=== PATIENT | female | born 1960 | race Caucasian/White ===

== ENCOUNTER 2022-04-25 02:23 | Inpatient (IN) | payer BC, SELFPAY ==
[2022-04-25] VITALS (8 sets, daily range): BP systolic 121–161; BP diastolic 60–78; PULSE 77–112; RESP 12–24; TEMP 36.2–37.9; O2SAT 94–100
--- NOTE | ~2022-04-25 | MR_ITS ---
EXAMINATION: MR hand RT wo/w con DATE: 04/26/2022 11:47 INDICATION: Right hand pain and swelling TECHNIQUE: Magnetic resonance imaging (MRI) of the right hand was performed without intravenous contr ast to include the metacarpals and digits. Sequences included axial, sagittal and coronal T1-weighted FSE and T2-weighted FS FSE, axial T1-weighted FS FSE and postcontrast axial, sagittal and coronal T1 -weighted FS FSE. COMPARISON: None FINDINGS: There is diffuse soft tissue edema and nonmasslike enhancement throughout the right hand. More focal fluid collection at the dorsum of the hand at the level of the metacarpals situated between the cutan eous vessels at the dorsum of the hand and the deeper extensor tendons of the hand. The fluid collect ion demonstrates peripheral enhancement without a relatively well-defined contiguous peripheral wall suggesting phlegmonous change without progressing to abscess formation. The fluid collection measures 3.6 similar proximal to distal, 4.7 cm medial collateral and 8 mm in thickness. Bone alignment is no rmal. Nonspecific small peripherally enhancing joint effusions at the radial aspect of the wrist join t palmar to the radial styloid process along the dorsal and radial margins of the scaphoid. Additiona l joint effusion with peripheral enhancement at the dorsal and volar recess of the third metacarpopha langeal joint where there appears to be joint space narrowing relative to the remaining metacarpophal angeal joints. There is also mild subarticular edema-like signal change at the head of the third meta carpal without associated enhancement or geographic loss of T1 marrow signal to more specifically sug gest osteomyelitis however this nonetheless raises concern for septic arthritis. Small amount of flui d signal and enhancement consistent with tenosynovitis along portions of the flexor tendons at the di gits and along the extensor tendons at the hand. Bone alignment is normal. No fracture. Normal bone m arrow signal aside from the previous noted mild edema at the head of the third metacarpal. IMPRESSION: 1. Extensive inflammatory changes in the soft tissues throughout the right hand most prominent over t he dorsum of the hand for surrounds a more discrete 4.7 x 3.6 x 0.8 cm fluid collection consistent wi thout an organized well-defined contiguous peripheral enhancing wall which suggests phlegmonous jo e progressing towards abscess formation. Differential would include hematoma in the appropriate clini keith setting or focal localized accumulation of severe edema. 2. Small joint effusion and associated enhancing synovitis at the third metacarpophalangeal joint whe re there is suggestion of some subtle joint space narrowing with subarticular edema-like signal jo e at the head of the third metacarpal which raises concern for septic arthritis. 3. Additional nonspecific small wrist joint effusion Reviewed, dictated and finalized at location A. YOLOGY TEACHER IMPRESSION: 1. Extensive inflammatory changes in the soft tissues throughout the right hand most prominent over the dorsum of the hand for surrounds a more discrete 4.7 x 3.6 x 0.8 cm fluid collection consistent without an organized well-defined con tiguous peripheral enhancing wall which suggests phlegmonous change progressing towards abscess formation. Differential would include hematoma in the appropri ate clinical setting or focal localized accumulation of severe edema. 2. Small joint effusion and associated enhancing synovitis at the third metacar pophalangeal joint where there is suggestion of some subtle joint space narrowi ng with subarticular edema-like signal change at the head of the third metacarp al which raises concern for septic arthritis. 3. Additional nonspecific small wrist joint effusi
--- NOTE | ~2022-04-25 | US_ITS ---
US renal BI DATE: 04/28/2022 10:00 INDICATION: Acute renal insufficiency TECHNIQUE: Real-time imaging of kidneys. And urinary bladder. COMPARISON: None FINDINGS: Right kidney measures approximately 11.3 cm length. Left kidney 11 cm. No renal mass lesion or hydronephrosis is evident. The urinary bladder is unremarkable. IMPRESSION: No significant abnormality Reviewed, dictated and finalized at Location A. Reviewed, dictated and finalized at location A. ARDI DEVELOPER IMPRESSION: No significant abnormality
--- NOTE | ~2022-04-25 | XR_ITS ---
EXAMINATION: XR knee LT 3V DATE: 04/27/2022 15:05 INDICATION: New onset erythema and edema at the left knee TECHNIQUE: Anteroposterior, oblique and lateral views of the left knee were obtained COMPARISON: None. FINDINGS: Alignment is normal. No fracture. Joint spaces are normal. No joint effusion/layering lipohemarthros is. Nonspecific mild stranding in the subcutaneous fat at the lateral aspect of the left knee. IMPRESSION: 1. No left knee joint effusion or osseous abnormality. Reviewed, dictated and finalized at location A. ING HAULER WEAVING
--- NOTE | ~2022-04-25 | XR_ITS ---
EXAMINATION: XR foot LT min 3V DATE: 04/25/2022 03:24 INDICATION: Left foot pain. TECHNIQUE: 4 views of left foot were obtained. COMPARISON: None. FINDINGS: Bone alignment is normal. No fracture. There is mild osteoarthritis of first metatarsophala ngeal joint. There is an enthesophyte at plantar aspect of calcaneal tuberosity. IMPRESSION: 1. Mild osteoarthritis of first metatarsophalangeal joint. Reviewed, dictated and finalized at location A. AGE PICK UP WORKER
--- NOTE | ~2022-04-25 | XR_ITS ---
EXAMINATION: XR hand RT min 3V DATE: 04/25/2022 03:24 INDICATION: Right hand pain and swelling. TECHNIQUE: 3 views of right hand were obtained. COMPARISON: None. FINDINGS: Bone alignment is normal. No fracture. There is mild osteoarthritis of first carpometacarpa l joint and second-fifth distal interphalangeal joints. IMPRESSION: 1. Mild polyarticular osteoarthritis. Reviewed, dictated and finalized at location A. WELDER
--- NOTE | ~2022-04-25 | US_ITS ---
EXAMINATION: US soft tissue LE LT DATE: 04/26/2022 11:59 INDICATION: Left foot swelling. TECHNIQUE: Multiple grayscale and Doppler ultrasound images of the left foot were obtained. COMPARISON: Left foot radiographs 04/25/22 FINDINGS: There is subcutaneous edema in the dorsum of left foot. There is focal tenosynovitis at the dorsum of left foot. IMPRESSION: 1. Subcutaneous edema in the dorsum of left foot. 2. Focal tenosynovitis at the dorsum of left foot. Reviewed, dictated and finalized at location A. ALLMENT DEALER
--- NOTE | ~2022-04-25 | MR_ITS ---
MRI of the left knee and left ankle Clinical history: Arthritis, effusion, swelling, cellulitis Technique: Coronal proton density and proton density-weighted images, sagittal proton-density and T2 fat-sat images, and axial proton-density fat-saturated images were acquired of the left knee. Followi ng intravenous administration of 17 cc MultiHance gadolinium, T1-weighted fat-sat imaging was perform ed in the axial, coronal, and sagittal planes. Axial T1-weighted, T2 fat-sat, T1 fat-sat images, sagittal T1-weighted and STIR images, and coronal T 1-weighted and T2 fat-sat images were acquired through the left ankle. Following intravenous administ ration of 17 cc MultiHance gadolinium, T1-weighted fat-sat imaging was performed in the axial, lee l, and sagittal planes. Left Knee Findings: Anterior and posterior cruciate ligaments are intact. Medial collateral ligament and the lateral collateral ligament complex are intact. Popliteus tendon is intact. Possible subtle horizontal tear of the posterior horn of the medial meniscus, however proton-density imaging was not performed. No lateral meniscal tear identified. Articular cartilage is well preserved throughout the knee. There is marrow edema extensively involvin g the inferior half of the patella, with possible area of loss of cortical definition at the medial p atellar pole. Remaining bone marrow signals are unremarkable. Extensor mechanism is intact. Moderate knee joint effusion present. Small Leigh cyst present. There i s subcutaneous soft tissue edema predominantly at the lateral aspect of the knee. There is edematous change involving the distalmost portion of the vastus lateralis muscle belly. There is soft tissue ed manda posterior to the distal femur, nonspecific. Postcontrast images demonstrate extensive enhancement of the synovial lining of the knee joint, which appears somewhat thickened. Left Ankle findings: Syndesmotic ligaments are intact. Anterior and posterior talofibular ligaments, and calcaneofibular ligament are intact. Deltoid ligament is intact. Medial flexor tendons, peroneal tendons, anterior extensor tendons, and Achilles tendon are intact. There is patchy marrow edema involving the inferior half of the talus, the anterior and mid portions of the calcaneus, the cuboid bone, navicular, and cuneiforms. No hypointense T1 marrow signal evident to suggest osteomyelitis however. There is mild degenerative change of the calcaneocuboid joint and naviculocuneiform articulation. Plantar fascia is intact. There is diffuse subcutaneous soft tissue edema about the ankle. Postcontra st images demonstrate enhancement of the synovium about the tibiotalar joint, as well as enhancement of the subcutaneous soft tissue edema about the ankle. Impression: Moderate left knee joint effusion with extensive synovial enhancement and thickening. Findings raise suspicion for septic arthritis. Knee joint aspiration should be strongly considered, especially if th ere is any clinical concern for septic arthritis. Extensive marrow edema of the inferior patella with probable area of loss of cortical integrity at th e medial pole. Findings suggest osteomyelitis of the patella. Possible subtle horizontal tear of the posterior horn of the medial meniscus. Soft tissue edema as well as edema of the distal vastus lateralis muscle belly, nonspecific. This cou ld reflect bland edema versus cellulitis/infectious myositis. Patchy marrow edema of the hindfoot and midfoot osseous structures, as detailed above, suggestive of stress response or other reactive marrow edema. No confluent hypodense T1 marrow signal about the ank le to suggest osteomyelitis. Soft tissue enhancement as well as enhancement of the synovium about the tibiotalar joint. Findings a re consistent with cellulitis. Associated septic arthritis of the tibiotalar joint
--- NOTE | ~2022-04-25 | US_ITS ---
EXAMINATION: US guide abscess drainage DATE: 04/30/2022 16:32 INDICATION: Left foot abscess TECHNIQUE: The procedure including the risks and benefits was discussed with the patient. Risks discussed includ ed bleeding and infection. The patient understood the risks and agreed to proceed. The skin overlying the medial malleolus of the left ankle was prepped and draped in usual sterile fashion. Anesthetic w as administered with 1% lidocaine subcutaneously. A 21-gauge needle was advanced under continuous ult rasound observation into a very hypoechoic region along the talus posterior tendon sheath at the leve l of the tip of the medial malleolus. No fluid was able to be aspirated. 1 mL of preservative-free st erile saline was then utilized to localize the tendon sheath which yielded slightly turbid yellowish- orange fluid which was sent to the lab for Gram stain, cultures and crystal analysis. A new 21-gauge needle was advanced into a very superficial subdermal fluid collection underlying the region of gena sh purple-colored skin discoloration which yielded only 0.1-0.2 mL of dark maroon-colored fluid likel y representing old blood. This was also sent to lab for Gram stain and cultures. The entry sites were cleaned and dressed. Post procedure ultrasound demonstrated no hemorrhage. FINDINGS: Ultrasound images demonstrate prominent hypoechoic subcutaneous edema over the medial side of the ank le with overlying 1 mm thick anechoic collection of subdermal fluid. There is small amount of hypoech ogenicity surrounding the tibialis posterior tendon initially indeterminant for synovitis versus flui d. Similar appearance to the extensor tendons over the dorsum of the foot however the small more anec hoic region of likely fluid previously seen in the region dorsal to the head of the talus was no long er present. Subsequent images demonstrate the needle advanced into the tibialis posterior tendon vazquez th for attempted unsuccessful aspiration of fluid and subsequent successful lavage and collection of lavage fluid. Final images demonstrate the needle tip within the very thin subdural fluid collection for additional aspiration. IMPRESSION: 1. Successful Ultrasound-guided lavage the region of synovitis along the tibialis posterior tendon sh eath which did not yield fluid on initial attempt at aspiration. 2. Successful ultrasound-guided aspiration of a minimal amount of dark maroon-colored likely old bloo d from a very thin subdermal fluid collection at the site of a reddish purple-colored skin discolorat ion at the medial left ankle. 3. Previously seen small collection of fluid along the extensor tendons at the dorsum of the foot was no longer present. Reviewed, dictated and finalized at location A. H PRECISION ASSEMBLER IMPRESSION: 1. Successful Ultrasound-guided lavage the region of synovitis along the tibial is posterior tendon sheath which did not yield fluid on initial attempt at aspi ration. 2. Successful ultrasound-guided aspiration of a minimal amount of dark maroon-c olored likely old blood from a very thin subdermal fluid collection at the site of a reddish purple-colored skin discoloration at the medial left ankle. 3. Previously seen small collection of fluid along the extensor tendons at the dorsum of the foot was no longer present.
--- NOTE | ~2022-04-25 | XR_ITS ---
EXAM: XR hand RT min 3V DATE: 05/08/2022 18:22 HISTORY: arthritis . COMPARISON: 04/25/2022. FINDINGS: Mildly decreased mineralization. No fracture or dislocation. No lytic or blastic lesion. M ild degenerative change in the DIP joints of the fingers, the trapeziometacarpal joint, and the third MCP joint. No erosion or periosteal change. Soft tissue swelling over the hand. IMPRESSION: Mild polyarticular osteoarthritis. Reviewed, dictated and finalized at location K. UMER SALES REPRESENTATIVE
--- NOTE | ~2022-04-25 | US_ITS ---
EXAMINATION: US venous doppler [facility] DATE: 04/26/2022 12:27 INDICATION: Left lower limb edema TECHNIQUE: Rajan scale images without and with compression and Doppler images of the left lower extrem ity veins were obtained. COMPARISON: None FINDINGS: The left common femoral vein, profunda femoral vein, femoral vein, popliteal vein, peroneal trunk, posterior tibial veins, and greater saphenous vein are patent. IMPRESSION: 1. Patent left lower extremity veins. No evidence of deep venous thrombosis. Reviewed, dictated and finalized at location B. EMISSION AUTOMOBILE DESIGNER
--- NOTE | ~2022-04-25 | US_ITS ---
EXAMINATION: US venous doppler UE RT DATE: 04/25/2022 15:10 INDICATION: Right upper limb swelling TECHNIQUE: Grayscale images without and with compression and Doppler images of the bilateral upper ex tremity veins were obtained. COMPARISON: None. FINDINGS: The right internal jugular vein, subclavian vein, axillary vein, brachial vein, basilic vein, cephali c vein, radial vein, and ulnar vein are patent. Marked subcutaneous edema along the volar aspect of t he right wrist and forearm. IMPRESSION: 1. Patent right upper extremity veins. No evidence of venous thrombosis. Reviewed, dictated and finalized at location A. TIFICATION AND RECORDS COMMANDER
--- NOTE | ~2022-04-25 | US_ITS ---
EXAMINATION: US_ABSCYSTIMG_US DATE: 04/29/2022 13:28 INDICATION: Right hand erythema with fluid collection at the dorsum of the hand on prior MRI. TECHNIQUE: The procedure including the risks and benefits was discussed with the patient. Risks discu ssed included bleeding and infection. The patient understood the risks and agreed to proceed. The sk in overlying the dorsum of the right hand was prepped and draped in usual sterile fashion. Anestheti c was administered with 1% lidocaine subcutaneously. A 21-gauge core biopsy needle was advanced under continuous ultrasound observation into a very hypoechoic region along the extensor digitorum longus tendon sheath at the level of the mid carpus and a trace amount of likely 0.1-0.2 mL of purulent appe aring opaque yellowish fluid was aspirated. The needle was removed, capped and along with the syringe sent to the lab. Subsequently a 25-gauge needle was advanced into the same region of the tendon vazquez th which was then lavaged with 1 mL of preservative-free sterile saline which was reaspirated and als o sent to the lab. The needle was removed and the entry site was cleaned and dressed. Post procedur e ultrasound demonstrated no hemorrhage. FINDINGS: Ultrasound images demonstrate prominent hypoechoic subcutaneous edema over the dorsum of th e hand without a discrete subcutaneous abscess to aspirate. Prominent hypoechoic synovitis along the extensor tendons at the dorsum of the hand with tiny more hypoechoic likely complex fluid collection. Subsequent images demonstrate the needle advanced into this tiny fluid collection which is decompres sed at the conclusion of the procedure. IMPRESSION: 1. Successful Ultrasound-guided aspiration of a small amount of fluid along the extensor digitorum te ndon sheath at the dorsum of the hand. 2. Successful ultrasound-guided lavage and aspiration of the previously drained portion of the tendon sheath. Reviewed, dictated and finalized at location A. ULATION REPRESENTATIVE IMPRESSION: 1. Successful Ultrasound-guided aspiration of a small amount of fluid along the extensor digitorum tendon sheath at the dorsum of the hand. 2. Successful ultrasound-guided lavage and aspiration of the previously drained portion of the tendon sheath.
[2022-04-25] MEDS: ACETAMINOPHEN 500 MG TABLET 1000 MG PO (03:11)
--- NOTE | 2022-04-25 03:15 | PC.NURSE ---
Pt c/o generalized body aches and malaise that she first noticed on Friday, and left foot/ankle pain/swelling, and right hand pain/swelling that she first noticed yesterday. Moderate swelling noted to right hand. She denies known injury. No obvious deformity noted. She did a home covid test which was negative and has been taking tylenol at home for discomfort. She denies fevers.
--- NOTE | 2022-04-25 03:28 | ED.EXTPRO ---
HPI - Extremity Problem General Chief complaint: Extremity Problem,Nontraumatic Stated complaint: R hand pain Time Seen by Provider: 04/25/22 03:02 History of Present Illness HPI Narrative: 61-year-old female presenting with 2 days of fevers and swelling to her right hand, and then slight swelling to her left foot. Denies any recent trauma, has not had history of this before, no history of gout though she states arthritis does run in the family. Related Data Home Medications Medication Instructions Recorded Confirmed calcium carbonate 500 mg calcium 500 mg PO DAILY 02/25/19 02/08/22 (1,250 mg) tablet (Calcium 500) alendronate 70 mg tablet 70 mg PO WEEKLY 01/06/20 04/25/22 cholecalciferol (vitamin D3) 50 50 mcg PO DAILY 01/06/20 02/08/22 mcg (2,000 unit) capsule ferrous sulfate 325 mg (65 mg 325 mg PO .2XWEEK 01/06/20 04/25/22 iron) tablet (Feosol) methimazole 5 mg tablet 2.5 mg PO DAILY 01/06/20 04/25/22 meloxicam 15 mg tablet 15 mg PO DAILY 02/08/22 04/25/22 calcium carbonate 600 mg-vitamin 1 cap PO DAILY 04/25/22 04/25/22 D3 10 mcg (400 unit) capsule Allergies Allergy/AdvReac Type Severity Reaction Status Date / Time losartan Allergy Unknown Unknown Verified 02/08/22 08:25 Review of Systems Review of Systems: CONST: Chills/fever HEENT: No sore throat C/V: No chest pain RESP: No cough GI: No nausea vomiting : No dysuria. M/S: Swelling and pain in right hand, left foot/ankle SKIN: Swelling right hand NEURO: [No headache or focal numbness or weakness] PSYCH: [No depression] [facility] Past Medical History Medical History Hypertension Hyperthyroidism Osteopenia after menopause Surgical History Surgical History H/O: hysterectomy History of ankle surgery Family History Family History Mother Family history of diabetes mellitus in first degree relative Father Patient's father is Acute myocardial infarction Sibling Hypertension Grandparent Cerebrovascular accident Other Family history of arthritis Family history of cardiovascular disease Family history of malignant neoplasm Social History Social History Smoking status: Never smoker Alcohol intake: current Exam Narrative: EXAMINATION OF ORGAN SYSTEMS/BODY AREAS: Constitutional: Vital signs per nursing GENERAL: Appears uncomfortable in bed HEAD: Normal with no signs of head trauma. EYES: EOMI, conjunctiva normal ENT: Hearing grossly intact LUNGS: Nonlabored breathing. HEART: Tachycardic ABD: No distention] EXT: Normal range of motion, severe swelling to dorsum of right hand, slight redness overlying some joints, however full non-painful range of motion of all fingers and wrist SKIN: [No rashes or lesions.] NEURO: [Alert and oriented x 3. No gross focal sensory or strength deficits.] PSYCH: Normal affect Course Vital Signs Vital signs: Vital Signs Temperature 97.5 F L 04/25/22 02:27 Pulse Rate 112 H 04/25/22 02:27 Respiratory Rate 18 04/25/22 02:27 Blood Pressure 130/60 04/25/22 02:27 Pulse Oximetry 98 04/25/22 02:27 Oxygen Delivery Room Air 04/25/22 02:27 Temperature 100.3 F H 04/25/22 05:25 Pulse Rate 85 04/25/22 05:25 Respiratory Rate 24 H 04/25/22 05:25 Blood Pressure 151/78 H 04/25/22 05:25 Pulse Oximetry 96 04/25/22 05:25 Oxygen Delivery Room Air 04/25/22 02:27 MDM - Extremity (Nontraumatic) MDM Narrative Medical decision making narrative: 61-year-old female presenting with nontraumatic right hand pain, vital signs notable for tachycardia, on evaluation she is quite uncomfortable, her right hand is extremely swollen and tender, though she is able to move with painless normal range of motion, and there are no joint effusions. I suspect gout versus
[2022-04-25] MEDS: KETOROLAC 15 MG/ML VIAL (*BKC) IV PUSH (03:38)
[2022-04-25] MEDS: LACTATED RINGERS 1,000 ML 999 ML IV CONT (03:40)
[2022-04-25 03:45] LABS: Basophils Percent Auto 0.4 % (0.2-1.2); Eosinophils Absolute Auto 0.1 K/mm3 (0-0.3); Eosinophils Percent Auto 0.7 % (0-4.4); Hematocrit 34.7 % (37.0-47.0); Hemoglobin 11.8 g/dL (12.0-15.0); Immature Granulocyte Absolute 0.16 K/mm3 (0.00-0.031); Immature Granulocyte Percent A 1.6 % (0-0.5); Immature Platelet Fraction Pct 12.3 % (0.9-11.2); Lymphocytes Absolute Auto 0.21 K/mm3 (0.9-3.2); Lymphocytes Percent Auto 2.2 % (18.3-44.2); Mean Corpuscular Hemoglobin 31.1 pg (26-34); Mean Corpuscular Volume 91.3 fl (80-100); Monocytes Absolute Auto 0.4 K/mm3 (0.1-0.6); Monocytes Percent Auto 4.2 % (2.6-8.5); Neutrophils Absolute Auto 8.9 K/mm3 (1.3-6.7); Neutrophils Percent Auto 90.9 % (45.5-73.1); Platelet Count Result 97 k/mm3 (150-375); Red Cell Distribution Width 11.8 % (11.5-14.5); White Blood Count 9.7 K/mm3 (4.5-10.0)
[2022-04-25 03:53] LABS: Influenza A QL RT-PCR Negative (Negative); Influenza B QL RT-PCR Negative (Negative); RSV RNA, RT-PCR Negative (Negative); SARS-CoV-2 RNA PCR Negative
[2022-04-25 03:58] LABS: Anion Gap 10 mmol/L (8-16); Blood Urea Nitrogen 27 mg/dL (7-17); CRP > 9.0 mg/dL (<1.0); Carbon Dioxide 24 mmol/L (22-30); Chloride 99 mmol/L (98-107); Estimated CRCL calculation 40 ml/min; Estimated Glomerular Filt Rate 38; Glucose 173 mg/dL (65-110); Potassium 3.5 mmol/L (3.4-5.0); Sodium 133 mmol/L (137-145)
[2022-04-25 04:11] LABS: Erythrocyte Sedimentation Rate 121 mm/hr (0-20)
[2022-04-25] MEDS: predniSONE 20 MG TABLET 40 MG PO (04:51)
[2022-04-25] MEDS: MORPHINE SULFATE (*CRX) 4 MG/ML INJ IV PUSH (04:51)
[2022-04-25] MEDS: SULFAMETHOXAZOLE/TRIMETHOPRIM 800/160 MG DS TABLET 1 TAB PO (04:51)
[2022-04-25] MEDS: ceFAZolin 2 GM/D5W 50 ML 2 GM/50 ML BAG IVPB (05:02)
[2022-04-25 05:38] LABS: Uric Acid 5.8 mg/dL (2.5-7.5)
[2022-04-25] MEDS: fentaNYL CITRATE INJ (*CRX) 100 MCG/2 ML VIAL 50 MCG IV PUSH (05:48)
--- NOTE | 2022-04-25 06:29 | PC.NURSE ---
Pt notified this RN that the swelling in her right hand is spreading up her arm. Site marked with pen and timed. Instructed pt to call RN if she notices swelling spreading past marking. Pt verbalized understanding.
--- NOTE | 2022-04-25 10:08 | ADMGEN ---
This patient, Tiffanie Chavez, was admitted to 3 Med Surg Room 304-01. Patient/family oriented to hospital policies and general routines including ID bracelet, bed and alarms, visiting hours, pain management, procedures, bathroom and other care routines, personal items, smoking policy, room service/diet, and visiting hours. Information on how to activate the Rapid Response Team has been discussed. Patient/Family are encouraged to report perceived risks to care and to ask questions if they do not understand what they are told or what they should do.
[2022-04-25] MEDS: lisinopriL 10 MG TABLET BY MOUTH (10:17)
--- NOTE | 2022-04-25 12:49 | PM.IMPN ---
Subjective Date/time seen: 04/25/22 12:49 Still complaining of right hand pain. Objective Data Vital Signs Vital Signs: Vital Signs - 24 hr 04/25/22 02:27 04/25/22 04:08 04/25/22 05:25 Temperature 97.5 F L 100.3 F H Pulse Rate 112 H 96 85 Respiratory Rate 18 20 24 H Blood Pressure 130/60 161/69 H 151/78 H Pulse Oximetry 98 100 96 Oxygen Delivery Room Air 04/25/22 06:30 04/25/22 06:54 04/25/22 08:33 Temperature 97.2 F L Pulse Rate 83 79 77 Respiratory Rate 20 20 18 Blood Pressure 140/64 140/64 131/63 Pulse Oximetry 98 97 95 Oxygen Delivery Intake/Output Intake/Output: Intake & Output 04/22/22 04/23/22 04/24/22 04/25/22 23:59 23:59 23:59 23:59 Intake Total 1640 Balance 1640 Meds/Results Medications: Active Medications Generic Name Dose Route Start Last Admin Trade Name Freq PRN Reason Stop Dose Admin Ferrous Sulfate 324 mg 04/27/22 08:00 Ferrous Sulfate 324 Mg Tablet PO TuSa@0800 CHRISTIAN Acetaminophen 1,000 mg in 100 mls @ 400 mls/hr 04/25/22 06:03 04/25/22 06:38 Ofirmev 1,000 Mg Ivpb IVPB 04/26/22 06:02 Infused Q6H PRN Infusion Mild Pain (1-3) or Fever Vancomycin HCl 1,250 mg in 250 mls @ 200 mls/hr 04/25/22 06:00 04/25/22 07:55 Vancomycin 1,250 Mg/D5w 250 Ml IVPB Infused Q24H CHRISTIAN Infusion Ketorolac Tromethamine 30 mg 04/25/22 06:03 Ketorolac 30 Mg/Ml Vial (*Bkc) IV PUSH 04/30/22 06:02 Q6H PRN Pain Rated 4-6 Lisinopril 10 mg 04/25/22 09:00 04/25/22 10:17 Lisinopril 10 Mg Tablet BY MOUTH 10 mg DAILY CHRISTIAN Administration Methimazole 2.5 Mg 1 each 04/25/22 09:00 04/25/22 10:17 Tablet (Nonformulary PO 1 each - Will Not Scan) DAILY CHRISTIAN Administration Radiology Results: ITS Impressions Hand X-Ray 04/25/22 06:49 IMPRESSION: 1. Mild polyarticular osteoarthritis. Foot X-Ray 04/25/22 06:50 IMPRESSION: 1. Mild osteoarthritis of first metatarsophalangeal joint. Labs Labs: Laboratory Results - last 24 hr 04/25/22 04/25/22 04/25/22 03:14 03:36 03:36 WBC 9.7 RBC 3.80 L Hgb 11.8 L Hct 34.7 L MCV 91.3 MCH 31.1 MCHC 34.0 RDW 11.8 Plt Count 97 L MPV 12.0 H Immature Gran % (Auto) 1.6 H Neut % (Auto) 90.9 H Lymph % (Auto) 2.2 L [place] % (Auto) 4.2 Eos % (Auto) 0.7 Baso % (Auto) 0.4 Lymph # (Auto) 0.21 L [place] # (Auto) 0.4 Eos # (Auto) 0.1 Baso # (Auto) 0.0 Abs Immat Gran (auto) 0.16 H Absolute Neuts (auto) 8.9 H Absolute Nucleated RBC 0.0 Nucleated RBC % 0.0 % Immature Plt Fraction 12.3 H ESR 121 H Sodium 133 L Potassium 3.5 Chloride 99 Carbon Dioxide 24 Anion Gap 10 BUN 27 H Creatinine 1.40 H Estim Creat Clear Calc 40 Estimated GFR 38 L Glucose 173 H Uric Acid Calcium 8.0 L C-Reactive Protein > 9.0 H Influenza A (RT-PCR) Negative Influenza B (RT-PCR) Negative RSV (RT-PCR) Negative SARS-CoV-2 RNA (RT-PCR) Negative 04/25/22 05:21 WBC RBC Hgb Hct MCV MCH MCHC RDW Plt Count MPV Immature Gran % (Auto) Neut % (Auto) Lymph % (Auto) [place] % (Auto) Eos % (Auto) Baso % (Auto) Lymph # (Auto) [place] # (Auto) Eos # (Auto) Baso # (Auto) Abs Immat Gran (auto) Absolute Neuts (auto) Absolute Nucleated RBC Nucleated RBC % % Immature Plt Fraction ESR Sodium Potassium Chloride Carbon Dioxide Anion Gap BUN Creatinine Estim Creat Clear Calc Estimated GFR Glucose Uric Acid 5.8 Calcium C-Reactive Protein Influenza A (RT-PCR) Influenza B (RT-PCR) RSV (RT-PCR) SARS-CoV-2 RNA (RT-PCR)
--- NOTE | 2022-04-25 12:54 | PM.IMHP ---
H&P: HPI History of Present Illness Date/Time: 04/25/22 12:54 Chief Complaint: 61-year-old female presenting with 2 days of fevers and swelling to her right hand, and then slight swelling to her left foot.? Denies any recent trauma, has not had history of this before, no history of gout though she states arthritis does run in the family. [facility] Past Medical History Medical History Hypertension Hyperthyroidism Osteopenia after menopause Surgical History Surgical History H/O: hysterectomy History of ankle surgery Family History Family History Mother Family history of diabetes mellitus in first degree relative Father Patient's father is Acute myocardial infarction Sibling Hypertension Grandparent Cerebrovascular accident Other Family history of arthritis Family history of cardiovascular disease Family history of malignant neoplasm Social History Social History Smoking status: Never smoker Alcohol intake: current Lack of Transportation: No Lack of Food: Never True Current Housing: I Have Housing Concerned About Future Housing: No Difficulty Paying Gas/Electric Bills: No Difficulty Paying for Meds: No Currently Unemployed: No Education: Bachelor's Degree Difficulty w/ Childcare or Family Care: No Spiritual care concerns: Yes (quaker) Meds Home Medications and Allergies Home Medications Medication Instructions Recorded Confirmed Type alendronate 70 mg tablet 70 mg PO WEEKLY 01/06/20 04/25/22 History ferrous sulfate 325 mg (65 mg 325 mg PO .2XWEEK 01/06/20 04/25/22 History iron) tablet (Feosol) methimazole 5 mg tablet 2.5 mg PO DAILY 01/06/20 04/25/22 History meloxicam 15 mg tablet 15 mg PO DAILY 02/08/22 04/25/22 History calcium carbonate 600 mg-vitamin 1 cap PO DAILY 04/25/22 04/25/22 History D3 10 mcg (400 unit) capsule lisinopril 10 mg tablet 10 mg PO DAILY 04/25/22 04/25/22 History Allergies Allergy/AdvReac Type Severity Reaction Status Date / Time losartan Allergy Unknown Unknown Verified 04/25/22 09:59 Vital Signs Vital Signs - 24 hr 04/25/22 02:27 04/25/22 04:08 04/25/22 05:25 Temperature 97.5 F L 100.3 F H Pulse Rate 112 H 96 85 Respiratory Rate 18 20 24 H Blood Pressure 130/60 161/69 H 151/78 H Pulse Oximetry 98 100 96 Oxygen Delivery Room Air 04/25/22 06:30 04/25/22 06:54 04/25/22 08:33 Temperature 97.2 F L Pulse Rate 83 79 77 Respiratory Rate 20 20 18 Blood Pressure 140/64 140/64 131/63 Pulse Oximetry 98 97 95 Oxygen Delivery Exam Narrative: General: alert and oriented Psych: appropriate mood nad affect Eyes: PERRLA Neck: Trachea midline, no new lesions Skin: no changes Lungs: CTA Cardiac: Normal S1,S2, no MGR ABD: soft, nd, nt, nbs Ext: no new lesions, no cce Vasc: Pulses intact H&P: Results Labs Labs: Short CBC 04/25/22 Range/Units 03:36 WBC 9.7 (4.5-10.0) K/mm3 Hgb 11.8 L (12.0-15.0) g/dL Hct 34.7 L (37.0-47.0) % Plt Count 97 L (150-375) k/mm3 [facility] 04/25/22 03:36 Sodium 133 L Potassium 3.5 Chloride 99 Carbon Dioxide 24 BUN 27 H Creatinine 1.40 H Glucose 173 H Calcium 8.0 L Assessment and Plan Assessment and plan (1) Cellulitis: Code(s): L03.90 - Cellulitis, unspecified Status: Acute Assessment and Plan: Continue IV antibiotics (2) GERD without esophagitis: Code(s): K21.9 - Gastro-esophageal reflux disease without esophagitis Status: Acute (3) Vitamin D deficiency: Code(s): E55.9 - Vitamin D deficiency, unspecified Status: Acute (4) Hypertension: Code(s): I10 - Essential (primary) hypertension Status: Acute Assessment and Plan: Continue ho
--- NOTE | 2022-04-25 12:57 | PM.CNOR ---
Assessment and Plan Assessment and plan (1) Hand swelling: Qualifiers: Laterality: right Qualified Code(s): M79.89 - Other specified soft tissue disorders Code(s): M79.89 - Other specified soft tissue disorders Status: Acute Assessment and Plan: History, exam and radiographs reviewed with the patient. Radiographs of the right hand reveal mild degenerative changes. Insert acute injury. Patient has significant swelling of the right hand extending to the proximal forearm. She does have active and passive range of motion of the hand without significant pain however it is limited due to the swelling. Mild erythema on the dorsum of the right hand between the 1st and 2nd finger. White blood cell count is normal. Elevated ESR and CRP. Uric acid is normal. Recommend ultrasound of the right upper extremity for further evaluation and to rule out a blood clot. Agree with IV antibiotics for possible cellulitis treatment. Monitor for compartment syndrome. Monitor neurovascular status. Elevate the right arm above the level heart. Ice hand. Will determine further plan of care pending Doppler results. (2) Cellulitis: Qualifiers: Site of cellulitis: extremity Site of cellulitis of extremity: upper extremity Laterality: right Qualified Code(s): L03.113 - Cellulitis of right upper limb Code(s): L03.90 - Cellulitis, unspecified Status: Acute Plan Reviewed labs, radiographs and assessment with attending physician and cisco consultant surgeon, Dr. Diez. Agrees with current plan as indicated above. No further recommendations at this time. History of Present Illness HPI Consult date: 04/25/22 Consult reason: joint pain Chief complaint: hand cellulitis vs gout Narrative: 61-year-old female presents to [facility] with right hand pain and swelling. Patient reports acute onset on Friday and worsening over Friday and Friday which prompted her arrival to the emergency room for further evaluation. She denies any known injury. She denies fever, chills, night sweats, nausea, vomiting or diarrhea. She denies past medical history of gout. Orthopedic consult requested by the hospitalist service for further evaluation Review of Systems Constitutional: Constitutional: Reports no additional constitutional complaints, Denies chills, Denies fatigue, Denies fever(s), Denies headache(s) and Denies weakness Eyes: Eyes: Denies change in vision ENT: Reports Normal hearing present and Denies headache(s) Cardiovascular: Cardiovascular: Denies chest pain and Denies dyspnea Respiratory: Respiratory: Denies cough, Denies dyspnea and Denies wheezing Gastrointestinal: Gastrointestinal: Denies constipation, Denies diarrhea, Denies nausea and Denies vomiting Genitourinary: Genitourinary: Denies hematuria, Denies dysuria and Denies urinary urgency Musculoskeletal: Musculoskeletal: Reports as per HPI, Denies numbness and Denies tingling Integumentary/Breasts: Skin/Breast: Reports as per HPI Neurologic: Reports as per HPI, Reports Normal hearing present, Denies headache(s), Denies numbness, Denies tingling and Denies weakness Psychiatric: Psychiatric: Reports no additional psychiatric complaints Endocrine: Endocrine: Reports no additional endocrine complaints and Denies fatigue Hematologic/Lymphatic: Hematologic/Lymphatic: Reports no additional hematologic/lymphatic complaints Allergic/Immunologic: Allergic/Immunologic: Reports no additional allergic/immunologic complaints and Denies wheezing PMFSH Past Medical History Medical History Hypertension Hyperthyroidism Osteopenia after menopause Surgical History Surgical History H/O: hysterectomy History of ankle surgery Family History Family History Mother Family history of diabetes
[2022-04-25] MEDS: SODIUM CHLORIDE 0.9% IV 1,000 ML 75 ML IV CONT (13:06)
[2022-04-25] MEDS: HYDROcodone/acetaminophen (*CRX) 5-325 MG TABLET 1 TAB PO (13:12)
[2022-04-26] MEDS: HYDROcodone/acetaminophen (*CRX) 5-325 MG TABLET 1 TAB PO ×4 (00:59→21:52)
[2022-04-26] MEDS: SODIUM CHLORIDE 0.9% IV 1,000 ML 75 ML IV CONT (02:31)
[2022-04-26 05:33] VITALS: BP 115/55; PULSE 80; RESP 16; TEMP 36.4; O2SAT 95
[2022-04-26 06:03] LABS: Basophils Absolute Auto 0.1 K/mm3 (0.0-0.1); Basophils Percent Auto 0.6 % (0.2-1.2); Hemoglobin 10.3 g/dL (12.0-15.0); Immature Granulocyte Absolute 0.06 K/mm3 (0.00-0.031); Immature Granulocyte Percent A 0.7 % (0-0.5); Immature Platelet Fraction Pct 15.4 % (0.9-11.2); Lymphocytes Percent Auto 5.5 % (18.3-44.2); Mean Corpuscular HGB Conc 34.3 g/dl (32-36); Mean Corpuscular Hemoglobin 31.5 pg (26-34); Mean Corpuscular Volume 91.7 fl (80-100); Mean Platelet Volume 13.3 fl (7.4-10.4); Monocytes Absolute Auto 0.5 K/mm3 (0.1-0.6); Monocytes Percent Auto 5.9 % (2.6-8.5); Neutrophils Absolute Auto 7.9 K/mm3 (1.3-6.7); Neutrophils Percent Auto 87.3 % (45.5-73.1); Platelet Count Result 98 k/mm3 (150-375); Red Blood Count 3.27 M/mm3 (4.2-5.4); White Blood Count 9.1 K/mm3 (4.5-10.0)
[2022-04-26 06:11] LABS: Anion Gap 6 mmol/L (8-16); Blood Urea Nitrogen 28 mg/dL (7-17); Calcium 7.1 mg/dL (8.4-10.2); Carbon Dioxide 25 mmol/L (22-30); Chloride 101 mmol/L (98-107); Estimated CRCL calculation 43 ml/min; Estimated Glomerular Filt Rate 42; Glucose 127 mg/dL (65-110); Potassium 3.4 mmol/L (3.4-5.0); Sodium 132 mmol/L (137-145)
[2022-04-26] MEDS: lisinopriL 10 MG TABLET BY MOUTH (08:54)
--- NOTE | 2022-04-26 09:53 | PM.PNORT ---
Progress Note: A&P Assessment and Plan (1) Acute kidney injury: Code(s): N17.9 - Acute kidney failure, unspecified Status: Acute Assessment and Plan: UA ordered (2) Hand swelling: Qualifiers: Laterality: right Qualified Code(s): M79.89 - Other specified soft tissue disorders Code(s): M79.89 - Other specified soft tissue disorders Status: Acute Assessment and Plan: Worsening of hand swelling today. Doppler negative for DVT. Given only minimal improvement with addition of IV antibiotics, recommended MRI of the right hand at this time for further evaluation. We will also check RA, BRAXTON and Anti-CCP. Elevate above the level of the heart. Ice. Continue IV antibiotics. (3) Foot swelling: Code(s): M79.89 - Other specified soft tissue disorders Status: Acute Assessment and Plan: Now with worsening of left foot swelling. Patient unable to undergo MRI of the right hand and left foot at the same time. We will start with soft tissue ultrasound of the dorsum of the left foot given ecchymosis and concern for hematoma. Weightbearing as tolerated. Pain control. Elevation. Plan Reviewed case with attending physician, Dr. Diez. Agrees with current plan as indicated above. Subjective Subjective Date/Time Seen: 04/26/22 09:53 Interval history: Patient with continued right hand pain and swelling. Now with increasing complaints of left foot pain and swelling. Fever overnight. Review of Systems Review of Systems: All systems reviewed & are unremarkable except as noted in HPI and below Exam Const: General: comfortable and no acute distress HENMT: Mouth: Yes moist mucous membranes Eyes: General: appearance normal, both eyes and all related structures Neck: Neck: supple and no JVD Resp: Effort & Inspection: normal respiratory effort Cardio: Rate: regular rate Rhythm: regular rhythm GI: Inspection: non-distended GI Palp: Yes Soft to palpation and No Tenderness to palpation present (GI) Neuro: General: gait normal Cognition (Neuro): normal cognition Speech: normal speech Extrem: Right upper extremity: elbow/forearm swelling and distal pulses intact; no ecchymosis and no crepitus, wrist swelling, abnormal ROM ( Limited due to swelling of the hand), radial pulse present 2+ and ulnar pulse present 2+; no crepitus and Extremity exam: right hand abnormal to inspection joint swelling, normal capillary refill, neurosensory exam normal, tendon exam normal of all digits, abnormal ROM of finger ( limited flexion and extension due to swelling however this is not painful.), warmth of the dorsal hand and swelling of the dorsal hand, of the palm, of the thumb, of the 2nd digit, of the 3rd digit, of the 4th digit and of the 5th digit; no abrasions, no lacerations, no crepitus, no foreign bodies and no puncture wound Left lower extremity: foot Details: normal capillary refill, tenderness Location: of the dorsal foot, abnormal ROM of toe Details: pain with active ROM Location: of all toes and pain with passive ROM of all toes, edema Location: of the dorsal foot, ecchymosis (dorsal foot ) and vascular exam Details: dorsalis pedis pulse present Psych: Mental Status: mental status grossly normal Affect: normal affect Objective Data Vital Signs Vital Signs: Vital Signs - 24 hr 04/25/22 14:34 04/25/22 20:00 04/25/22 21:25 Temperature 36.5 C 37.2 C Pulse Rate 83 90 Respiratory Rate 18 12 Blood Pressure 121/60 130/60 Pulse Oximetry 100 94 Oxygen Delivery Room Air 04/26/22 05:33 Temperature 36.4 C L Pulse Rate 80 Respiratory Rate 16 Blood Pressure 115/55 L Pulse Oximetry 95 Oxygen Delivery Intake/Output Intake/Output: Intake & Output 04/23/22 04/24/22 04/25/22 04/26/22 23:59 23:59 23:59 23:59 Intake Total 2280 1715 Balance 2280 1715 Meds/Results Medications: Active Medications Generic Name Dose Route Start Last Admin Trad
[2022-04-26 11:22] LABS: Rheumatoid Factor 13.7 IU/ML (<12)
--- NOTE | 2022-04-26 12:00 | PM.IMPN ---
Progress Note: A&P Assessment and Plan (1) Cellulitis: Qualifiers: Laterality: right Site of cellulitis: extremity Site of cellulitis of extremity: upper extremity Qualified Code(s): L03.113 - Cellulitis of right upper limb Code(s): L03.90 - Cellulitis, unspecified Status: Acute Assessment and Plan: Continue IV antibiotics Appreciate Ortho input Upper extremity ultrasound negative for DVT. MRI of the hand ordered by Ortho. Will get Doppler of left lower extremity Soft tissue ultrasound also ordered of the left lower extremity. (2) GERD without esophagitis: Code(s): K21.9 - Gastro-esophageal reflux disease without esophagitis Status: Acute (3) Vitamin D deficiency: Code(s): E55.9 - Vitamin D deficiency, unspecified Status: Acute (4) Hypertension: Code(s): I10 - Essential (primary) hypertension Status: Acute Assessment and Plan: Continue home medications. (5) Hyperthyroidism: Code(s): E05.90 - Thyrotoxicosis, unspecified without thyrotoxic crisis or storm Status: Acute (6) Acute kidney injury: Code(s): N17.9 - Acute kidney failure, unspecified Status: Acute Assessment and Plan: Likely related to NSAID exposure. Will start on IV fluids. Stop NSAIDs. Monitor creatinine Subjective Date/time seen: 04/26/22 12:00 Low-grade temp overnight. Still has swelling in right hand and left foot. Exam Narrative: General: alert and oriented Psych: appropriate mood nad affect Eyes: PERRLA Neck: Trachea midline, no new lesions Skin: no changes Lungs: CTA Cardiac: Normal S1,S2, no MGR ABD: soft, nd, nt, nbs Ext: no new lesions, no cce Vasc: Pulses intact Objective Data Vital Signs Vital Signs: Vital Signs - 24 hr 04/25/22 14:34 04/25/22 20:00 04/25/22 21:25 Temperature 97.7 F 99 F Pulse Rate 83 90 Respiratory Rate 18 12 Blood Pressure 121/60 130/60 Pulse Oximetry 100 94 Oxygen Delivery Room Air 04/26/22 05:33 04/26/22 08:55 Temperature 97.5 F L Pulse Rate 80 Respiratory Rate 16 Blood Pressure 115/55 L Pulse Oximetry 95 Oxygen Delivery Room Air Intake/Output Intake/Output: Intake & Output 04/23/22 04/24/22 04/25/2213/23 23:59 23:59 23:59 23:59 Intake Total 2280 1715 Balance 2280 1715 Meds/Results Medications: Active Medications Generic Name Dose Route Start Last Admin Trade Name Freq PRN Reason Stop Dose Admin Hydrocodone Bitart/Acetaminophen 1 tab 04/25/22 12:52 04/26/22 08:53 Hydrocodone/Acetaminophen (*Crx) 5-325 Mg Tablet PO 1 tab Q6H PRN Administration Pain Rated 4-6 Ferrous Sulfate 324 mg 04/27/22 08:00 Ferrous Sulfate 324 Mg Tablet PO [id number]@0800 CHRISTIAN Vancomycin HCl 1,250 mg in 250 mls @ 200 mls/hr 04/25/22 06:00 04/26/22 07:15 Vancomycin 1,250 Mg/D5w 250 Ml IVPB Infused Q24H CHRISTIAN Infusion Sodium Chloride 1,000 mls @ 75 mls/hr 04/25/22 12:55 04/26/22 02:31 Normal Saline Iv IV CONT 75 mls/hr .[id number] CHRISTIAN Administration Lisinopril 10 mg 04/25/22 09:00 04/26/22 08:54 Lisinopril 10 Mg Tablet BY MOUTH 10 mg DAILY CHRISTIAN Administration Methimazole 2.5 Mg 1 each 04/25/22 09:00 04/26/22 08:54 Tablet (Nonformulary PO 1 each - Will Not Scan) DAILY CHRISTIAN Administration Radiology Results: ITS Impressions Hand X-Ray 04/25/22 06:49 IMPRESSION: 1. Mild polyarticular osteoarthritis. Foot X-Ray 04/25/22 06:50 IMPRESSION: 1. Mild osteoarthritis of first metatarsophalangeal joint. Venous Doppler Study 04/25/22 15:18 IMPRESSION: 1. Patent right upper extremity veins. No evidence of venous thrombosis. Labs Labs: Laboratory Results - last 24 hr 04/26/22 04/26/22 04/26/22 05:25 05:25 10:19 WBC 9.1 RBC 3.27 L Hgb 10.3 L Hct 30.0 L MCV 91.7 MCH 31.5 MCHC 34.3 RDW 12.0 Plt Count 98 L MPV 13.3 H Immature Gran % (Auto) 0.7 H
[2022-04-26 13:14] LABS: Appearance Urine Cloudy (Clear); Bilirubin Urine Negative (Negative); Blood Urine 1+ (Negative); Color Urine Yellow (Yellow); Glucose Urine UA Negative (Negative); Ketones Urine Negative (Negative); Leukocyte Esterase Ur Trace LEU/UL (Negative); Nitrate Urine Negative (Negative); Protein Urine 2+ mg/dL (Negative); Specific Grav Ur 1.015 (1.001-1.035); Urobilinogen Urine 0.2 mg/dL (<2.0)
[2022-04-26 13:21] LABS: Bacteria Urine Trace /hpf; Mucus Urine Rare /lpf; Squamous Epithelial Cell Urine Many /hpf (Few); WBC Clumps Urine Present /HPF; WBC Urine 16-20 /hpf
[2022-04-26 13:26] LABS: Add Urine Microscopic? YES
[2022-04-26 14:00] VITALS: BP 106/53; PULSE 75; RESP 22; TEMP 35.9; O2SAT 100
[2022-04-26] MEDS: cefTRIAXone 2 GM in SODIUM CHLORIDE 0.9% IV 100 ML 200 ML IVPB (18:31)
--- NOTE | 2022-04-26 20:03 | WPDCN ---
Assessment and Plan Assessment and plan (1) Hand swelling: Qualifiers: Laterality: right Qualified Code(s): M79.89 - Other specified soft tissue disorders Code(s): M79.89 - Other specified soft tissue disorders Status: Acute Assessment and Plan: Not clear evidence of cellulitis or abscess. Hematoma is a differential in the forearm. I will review the MRI with radiologist tomorrow. An INR would be helpful Additional serology results will be helpful. Will make NPO for the a.m. in case condition clarifies over night. (2) Hyperthyroidism: Code(s): E05.90 - Thyrotoxicosis, unspecified without thyrotoxic crisis or storm Status: Acute Assessment and Plan: History of. [facility] Data of Consult Date/Time: 04/26/22 20:03 Requesting Physician: Lissette Curiel MD Primary Care Provider: Pasha Bojorquez, Consult Narrative Reason for consult: Swelling and Pain in right upper extremity, Left lower extremity. Narrative: Tiffanie Chavez is a 61 year old female Admitted 2 days ago with the above worsening complaints that started Friday, four days ago. No history of trauma or prior similar episode. She says she has been dizzy and unstable walking for several days. She is often thirsty at night. She has tested Neg for Covid. She had normal vital sign. She was hemodynamically stable. She had edema of the right hand and forearm. Some similar complaints in the left foot. Skin color was normal. Sensation was normal. She had active flexion and extension of digits, reduced somewhat by edema of the area from fingers to mid forearm. The extremity is abnormally warm compared to the left. There was some localized areas of tenderness and erythema near the dorsal 3rd MPJ. Most areas are tender to digital pressure. She was specifically questioned about history of gout, this was negative. She has an antiinflammatory medication at home that she uses for plantar fasciitis. She has been treated with a single dose of prednisone this admission I believe, and Pt thought it didn't help. Her WBC was in normal range but with neutrophilia. Hb is chronically low, but platelets are uncharacteristically low. (IPF suggests abnormal platelet destruction.) ESR and CRP moderately elevated. RF elevated other serology pending. Review of Systems Review of Systems: Alert, pleasant and very informative. Eating and drinking well. But then mentioned the dizziness Constitutional: Constitutional: Reports as per HPI Respiratory: Respiratory: Reports as per HPI Musculoskeletal: Musculoskeletal: Reports abnormal gait Neurologic: Reports system reviewed and no additional complaints, except as documented Psychiatric: Psychiatric: Reports no additional psychiatric complaints Endocrine: Endocrine: Reports polydipsia Hematologic/Lymphatic: Hematologic/Lymphatic: Reports no additional hematologic/lymphatic complaints Allergic/Immunologic: Allergic/Immunologic: Reports no additional allergic/immunologic complaints PMFSH Past Medical History Medical History Foot swelling Hypertension Hyperthyroidism Osteopenia after menopause Surgical History Surgical History H/O: hysterectomy History of ankle surgery Family History Family History Mother Family history of diabetes mellitus in first degree relative Father Patient's father is Acute myocardial infarction Sibling Hypertension Grandparent Cerebrovascular accident Other Family history of arthritis Family history of cardiovascular disease Family history of malignant neoplasm Social History Social History Smoking status: Never smoker Alcohol intake: current Lack of Transportation: No
[2022-04-26 21:50] VITALS: O2SAT 96
[2022-04-26 21:55] VITALS: BP 108/49; PULSE 78; RESP 12; TEMP 37.2; O2SAT 94
[2022-04-26 23:13] LABS: INR 1.2; Prothrombin Time 14.3 Seconds (11.1-14.7)
[2022-04-27] MEDS: HYDROcodone/acetaminophen (*CRX) 5-325 MG TABLET 1 TAB PO ×2 (04:47→12:59)
--- NOTE | 2022-04-27 05:17 | PC.NURSE ---
Patient rested well throughout night, however when patient goes more than right at 6 hours she is in excruciating pain. Patient is finding more and more difficult to maneuver around and to BR with that left foot. Patient states that it hurts more now than the hand. Patient medicated and cares met. Patient NPO after midnight per Dr. Edward's orders. Pending any further orders for plan of procedure/labs today. Will continue to monitor patient for any further changes.
[2022-04-27 05:59] LABS: Free T4 Free Thyroxine 2.03 ng/mL (0.78-2.19)
[2022-04-27 06:00] VITALS: BP 113/56; PULSE 79; RESP 14; TEMP 37.3; O2SAT 97
--- NOTE | 2022-04-27 08:05 | WPDPN ---
Progress Note: A&P Assessment and Plan (1) Sepsis: Code(s): A41.9 - Sepsis, unspecified organism Status: Acute Assessment and Plan: Blood cultures x2 pos for Group A Strep. Covered by current antibiotics. (2) Foot swelling: Code(s): M79.89 - Other specified soft tissue disorders Status: Acute Assessment and Plan: Appears to be reactive edema. No plan to explore in surgery. (3) Hand swelling: Qualifiers: Laterality: right Qualified Code(s): M79.89 - Other specified soft tissue disorders Code(s): M79.89 - Other specified soft tissue disorders Status: Acute Assessment and Plan: Appears to be reactive edema. No plan to explore in surgery at this time. Review MRI with radiologist. Plan Await morning lab data and rheumatoid serology. INR normal. Source of infection unclear. Is there a need to check for HIV? Time Spent With Patient Time with patient: 15 - 25 minutes Subjective Date/time seen: 04/27/22 08:05 Interval history: Pt feels tired. Still having problems with dizziness lewis when trying to ambulate. C/O severe pain in left foot when ambulating to bathroom. Review of Systems Review of Systems: Fatigue. Dizziness. Swelling in R UE to elbow. Swelling in left foot across ankle. Swelling and tenderness in left 1st MPJ. Exam Narrative: Temp 99.2. Alert and informative. Says she feels tired, about the same as yesterday. No specific area seems worst to her. R UE seems slightly less swollen today. R hand and forearm swollen and warm compared to arm or L UE. Color normal. Dorsal MPJs not as tender as yesterday. Three red 1 cm macules with slight epithelial slough in the area of the 3rd. No blisters. AROM about the same as yesterday. Limited by edema. Not tender in palm. So sign of flexor tenosynovitis. Active extension of fingers limited by edema. Extension of wrist close to normal. Slight tenderness to palpation over right wrist extensor retinaculum. Tender to pressure palpation in almost all areas of dorsal hand and forearm. Warm to touch. No blisters. Left foot and ankle remain edematous and tender to pressure palpation. Hurts to flex ankle. Tender and swelling with erythema at RIGHT 1st MT Objective Data Vital Signs Vital Signs: Vital Signs - 24 hr 04/26/22 08:55 04/26/22 14:00 04/26/22 21:55 Temperature 96.6 F L 98.9 F Pulse Rate 75 78 Respiratory Rate 22 H 12 Blood Pressure 106/53 L 108/49 L Pulse Oximetry 100 94 Oxygen Delivery Room Air 04/26/22 21:50 04/27/22 06:00 Temperature 99.2 F Pulse Rate 79 Respiratory Rate 14 Blood Pressure 113/56 L Pulse Oximetry 96 97 Oxygen Delivery Room Air Intake/Output Intake/Output: Intake & Output 04/24/22 04/25/22 04/26/22 04/27/22 23:59 23:59 23:59 23:59 Intake Total 2280 2615 300 Output Total 100 Balance 2280 2515 300 Reduced urine output. Meds/Results Medications: Active Medications Generic Name Dose Route Start Last Admin Trade Name Freq PRN Reason Stop Dose Admin Hydrocodone Bitart/Acetaminophen 1 tab 04/25/22 12:52 04/27/22 04:47 Hydrocodone/Acetaminophen (*Crx) 5-325 Mg Tablet PO 1 tab Q6H PRN Administration Pain Rated 4-6 Ferrous Sulfate 324 mg 04/27/22 08:00 Ferrous Sulfate 324 Mg Tablet PO TuSa@0800 CHRISTIAN Vancomycin HCl 1,250 mg in 250 mls @ 200 mls/hr 04/25/22 06:00 04/27/22 04:48 Vancomycin 1,250 Mg/D5w 250 Ml IVPB 100 mls/hr Q24H [facility]IAN Administration Ceftriaxone Sodium 2 gm/ 100 mls @ 200 mls/hr 04/26/22 17:00 04/26/22 18:31 Sodium Chloride IVPB 200 mls/hr DAILY@1600 [facility]IAN Administration Lisinopril 10 mg 04/25/22 09:00 04/26/22 08:54 Lisinopril 10 Mg Tablet BY MOUTH 10 mg DAILY [facility] Administration Methimazole 2.5 Mg 1 each 04/25/22 09:00 04/26/22 08:54 Tablet (Nonformulary PO 1 each - Will Not Scan) DAILY CHRISTIAN Administration Radiology Resu
[2022-04-27 08:54] LABS: Basophils Percent Auto 0.6 % (0.2-1.2); Eosinophils Percent Auto 0.1 % (0-4.4); Hematocrit 28.4 % (37.0-47.0); Hemoglobin 9.5 g/dL (12.0-15.0); Immature Granulocyte Absolute 0.06 K/mm3 (0.00-0.031); Immature Granulocyte Percent A 0.8 % (0-0.5); Immature Platelet Fraction Pct 13.8 % (0.9-11.2); Lymphocytes Absolute Auto 0.52 K/mm3 (0.9-3.2); Lymphocytes Percent Auto 7.3 % (18.3-44.2); Mean Corpuscular HGB Conc 33.5 g/dl (32-36); Mean Corpuscular Hemoglobin 30.8 pg (26-34); Mean Corpuscular Volume 92.2 fl (80-100); Mean Platelet Volume 13.2 fl (7.4-10.4); Monocytes Absolute Auto 0.4 K/mm3 (0.1-0.6); Neutrophils Absolute Auto 6.1 K/mm3 (1.3-6.7); Neutrophils Percent Auto 85.2 % (45.5-73.1); Platelet Count Result 102 k/mm3 (150-375); Red Blood Count 3.08 M/mm3 (4.2-5.4); Red Cell Distribution Width 12.6 % (11.5-14.5); White Blood Count 7.2 K/mm3 (4.5-10.0)
[2022-04-27 09:03] LABS: Anion Gap 6 mmol/L (8-16); Blood Urea Nitrogen 36 mg/dL (7-17); CRP > 27.0 mg/dL (<1.0); Calcium 7.2 mg/dL (8.4-10.2); Carbon Dioxide 23 mmol/L (22-30); Chloride 101 mmol/L (98-107); Estimated CRCL calculation 32 ml/min; Estimated Glomerular Filt Rate 29; Glucose 131 mg/dL (65-110); Potassium 3.2 mmol/L (3.4-5.0); Sodium 130 mmol/L (137-145)
--- NOTE | 2022-04-27 13:28 | PM.IMPN ---
Progress Note: A&P Assessment and Plan (1) Cellulitis: Qualifiers: Laterality: right Site of cellulitis: extremity Site of cellulitis of extremity: upper extremity Qualified Code(s): L03.113 - Cellulitis of right upper limb Code(s): L03.90 - Cellulitis, unspecified Status: Acute Assessment and Plan: Continue IV antibiotics Appreciate Ortho input Upper extremity ultrasound negative for DVT. MRI of the hand ordered by Ortho. Will get Doppler of left lower extremity Soft tissue ultrasound also ordered of the left lower extremity. (2) GERD without esophagitis: Code(s): K21.9 - Gastro-esophageal reflux disease without esophagitis Status: Acute (3) Vitamin D deficiency: Code(s): E55.9 - Vitamin D deficiency, unspecified Status: Acute (4) Hypertension: Code(s): I10 - Essential (primary) hypertension Status: Acute Assessment and Plan: Continue home medications. (5) Hyperthyroidism: Code(s): E05.90 - Thyrotoxicosis, unspecified without thyrotoxic crisis or storm Status: Acute (6) Acute kidney injury: Code(s): N17.9 - Acute kidney failure, unspecified Status: Acute Assessment and Plan: Likely related to NSAID exposure. Will start on IV fluids. Stop NSAIDs. Monitor creatinine Subjective Date/time seen: 04/27/22 13:28 No new complaints Exam Narrative: General: alert and oriented Psych: appropriate mood nad affect Eyes: PERRLA Neck: Trachea midline, no new lesions Skin: no changes Lungs: CTA Cardiac: Normal S1,S2, no MGR ABD: soft, nd, nt, nbs Ext: no new lesions, no cce Vasc: Pulses intact Objective Data Vital Signs Vital Signs: Vital Signs - 24 hr 04/26/22 14:00 04/26/22 21:55 04/26/22 21:50 Temperature 96.6 F L 98.9 F Pulse Rate 75 78 Respiratory Rate 22 H 12 Blood Pressure 106/53 L 108/49 L Pulse Oximetry 100 94 96 Oxygen Delivery Room Air 04/27/22 06:00 Temperature 99.2 F Pulse Rate 79 Respiratory Rate 14 Blood Pressure 113/56 L Pulse Oximetry 97 Oxygen Delivery Intake/Output Intake/Output: Intake & Output 04/24/22 04/25/22 04/26/22 04/27/22 23:59 23:59 23:59 23:59 Intake Total 2280 2615 540 Output Total 100 Balance 2280 2515 540 Meds/Results Medications: Active Medications Generic Name Dose Route Start Last Admin Trade Name Freq PRN Reason Stop Dose Admin Hydrocodone Bitart/Acetaminophen 1 tab 04/25/22 12:52 04/27/22 12:59 Hydrocodone/Acetaminophen (*Crx) 5-325 Mg Tablet PO 1 tab Q6H PRN Administration Pain Rated 4-6 Hydrocodone Bitart/Acetaminophen 1 tab 04/27/22 11:36 Hydrocodone/Acetaminophen (*Crx) 10-325 Mg Tablet PO Q6H PRN Pain Rated 7-10 Ferrous Sulfate 324 mg 04/27/22 08:00 Ferrous Sulfate 324 Mg Tablet PO TuSa@0800 CH[facility]IAN Vancomycin HCl 1,250 mg in 250 mls @ 200 mls/hr 04/25/22 06:00 04/27/22 04:48 Vancomycin 1,250 Mg/D5w 250 Ml IVPB 100 mls/hr Q24H [facility] Administration Ceftriaxone Sodium 2 gm/ 100 mls @ 200 mls/hr 04/26/22 17:00 04/26/22 18:31 Sodium Chloride IVPB 200 mls/hr DAILY@1600 [facility] Administration Lisinopril 10 mg 04/25/22 09:00 04/26/22 08:54 Lisinopril 10 Mg Tablet BY MOUTH 10 mg DAILY [facility] Administration Methimazole 2.5 Mg 1 each 04/25/22 09:00 04/26/22 08:54 Tablet (Nonformulary PO 1 each - Will Not Scan) DAILY [facility]IAN Administration Radiology Results: ITS Impressions Hand X-Ray 04/25/22 06:49 IMPRESSION: 1. Mild polyarticular osteoarthritis. Foot X-Ray 04/25/22 06:50 IMPRESSION: 1. Mild osteoarthritis of first metatarsophalangeal joint. Hand MRI 04/26/22 11:55 IMPRESSION: 1. Extensive inflammatory changes in the soft tissues throughout the right hand most prominent over the dorsum of the hand for surrounds a more discrete 4.7 x 3.6 x 0.8 cm fluid collection consistent without an organized well-defined contiguous periph
[2022-04-27 14:00] VITALS: BP 114/54; PULSE 76; RESP 16; TEMP 36.6; O2SAT 95
[2022-04-27] MEDS: FERROUS SULFATE 324 MG TABLET PO (14:27)
--- NOTE | 2022-04-27 15:28 | PM.PNORT ---
Progress Note: A&P Assessment and Plan (1) Hand swelling: Qualifiers: Laterality: right Qualified Code(s): M79.89 - Other specified soft tissue disorders Code(s): M79.89 - Other specified soft tissue disorders Status: Acute (2) Foot swelling: Code(s): M79.89 - Other specified soft tissue disorders Status: Acute (3) Swelling of left knee joint: Code(s): M25.462 - Effusion, left knee Status: Acute (4) Inflammatory arthritis: Code(s): M19.90 - Unspecified osteoarthritis, unspecified site Status: Acute Assessment and Plan: patient seen and examined. Confusing clinical presentation and physical exam. Etiology unclear. No associated white count and multiple distinct areas of swelling, unlikely cellulitis. History and clinical picture favor inflammatory arthritis. Patient does state feeling better today with less swelling. Continue IV antibiotics and observation. Subjective Subjective Date/Time Seen: 04/27/22 15:28 Principal diagnosis: Hand, foot swelling Interval history: patient states swelling improved today. Pain improved. Still has swelling in the right hand which yesterday was extending to the elbow. Swelling has receded somewhat more to the hand. Left foot swelling. Also complains of left knee redness which began yesterday. Minimal pain associated with the knee. Exam Const: General: comfortable and no acute distress Eyes: General: appearance normal, both eyes and all related structures Neck: Neck: normal visual inspection, supple and other ( Nontender) Resp: Effort & Inspection: normal respiratory effort GI: Inspection: non-distended GI Palp: Yes Soft to palpation and No Tenderness to palpation present (GI) Neuro: Cognition (Neuro): normal cognition Speech: normal speech Extrem: Right upper extremity: elbow/forearm swelling and distal pulses intact; no ecchymosis and no crepitus, wrist swelling, abnormal ROM ( Limited due to swelling of the hand), radial pulse present 2+ and ulnar pulse present 2+; no crepitus and Extremity exam: right hand abnormal to inspection joint swelling, normal capillary refill, neurosensory exam normal, tendon exam normal of all digits, abnormal ROM of finger ( limited flexion and extension due to swelling however this is not painful.), warmth of the dorsal hand and swelling of the dorsal hand, of the palm, of the thumb, of the 2nd digit, of the 3rd digit, of the 4th digit and of the 5th digit; no abrasions, no lacerations, no crepitus, no foreign bodies and no puncture wound Left lower extremity: knee Details: abnormal to inspection ( mild erythema anterior and lateral knee.), swelling ( Mild diffuse swelling) and normal ROM; no tenderness and foot Details: normal capillary refill, tenderness Location: of the dorsal foot, abnormal ROM of toe Details: pain with active ROM Location: of all toes and pain with passive ROM of all toes, edema Location: of the dorsal foot, ecchymosis (dorsal foot ) and vascular exam Details: dorsalis pedis pulse present Psych: Mental Status: mental status grossly normal Affect: normal affect Objective Data Vital Signs Vital Signs: Vital Signs - 24 hr 04/26/22 21:55 04/26/22 21:50 04/27/22 06:00 Temperature 98.9 F 99.2 F Pulse Rate 78 79 Respiratory Rate 12 14 Blood Pressure 108/49 L 113/56 L Pulse Oximetry 94 96 97 Oxygen Delivery Room Air 04/27/22 14:00 Temperature 97.9 F Pulse Rate 76 Respiratory Rate 16 Blood Pressure 114/54 L Pulse Oximetry 95 Oxygen Delivery Intake/Output Intake/Output: Intake & Output 04/24/22 04/25/22 04/26/22 04/27/22 23:59 23:59 23:59 23:59 Intake Total 2280 2615 780 Output Total 100 Balance 2280 2515 780 Meds/Results Medications: Active Medications Generic Name Dose Route Start Last Admin Trade Name Freq PRN Reason Stop Dose Admin Hydrocodone Bitart/Acetaminophen 1 tab 04/25/22 12:52 04/27/22 12:59 H
[2022-04-27] MEDS: cefTRIAXone 2 GM in SODIUM CHLORIDE 0.9% IV 100 ML 200 ML IVPB (21:34)
[2022-04-27] MEDS: HYDROcodone/acetaminophen (*CRX) 10-325 MG TABLET 1 TAB PO (21:43)
[2022-04-27 22:00] VITALS: BP 140/57; PULSE 92; RESP 18; TEMP 37.1; O2SAT 99
[2022-04-28] MEDS: HYDROcodone/acetaminophen (*CRX) 10-325 MG TABLET 1 TAB PO ×4 (03:30→22:00)
[2022-04-28 06:00] VITALS: BP 121/49; PULSE 66; RESP 18; TEMP 36.2; O2SAT 93
--- NOTE | 2022-04-28 06:24 | PC.NURSE ---
Patient resting quietly throughout night with change in pain regimen. Patient VSS and moving better with pain more manageable. Midline works well and draws and flushes without any difficulty. Patient denies any nausea or discomfort. Pharmacy notified of Trough of 9.0. Pharmacist to dose and tube up 1st dose of change as soon as possible. No further changes noted throughout the night.
--- NOTE | 2022-04-28 08:03 | PM.IMPN ---
Progress Note: A&P Assessment and Plan (1) Cellulitis: Qualifiers: Laterality: right Site of cellulitis: extremity Site of cellulitis of extremity: upper extremity Qualified Code(s): L03.113 - Cellulitis of right upper limb Code(s): L03.90 - Cellulitis, unspecified Status: Acute Assessment and Plan: Possible cellulitis versus some sort of arthropathy/autoimmune disease Will add some autoimmune test. Continue IV antibiotics Appreciate Ortho input Will also get echocardiogram. (2) GERD without esophagitis: Code(s): K21.9 - Gastro-esophageal reflux disease without esophagitis Status: Acute (3) Vitamin D deficiency: Code(s): E55.9 - Vitamin D deficiency, unspecified Status: Acute (4) Hypertension: Code(s): I10 - Essential (primary) hypertension Status: Acute Assessment and Plan: Continue home medications. (5) Hyperthyroidism: Code(s): E05.90 - Thyrotoxicosis, unspecified without thyrotoxic crisis or storm Status: Acute (6) Acute kidney injury: Code(s): N17.9 - Acute kidney failure, unspecified Status: Acute Assessment and Plan: Question etiology. May be related to autoimmune disease versus vancomycin exposure. Renal consult. Urine studies Renal ultrasound Subjective Date/time seen: 04/28/22 08:03 Question of new knee involvement. X-ray of left knee since yesterday unrevealing. Worsening creatinine. Exam Narrative: General: alert and oriented Psych: appropriate mood nad affect Eyes: PERRLA Neck: Trachea midline, no new lesions Skin: no changes Lungs: CTA Cardiac: Normal S1,S2, no MGR ABD: soft, nd, nt, nbs Ext: no new lesions, no cce Vasc: Pulses intact Const: General: cooperative, comfortable, no acute distress and alert Orientation/consciousness: patient oriented x3 HENMT: Head: normal to inspection Mouth: Yes moist mucous membranes Eyes: General: appearance normal, both eyes and all related structures Neck: Neck: normal visual inspection, supple, no JVD and other ( Nontender) Resp: Effort & Inspection: normal respiratory effort and able to speak in complete sentences Cardio: Rate: regular rate Rhythm: regular rhythm GI: Inspection: non-distended Skin: General skin exam: normal color Neuro: General: patient oriented x3, gait normal and Normal light touch and pain sensation Cranial nerves: Yes Normal hearing present Cognition (Neuro): normal cognition Speech: normal speech Extrem: Right upper extremity: normal capillary refill, edema, elbow/forearm swelling and distal pulses intact; no ecchymosis and no crepitus, wrist swelling, abnormal ROM ( Limited due to swelling of the hand), radial pulse present 2+ and ulnar pulse present 2+; no crepitus and Extremity exam: right hand abnormal to inspection joint swelling, normal capillary refill, neurosensory exam normal, tendon exam normal of all digits, abnormal ROM of finger ( limited flexion and extension due to swelling however this is not painful.), warmth of the dorsal hand and swelling of the dorsal hand, of the palm, of the thumb, of the 2nd digit, of the 3rd digit, of the 4th digit and of the 5th digit; no abrasions, no lacerations, no crepitus, no foreign bodies and no puncture wound Left lower extremity: edema, knee Details: abnormal to inspection ( mild erythema anterior and lateral knee.), swelling ( Mild diffuse swelling) and normal ROM; no tenderness, ankle Details: tenderness and foot Details: normal capillary refill, tenderness Location: of the dorsal foot, abnormal ROM of toe Details: pain with active ROM Location: of all toes and pain with passive ROM of all toes, edema Location: of the dorsal foot, ecchymosis (dorsal foot ) and vascular exam Details: dorsalis pedis pulse present Psych: Appearance: grossly normal Mental Status: mental status grossly normal Affect: normal affect Objective Data Vital Signs Vital Signs: Vital
[2022-04-28] MEDS: LACTATED RINGERS 1,000 ML 75 ML IV CONT ×2 (08:11→22:00)
[2022-04-28] MEDS: POTASSIUM CHLORIDE 20 MEQ TABLET 40 MEQ PO (08:22)
[2022-04-28 08:25] LABS: Rheumatoid Factor 15.2 IU/ML (<12)
[2022-04-28 10:37] LABS: Appearance Urine Clear (Clear); Bilirubin Urine Negative (Negative); Blood Urine Negative (Negative); Color Urine Yellow (Yellow); Glucose Urine UA Negative (Negative); Ketones Urine Negative (Negative); Leukocyte Esterase Ur Negative LEU/UL (Negative); Nitrate Urine Negative (Negative); Protein Urine Trace mg/dL (Negative); Urobilinogen Urine 0.2 mg/dL (<2.0)
[2022-04-28 10:38] LABS: Mucus Urine Rare /lpf; RBC Urine 0-2 /hpf (0-2); Squamous Epithelial Cell Urine Occasional /hpf (Few); WBC Urine 0-3 /hpf
[2022-04-28 10:45] LABS: Add Urine Microscopic? YES
[2022-04-28 11:02] LABS: Eosinophil Urine None Seen % (None Seen)
--- NOTE | 2022-04-28 11:48 | PM.CNNEP ---
Assessment and Plan Assessment and plan (1) Acute kidney injury: Code(s): N17.9 - Acute kidney failure, unspecified Status: Acute Assessment and Plan: the patient has a normal creatinine typically. On admission her creatinine was 1.4 and now it is up to 1.8. Because it was present on admission, it is likely that her infectious process in the right hand and foot is causing collateral damage in the kidneys. Perhaps this is ATN from infection. Patient also has pyuria and hematuria and so a UTI. UTIs can affect the kidneys as well. It is also possible that the infection started in the hand and has disseminated to the left foot and kidneys as a sort of hematogenous kidney/bladder infection. It is too early for her to have some sort of immune reaction due to infection. However she does have Graves disease which is an autoimmune disease. There is a remote possibility that she has some sort of autoimmune disease in her kidneys that has nothing to do with infection or maybe was stirred up by infection. I agree with looking an infectious labs. The patient was on meloxicam as well which can make the creatinine rise higher in the face of these issues. Hemodynamically she looks okay. At this point but gets serology, continue IV fluids and antibiotics. Things do not get better, reimaging of the kidneys to look for abscess might be a reasonable approach as well. Long discussion with the patient and the family (2) Sepsis: Code(s): A41.9 - Sepsis, unspecified organism Status: Acute Assessment and Plan: The patient has strep in her blood stream. She is on antibiotics. (3) Hypertension: Code(s): I10 - Essential (primary) hypertension Status: Acute Assessment and Plan: The patient has hypertension. The blood pressure Is well controlled. will hold lisinopril with the rising creatinine. (4) Inflammatory arthritis: Code(s): M19.90 - Unspecified osteoarthritis, unspecified site Status: Acute Assessment and Plan: Most likely infectious. Other inflammatory diseases are possible as well. Uric acid was normal. History of Present Illness Reason for Consult Consult date: 04/28/22 Chief Complaint Chief complaint: hand cellulitis vs gout History of Present Illness Narrative: Tiffanie is a very pleasant 61-year-old lady who has osteopenia, hypertension, arthritis, and Graves disease. Patient says she was well until Friday when she started getting swelling and pain in the right hand. Friday evening she started having pain in the left foot as well and on Friday she had swelling there as well. The swelling and pain continued to worsen so she came to the hospital on the . She did have low-grade fevers. She was seen in the hospital and felt to have infections of the foot and hand. Cultures were done antibiotics were started. At the redness and swelling worsened for a day or so but then have started receding. Her creatinine on admission was 1.4. Her former baseline was normal. Yesterday was about the same and today was higher so renal consultation was requested. She does not have a CT her a dog. Her mother had pneumonia around [place] time. The patient had a sore throat and hoarse voice around the new year but that got better. Patient has not had any new tattoos or any tattoos, no activities involving breaking of skin such as tool work etc.. she did take down [employer] decorations earlier this month but does not think she had any scrapes from that. She does have Graves disease. She has no other autoimmune diseases that she knows of. No other aches or pains that her usual. She does take meloxicam at home occasionally for pain. She does not smoke. She drinks 2 drinks per day normally but has more on weekends. Review of Systems Constitutional: Constitutional: Reports no additional constitutional complaints Eyes: E
[2022-04-28 12:59] LABS: Creatinine Urine 39.7 mg/dL; Total Protein Urine Random 36 mg/dL; Ur Ttl Prot Creatinine Ratio 0.91 mg/mg (0-0.20)
[2022-04-28 13:00] LABS: Sodium Urine Random < 5 meq/L
[2022-04-28 13:27] LABS: Creatine Kinase 48 U/L (30-135)
--- NOTE | 2022-04-28 13:34 | WPDPN ---
Progress Note: A&P Assessment and Plan (1) Sepsis: Code(s): A41.9 - Sepsis, unspecified organism Status: Acute Assessment and Plan: Strep bacteremia with possible lower lip portal, with mild temperature elevation, no hemodynamic compromise, only mild leukocytosis and mild elevation in inflammatory markers, dizziness, scattered sites of erythema, edema with pain, headache, vasculitis and possible renal involvement. No evidence of cellulitis or subcutaneous infection. Plan Nephrology to treat renal issues. Additional autoimmune serology has been ordered. Consider [facility] for IV antibiotic coverage for Strep bacteremia. Supportive care. Time Spent With Patient Time with patient: 15 - 25 minutes Subjective Date/time seen: 04/28/22 13:34 Interval history: Lengthy conversation with pt and daughter and . The lower lip skin lesions were discussed. They have been present more than a week. These do represent a possible portal for Strep. Pt says she still feels mild dizziness that is constant, not associated with head movement. She says her left knee feels better today. Right hand fingers and wrist move more freely today. She pointed to the increasing red petechial changes on the dorsum of her right hand. Also some on her left medial ankle. Says she eats , but does not feel hungry. Exam Narrative: Right UE shows increasing vasculitis of the dorsum,~1x2 cm., but otherwise decreased edema and improvement of movement. Left foot and ankle jean increased erythema and edema. Active movement limited by this. Painful to bear weight. Right 1st MTJ unchanged. WBC WNL. PLTs 102, CRP up yesterday. Nl T4. Radiologic workup normal with exception of subcutaneous swelling. Still awaiting more serologic data. Greatly appreciate Dr. Ruelas's input. Objective Data Vital Signs Vital Signs: Vital Signs - 24 hr 04/27/22 14:00 04/27/22 22:00 04/28/22 06:00 Temperature 97.9 F 98.8 F 97.1 F L Pulse Rate 76 92 66 Respiratory Rate 16 18 18 Blood Pressure 114/54 L 140/57 L 121/49 L Pulse Oximetry 95 99 93 Oxygen Delivery 04/28/22 08:20 Temperature Pulse Rate Respiratory Rate Blood Pressure Pulse Oximetry Oxygen Delivery Room Air Intake/Output Intake/Output: Intake & Output 04/25/22 04/26/22 04/27/22 04/28/22 23:59 23:59 23:59 23:59 Intake Total 2280 2715 1370 490 Output Total 100 700 Balance 2280 2615 1370 -210 Meds/Results Medications: Active Medications Generic Name Dose Route Start Last Admin Trade Name Freq PRN Reason Stop Dose Admin Hydrocodone Bitart/Acetaminophen 1 tab 04/25/22 12:52 04/27/22 12:59 Hydrocodone/Acetaminophen (*Crx) 5-325 Mg Tablet PO 1 tab Q6H PRN Administration Pain Rated 4-6 Hydrocodone Bitart/Acetaminophen 1 tab 04/27/22 11:36 04/28/22 09:13 Hydrocodone/Acetaminophen (*Crx) 10-325 Mg Tablet PO 1 tab Q6H PRN Administration Pain Rated 7-10 Ferrous Sulfate 324 mg 04/27/22 08:00 04/27/22 14:27 Ferrous Sulfate 324 Mg Tablet PO 324 mg TuSa@0800 CH[facility]STIAN Administration Ceftriaxone Sodium 2 gm/ 100 mls @ 200 mls/hr 04/26/22 17:00 04/27/22 21:34 Sodium Chloride IVPB 200 mls/hr DAILY@1600 [facility] Administration Vancomycin HCl 1,250 mg in 250 mls @ 200 mls/hr 04/28/22 06:00 04/28/22 07:58 Vancomycin 1,250 Mg/D5w 250 Ml IVPB Infused Q18H [facility]RI[facility]IAN Infusion Lactated Ringer's 1,000 mls @ 75 mls/hr 04/28/22 07:55 04/28/22 08:11 Lr - Lactated Ringers Iv IV CONT 75 mls/hr .[id number] CH[facility]STIAN Administration Lisinopril 10 mg 04/25/22 09:00 04/27/22 14:39 Lisinopril 10 Mg Tablet BY MOUTH Not Given DAILY [facility] Methimazole 2.5 Mg 1 each 04/25/22 09:00 04/28/22 08:23 Tablet (Nonformulary PO 1 each - Will Not Scan) DAILY CHRISTIAN Administration Perflutren Lipid Microsphere 0 ml 04/28/22 08:00 Perflutren Lipid Microspheres 1.5 Ml Vial Diluted To 10 Ml Total Volume IV
[2022-04-28 13:35] LABS: Complement C3 109 mg/dL (88-165)
[2022-04-28 13:59] VITALS: BP 136/57; PULSE 69; RESP 16; TEMP 36.4; O2SAT 97
[2022-04-28 14:00] LABS: Hepatitis B Surface Antigen Negative (Negative)
[2022-04-28 14:17] LABS: Hepatitis B Surface Anti Res Negative; Hepatitis C Virus Antibody Negative (Negative)
[2022-04-28 14:54] LABS: Alanine Aminotransferase 41 U/L (6-35); Albumin Level 2.8 g/dL (3.5-5.1); Alkaline Phosphatase 70 U/L (38-126); Anion Gap 4 mmol/L (8-16); Aspartate Amino Transferase 51 U/L (14-36); Bilirubin,Total 0.2 mg/dL (0.2-1.3); Blood Urea Nitrogen 30 mg/dL (7-17); Calcium 7.7 mg/dL (8.4-10.2); Carbon Dioxide 28 mmol/L (22-30); Chloride 97 mmol/L (98-107); Estimated CRCL calculation 38 ml/min; Estimated Glomerular Filt Rate 35; Glucose 111 mg/dL (65-110); Potassium 3.4 mmol/L (3.4-5.0); Sodium 129 mmol/L (137-145)
[2022-04-28] MEDS: cefTRIAXone 2 GM in SODIUM CHLORIDE 0.9% IV 100 ML 200 ML IVPB (15:57)
[2022-04-28 22:00] VITALS: BP 148/58; PULSE 87; RESP 16; TEMP 38.6; O2SAT 92
--- NOTE | 2022-04-29 | ECHO_ITS ---
Patient Info Name: Tiffanie Chavez Age: 61 years : 1960 Gender: Female Ht: 66 in Wt: 170 lbs BSA: 1.91 m2 HR: 77 bpm BP: 148 / 58 mmHg Technical Quality: Good Exam Date: 04/29/2022 1:50 PM Exam Location: [facility] Patient Status: Inpatient Admit Date: 04/26/2022 Staff Ordering Physician: Rene Denny MD Biology Adjunct Instructor: Rain Murray RDCS Attending Provider: Lissette Curiel MD Referring Physician: Eduin MENDEZ; Exam Type: CA echo doppler color flow Study Info Indications - BACTEREMIA Complete two-dimensional, color flow and Doppler transthoracic echocardiogram is performed. Summary 1. Complete two-dimensional, color flow and Doppler transthoracic echocardiogram is performed. 2. Left ventricular chamber dimension is normal. 3. Left ventricular systolic function is normal, estimated at 65-70%. 4. The left ventricular diastolic function is grade I diastolic dysfunction. 5. E/e' 12 is mildly elevated. 6. Global longitudinal strain is normal at -19.1%. 7. There is mild mitral valve regurgitation. 8. There is mild tricuspid valve regurgitation. 9. Mild pulmonary hypertension, estimated pulmonary arterial systolic pressure is 43 mmHg. Left Ventricle E/e' 12 is mildly elevated. Global longitudinal strain is normal at -19.1%. Left ventricular chamber dimension is normal. Left ventricular systolic function is normal, estimated at 65-70%. The left ventricular diastolic function is grade I diastolic dysfunction. Right Ventricle Right ventricular systolic function is normal and with normal TAPSE 3.3 cm. Right ventricular chamber dimension is normal. Left Atria Left atrial chamber dimension is normal. Right Atria Right atrial chamber dimension is normal. Aortic Valve The aortic valve is trileaflet. There is no aortic valve stenosis. There is no aortic valve regurgitation. No aortic valve vegetation visualized. Pulmonic Valve There is no pulmonic regurgitation. No pulmonic valve vegetation visualized. Mitral Valve There is no mitral valve stenosis. There is mild mitral valve regurgitation. No mitral valve vegetation visualized. Tricuspid Valve There is mild tricuspid valve regurgitation. Mild pulmonary hypertension, estimated pulmonary arterial systolic pressure is 43 mmHg. No tricuspid valve vegetation visualized. Pericardium/Pleural There is no pericardial effusion. Inferior Vena Cava Normal inferior vena cava with >50% collapse upon inspiration consistent with normal right atrial pressure, 5 mmHg. Aorta The aortic root size at the sinus of Valsalva is normal. Left Ventricular Outflow Tract Name Value Normal LVOT 2D LVOT Diameter 2.0 cm LVOT Doppler LVOT Peak Gradient 8 mmHg LVOT Mean Gradient 5 mmHg LVOT VTI 31 cm LVOT VTI/AV VTI Ratio 0.9 LVOT Stroke Volume 96 ml LVOT CO 6.6 l/min LVOT CI 3.5 l/min/m2 Pulmonic Valve
[2022-04-29] MEDS: HYDROcodone/acetaminophen (*CRX) 10-325 MG TABLET 1 TAB PO ×4 (04:19→21:21)
[2022-04-29 04:37] LABS: Albumin Level 2.6 g/dL (3.5-5.1); Anion Gap 2 mmol/L (8-16); Blood Urea Nitrogen 23 mg/dL (7-17); Calcium 7.6 mg/dL (8.4-10.2); Carbon Dioxide 29 mmol/L (22-30); Chloride 103 mmol/L (98-107); Estimated CRCL calculation 40 ml/min; Estimated Glomerular Filt Rate 38; Glucose 112 mg/dL (65-110); Phosphorus 5.2 mg/dL (2.5-4.5); Potassium 3.8 mmol/L (3.4-5.0); Sodium 134 mmol/L (137-145)
--- NOTE | 2022-04-29 05:21 | PC.NURSE ---
Patient resting quietly in bed. Voicing no complaints after pain meds . Patient tolerates activity fair with assistance and after pain medication. Patient had temp overnight before pain medication and Vanco but has been afebrile once medicated and several blankets removed. Patient otherwise remains stable and unchanged.
[2022-04-29 06:00] VITALS: BP 150/56; PULSE 72; RESP 16; TEMP 37.3; O2SAT 98
--- NOTE | 2022-04-29 09:04 | PM.PNORT ---
Progress Note: A&P Assessment and Plan (1) Hand swelling: Qualifiers: Laterality: right Qualified Code(s): M79.89 - Other specified soft tissue disorders Code(s): M79.89 - Other specified soft tissue disorders Status: Acute Assessment and Plan: Mild improvement. Now with bruising. Appreciate plastic surgery evaluation. Awaiting additional autoimmune serology at this time. No surgical plans from orthopedic or plastic surgery standpoint. Will defer treatment to plastics, medicine and nephrology. Will continue to follow peripherally if needs arise from an orthopedic standpoint. (2) Cellulitis: Qualifiers: Laterality: right Site of cellulitis: extremity Site of cellulitis of extremity: upper extremity Qualified Code(s): L03.113 - Cellulitis of right upper limb Code(s): L03.90 - Cellulitis, unspecified Status: Acute (3) Acute kidney injury: Code(s): N17.9 - Acute kidney failure, unspecified Status: Acute Assessment and Plan: Nephrology following. (4) Foot swelling: Code(s): M79.89 - Other specified soft tissue disorders Status: Acute (5) Swelling of left knee joint: Code(s): M25.462 - Effusion, left knee Status: Acute (6) Sepsis: Code(s): A41.9 - Sepsis, unspecified organism Status: Acute Assessment and Plan: Strep bacteremia. Unknown origin. Scattered sites of erythema and swelling. IV antibiotcs per medicine team. Nephrology following. (7) Inflammatory arthritis: Code(s): M19.90 - Unspecified osteoarthritis, unspecified site Status: Acute Plan Patient evaluated once again today. Per MD report, patient was seen on Friday by Dr. Diez and determined it was appropriate for a surgical work up from plastic surgery. Plastic surgery notes reviewed. No further recommendations from Dr. Diez at this time. Subjective Subjective Date/Time Seen: 04/29/22 09:04 Principal diagnosis: Hand, foot swelling Interval history: No new complaints today. Still with right hand, left knee and left foot swelling. Mild improvement in pain and swelling per patient. No new concerns aside from overall understanding of the underlying causes of her symptoms. Review of Systems Review of Systems: All systems reviewed & are unremarkable except as noted in HPI and below Exam Const: General: comfortable and no acute distress Eyes: General: appearance normal, both eyes and all related structures Neck: Neck: normal visual inspection, supple and other ( Nontender) Resp: Effort & Inspection: normal respiratory effort GI: Inspection: non-distended GI Palp: Yes Soft to palpation and No Tenderness to palpation present (GI) Neuro: Cognition (Neuro): normal cognition Speech: normal speech Extrem: Right upper extremity: elbow/forearm swelling and distal pulses intact; no ecchymosis and no crepitus, wrist swelling, abnormal ROM ( Limited due to swelling of the hand), radial pulse present 2+ and ulnar pulse present 2+; no crepitus and Extremity exam: right hand abnormal to inspection joint swelling, normal capillary refill, neurosensory exam normal, tendon exam normal of all digits, abnormal ROM of finger ( limited flexion and extension due to swelling however this is not painful.), warmth of the dorsal hand and swelling of the dorsal hand, of the palm, of the thumb, of the 2nd digit, of the 3rd digit, of the 4th digit and of the 5th digit; no abrasions, no lacerations, no crepitus, no foreign bodies and no puncture wound Left lower extremity: knee Details: abnormal to inspection ( mild erythema anterior and lateral knee.), swelling ( Mild diffuse swelling) and normal ROM; no tenderness and foot Details: normal capillary refill, tenderness Location: of the dorsal foot, abnormal ROM of toe Details: pain with active ROM Location: of all toes and pain with passive ROM of all toes, edema Location: of the dorsal foot, ecchymosi
[2022-04-29] MEDS: lisinopriL 10 MG TABLET BY MOUTH (10:03)
--- NOTE | 2022-04-29 11:19 | PM.IMPN ---
Progress Note: A&P Assessment and Plan (1) Cellulitis: Qualifiers: Laterality: right Site of cellulitis: extremity Site of cellulitis of extremity: upper extremity Qualified Code(s): L03.113 - Cellulitis of right upper limb Code(s): L03.90 - Cellulitis, unspecified Status: Acute Assessment and Plan: Possible cellulitis versus some sort of arthropathy/autoimmune disease Will add some autoimmune test. Continue IV antibiotics Appreciate Ortho input Will also get echocardiogram. (2) GERD without esophagitis: Code(s): K21.9 - Gastro-esophageal reflux disease without esophagitis Status: Acute (3) Vitamin D deficiency: Code(s): E55.9 - Vitamin D deficiency, unspecified Status: Acute (4) Hypertension: Code(s): I10 - Essential (primary) hypertension Status: Acute Assessment and Plan: Continue home medications. (5) Hyperthyroidism: Code(s): E05.90 - Thyrotoxicosis, unspecified without thyrotoxic crisis or storm Status: Acute (6) Acute kidney injury: Code(s): N17.9 - Acute kidney failure, unspecified Status: Acute Assessment and Plan: Question etiology. May be related to autoimmune disease versus vancomycin exposure. Renal consult. Urine studies Renal ultrasound noted Subjective Date/time seen: 04/29/22 11:19 No complaints Exam Narrative: General: alert and oriented Psych: appropriate mood nad affect Eyes: PERRLA Neck: Trachea midline, no new lesions Skin: no changes Lungs: CTA Cardiac: Normal S1,S2, no MGR ABD: soft, nd, nt, nbs Ext: no new lesions, redness and edema noted. no significant change Vasc: Pulses intact Objective Data Vital Signs Vital Signs: Vital Signs - 24 hr 04/28/22 13:59 04/28/22 22:00 04/29/22 06:00 Temperature 97.5 F L 101.5 F H 99.2 F Pulse Rate 69 87 72 Respiratory Rate 16 16 16 Blood Pressure 136/57 L 148/58 H 150/56 H Pulse Oximetry 97 92 98 Intake/Output Intake/Output: Intake & Output 04/26/22 04/27/22 04/28/22 04/29/22 23:59 23:59 23:59 23:59 Intake Total 2715 1470 2550 1320 Output Total 100 1150 Balance 2615 1470 1400 1320 Meds/Results Medications: Active Medications Generic Name Dose Route Start Last Admin Trade Name Adebayoq PRN Reason Stop Dose Admin Hydrocodone Bitart/Acetaminophen 1 tab 04/25/22 12:52 04/27/22 12:59 Hydrocodone/Acetaminophen (*Crx) 5-325 Mg Tablet PO 1 tab Q6H PRN Administration Pain Rated 4-6 Hydrocodone Bitart/Acetaminophen 1 tab 04/27/22 11:36 04/29/22 10:05 Hydrocodone/Acetaminophen (*Crx) 10-325 Mg Tablet PO 1 tab Q6H PRN Administration Pain Rated 7-10 Ferrous Sulfate 324 mg 04/27/22 08:00 04/27/22 14:27 Ferrous Sulfate 324 Mg Tablet PO 324 mg TuSa@0800 CHRISTIAN Administration Ceftriaxone Sodium 2 gm/ 100 mls @ 200 mls/hr 04/26/22 17:00 04/28/22 16:27 Sodium Chloride IVPB Infused DAILY@1600 CHRISTIAN Infusion Vancomycin HCl 1,250 mg in 250 mls @ 200 mls/hr 04/28/22 06:00 04/28/22 22:02 Vancomycin 1,250 Mg/D5w 250 Ml IVPB 250 mls/hr Q18H CHRISTIAN Administration Lactated Ringer's 1,000 mls @ 75 mls/hr 04/28/22 07:55 04/28/22 22:00 Lr - Lactated Ringers Iv IV CONT 75 mls/hr .[id number] CHRISTIAN Administration Lisinopril 10 mg 04/25/22 09:00 04/29/22 10:03 Lisinopril 10 Mg Tablet BY MOUTH 10 mg DAILY CHRISTIAN Administration Methimazole 2.5 Mg 1 each 04/25/22 09:00 04/29/22 10:03 Tablet (Nonformulary PO 1 each - Will Not Scan) DAILY CHRISTIAN Administration Perflutren Lipid Microsphere 0 ml 04/28/22 08:00 Perflutren Lipid Microspheres 1.5 Ml Vial Diluted To 10 Ml Total Volume IV PUSH 04/30/22 08:00 ONCE PRN adequate visualization Protocol Perflutren Lipid Microsphere 0 ml 04/28/22 08:00 Perflutren Lipid Microspheres 1.5 Ml Vial Diluted To 10 Ml Total Volume IV PUSH 04/30/22 08:01 ONCE PRN adequate visualization Protoc
[2022-04-29 11:21] LABS: Hematocrit 26.7 % (37.0-47.0); Hemoglobin 8.8 g/dL (12.0-15.0); Mean Corpuscular Hemoglobin 31.1 pg (26-34); Mean Corpuscular Volume 94.3 fl (80-100); Platelet Count Result 189 k/mm3 (150-375); Red Blood Count 2.83 M/mm3 (4.2-5.4); Red Cell Distribution Width 12.8 % (11.5-14.5); White Blood Count 9.5 K/mm3 (4.5-10.0)
--- NOTE | 2022-04-29 11:58 | P.PNNP_ITS ---
Progress Note: A&P Assessment and Plan (1) Acute kidney injury: Code(s): N17.9 - Acute kidney failure, unspecified Status: Acute Assessment and Plan: * improving by recent testing * creatinine peaked at 1.8mg/dl * suspect due to acute infection (right hand + left foot cellulitis) * possibly progressed to mild ATN * some worsening due to NSAID use (?) * evaluation to date: * renal ultrasound normal * urine electrolytes prerenal * CPK okay * urine eosinophils negative * interestingly, noted to have ~ 900mg of protein * continue current therapy * follow trend of repeat labs and UOP (2) Sepsis: Code(s): A41.9 - Sepsis, unspecified organism Status: Acute Assessment and Plan: * as noted by positive blood cultures (Strep) * right hand/leg foot felt to be likely source * on antibiotics * follow-up on Echo (3) Cellulitis of right hand: Code(s): L03.113 - Cellulitis of right upper limb Status: Acute Assessment and Plan: * as noted by clinical exam on admission * culture data noted * on antibiotics * Plastic Surgery following (4) Cellulitis of left foot: Code(s): L03.116 - Cellulitis of left lower limb Status: Acute Assessment and Plan: * also suggestive by clinical exam on presentation * see #3 (5) Hypertension: Code(s): I10 - Essential (primary) hypertension Status: Chronic Assessment and Plan: * reasonable control at this time * holding GENARO-I given #1 * follow trend of hemodynamics Will continue to follow. Subjective Date/time seen: 04/29/22 11:58 Chart reviewed -- assuming care from Dr. Ruelas; no acute complaints voiced at the time of my visit; still with some discomfort in right hand and left foot but no worsening noted. Exam Narrative: General: WD/WN Caucasin female in NAD Heart: normal S1 and S2; no rub Lungs: clear to auscultation Abdomen: soft, nontender, nondistended, positive bowel sounds Extremities: no cyanosis or clubbing'; right hand and left foot edema noted Skin: erythema noted in right hand/left foot Objective Data Vital Signs Vital Signs: Vital Signs Temp Pulse Resp BP Pulse Ox 04/29/22 06:00 99.2 F 72 16 150/56 H 98 04/28/22 22:00 101.5 F H 87 16 148/58 H 92 04/28/22 13:59 97.5 F L 69 16 136/57 L 97 Intake/Output Intake/Output: Intake & Output 04/26/22 04/27/22 04/28/22 04/29/22 23:59 23:59 23:59 23:59 Intake Total 2715 1470 2550 1320 Output Total 100 1150 Balance 2615 1470 1400 1320 Meds/Results Medications: Active Medications Generic Name Dose Route Start Last Admin Trade Name Freq PRN Reason Stop Dose Admin Hydrocodone Bitart/Acetaminophen 1 tab 04/25/22 12:52 04/27/22 12:59 Hydrocodone/Acetaminophen (*Crx) 5-325 Mg Tablet PO 1 tab Q6H PRN Administration Pain Rated 4-6 Hydrocodone Bitart/Acetaminophen 1 tab 04/27/22 11:36 04/29/22 10:05 Hydrocodone/Acetaminophen (*Crx) 10-325 Mg Tablet PO 1 tab Q6H PRN Administration Pain Rated 7-10 Ferrous Sulfate 324 mg 04/27/22 08:00 04/27/22 14:27 Ferrous Sulfate 324 Mg
--- NOTE | 2022-04-29 11:58 | PM.PNNEP ---
Progress Note: A&P Assessment and Plan (1) Acute kidney injury: Code(s): N17.9 - Acute kidney failure, unspecified Status: Acute Assessment and Plan: improving by recent testing creatinine peaked at 1.8mg/dl suspect due to acute infection (right hand + left foot cellulitis) possibly progressed to mild ATN some worsening due to NSAID use (?) evaluation to date: renal ultrasound normal urine electrolytes prerenal CPK okay urine eosinophils negative interestingly, noted to have ~ 900mg of protein continue current therapy follow trend of repeat labs and UOP (2) Sepsis: Code(s): A41.9 - Sepsis, unspecified organism Status: Acute Assessment and Plan: as noted by positive blood cultures (Strep) right hand/leg foot felt to be likely source on antibiotics follow-up on Echo (3) Cellulitis of right hand: Code(s): L03.113 - Cellulitis of right upper limb Status: Acute Assessment and Plan: as noted by clinical exam on admission culture data noted on antibiotics Plastic Surgery following (4) Cellulitis of left foot: Code(s): L03.116 - Cellulitis of left lower limb Status: Acute Assessment and Plan: also suggestive by clinical exam on presentation see #3 (5) Hypertension: Code(s): I10 - Essential (primary) hypertension Status: Chronic Assessment and Plan: reasonable control at this time holding GENARO-I given #1 follow trend of hemodynamics Will continue to follow. Subjective Date/time seen: 04/29/22 11:58 Chart reviewed -- assuming care from Dr. Ruelas; no acute complaints voiced at the time of my visit; still with some discomfort in right hand and left foot but no worsening noted. Exam Narrative: General: WD/WN Caucasin female in NAD Heart: normal S1 and S2; no rub Lungs: clear to auscultation Abdomen: soft, nontender, nondistended, positive bowel sounds Extremities: no cyanosis or clubbing'; right hand and left foot edema noted Skin: erythema noted in right hand/left foot Objective Data Vital Signs Vital Signs: Vital Signs Temp Pulse Resp BP Pulse Ox 04/29/22 06:00 99.2 F 72 16 150/56 H 98 04/28/22 22:00 101.5 F H 87 16 148/58 H 92 04/28/22 13:59 97.5 F L 69 16 136/57 L 97 Intake/Output Intake/Output: Intake & Output 04/26/22 04/27/22 04/28/22 04/29/22 23:59 23:59 23:59 23:59 Intake Total 2715 1470 2550 1320 Output Total 100 1150 Balance 2615 1470 1400 1320 Meds/Results Medications: Active Medications Generic Name Dose Route Start Last Admin Trade Name Freq PRN Reason Stop Dose Admin Hydrocodone Bitart/Acetaminophen 1 tab 04/25/22 12:52 04/27/22 12:59 Hydrocodone/Acetaminophen (*Crx) 5-325 Mg Tablet PO 1 tab Q6H PRN Administration Pain Rated 4-6 Hydrocodone Bitart/Acetaminophen 1 tab 04/27/22 11:36 04/29/22 10:05 Hydrocodone/Acetaminophen (*Crx) 10-325 Mg Tablet PO 1 tab Q6H PRN Administration Pain Rated 7-10 Ferrous Sulfate 324 mg 04/27/22 08:00 04/27/22 14:27 Ferrous Sulfate 324 Mg Tablet PO 324 mg TuSa@0800 CHRISTIAN Administration Ceftriaxone Sodium 2 gm/ 100 mls @ 200 mls/hr 04/26/22 17:00 04/28/22 16:27 Sodium Chloride IVPB Infused DAILY@1600 CH[facility]STIAN Infusion Vancomycin HCl 1,250 mg in 250 mls @ 200 mls/hr 04/28/22 06:00 04/28/22 22:02 Vancomycin 1,250 Mg/D5w 250 Ml IVPB 250 mls/hr Q18H CHRISTIAN Administration Lactated Ringer's 1,000 mls @ 75 mls/hr 04/28/22 07:55 04/28/22 22:00 Lr - Lactated Ringers Iv IV CONT 75 mls/hr .[id number] CHRISTIAN Administration Lisinopril 10 mg 04/25/22 09:00 04/29/22 10:03 Lisinopril 10 Mg Tablet BY MOUTH 10 mg DAILY CHRISTIAN Administration Methimazole 2.5 Mg 1 each 04/25/22 09:00 04/29/22 10:03 Tablet (Nonformulary PO 1 each - Will Not Scan) DAILY CHRISTIAN Administration Perflutren Lipid Microsphere 0 ml 04/28/22 08:
--- NOTE | 2022-04-29 12:19 | WPDPN ---
Subjective Date/time seen: 04/29/22 12:19 Exam Narrative: MRI and soft tissue ultrasounds reviewed with Dr Ramirez. There may be fluid mass of right hand and left foot from which additional information may be obtained by needle aspiration. This is scheduled for today. Since her bacteremia is Gp A Strep, I would think that Ancef would provide adequate antimicrobial coverage, sparing pt the exposure to Vanc and cost of Ceftriaxone. 1434 Hrs. Findings of needle aspiration of right wrist noted. Expecting lab results for GS, culture and crystal analysis. RF, C3,C4 all negative. Fluid aspirated from hand negative for crystals. Cx pending. WBC 9.5, Ser Gluc slightly elevated ~120 New blood cultures pending Objective Data Vital Signs Vital Signs: Vital Signs - 24 hr 04/28/22 13:59 04/28/22 22:00 04/29/22 06:00 Temperature 97.5 F L 101.5 F H 99.2 F Pulse Rate 69 87 72 Respiratory Rate 16 16 16 Blood Pressure 136/57 L 148/58 H 150/56 H Pulse Oximetry 97 92 98 Intake/Output Intake/Output: Intake & Output 04/26/22 04/27/22 04/28/22 04/29/22 23:59 23:59 23:59 23:59 Intake Total 2715 1470 2550 1320 Output Total 100 1150 Balance 2615 1470 1400 1320 Meds/Results Medications: Active Medications Generic Name Dose Route Start Last Admin Trade Name Freq PRN Reason Stop Dose Admin Hydrocodone Bitart/Acetaminophen 1 tab 04/25/22 12:52 04/27/22 12:59 Hydrocodone/Acetaminophen (*Crx) 5-325 Mg Tablet PO 1 tab Q6H PRN Administration Pain Rated 4-6 Hydrocodone Bitart/Acetaminophen 1 tab 04/27/22 11:36 04/29/22 10:05 Hydrocodone/Acetaminophen (*Crx) 10-325 Mg Tablet PO 1 tab Q6H PRN Administration Pain Rated 7-10 Ferrous Sulfate 324 mg 04/27/22 08:00 04/27/22 14:27 Ferrous Sulfate 324 Mg Tablet PO 324 mg TuSa@0800 CHRISTIAN Administration Ceftriaxone Sodium 2 gm/ 100 mls @ 200 mls/hr 04/26/22 17:00 04/28/22 16:27 Sodium Chloride IVPB Infused DAILY@1600 CHRISTIAN Infusion Vancomycin HCl 1,250 mg in 250 mls @ 200 mls/hr 04/28/22 06:00 04/28/22 22:02 Vancomycin 1,250 Mg/D5w 250 Ml IVPB 250 mls/hr Q18H CH[facility]STIAN Administration Lactated Ringer's 1,000 mls @ 75 mls/hr 04/28/22 07:55 04/28/22 22:00 Lr - Lactated Ringers Iv IV CONT 75 mls/hr .[id number] CHRISTIAN Administration Lisinopril 10 mg 04/25/22 09:00 04/29/22 10:03 Lisinopril 10 Mg Tablet BY MOUTH 10 mg DAILY CHRISTIAN Administration Methimazole 2.5 Mg 1 each 04/25/22 09:00 04/29/22 10:03 Tablet (Nonformulary PO 1 each - Will Not Scan) DAILY CHRISTIAN Administration Perflutren Lipid Microsphere 0 ml 04/28/22 08:00 Perflutren Lipid Microspheres 1.5 Ml Vial Diluted To 10 Ml Total Volume IV PUSH 04/30/22 08:00 ONCE PRN adequate visualization Protocol Perflutren Lipid Microsphere 0 ml 04/28/22 08:00 Perflutren Lipid Microspheres 1.5 Ml Vial Diluted To 10 Ml Total Volume IV PUSH 04/30/22 08:01 ONCE PRN adequate visualization Protocol Sodium Chloride 10 ml 04/29/22 14:00 Saline Lock Flush IV PUSH Q8HR CHRISTIAN Sodium Chloride 10 ml 04/29/22 06:46 Saline Lock Flush IV PUSH PRN PRN Flush Sodium Chloride 20 ml 04/29/22 06:46 Saline Lock Flush IV PUSH PRN PRN after blood draws Radiology Results: ITS Impressions Hand X-Ray 04/25/22 06:49 IMPRESSION: 1. Mild polyarticular osteoarthritis. Foot X-Ray 04/25/22 06:50 IMPRESSION: 1. Mild osteoarthritis of first metatarsophalangeal joint. Hand MRI 04/26/22 11:55 IMPRESSION: 1. Extensive inflammatory changes in the soft tissues throughout the right hand most prominent over the dorsum of the hand for surrounds a more discrete 4.7 x 3.6 x 0.8 cm fluid collection consistent without an organized well-defined contiguous peripheral enhancing wall which suggests phlegmonous change progressing towards abscess formation. Differential would include hematoma in the kane
[2022-04-29 13:55] LABS: Crystals Synovial Fluid None Seen (None Seen)
[2022-04-29 14:00] VITALS: BP 147/75; PULSE 66; RESP 14; TEMP 36.6; O2SAT 95
[2022-04-29] MEDS: LACTATED RINGERS 1,000 ML 75 ML IV CONT (15:56)
[2022-04-29] MEDS: cefTRIAXone 2 GM in SODIUM CHLORIDE 0.9% IV 100 ML 200 ML IVPB (15:56)
--- NOTE | 2022-04-29 19:45 | WPDPN ---
Progress Note: A&P Assessment and Plan (1) Cellulitis: Qualifiers: Laterality: right Site of cellulitis: extremity Site of cellulitis of extremity: upper extremity Qualified Code(s): L03.113 - Cellulitis of right upper limb Code(s): L03.90 - Cellulitis, unspecified Status: Acute Assessment and Plan: Edema, skin color changes, no apparent tissue necrosis. Small pus found in dorsal hand. Overall seems better. (2) Foot swelling: Code(s): M79.89 - Other specified soft tissue disorders Status: Acute Assessment and Plan: This area is worsening. Will speak to Dr Ramirez about possible similar testing with needle aspiration under [facility] Subjective Date/time seen: 04/29/22 19:45 Interval history: Part 2 of today's note. Exam Narrative: Pt in good spirits. very informative . Had a cardiac ECHO today (pending). Also a needle aspiration of right hand. Right UE less swollen tender and warm. Better AROM The lizzie discoloration over dorsum has increased a little. Not tender to digital pressure. Right 1st MT unchanged. Left knee appears as it did 3 days ago, seems normal. Left foot is more swollen, lizzie. Says it is excruciating to bear weight, but tolerates digital pressure into the edema. Objective Data Vital Signs Vital Signs: Vital Signs - 24 hr 04/28/22 22:00 04/29/22 06:00 04/29/22 14:00 Temperature 101.5 F H 99.2 F 97.9 F Pulse Rate 87 72 66 Respiratory Rate 16 16 14 Blood Pressure 148/58 H 150/56 H 147/75 H Pulse Oximetry 92 98 95 Intake/Output Intake/Output: Intake & Output 04/26/22 04/27/22 04/28/22 04/29/22 23:59 23:59 23:59 23:59 Intake Total 2715 1470 2800 2820 Output Total 100 1150 Balance 2615 1470 1650 2820 Meds/Results Medications: Active Medications Generic Name Dose Route Start Last Admin Trade Name Freq PRN Reason Stop Dose Admin Hydrocodone Bitart/Acetaminophen 1 tab 04/25/22 12:52 04/27/22 12:59 Hydrocodone/Acetaminophen (*Crx) 5-325 Mg Tablet PO 1 tab Q6H PRN Administration Pain Rated 4-6 Hydrocodone Bitart/Acetaminophen 1 tab 04/29/22 17:39 Hydrocodone/Acetaminophen (*Crx) 10-325 Mg Tablet PO Q4H PRN Pain Rated 7-10 Ferrous Sulfate 324 mg 04/27/22 08:00 04/27/22 14:27 Ferrous Sulfate 324 Mg Tablet PO 324 mg TuSa@0800 [facility] Administration Ceftriaxone Sodium 2 gm/ 100 mls @ 200 mls/hr 04/26/22 17:00 04/29/22 15:56 Sodium Chloride IVPB 200 mls/hr DAILY@1600 [facility] Administration Vancomycin HCl 1,250 mg in 250 mls @ 200 mls/hr 04/28/22 06:00 04/29/22 17:38 Vancomycin 1,250 Mg/D5w 250 Ml IVPB 250 mls/hr Q18H [facility] Administration Lactated Ringer's 1,000 mls @ 75 mls/hr 04/28/22 07:55 04/29/22 15:56 Lr - Lactated Ringers Iv IV CONT 75 mls/hr .[id number] [facility] Administration Lisinopril 10 mg 04/25/22 09:00 04/29/22 10:03 Lisinopril 10 Mg Tablet BY MOUTH 10 mg DAILY [facility] Administration Methimazole 2.5 Mg 1 each 04/25/22 09:00 04/29/22 10:03 Tablet (Nonformulary PO 1 each - Will Not Scan) DAILY [facility] Administration Perflutren Lipid Microsphere 0 ml 04/28/22 08:00 Perflutren Lipid Microspheres 1.5 Ml Vial Diluted To 10 Ml Total Volume IV PUSH 04/30/22 08:00 ONCE PRN adequate visualization Protocol Perflutren Lipid Microsphere 0 ml 04/28/22 08:00 Perflutren Lipid Microspheres 1.5 Ml Vial Diluted To 10 Ml Total Volume IV PUSH 04/30/22 08:01 ONCE PRN adequate visualization Protocol Sodium Chloride 10 ml 04/29/22 14:00 04/29/22 17:40 Saline Lock Flush IV PUSH Not Given Q8HR [facility] Sodium Chloride 10 ml 04/29/22 06:46 Saline Lock Flush IV PUSH PRN PRN Flush Sodium Chloride 20 ml 04/29/22 06:46 Saline Lock Flush IV PUSH PRN PRN after blood draws Radiology Results: ITS Impressions Hand X-Ray 04/25/22 06:49 IMPRESSION: 1. Mild polyarticular osteoarthritis.
[2022-04-29 22:00] VITALS: BP 162/60; PULSE 83; RESP 14; TEMP 36.7; O2SAT 97
[2022-04-30] MEDS: HYDROcodone/acetaminophen (*CRX) 10-325 MG TABLET 1 TAB PO ×5 (01:24→19:01)
[2022-04-30] MEDS: LACTATED RINGERS 1,000 ML 75 ML IV CONT (01:25)
[2022-04-30 06:00] VITALS: BP 160/44; PULSE 74; RESP 14; TEMP 36.3; O2SAT 90
--- NOTE | 2022-04-30 06:38 | PC.NURSE ---
Dr. Edward called and spoke with recharger ordering this patient to be made NPO as of now. This RN went in and took aware patient's beverages and informed her of his orders. Patient voicing no other questions or complaints.
[2022-04-30] MEDS: lisinopriL 10 MG TABLET BY MOUTH (08:47)
[2022-04-30 11:20] LABS: Basophils Absolute Auto 0.1 K/mm3 (0.0-0.1); Basophils Percent Auto 0.5 % (0.2-1.2); Eosinophils Absolute Auto 0.1 K/mm3 (0-0.3); Eosinophils Percent Auto 0.9 % (0-4.4); Hematocrit 26.6 % (37.0-47.0); Hemoglobin 8.6 g/dL (12.0-15.0); Immature Granulocyte Absolute 0.64 K/mm3 (0.00-0.031); Lymphocytes Absolute Auto 0.93 K/mm3 (0.9-3.2); Lymphocytes Percent Auto 10.2 % (18.3-44.2); Mean Corpuscular HGB Conc 32.3 g/dl (32-36); Mean Corpuscular Hemoglobin 31.2 pg (26-34); Mean Corpuscular Volume 96.4 fl (80-100); Mean Platelet Volume 10.7 fl (7.4-10.4); Monocytes Absolute Auto 0.9 K/mm3 (0.1-0.6); Monocytes Percent Auto 9.8 % (2.6-8.5); Neutrophils Absolute Auto 6.5 K/mm3 (1.3-6.7); Neutrophils Percent Auto 71.6 % (45.5-73.1); Platelet Count Result 221 k/mm3 (150-375); Red Blood Count 2.76 M/mm3 (4.2-5.4); Red Cell Distribution Width 12.9 % (11.5-14.5); White Blood Count 9.1 K/mm3 (4.5-10.0)
[2022-04-30 11:32] LABS: Albumin Level 2.5 g/dL (3.5-5.1); Anion Gap 4 mmol/L (8-16); Blood Urea Nitrogen 15 mg/dL (7-17); Calcium 7.5 mg/dL (8.4-10.2); Carbon Dioxide 29 mmol/L (22-30); Chloride 105 mmol/L (98-107); Estimated CRCL calculation 51 ml/min; Estimated Glomerular Filt Rate 51; Glucose 95 mg/dL (65-110); Phosphorus 4.8 mg/dL (2.5-4.5); Potassium 3.9 mmol/L (3.4-5.0); Sodium 138 mmol/L (137-145)
--- NOTE | 2022-04-30 11:45 | PM.IMPN ---
Progress Note: A&P Assessment and Plan (1) Cellulitis: Qualifiers: Laterality: right Site of cellulitis: extremity Site of cellulitis of extremity: upper extremity Qualified Code(s): L03.113 - Cellulitis of right upper limb Code(s): L03.90 - Cellulitis, unspecified Status: Acute Assessment and Plan: Possible cellulitis versus some sort of arthropathy/autoimmune disease Will add some autoimmune test. Some labs are pending. Continue IV antibiotics Appreciate Ortho and plastics and put Plan for possible surgical debridement. Will also get echocardiogram. (2) GERD without esophagitis: Code(s): K21.9 - Gastro-esophageal reflux disease without esophagitis Status: Acute Assessment and Plan: No symptoms (3) Vitamin D deficiency: Code(s): E55.9 - Vitamin D deficiency, unspecified Status: Acute (4) Hypertension: Code(s): I10 - Essential (primary) hypertension Status: Acute Assessment and Plan: Continue home medications. (5) Hyperthyroidism: Code(s): E05.90 - Thyrotoxicosis, unspecified without thyrotoxic crisis or storm Status: Acute (6) Acute kidney injury: Code(s): N17.9 - Acute kidney failure, unspecified Status: Acute Assessment and Plan: Question etiology. May be related to autoimmune disease versus vancomycin exposure. Renal consult. Urine studies Renal ultrasound noted Subjective Date/time seen: 04/30/22 11:45 No complaints Exam Narrative: General: alert and oriented Psych: appropriate mood nad affect Eyes: PERRLA Neck: Trachea midline, no new lesions Skin: no changes Lungs: CTA Cardiac: Normal S1,S2, no MGR ABD: soft, nd, nt, nbs Ext: no new lesions, redness and edema noted. no significant change Vasc: Pulses intact Objective Data Vital Signs Vital Signs: Vital Signs - 24 hr 04/29/22 14:00 04/29/22 22:00 04/30/22 06:00 Temperature 97.9 F 98.1 F 97.3 F L Pulse Rate 66 83 74 Respiratory Rate 14 14 14 Blood Pressure 147/75 H 162/60 H 160/44 H Pulse Oximetry 95 97 90 Oxygen Delivery 04/30/22 08:45 Temperature Pulse Rate Respiratory Rate Blood Pressure Pulse Oximetry Oxygen Delivery Room Air Intake/Output Intake/Output: Intake & Output 04/27/22 04/28/22 04/29/22 01/17/23 23:59 23:59 23:59 23:59 Intake Total 1470 2800 2820 2100 Output Total 1150 Balance 1470 1650 2820 2100 Meds/Results Medications: Active Medications Generic Name Dose Route Start Last Admin Trade Name Freq PRN Reason Stop Dose Admin Hydrocodone Bitart/Acetaminophen 1 tab 04/25/22 12:52 04/27/22 12:59 Hydrocodone/Acetaminophen (*Crx) 5-325 Mg Tablet PO 1 tab Q6H PRN Administration Pain Rated 4-6 Hydrocodone Bitart/Acetaminophen 1 tab 04/29/22 17:39 04/30/22 10:05 Hydrocodone/Acetaminophen (*Crx) 10-325 Mg Tablet PO 1 tab Q4H PRN Administration Pain Rated 7-10 Ferrous Sulfate 324 mg 04/27/22 08:00 04/27/22 14:27 Ferrous Sulfate 324 Mg Tablet PO 324 mg TuSa@0800 [facility] Administration Ceftriaxone Sodium 2 gm/ 100 mls @ 200 mls/hr 04/26/22 17:00 04/29/22 15:56 Sodium Chloride IVPB 200 mls/hr DAILY@1600 [facility] Administration Vancomycin HCl 1,250 mg in 250 mls @ 200 mls/hr 04/28/22 06:00 04/29/22 17:38 Vancomycin 1,250 Mg/D5w 250 Ml IVPB 250 mls/hr Q18H [facility] Administration Lactated Ringer's 1,000 mls @ 75 mls/hr 04/28/22 07:55 04/30/22 01:25 Lr - Lactated Ringers Iv IV CONT 75 mls/hr .[id number] [facility] Administration Lisinopril 10 mg 04/25/22 09:00 04/30/22 08:47 Lisinopril 10 Mg Tablet BY MOUTH 10 mg DAILY [facility] Administration Methimazole 2.5 Mg 1 each 04/25/22 09:00 04/30/22 08:48 Tablet (Nonformulary PO 1 each - Will Not Scan) DAILY [facility] Administration Sodium Chloride 10 ml 04/29/22 14:00 04/30/22 05:16 Saline Lock Flush IV PUSH Not Given Q8HR [facility] Sodium Chloride 10 ml
--- NOTE | 2022-04-30 12:13 | WPDPN ---
Progress Note: A&P Assessment and Plan (1) Hand swelling: Qualifiers: Laterality: right Qualified Code(s): M79.89 - Other specified soft tissue disorders Code(s): M79.89 - Other specified soft tissue disorders Status: Acute (2) Foot swelling: Code(s): M79.89 - Other specified soft tissue disorders Status: Acute Plan Have spoken with Dr Ramirez, we will re ultrasound the left foot to determine if there is a fluid collection that could be aspirated or drained at surgery. Time Spent With Patient Time with patient: less than 15 minutes Subjective Date/time seen: 04/30/22 12:13 Interval history: Pt feels about the same. Afebrile past 20 hrs. WBC ECHO I believe it shows no vegetation on valves. Urine cleaned up on last UA. Creat 1.10 Fluid asp from right hand: No orgs seen. Rare WBC No crystals Culture still pending. 2nd Blood culture pending. Exam Narrative: Marked edema all the same sites. Violaceous skin at left medial and lateral malleoli. Fair , unchanged AROM in right hand. ROM of left foot unchanged. Still limited by edema. Foot drawing box tender when dependent, the tenderness does not require that she be bearing wt. Objective Data Vital Signs Vital Signs: Vital Signs - 24 hr 04/29/22 14:00 04/29/22 22:00 04/30/22 06:00 Temperature 97.9 F 98.1 F 97.3 F L Pulse Rate 66 83 74 Respiratory Rate 14 14 14 Blood Pressure 147/75 H 162/60 H 160/44 H Pulse Oximetry 95 97 90 Oxygen Delivery 04/30/22 08:45 Temperature Pulse Rate Respiratory Rate Blood Pressure Pulse Oximetry Oxygen Delivery Room Air Intake/Output Intake/Output: Intake & Output 04/27/22 04/28/22 04/29/22 04/30/22 23:59 23:59 23:59 23:59 Intake Total 1470 2800 2820 2100 Output Total 1150 Balance 1470 1650 2820 2100 Meds/Results Medications: Active Medications Generic Name Dose Route Start Last Admin Trade Name Freq PRN Reason Stop Dose Admin Hydrocodone Bitart/Acetaminophen 1 tab 04/25/22 12:52 04/27/22 12:59 Hydrocodone/Acetaminophen (*Crx) 5-325 Mg Tablet PO 1 tab Q6H PRN Administration Pain Rated 4-6 Hydrocodone Bitart/Acetaminophen 1 tab 04/29/22 17:39 04/30/22 10:05 Hydrocodone/Acetaminophen (*Crx) 10-325 Mg Tablet PO 1 tab Q4H PRN Administration Pain Rated 7-10 Ferrous Sulfate 324 mg 04/27/22 08:00 04/27/22 14:27 Ferrous Sulfate 324 Mg Tablet PO 324 mg TuSa@0800 [facility] Administration Ceftriaxone Sodium 2 gm/ 100 mls @ 200 mls/hr 04/26/22 17:00 04/29/22 15:56 Sodium Chloride IVPB 200 mls/hr DAILY@1600 [facility] Administration Vancomycin HCl 1,250 mg in 250 mls @ 200 mls/hr 04/28/22 06:00 04/29/22 17:38 Vancomycin 1,250 Mg/D5w 250 Ml IVPB 250 mls/hr Q18H [facility] Administration Lactated Ringer's 1,000 mls @ 75 mls/hr 04/28/22 07:55 04/30/22 01:25 Lr - Lactated Ringers Iv IV CONT 75 mls/hr .[id number] [facility] Administration Lisinopril 10 mg 04/25/22 09:00 04/30/22 08:47 Lisinopril 10 Mg Tablet BY MOUTH 10 mg DAILY [facility] Administration Methimazole 2.5 Mg 1 each 04/25/22 09:00 04/30/22 08:48 Tablet (Nonformulary PO 1 each - Will Not Scan) DAILY [facility] Administration Sodium Chloride 10 ml 04/29/22 14:00 04/30/22 05:16 Saline Lock Flush IV PUSH Not Given Q8HR [facility] Sodium Chloride 10 ml 04/29/22 06:46 Saline Lock Flush IV PUSH PRN PRN Flush Sodium Chloride 20 ml 04/29/22 06:46 Saline Lock Flush IV PUSH PRN PRN after blood draws Radiology Results: ITS Impressions Hand X-Ray 04/25/22 06:49 IMPRESSION: 1. Mild polyarticular osteoarthritis. Foot X-Ray 04/25/22 06:50 IMPRESSION: 1. Mild osteoarthritis of first metatarsophalangeal joint. Hand MRI 04/26/22 11:55 IMPRESSION: 1. Extensive inflammatory changes in the soft tissues throughout the right hand most prominent over the dorsum of the hand for surrounds a more discrete
--- NOTE | 2022-04-30 12:16 | P.PNNP_ITS ---
Progress Note: A&P Assessment and Plan (1) Acute kidney injury: Code(s): N17.9 - Acute kidney failure, unspecified Status: Acute Assessment and Plan: * improving * creatinine peaked at 1.8mg/dl * suspect due to acute infection (right hand + left foot cellulitis) * possibly progressed to mild ATN * some worsening due to NSAID use (?) * evaluation to date: * renal ultrasound normal * urine electrolytes prerenal * CPK okay * urine eosinophils negative * interestingly, noted to have ~ 900mg of protein * continue current therapy * follow trend of repeat labs and UOP (2) Streptococcal bacteremia: Code(s): R78.81 - Bacteremia; B95.5 - Unspecified streptococcus as the cause of diseases classified elsewhere Status: Acute Assessment and Plan: * as noted by cultures * right hand/leg foot felt to be likely source * on antibiotics * TTE without evidence of vegetations * follow repeat cultures (3) Cellulitis of right hand: Code(s): L03.113 - Cellulitis of right upper limb Status: Acute Assessment and Plan: * as noted by clinical exam on admission * culture data noted * on antibiotics * Plastic Surgery following (4) Cellulitis of left foot: Code(s): L03.116 - Cellulitis of left lower limb Status: Acute Assessment and Plan: * also suggestive by clinical exam on presentation * see #3 (5) Hypertension: Code(s): I10 - Essential (primary) hypertension Status: Chronic Assessment and Plan: * running a bit high by recent check * resumed back on lisinopril * follow trend of hemodynamics Will continue to follow. Subjective Date/time seen: 04/30/22 12:16 Right hand and left foot/ankle discomfort still present but no significant worsening noted; renal function/creatinine better as noted by AM labs; no acute issues overnight or earlier this AM. Exam Narrative: General: WD/WN Caucasin female in NAD Heart: normal S1 and S2; no rub Lungs: clear to auscultation Abdomen: soft, nontender, nondistended, positive bowel sounds Extremities: no cyanosis or clubbing'; right hand and left foot edema noted Skin: erythema noted in right hand/left foot Objective Data Vital Signs Vital Signs: Vital Signs Temp Pulse Resp BP Pulse Ox O2 Del Method 04/30/22 08:45 Room Air 04/30/22 06:00 97.3 F L 74 14 160/44 H 90 04/29/22 22:00 98.1 F 83 14 162/60 H 97 04/29/22 14:00 97.9 F 66 14 147/75 H 95 Intake/Output Intake/Output: Intake & Output 04/27/22 04/28/22 04/29/22 04/30/22 23:59 23:59 23:59 23:59 Intake Total 1470 2800 2820 2100 Output Total 1150 Balance 1470 1650 2820 2100 Meds/Results Medications: Active Medications Generic Name Dose Route Start Last Admin Trade Name Freq PRN Reason Stop Dose Admin Hydrocodone Bitart/Acetaminophen 1 tab 04/25/22 12:52 04/27/22 12:59 Hydrocodone/Acetaminophen (*Crx) 5-325 Mg Tablet PO 1 tab Q6H PRN Administration Pain Rated 4-6 Hydrocodone Bitart/Acetaminophen 1 tab 04/29/22 17:39 04/30/22 10:05 Hydrocodone/Acetaminophen (*Crx) 10-325 Mg Tablet PO 1 tab
--- NOTE | 2022-04-30 12:16 | PM.PNNEP ---
Progress Note: A&P Assessment and Plan (1) Acute kidney injury: Code(s): N17.9 - Acute kidney failure, unspecified Status: Acute Assessment and Plan: improving creatinine peaked at 1.8mg/dl suspect due to acute infection (right hand + left foot cellulitis) possibly progressed to mild ATN some worsening due to NSAID use (?) evaluation to date: renal ultrasound normal urine electrolytes prerenal CPK okay urine eosinophils negative interestingly, noted to have ~ 900mg of protein continue current therapy follow trend of repeat labs and UOP (2) Streptococcal bacteremia: Code(s): R78.81 - Bacteremia; B95.5 - Unspecified streptococcus as the cause of diseases classified elsewhere Status: Acute Assessment and Plan: as noted by cultures right hand/leg foot felt to be likely source on antibiotics TTE without evidence of vegetations follow repeat cultures (3) Cellulitis of right hand: Code(s): L03.113 - Cellulitis of right upper limb Status: Acute Assessment and Plan: as noted by clinical exam on admission culture data noted on antibiotics Plastic Surgery following (4) Cellulitis of left foot: Code(s): L03.116 - Cellulitis of left lower limb Status: Acute Assessment and Plan: also suggestive by clinical exam on presentation see #3 (5) Hypertension: Code(s): I10 - Essential (primary) hypertension Status: Chronic Assessment and Plan: running a bit high by recent check resumed back on lisinopril follow trend of hemodynamics Will continue to follow. Subjective Date/time seen: 04/30/22 12:16 Right hand and left foot/ankle discomfort still present but no significant worsening noted; renal function/creatinine better as noted by AM labs; no acute issues overnight or earlier this AM. Exam Narrative: General: WD/WN Caucasin female in NAD Heart: normal S1 and S2; no rub Lungs: clear to auscultation Abdomen: soft, nontender, nondistended, positive bowel sounds Extremities: no cyanosis or clubbing'; right hand and left foot edema noted Skin: erythema noted in right hand/left foot Objective Data Vital Signs Vital Signs: Vital Signs Temp Pulse Resp BP Pulse Ox O2 Del Method 04/30/22 08:45 Room Air 04/30/22 06:00 97.3 F L 74 14 160/44 H 90 04/29/22 22:00 98.1 F 83 14 162/60 H 97 04/29/22 14:00 97.9 F 66 14 147/75 H 95 Intake/Output Intake/Output: Intake & Output 04/27/22 04/28/22 04/29/22 04/30/22 23:59 23:59 23:59 23:59 Intake Total 1470 2800 2820 2100 Output Total 1150 Balance 1470 1650 2820 2100 Meds/Results Medications: Active Medications Generic Name Dose Route Start Last Admin Trade Name Freq PRN Reason Stop Dose Admin Hydrocodone Bitart/Acetaminophen 1 tab 04/25/22 12:52 04/27/22 12:59 Hydrocodone/Acetaminophen (*Crx) 5-325 Mg Tablet PO 1 tab Q6H PRN Administration Pain Rated 4-6 Hydrocodone Bitart/Acetaminophen 1 tab 04/29/22 17:39 04/30/22 10:05 Hydrocodone/Acetaminophen (*Crx) 10-325 Mg Tablet PO 1 tab Q4H PRN Administration Pain Rated 7-10 Ferrous Sulfate 324 mg 04/27/22 08:00 04/27/22 14:27 Ferrous Sulfate 324 Mg Tablet PO 324 mg TuSa@0800 [facility] Administration Ceftriaxone Sodium 2 gm/ 100 mls @ 200 mls/hr 04/26/22 17:00 04/29/22 15:56 Sodium Chloride IVPB 200 mls/hr DAILY@1600 [facility] Administration Vancomycin HCl 1,250 mg in 250 mls @ 200 mls/hr 04/28/22 06:00 04/29/22 17:38 Vancomycin 1,250 Mg/D5w 250 Ml IVPB 250 mls/hr Q18H [facility] Administration Lactated Ringer's 1,000 mls @ 75 mls/hr 04/28/22 07:55 04/30/22 01:25 Lr - Lactated Ringers Iv IV CONT 75 mls/hr .[id number] [facility] Administration Lisinopril 10 mg 04/25/22 09:00 04/30/22 08:47 Lisinopril 10 Mg Tablet BY MOUTH 10 mg DAILY [facility] Administration Methimazole 2.5 Mg 1 each
[2022-04-30 12:17] LABS: ANA Cascade Screen Negative (Negative)
[2022-04-30 12:22] LABS: Vancomycin Trough 13.8 ug/mL (10.0-20.0)
[2022-04-30 13:46] LABS: CRP 22.7 mg/dL (<1.0)
[2022-04-30 14:00] VITALS: BP 156/75; PULSE 73; RESP 16; TEMP 36.5; O2SAT 90
[2022-04-30] MEDS: SALINE LOCK FLUSH 10 ML IV PUSH (14:09)
[2022-04-30] MEDS: cefTRIAXone 2 GM in SODIUM CHLORIDE 0.9% IV 100 ML 200 ML IVPB (17:13)
[2022-04-30 22:00] VITALS: BP 147/67; PULSE 83; RESP 16; TEMP 36.4; O2SAT 95
[2022-05-01] MEDS: LACTATED RINGERS 1,000 ML 75 ML IV CONT ×2 (00:22→15:18)
--- NOTE | 2022-05-01 03:32 | PC.NURSE ---
Pt resting in bed. Pt has been sleeping since start of shift. Pt expresses no needs at this time. Will continue to monitor pt.
[2022-05-01] MEDS: HYDROcodone/acetaminophen (*CRX) 10-325 MG TABLET 1 TAB PO ×5 (04:19→22:12)
[2022-05-01 06:00] VITALS: BP 154/66; PULSE 86; RESP 16; TEMP 37.1; O2SAT 99
[2022-05-01 06:04] LABS: Basophils Percent Auto 0.3 % (0.2-1.2); Eosinophils Absolute Auto 0.1 K/mm3 (0-0.3); Eosinophils Percent Auto 0.6 % (0-4.4); Hematocrit 25.9 % (37.0-47.0); Hemoglobin 8.3 g/dL (12.0-15.0); Immature Granulocyte Absolute 0.49 K/mm3 (0.00-0.031); Immature Granulocyte Percent A 4.9 % (0-0.5); Lymphocytes Absolute Auto 0.91 K/mm3 (0.9-3.2); Lymphocytes Percent Auto 9.2 % (18.3-44.2); Mean Corpuscular Hemoglobin 30.3 pg (26-34); Mean Corpuscular Volume 94.5 fl (80-100); Mean Platelet Volume 10.7 fl (7.4-10.4); Monocytes Absolute Auto 0.8 K/mm3 (0.1-0.6); Neutrophils Absolute Auto 7.7 K/mm3 (1.3-6.7); Platelet Count Result 257 k/mm3 (150-375); Red Blood Count 2.74 M/mm3 (4.2-5.4); Red Cell Distribution Width 12.6 % (11.5-14.5); White Blood Count 9.9 K/mm3 (4.5-10.0)
[2022-05-01 06:14] LABS: Albumin Level 2.5 g/dL (3.5-5.1); Anion Gap 6 mmol/L (8-16); Blood Urea Nitrogen 14 mg/dL (7-17); Calcium 7.3 mg/dL (8.4-10.2); Carbon Dioxide 27 mmol/L (22-30); Chloride 103 mmol/L (98-107); Estimated CRCL calculation 51 ml/min; Estimated Glomerular Filt Rate 51; Glucose 102 mg/dL (65-110); Phosphorus 4.4 mg/dL (2.5-4.5); Potassium 3.8 mmol/L (3.4-5.0); Sodium 136 mmol/L (137-145)
[2022-05-01] MEDS: lisinopriL 10 MG TABLET BY MOUTH (09:19)
[2022-05-01 09:55] LABS: Anti Glomerular Basement Memb <1.0 AI (<1.0)
--- NOTE | 2022-05-01 10:45 | WPDPN ---
Progress Note: A&P Assessment and Plan (1) Cellulitis: Qualifiers: Laterality: right Site of cellulitis: extremity Site of cellulitis of extremity: upper extremity Qualified Code(s): L03.113 - Cellulitis of right upper limb Code(s): L03.90 - Cellulitis, unspecified Status: Acute Assessment and Plan: Current labs and PE suggest only strep cellulitis as active problem. Cause of multiple site involvement not clear. Plan No indication for surgical drainage at this point. Consider switching to Ancef. Consider NSAIDs Supportive care to include elevation, heating pad, OT. Discussed with Dr Bhatt who will be seeing her today. Time Spent With Patient Time with patient: 15 - 25 minutes Subjective Date/time seen: 05/01/22 10:45 Interval history: Feels pretty well. Right foot especially concerning for tenderness, increasing lizzie color, persistent edema. Exam Narrative: Afebrile several days. WBC 9.9 today Hb sliding to 8.3. Serum glucose wnl today. Renal function returned to normal. Several blood and body fluid cultures, since the first blood culture, all negative. Right hand shows decreasing edema, No worsening of skin markings. ROM limited by edema and disuse. Left knee without erythema,edema or tenderness. Right 1st metatarsal gradually returning to normal. Left foot seems to be worsening in all aspects of exam except pain. Skin discoloration especially increasing. No open wounds. Objective Data Vital Signs Vital Signs: Vital Signs - 24 hr 04/30/22 14:00 04/30/22 22:16 04/30/22 22:00 Temperature 97.7 F 97.5 F L Pulse Rate 73 83 Respiratory Rate 16 16 Blood Pressure 156/75 H 147/67 H Pulse Oximetry 90 95 Oxygen Delivery Room Air 05/01/22 06:00 Temperature 98.7 F Pulse Rate 86 Respiratory Rate 16 Blood Pressure 154/66 H Pulse Oximetry 99 Oxygen Delivery Intake/Output Intake/Output: Intake & Output 04/28/22 04/29/22 04/30/22 05/01/22 23:59 23:59 23:59 23:59 Intake Total 2800 3170 3570 950 Output Total 1150 1 Balance 1650 3170 3569 950 Meds/Results Medications: Active Medications Generic Name Dose Route Start Last Admin Trade Name Freq PRN Reason Stop Dose Admin Hydrocodone Bitart/Acetaminophen 1 tab 04/25/22 12:52 04/27/22 12:59 Hydrocodone/Acetaminophen (*Crx) 5-325 Mg Tablet PO 1 tab Q6H PRN Administration Pain Rated 4-6 Hydrocodone Bitart/Acetaminophen 1 tab 04/29/22 17:39 05/01/22 09:19 Hydrocodone/Acetaminophen (*Crx) 10-325 Mg Tablet PO 1 tab Q4H PRN Administration Pain Rated 7-10 Ferrous Sulfate 324 mg 04/27/22 08:00 04/30/22 12:43 Ferrous Sulfate 324 Mg Tablet PO Not Given TuSa@0800 [facility] Ceftriaxone Sodium 2 gm/ 100 mls @ 200 mls/hr 04/26/22 17:00 04/30/22 17:43 Sodium Chloride IVPB Infused DAILY@1600 [facility] Infusion Vancomycin HCl 1,250 mg in 250 mls @ 200 mls/hr 04/28/22 06:00 05/01/22 07:05 Vancomycin 1,250 Mg/D5w 250 Ml IVPB Infused Q18H [facility] Infusion Lactated Ringer's 1,000 mls @ 75 mls/hr 04/28/22 07:55 05/01/22 00:22 Lr - Lactated Ringers Iv IV CONT 75 mls/hr .[id number] [facility] Administration Lisinopril 10 mg 04/25/22 09:00 05/01/22 09:19 Lisinopril 10 Mg Tablet BY MOUTH 10 mg DAILY [facility] Administration Methimazole 2.5 Mg 1 each 04/25/22 09:00 05/01/22 09:20 Tablet (Nonformulary PO 1 each - Will Not Scan) DAILY [facility] Administration Sodium Chloride 10 ml 04/29/22 14:00 05/01/22 05:30 Saline Lock Flush IV PUSH Not Given Q8HR [facility] Sodium Chloride 10 ml 04/29/22 06:46 Saline Lock Flush IV PUSH PRN PRN Flush Sodium Chloride 20 ml 04/29/22 06:46 Saline Lock Flush IV PUSH PRN PRN after blood draws Radiology Results: ITS Impressions Hand X-Ray 04/25/22 06:49 IMPRESSION: 1. Mild polyarticular osteoarthritis. Foot X-Ray 04/25/22 06:50 IMPRESSION: 1. Mild oste
[2022-05-01] MEDS: SALINE LOCK FLUSH 10 ML IV PUSH ×2 (13:22→23:20)
--- NOTE | 2022-05-01 13:58 | P.PNNP_ITS ---
Progress Note: A&P Assessment and Plan (1) Acute kidney injury: Code(s): N17.9 - Acute kidney failure, unspecified Status: Acute Assessment and Plan: * stable but not back to baseline * creatinine peaked at 1.8mg/dl * perhaps persistence of infection is hampering renal recovery * suspect due to acute infection (right hand + left foot cellulitis) * possibly progressed to mild ATN * some worsening due to NSAID use (?) * evaluation to date: * renal ultrasound normal * urine electrolytes prerenal * CPK okay * urine eosinophils negative * interestingly, noted to have ~ 900mg of protein * continue current therapy * follow trend of repeat labs and UOP (2) Streptococcal bacteremia: Code(s): R78.81 - Bacteremia; B95.5 - Unspecified streptococcus as the cause of diseases classified elsewhere Status: Acute Assessment and Plan: * as noted by cultures * right hand/leg foot felt to be likely source * on antibiotics * stop vancomycin (?) * TTE without evidence of vegetations * follow repeat cultures (3) Cellulitis of right hand: Code(s): L03.113 - Cellulitis of right upper limb Status: Acute Assessment and Plan: * as noted by clinical exam on admission * culture data noted * on antibiotics * Plastic Surgery following (4) Cellulitis of left foot: Code(s): L03.116 - Cellulitis of left lower limb Status: Acute Assessment and Plan: * also suggestive by clinical exam on presentation * see #3 (5) Hypertension: Code(s): I10 - Essential (primary) hypertension Status: Chronic Assessment and Plan: * running a bit high by recent check * resumed back on lisinopril * follow trend of hemodynamics Will continue to follow. Subjective Date/time seen: 05/01/22 13:58 She states her right had seems to be doing better but her left foot is still quite edematous; no other acute issues/complaints voiced at this time; renal function remains stable (but still not back to baseline). Exam Narrative: General: WD/WN Caucasin female in NAD Heart: normal S1 and S2; no rub Lungs: clear to auscultation Abdomen: soft, nontender, nondistended, positive bowel sounds Extremities: no cyanosis or clubbing'; right hand and left foot edema noted (left foot worse than right hand) Skin: reduced noted in right hand/left foot Objective Data Vital Signs Vital Signs: Vital Signs Temp Pulse Resp BP Pulse Ox O2 Del Method 05/01/22 09:20 Room Air 05/01/22 06:00 98.7 F 86 16 154/66 H 99 04/30/22 22:00 97.5 F L 83 16 147/67 H 95 04/30/22 22:16 Room Air Intake/Output Intake/Output: Intake & Output 04/28/22 04/29/22 04/30/22 05/01/22 23:59 23:59 23:59 23:59 Intake Total 2800 3170 3570 1430 Output Total 1150 1 Balance 1650 3170 3569 1430 Meds/Results Medications: Active Medications Generic Name Dose Route Start Last Admin Trade Name Freq PRN Reason Stop Dose Admin Hydrocodone Bitart/Acetaminophen 1 tab 04/25/22 12:52 04/27/22 12:59 Hydrocodone/Acetaminophen (*Crx) 5-325 Mg Tablet PO 1 tab Q6H PRN Administration Pain Rated 4-6
--- NOTE | 2022-05-01 13:58 | PM.PNNEP ---
Progress Note: A&P Assessment and Plan (1) Acute kidney injury: Code(s): N17.9 - Acute kidney failure, unspecified Status: Acute Assessment and Plan: stable but not back to baseline creatinine peaked at 1.8mg/dl perhaps persistence of infection is hampering renal recovery suspect due to acute infection (right hand + left foot cellulitis) possibly progressed to mild ATN some worsening due to NSAID use (?) evaluation to date: renal ultrasound normal urine electrolytes prerenal CPK okay urine eosinophils negative interestingly, noted to have ~ 900mg of protein continue current therapy follow trend of repeat labs and UOP (2) Streptococcal bacteremia: Code(s): R78.81 - Bacteremia; B95.5 - Unspecified streptococcus as the cause of diseases classified elsewhere Status: Acute Assessment and Plan: as noted by cultures right hand/leg foot felt to be likely source on antibiotics stop vancomycin (?) TTE without evidence of vegetations follow repeat cultures (3) Cellulitis of right hand: Code(s): L03.113 - Cellulitis of right upper limb Status: Acute Assessment and Plan: as noted by clinical exam on admission culture data noted on antibiotics Plastic Surgery following (4) Cellulitis of left foot: Code(s): L03.116 - Cellulitis of left lower limb Status: Acute Assessment and Plan: also suggestive by clinical exam on presentation see #3 (5) Hypertension: Code(s): I10 - Essential (primary) hypertension Status: Chronic Assessment and Plan: running a bit high by recent check resumed back on lisinopril follow trend of hemodynamics Will continue to follow. Subjective Date/time seen: 05/01/22 13:58 She states her right had seems to be doing better but her left foot is still quite edematous; no other acute issues/complaints voiced at this time; renal function remains stable (but still not back to baseline). Exam Narrative: General: WD/WN Caucasin female in NAD Heart: normal S1 and S2; no rub Lungs: clear to auscultation Abdomen: soft, nontender, nondistended, positive bowel sounds Extremities: no cyanosis or clubbing'; right hand and left foot edema noted (left foot worse than right hand) Skin: reduced noted in right hand/left foot Objective Data Vital Signs Vital Signs: Vital Signs Temp Pulse Resp BP Pulse Ox O2 Del Method 05/01/22 09:20 Room Air 01/18/23 06:00 98.7 F 86 16 154/66 H 99 04/30/22 22:00 97.5 F L 83 16 147/67 H 95 04/30/22 22:16 Room Air Intake/Output Intake/Output: Intake & Output 04/28/22 04/29/22 04/30/22 05/01/22 23:59 23:59 23:59 23:59 Intake Total 2800 3170 3570 1430 Output Total 1150 1 Balance 1650 3170 3569 1430 Meds/Results Medications: Active Medications Generic Name Dose Route Start Last Admin Trade Name Freq PRN Reason Stop Dose Admin Hydrocodone Bitart/Acetaminophen 1 tab 04/25/22 12:52 04/27/22 12:59 Hydrocodone/Acetaminophen (*Crx) 5-325 Mg Tablet PO 1 tab Q6H PRN Administration Pain Rated 4-6 Hydrocodone Bitart/Acetaminophen 1 tab 04/29/22 17:39 05/01/22 13:22 Hydrocodone/Acetaminophen (*Crx) 10-325 Mg Tablet PO 1 tab Q4H PRN Administration Pain Rated 7-10 Ferrous Sulfate 324 mg 04/27/22 08:00 04/30/22 12:43 Ferrous Sulfate 324 Mg Tablet PO Not Given TuSa@0800 CHRI[facility]IAN Ceftriaxone Sodium 2 gm/ 100 mls @ 200 mls/hr 04/26/22 17:00 04/30/22 17:43 Sodium Chloride IVPB Infused DAILY@1600 [facility]IAN Infusion Vancomycin HCl 1,250 mg in 250 mls @ 200 mls/hr 04/28/22 06:00 05/01/22 07:05 Vancomycin 1,250 Mg/D5w 250 Ml IVPB Infused Q18H [facility]IAN Infusion Lactated Ringer's 1,000 mls @ 75 mls/hr 04/28/22 07:55 05/01/22 00:22 Lr - Lactated Ringers Iv IV CONT 75 mls/hr .[id number] CHRISTIAN Administration Lisinopril 10 mg 04/25/22 09:00 05/01/22
[2022-05-01 14:46] VITALS: BP 158/82; PULSE 70; RESP 18; TEMP 36.9; O2SAT 96
--- NOTE | 2022-05-01 15:07 | PM.IMPN ---
Progress Note: A&P Assessment and Plan (1) Streptococcal bacteremia: Code(s): R78.81 - Bacteremia; B95.5 - Unspecified streptococcus as the cause of diseases classified elsewhere Status: Acute Assessment and Plan: Patient presents with right hand and left foot/ ankle erythema, edema. Symptoms are consistent with cellulitis. Both blood cultures on admission growing group a Streptococcus. Repeat blood cultures are negative. Echocardiogram does not show any evidence vegetation. No history of gout but she does have osteoarthritis. Consider postinfectious or autoimmune arthropathy although this seems less likely. Overall field we on the right track with her treatment plan. Will discuss with PharmD ID blood plan on stopping vancomycin. Consider anaerobic infection although feel this is less likely. Will check CRP the morning. White count remains normal since admission. No further fevers and clinically appears to be improving. Appreciate Orthopedic and Plastic surgery input. Discussed with Plastic surgery. (2) Cellulitis: Qualifiers: Laterality: right Site of cellulitis: extremity Site of cellulitis of extremity: upper extremity Qualified Code(s): L03.113 - Cellulitis of right upper limb Code(s): L03.90 - Cellulitis, unspecified Status: Acute Assessment and Plan: As above (3) Anemia: Code(s): D64.9 - Anemia, unspecified Status: Acute Assessment and Plan: Hemoglobin has trended down to the 8 range. Probably related to fluid overload. She has a fluid balance of 17 L positive. Urine output has not been calculated accurately but still suspect patient has excessive fluid on board. Her hemoglobin as such may be diluted out. Stop IV fluids. Will start Lasix in the morning. Monitor renal function on Lasix. (4) Acute kidney injury: Code(s): N17.9 - Acute kidney failure, unspecified Status: Acute Assessment and Plan: Cr climbed to 1.8. Probably ATN given how quick it jose and now back to down. Consider related to post-strept (too soon though) autoimmune disease versus vancomycin exposure as well. Renal consult and apprecaite their input. Renal US normal. Follow (5) Hypertension: Code(s): I10 - Essential (primary) hypertension Status: Acute Assessment and Plan: Patient's blood pressure was reviewed on 05/01 Blood pressure higher recently. Will continue current medications. (6) Hyperthyroidism: Code(s): E05.90 - Thyrotoxicosis, unspecified without thyrotoxic crisis or storm Status: Acute Assessment and Plan: Patient with hx of hyperthyroidism. On methimaole which is continued. FT4 normal. Continue the same. Subjective Date/time seen: 05/01/22 15:07 Interval history: 61yo female with HTN here for right hand and left foot edema, erythema with fevers. Assuming care. Chart reviewed. Right hand is feeling much better. She is actually able to move the hand with little pain. Also able to text and from other fine motor functions. Pain is mostly related to the middle digit on the right hand. No numbness or tingling in the hand. Left foot is still quite swollen. No numbness or tingling in the toes. She denies any trauma to the foot or right hand. He has not been septic with horns. No chest pain or shortness of breath. No nausea or vomiting. She is eating better. No hx of gout. Has hx of OA usually knees and ankles. Exam Narrative: Gen - NARD Chest - CTA bilaterally, nml RR CV - RRR S1/S2 with 2/6 systolic murmur RUSB Abd - Soft, NT/ND, Positive BS Ext - right hand edema with good ROM. No Osler nodes, JW, splinter or conjunctival petechia. Left ankle/foot edema with brusing noted bilateral ankle. 2+ DP pulses bilaterally Psych - Nml mood and affect Skin - as above. Objective Data Vital Signs Vital Signs: Vital Signs - 24 hr 04/30/22 22:16 04/30/22 22:00 0
[2022-05-01 15:40] LABS: Complement Total CH50 >60 U/mL (31-60)
--- NOTE | 2022-05-01 15:57 | IDPHARM ---
Subjective Pharmacy was consulted by Sravanthi Diez regarding infectious diseases for Tiffanie Chavez. Tiffanie Chavez is a 61 year old F with concerns regarding Foot and Hand Abscess. Background The patient is currently receiving Ceftriaxone and Vancomycin. The patient had presented initially with a hand and foot abscess which have been drained and sent for cultures on 04/29 and 04/30 and had a GAS BSI with clear cultures noted on 04/29. Assessment/Recommendation/Discussion Spoke with the provider today and have noted to now follow these abscesses and follow for source control as remainder of therapy approaches. Likely may not need vancomycin therapy given the streptococcus presentation. Thank you for the interesting consult. Sean Edge, PharmD Infectious Disease/Antimicrobial Stewardship Pharmacist 05/01/22; [id number]
[2022-05-01] MEDS: cefTRIAXone 2 GM in SODIUM CHLORIDE 0.9% IV 100 ML 200 ML IVPB (16:20)
[2022-05-01 19:08] LABS: Hepatitis B Core Ab Total Nonreactive (Nonreactive)
[2022-05-01 20:00] VITALS: O2SAT 98
[2022-05-01 22:00] VITALS: BP 161/82; PULSE 89; RESP 16; TEMP 36.4; O2SAT 98
[2022-05-02] MEDS: HYDROcodone/acetaminophen (*CRX) 10-325 MG TABLET 1 TAB PO ×5 (05:08→23:18)
[2022-05-02 05:38] LABS: Basophils Percent Auto 0.2 % (0.2-1.2); Eosinophils Absolute Auto 0.1 K/mm3 (0-0.3); Eosinophils Percent Auto 0.7 % (0-4.4); Hematocrit 26.1 % (37.0-47.0); Hemoglobin 8.5 g/dL (12.0-15.0); Immature Granulocyte Absolute 0.36 K/mm3 (0.00-0.031); Immature Granulocyte Percent A 3.9 % (0-0.5); Lymphocytes Percent Auto 10.9 % (18.3-44.2); Mean Corpuscular HGB Conc 32.6 g/dl (32-36); Mean Corpuscular Hemoglobin 30.5 pg (26-34); Mean Corpuscular Volume 93.5 fl (80-100); Mean Platelet Volume 10.3 fl (7.4-10.4); Monocytes Absolute Auto 0.7 K/mm3 (0.1-0.6); Monocytes Percent Auto 7.9 % (2.6-8.5); Neutrophils Percent Auto 76.4 % (45.5-73.1); Platelet Count Result 273 k/mm3 (150-375); Red Blood Count 2.79 M/mm3 (4.2-5.4); Red Cell Distribution Width 12.5 % (11.5-14.5); White Blood Count 9.2 K/mm3 (4.5-10.0)
[2022-05-02 05:57] LABS: Alanine Aminotransferase 46 U/L (6-35); Albumin Level 2.6 g/dL (3.5-5.1); Alkaline Phosphatase 63 U/L (38-126); Anion Gap 3 mmol/L (8-16); Aspartate Amino Transferase 63 U/L (14-36); Bilirubin,Total 0.3 mg/dL (0.2-1.3); Blood Urea Nitrogen 12 mg/dL (7-17); Calcium 7.3 mg/dL (8.4-10.2); Carbon Dioxide 29 mmol/L (22-30); Chloride 102 mmol/L (98-107); Estimated CRCL calculation 47 ml/min; Estimated Glomerular Filt Rate 46; Glucose 108 mg/dL (65-110); Phosphorus 4.7 mg/dL (2.5-4.5); Potassium 3.8 mmol/L (3.4-5.0); Sodium 134 mmol/L (137-145)
[2022-05-02 06:00] VITALS: BP 166/65; PULSE 85; RESP 22; TEMP 36.6; O2SAT 95
[2022-05-02 06:01] LABS: CRP 20.7 mg/dL (<1.0)
[2022-05-02] MEDS: SALINE LOCK FLUSH 10 ML IV PUSH ×2 (06:13→21:36)
[2022-05-02] MEDS: ENOXAPARIN 40 MG/0.4 ML SYRINGE SUB-Q (09:29)
[2022-05-02] MEDS: FUROSEMIDE INJ 40 MG/4 ML VIAL 20 MG IV PUSH ×2 (09:29→17:33)
[2022-05-02] MEDS: lisinopriL 10 MG TABLET BY MOUTH (09:29)
--- NOTE | 2022-05-02 12:31 | WPDPN ---
Progress Note: A&P Assessment and Plan (1) Hand swelling: Qualifiers: Laterality: right Qualified Code(s): M79.89 - Other specified soft tissue disorders Code(s): M79.89 - Other specified soft tissue disorders Status: Acute Assessment and Plan: No change in her hand exam passed two days. Will benefit from O.T. (2) Foot swelling: Code(s): M79.89 - Other specified soft tissue disorders Status: Acute Assessment and Plan: Slight decrease in edema showing some skin wrinkling. Superficial skin wound on the medial foot is stabilized I believe. There will be partial thickness slough that will require some dressing care eventually. Probably will not need surgical intervention. The lateral side seems less severe and stabilized. Plan These sequelae of Strep cellulitis will resolve. Not sure how long antibiotic coverage should be continued. Might be OK to send home on oral. Renal problems followed by hospitalist, seem unresolved. Time Spent With Patient Time with patient: less than 15 minutes Subjective Date/time seen: 05/02/22 12:31 Interval history: No significant change in her status according to her. No new complaints. Review of Systems Review of Systems: All areas that have been affected remain edematous, stiff and tender. Objective Data Vital Signs Vital Signs: Vital Signs - 24 hr 05/01/22 14:46 05/01/22 22:00 05/01/22 20:00 Temperature 98.4 F 97.6 F Pulse Rate 70 89 Respiratory Rate 18 16 Blood Pressure 158/82 H 161/82 H Pulse Oximetry 96 98 98 Oxygen Delivery Room Air 05/02/22 06:00 05/02/22 08:10 05/02/22 08:00 Temperature 97.8 F Pulse Rate 85 Respiratory Rate 22 H Blood Pressure 166/65 H Pulse Oximetry 95 Oxygen Delivery Room Air Room Air Intake/Output Intake/Output: Intake & Output 04/29/22 04/30/22 05/01/22 05/02/22 23:59 23:59 23:59 23:59 Intake Total 3170 3570 3370 1590 Output Total 1 800 3 Balance 3170 3569 2570 1587 Meds/Results Medications: Active Medications Generic Name Dose Route Start Last Admin Trade Name Freq PRN Reason Stop Dose Admin Hydrocodone Bitart/Acetaminophen 1 tab 04/25/22 12:52 04/27/22 12:59 Hydrocodone/Acetaminophen (*Crx) 5-325 Mg Tablet PO 1 tab Q6H PRN Administration Pain Rated 4-6 Hydrocodone Bitart/Acetaminophen 1 tab 04/29/22 17:39 05/02/22 09:28 Hydrocodone/Acetaminophen (*Crx) 10-325 Mg Tablet PO 1 tab Q4H PRN Administration Pain Rated 7-10 Enoxaparin Sodium 40 mg 05/02/22 09:00 05/02/22 09:29 Enoxaparin 40 Mg/0.4 Ml Syringe SUB-Q 40 mg DAILY CHRISTIAN Administration Ferrous Sulfate 324 mg 04/27/22 08:00 04/30/22 12:43 Ferrous Sulfate 324 Mg Tablet PO Not Given TuSa@0800 [facility]IAN Furosemide 20 mg 05/02/22 09:00 05/02/22 09:29 Furosemide Inj 40 Mg/4 Ml Vial IV PUSH 20 mg DAILY [facility] Administration Ceftriaxone Sodium 2 gm/ 100 mls @ 200 mls/hr 04/26/22 17:00 05/01/22 16:50 Sodium Chloride IVPB Infused DAILY@1600 [facility] Infusion Vancomycin HCl 1,250 mg in 250 mls @ 200 mls/hr 04/28/22 06:00 05/02/22 00:35 Vancomycin 1,250 Mg/D5w 250 Ml IVPB Infused Q18H [facility] Infusion Lisinopril 10 mg 04/25/22 09:00 05/02/22 09:29 Lisinopril 10 Mg Tablet BY MOUTH 10 mg DAILY [facility] Administration Methimazole 2.5 Mg 1 each 04/25/22 09:00 05/02/22 09:29 Tablet (Nonformulary PO 1 each - Will Not Scan) DAILY [facility]IAN Administration Sodium Chloride 10 ml 04/29/22 14:00 05/02/22 06:13 Saline Lock Flush IV PUSH 10 ml Q8HR [facility]IAN Administration Sodium Chloride 10 ml 04/29/22 06:46 Saline Lock Flush IV PUSH PRN PRN Flush Sodium Chloride 20 ml 04/29/22 06:46 Saline Lock Flush IV PUSH PRN PRN after blood draws Radiology Results: ITS Impressions Hand X-Ray 04/25/22 06:49 IMPRESSION: 1. Mild polyarticular osteoarthritis. Foot X-Ray 04/25/22 06:50 IMPRES
--- NOTE | 2022-05-02 13:18 | PM.PNNEP ---
Progress Note: A&P Assessment and Plan (1) Acute kidney injury: Code(s): N17.9 - Acute kidney failure, unspecified Status: Acute Assessment and Plan: stable but not back to baseline creatinine peaked at 1.8mg/dl perhaps persistence of infection is hampering renal recovery up a tad today -- due to diuretics(?) suspect due to acute infection (right hand + left foot cellulitis) possibly progressed to mild ATN some worsening due to NSAID use (?) evaluation to date: renal ultrasound normal urine electrolytes prerenal CPK okay urine eosinophils negative interestingly, noted to have ~ 900mg of protein continue current therapy follow trend of repeat labs and UOP (2) Streptococcal bacteremia: Code(s): R78.81 - Bacteremia; B95.5 - Unspecified streptococcus as the cause of diseases classified elsewhere Status: Acute Assessment and Plan: as noted by cultures right hand/leg foot felt to be likely source on antibiotics TTE without evidence of vegetations follow repeat cultures (3) Cellulitis of right hand: Code(s): L03.113 - Cellulitis of right upper limb Status: Acute Assessment and Plan: as noted by clinical exam on admission culture data noted on antibiotics Plastic Surgery following (4) Cellulitis of left foot: Code(s): L03.116 - Cellulitis of left lower limb Status: Acute Assessment and Plan: also suggestive by clinical exam on presentation see #3 (5) Hypertension: Code(s): I10 - Essential (primary) hypertension Status: Chronic Assessment and Plan: running a bit high by recent check resumed back on lisinopril follow trend of hemodynamics Discussed case with Dr. Edward. Will continue to follow. Subjective Date/time seen: 05/02/22 13:18 No real significant change noted at this time; right hand stable if not better but left foot still giving her some discomfort; started on IV diuretics given her issues with edema/swelling; no acute distress noted; no issues/events overnight or earlier this AM. Exam Narrative: General: WD/WN Caucasin female in NAD Heart: normal S1 and S2; no rub Lungs: clear to auscultation Abdomen: soft, nontender, nondistended, positive bowel sounds Extremities: no cyanosis or clubbing'; right hand and left foot edema noted (left foot worse than right hand) Skin: reduced erythema noted in right hand/left foot Objective Data Vital Signs Vital Signs: Vital Signs Temp Pulse Resp BP Pulse Ox O2 Del Method 05/02/22 08:00 Room Air 05/02/22 08:10 Room Air 05/02/22 06:00 97.8 F 85 22 H 166/65 H 95 05/01/22 20:00 98 Room Air 05/01/22 22:00 97.6 F 89 16 161/82 H 98 05/01/22 14:46 98.4 F 70 18 158/82 H 96 Intake/Output Intake/Output: Intake & Output 04/29/22 04/30/22 05/01/22 05/02/22 23:59 23:59 23:59 23:59 Intake Total 3170 3570 3370 1590 Output Total 1 800 3 Balance 3170 3569 2570 1587 Meds/Results Medications: Active Medications Generic Name Dose Route Start Last Admin Trade Name Freq PRN Reason Stop Dose Admin Hydrocodone Bitart/Acetaminophen 1 tab 04/25/22 12:52 04/27/22 12:59 Hydrocodone/Acetaminophen (*Crx) 5-325 Mg Tablet PO 1 tab Q6H PRN Administration Pain Rated 4-6 Hydrocodone Bitart/Acetaminophen 1 tab 04/29/22 17:39 05/02/22 09:28 Hydrocodone/Acetaminophen (*Crx) 10-325 Mg Tablet PO 1 tab Q4H PRN Administration Pain Rated 7-10 Enoxaparin Sodium 40 mg 05/02/22 09:00 05/02/22 09:29 Enoxaparin 40 Mg/0.4 Ml Syringe SUB-Q 40 mg DAILY CHRISTIAN Administration Ferrous Sulfate 324 mg 04/27/22 08:00 04/30/22 12:43 Ferrous Sulfate 324 Mg Tablet PO Not Given TuSa@0800 CH[facility]IAN Furosemide 20 mg 05/02/22 09:00 05/02/22 09:29 Furosemide Inj 40 Mg/4 Ml Vial IV PUSH 20 mg DAILY [facility]STIAN Administration Ceftriaxone Sodium 2 gm/ 100 mls
--- NOTE | 2022-05-02 13:18 | P.PNNP_ITS ---
Progress Note: A&P Assessment and Plan (1) Acute kidney injury: Code(s): N17.9 - Acute kidney failure, unspecified Status: Acute Assessment and Plan: * stable but not back to baseline * creatinine peaked at 1.8mg/dl * perhaps persistence of infection is hampering renal recovery * up a tad today -- due to diuretics(?) * suspect due to acute infection (right hand + left foot cellulitis) * possibly progressed to mild ATN * some worsening due to NSAID use (?) * evaluation to date: * renal ultrasound normal * urine electrolytes prerenal * CPK okay * urine eosinophils negative * interestingly, noted to have ~ 900mg of protein * continue current therapy * follow trend of repeat labs and UOP (2) Streptococcal bacteremia: Code(s): R78.81 - Bacteremia; B95.5 - Unspecified streptococcus as the cause of diseases classified elsewhere Status: Acute Assessment and Plan: * as noted by cultures * right hand/leg foot felt to be likely source * on antibiotics * TTE without evidence of vegetations * follow repeat cultures (3) Cellulitis of right hand: Code(s): L03.113 - Cellulitis of right upper limb Status: Acute Assessment and Plan: * as noted by clinical exam on admission * culture data noted * on antibiotics * Plastic Surgery following (4) Cellulitis of left foot: Code(s): L03.116 - Cellulitis of left lower limb Status: Acute Assessment and Plan: * also suggestive by clinical exam on presentation * see #3 (5) Hypertension: Code(s): I10 - Essential (primary) hypertension Status: Chronic Assessment and Plan: * running a bit high by recent check * resumed back on lisinopril * follow trend of hemodynamics Discussed case with Dr. Edward. Will continue to follow. Subjective Date/time seen: 05/02/22 13:18 No real significant change noted at this time; right hand stable if not better but left foot still giving her some discomfort; started on IV diuretics given her issues with edema/swelling; no acute distress noted; no issues/events overnight or earlier this AM. Exam Narrative: General: WD/WN Caucasin female in NAD Heart: normal S1 and S2; no rub Lungs: clear to auscultation Abdomen: soft, nontender, nondistended, positive bowel sounds Extremities: no cyanosis or clubbing'; right hand and left foot edema noted (left foot worse than right hand) Skin: reduced erythema noted in right hand/left foot Objective Data Vital Signs Vital Signs: Vital Signs Temp Pulse Resp BP Pulse Ox O2 Del Method 05/02/22 08:00 Room Air 05/02/22 08:10 Room Air 05/02/22 06:00 97.8 F 85 22 H 166/65 H 95 05/01/22 20:00 98 Room Air 05/01/22 22:00 97.6 F 89 16 161/82 H 98 05/01/22 14:46 98.4 F 70 18 158/82 H 96 Intake/Output Intake/Output: Intake & Output 04/29/22 04/30/22 05/01/22 05/02/22 23:59 23:59 23:59 23:59 Intake Total 3170 3570 3370 1590 Output Total 1 800 3 Balance 3170 3569 2570 1587 Meds/Results Medications: Active Medications Generic Name Dose Route Start Last Admin Trade Name Freq PRN Reason Stop Dose Admin
[2022-05-02 14:56] VITALS: PULSE 79; RESP 18; TEMP 36.8; O2SAT 95
--- NOTE | 2022-05-02 15:58 | PM.IMPN ---
Progress Note: A&P Assessment and Plan (1) Streptococcal bacteremia: Code(s): R78.81 - Bacteremia; B95.5 - Unspecified streptococcus as the cause of diseases classified elsewhere Status: Acute Assessment and Plan: Patient presents with right hand and left foot/ankle erythema, edema. Symptoms are consistent with cellulitis. Both blood cultures on admission growing Group A Streptococcus. Repeat blood cultures are negative. Echo does not show any evidence vegetation. No history of gout but she does have osteoarthritis. Consider postinfectious or autoimmune arthropathy although this seems less likely. Discussed with PharmD ID with plans to stop vancomycin and add Flagyl for possible anaerobic infection. WBC remains normal. CRP 20 and trending down. No further fevers and clinically appears to be improving. Appreciate Orthopedic and Plastic surgery input. (2) Cellulitis: Qualifiers: Laterality: right Site of cellulitis: extremity Site of cellulitis of extremity: upper extremity Qualified Code(s): L03.113 - Cellulitis of right upper limb Code(s): L03.90 - Cellulitis, unspecified Status: Acute Assessment and Plan: As above (3) Anemia: Code(s): D64.9 - Anemia, unspecified Status: Acute Assessment and Plan: Hemoglobin has trended down to the 8 range. Probably related to fluid overload. She has a fluid balance of 17 L positive. Urine output has not been calculated accurately but still suspect patient has excessive fluid on board. Her hemoglobin as such may be diluted. IV fluids stopped and IV Lasix started. Monitor renal function on Lasix. (4) Acute kidney injury: Code(s): N17.9 - Acute kidney failure, unspecified Status: Acute Assessment and Plan: Cr climbed to 1.8. Probably ATN given how quick it jose and now back to down. Consider related to post-strept (too soon though), autoimmune disease versus vancomycin exposure as well. Renal consulted and appreciate their input. Renal US normal. Follow (5) Hypertension: Code(s): I10 - Essential (primary) hypertension Status: Chronic Assessment and Plan: Patient's blood pressure was reviewed on 05/02 Blood pressure higher now. Lisinopril resumed. Will continue current medications. Add low dose norvasc (6) Hyperthyroidism: Code(s): E05.90 - Thyrotoxicosis, unspecified without thyrotoxic crisis or storm Status: Acute Assessment and Plan: Patient with hx of hyperthyroidism. On methimaole which is continued. FT4 normal. Continue the same. Subjective Date/time seen: 05/02/22 15:58 Interval history: 61yo female with HTN here for right hand and left foot edema, erythema with fevers. Hand feels better. Better ROM and able to use the more. Got up to the side of bed and increasing pain to the foot when down. No CP or SOB. Exam Narrative: Gen - NARD Chest - CTA bilaterally, nml RR CV - RRR S1/S2 Abd - Soft, NT/ND, Positive BS Ext - right hand edema with ROM decreased but better. Mild bruising to the right hand. Left ankle/foot edema with bruising noted bilateral ankle. 2+ DP pulses bilaterally Psych - Nml mood and affect Skin - as above. Objective Data Vital Signs Vital Signs: Vital Signs - 24 hr 05/01/22 22:00 05/01/22 20:00 05/02/22 06:00 Temperature 97.6 F 97.8 F Pulse Rate 89 85 Respiratory Rate 16 22 H Blood Pressure 161/82 H 166/65 H Pulse Oximetry 98 98 95 Oxygen Delivery Room Air 05/02/22 08:10 05/02/22 08:00 05/02/22 14:56 Temperature 98.2 F Pulse Rate 79 Respiratory Rate 18 Blood Pressure Pulse Oximetry 95 Oxygen Delivery Room Air Room Air Intake/Output Intake/Output: Intake & Output 04/29/22 04/30/22 05/01/22 05/02/22 23:59 23:59 23:59 23:59 Intake Total 3170 3570 3370 1830 Output Total 1 800 3 Balance 3170 3569 4150 1827 Meds/Results Medications: Active Medicati
[2022-05-02] MEDS: metroNIDAZOLE 250 MG TABLET 500 MG PO ×2 (17:33→21:36)
[2022-05-02] MEDS: cefTRIAXone 2 GM in SODIUM CHLORIDE 0.9% IV 100 ML 200 ML IVPB (17:33)
[2022-05-02] MEDS: amLODIPine BESYLATE 2.5 MG TABLET PO (17:34)
[2022-05-02 20:37] LABS: Anti Cyclic Citrullinated Pept <16 Units (<20)
[2022-05-02 22:00] VITALS: BP 172/65; PULSE 88; RESP 16; TEMP 36.6; O2SAT 97
[2022-05-03 01:05] LABS: ANCA Screen Negative (Negative)
[2022-05-03 06:00] VITALS: BP 182/82; PULSE 90; RESP 14; TEMP 36.1; O2SAT 96
[2022-05-03] MEDS: HYDROcodone/acetaminophen (*CRX) 10-325 MG TABLET 1 TAB PO ×4 (06:06→20:53)
[2022-05-03] MEDS: metroNIDAZOLE 250 MG TABLET 500 MG PO ×3 (06:06→20:53)
[2022-05-03] MEDS: SALINE LOCK FLUSH 10 ML IV PUSH ×2 (06:06→13:40)
--- NOTE | 2022-05-03 09:08 | PM.IMPN ---
Progress Note: A&P Assessment and Plan (1) Streptococcal bacteremia: Code(s): R78.81 - Bacteremia; B95.5 - Unspecified streptococcus as the cause of diseases classified elsewhere Status: Acute Assessment and Plan: Patient presents with right hand and left foot/ankle erythema, edema consistent with cellulitis. Both blood cultures on admission grew Group A Streptococcus. Repeat blood cultures are negative. Echo does not show any evidence vegetation. No history of gout but she does have osteoarthritis. Autoimmune markers essentially negative. RF slightly elevated but anti-CCP negative and doubt RA. BRAXTON negative. Vancomycin started on 04/25 and stopped yesterday. Cefazolin started 04/25 and changed to Rocephin the next day so Day 9 of approrpiate abx treatment. Flagyl for possible anaerobic infection given the location and slower response with the ankle. WBC remains normal. CRP 20 and trending down. No further fevers and clinically appears to be improving. Appreciate Orthopedic and Plastic surgery input. Consider re-imaging of the left ankle. (2) Cellulitis: Qualifiers: Laterality: right Site of cellulitis: extremity Site of cellulitis of extremity: upper extremity Qualified Code(s): L03.113 - Cellulitis of right upper limb Code(s): L03.90 - Cellulitis, unspecified Status: Acute Assessment and Plan: As above (3) Anemia: Code(s): D64.9 - Anemia, unspecified Status: Acute Assessment and Plan: Hemoglobin has trended down to the 8 range. Probably related to fluid overload? Normal iron studies January. B12 low end of normal in Jan. She has a fluid balance of 17 L positive. Urine output has not been calculated accurately but still suspect patient has excessive fluid on board. Her hemoglobin as such may be diluted. IV fluids stopped and IV Lasix started. Hgb slightly better at 8.6. Repeat iron studies. (4) Acute kidney injury: Code(s): N17.9 - Acute kidney failure, unspecified Status: Acute Assessment and Plan: Cr climbed to 1.8. Probably ATN given how quick it jose and now back to down. Consider related to post-strept (too soon though), autoimmune disease versus vancomycin exposure as well. Renal consulted and appreciate their input. Renal US normal. Toelrating Lasix and ACEI. Follow (5) Hypertension: Code(s): I10 - Essential (primary) hypertension Status: Chronic Assessment and Plan: Patient's blood pressure was reviewed on 05/03 Blood pressure remaining higher now. Lisinopril was resumed and low dose Norvasc added. Lasix dose also increased yesterday. Will continue current medications and monitor for today but advance medications if persistently elevated BP. (6) Hyperthyroidism: Code(s): E05.90 - Thyrotoxicosis, unspecified without thyrotoxic crisis or storm Status: Acute Assessment and Plan: Patient with hx of hyperthyroidism. On methimaole which is continued. FT4 normal. Continue the same. Subjective Date/time seen: 05/03/22 09:08 Interval history: 61yo female with HTN here for right hand and left foot edema, erythema with fevers. Feels better today. Right hand edema has improved. Her range of motion also has improved. Left ankle and foot still edematous. Still having pain when her leg is down. They are using the stair steady to get her to the bathroom. She has not been up to the chair. No chest pain or shortness of breath. Nausea, vomiting or diarrhea. Exam Narrative: Gen - NARD Chest - CTA bilaterally, nml RR CV - RRR S1/S2 Abd - Soft, NT/ND, Positive BS Ext - right hand edema decreased with wrinkling. dorsum with bruising noted to the right hand. Improving ROM to the right hand. Left ankle/foot edema also improved with wrinkling. Significant bruising noted medial and lateral left ankle with possibly developing medial bullae over the ecchymotic area. Minimal ROM with consider
[2022-05-03 09:09] LABS: Basophils Percent Auto 0.2 % (0.2-1.2); Eosinophils Absolute Auto 0.1 K/mm3 (0-0.3); Eosinophils Percent Auto 0.8 % (0-4.4); Hemoglobin 8.6 g/dL (12.0-15.0); Immature Granulocyte Absolute 0.14 K/mm3 (0.00-0.031); Immature Granulocyte Percent A 1.6 % (0-0.5); Lymphocytes Absolute Auto 0.69 K/mm3 (0.9-3.2); Mean Corpuscular HGB Conc 31.9 g/dl (32-36); Mean Corpuscular Hemoglobin 30.6 pg (26-34); Mean Corpuscular Volume 96.1 fl (80-100); Mean Platelet Volume 9.5 fl (7.4-10.4); Monocytes Absolute Auto 0.4 K/mm3 (0.1-0.6); Monocytes Percent Auto 4.9 % (2.6-8.5); Neutrophils Absolute Auto 7.3 K/mm3 (1.3-6.7); Neutrophils Percent Auto 84.5 % (45.5-73.1); Platelet Count Result 282 k/mm3 (150-375); Red Blood Count 2.81 M/mm3 (4.2-5.4); Red Cell Distribution Width 12.4 % (11.5-14.5); White Blood Count 8.6 K/mm3 (4.5-10.0)
[2022-05-03 09:19] LABS: Alanine Aminotransferase 51 U/L (6-35); Albumin Level 2.8 g/dL (3.5-5.1); Alkaline Phosphatase 60 U/L (38-126); Anion Gap 6 mmol/L (8-16); Aspartate Amino Transferase 68 U/L (14-36); Bilirubin,Total 0.4 mg/dL (0.2-1.3); Blood Urea Nitrogen 14 mg/dL (7-17); Calcium 7.5 mg/dL (8.4-10.2); Carbon Dioxide 29 mmol/L (22-30); Chloride 99 mmol/L (98-107); Estimated CRCL calculation 50 ml/min; Estimated Glomerular Filt Rate 46; Glucose 150 mg/dL (65-110); Magnesium 1.9 mg/dL (1.6-2.3); Phosphorus 4.6 mg/dL (2.5-4.5); Potassium 3.5 mmol/L (3.4-5.0); Sodium 134 mmol/L (137-145)
[2022-05-03] MEDS: amLODIPine BESYLATE 2.5 MG TABLET PO (09:57)
[2022-05-03] MEDS: lisinopriL 10 MG TABLET BY MOUTH (09:57)
[2022-05-03] MEDS: FUROSEMIDE INJ 40 MG/4 ML VIAL 20 MG IV PUSH ×2 (09:57→17:10)
[2022-05-03] MEDS: ENOXAPARIN 40 MG/0.4 ML SYRINGE SUB-Q (09:57)
--- NOTE | 2022-05-03 11:12 | PCNWS ---
Weekly nutritional screen. Patient is tolerating current diet with adequate intake. No weight loss reported. No nutritional needs at this time.
--- NOTE | 2022-05-03 13:25 | PM.PNNEP ---
Progress Note: A&P Assessment and Plan (1) Acute kidney injury: Code(s): N17.9 - Acute kidney failure, unspecified Status: Acute Assessment and Plan: stable but not back to baseline creatinine peaked at 1.8mg/dl perhaps persistence of infection is hampering renal recovery up a tad -- due to diuretics(?) suspect due to acute infection (right hand + left foot cellulitis) possibly progressed to mild ATN some worsening due to NSAID use (?) evaluation to date: renal ultrasound normal urine electrolytes prerenal CPK okay urine eosinophils negative interestingly, noted to have ~ 900mg of protein continue current therapy follow trend of repeat labs and UOP (2) Streptococcal bacteremia: Code(s): R78.81 - Bacteremia; B95.5 - Unspecified streptococcus as the cause of diseases classified elsewhere Status: Acute Assessment and Plan: as noted by cultures right hand/leg foot felt to be likely source on antibiotics TTE without evidence of vegetations follow repeat cultures (3) Cellulitis of right hand: Code(s): L03.113 - Cellulitis of right upper limb Status: Acute Assessment and Plan: as noted by clinical exam on admission culture data noted on antibiotics Plastic Surgery following (4) Cellulitis of left foot: Code(s): L03.116 - Cellulitis of left lower limb Status: Acute Assessment and Plan: also suggestive by clinical exam on presentation see #3 (5) Hypertension: Code(s): I10 - Essential (primary) hypertension Status: Chronic Assessment and Plan: running a bit high by recent check resumed back on lisinopril follow trend of hemodynamics Will continue to follow. Subjective Date/time seen: 05/03/22 13:25 Seems to be doing better in general; feels swelling/edema in right hand and left foot are better in ther last 24 hours (presumably due to diuresis); report ability to ambulate without discomfort and better range of motion with her right hand as well. Exam Narrative: General: WD/WN Caucasin female in NAD Heart: normal S1 and S2; no rub Lungs: clear to auscultation Abdomen: soft, nontender, nondistended, positive bowel sounds Extremities: no cyanosis or clubbing'; right hand and left foot edema noted (left foot worse than right hand) Skin: reduced erythema noted in right hand/left foot Objective Data Vital Signs Vital Signs: Vital Signs Temp Pulse Resp BP Pulse Ox O2 Del Method 05/03/22 13:20 97.5 F L 73 18 150/72 H 96 05/03/22 08:00 Room Air 05/03/22 06:00 97 F L 90 14 182/82 H 96 05/02/22 22:00 97.9 F 88 16 172/65 H 97 Intake/Output Intake/Output: Intake & Output 04/30/22 05/01/22 05/02/22 05/03/22 23:59 23:59 23:59 23:59 Intake Total 3570 3370 2920 1420 Output Total 1 800 3 Balance 3569 2570 2917 1420 Meds/Results Medications: Active Medications Generic Name Dose Route Start Last Admin Trade Name Freq PRN Reason Stop Dose Admin Hydrocodone Bitart/Acetaminophen 1 tab 04/25/22 12:52 04/27/22 12:59 Hydrocodone/Acetaminophen (*Crx) 5-325 Mg Tablet PO 1 tab Q6H PRN Administration Pain Rated 4-6 Hydrocodone Bitart/Acetaminophen 1 tab 04/29/22 17:39 05/03/22 15:00 Hydrocodone/Acetaminophen (*Crx) 10-325 Mg Tablet PO 1 tab Q4H PRN Administration Pain Rated 7-10 Amlodipine Besylate 2.5 mg 05/02/22 17:00 05/03/22 09:57 Amlodipine Besylate 2.5 Mg Tablet PO 2.5 mg QAM CHRISTIAN Administration Enoxaparin Sodium 40 mg 05/02/22 09:00 05/03/22 09:57 Enoxaparin 40 Mg/0.4 Ml Syringe SUB-Q 40 mg DAILY CHRISTIAN Administration Ferrous Sulfate 324 mg 04/27/22 08:00 04/30/22 12:43 Ferrous Sulfate 324 Mg Tablet PO Not Given TuSa@0800 CHRISTIAN Furosemide 20 mg 05/02/22 17:00 05/03/22 17:10 Furosemide Inj 40 Mg/4 Ml Vial IV PUSH 20 mg BID CHRISTIAN Administration Ceftriaxone Sodi
--- NOTE | 2022-05-03 13:25 | P.PNNP_ITS ---
Progress Note: A&P Assessment and Plan (1) Acute kidney injury: Code(s): N17.9 - Acute kidney failure, unspecified Status: Acute Assessment and Plan: * stable but not back to baseline * creatinine peaked at 1.8mg/dl * perhaps persistence of infection is hampering renal recovery * up a tad -- due to diuretics(?) * suspect due to acute infection (right hand + left foot cellulitis) * possibly progressed to mild ATN * some worsening due to NSAID use (?) * evaluation to date: * renal ultrasound normal * urine electrolytes prerenal * CPK okay * urine eosinophils negative * interestingly, noted to have ~ 900mg of protein * continue current therapy * follow trend of repeat labs and UOP (2) Streptococcal bacteremia: Code(s): R78.81 - Bacteremia; B95.5 - Unspecified streptococcus as the cause of diseases classified elsewhere Status: Acute Assessment and Plan: * as noted by cultures * right hand/leg foot felt to be likely source * on antibiotics * TTE without evidence of vegetations * follow repeat cultures (3) Cellulitis of right hand: Code(s): L03.113 - Cellulitis of right upper limb Status: Acute Assessment and Plan: * as noted by clinical exam on admission * culture data noted * on antibiotics * Plastic Surgery following (4) Cellulitis of left foot: Code(s): L03.116 - Cellulitis of left lower limb Status: Acute Assessment and Plan: * also suggestive by clinical exam on presentation * see #3 (5) Hypertension: Code(s): I10 - Essential (primary) hypertension Status: Chronic Assessment and Plan: * running a bit high by recent check * resumed back on lisinopril * follow trend of hemodynamics Will continue to follow. Subjective Date/time seen: 05/03/22 13:25 Seems to be doing better in general; feels swelling/edema in right hand and left foot are better in ther last 24 hours (presumably due to diuresis); report ability to ambulate without discomfort and better range of motion with her right hand as well. Exam Narrative: General: WD/WN Caucasin female in NAD Heart: normal S1 and S2; no rub Lungs: clear to auscultation Abdomen: soft, nontender, nondistended, positive bowel sounds Extremities: no cyanosis or clubbing'; right hand and left foot edema noted (left foot worse than right hand) Skin: reduced erythema noted in right hand/left foot Objective Data Vital Signs Vital Signs: Vital Signs Temp Pulse Resp BP Pulse Ox O2 Del Method 05/03/22 13:20 97.5 F L 73 18 150/72 H 96 05/03/22 08:00 Room Air 05/03/22 06:00 97 F L 90 14 182/82 H 96 05/02/22 22:00 97.9 F 88 16 172/65 H 97 Intake/Output Intake/Output: Intake & Output 04/30/22 05/01/22 05/02/22 05/03/22 23:59 23:59 23:59 23:59 Intake Total 3570 3370 2920 1420 Output Total 1 800 3 Balance 3569 2570 2917 1420 Meds/Results Medications: Active Medications Generic Name Dose Route Start Last Admin Trade Name Freq PRN Reason Stop Dose Admin Hydrocodone Bitart/Acetaminophen 1 tab 04/25/22 12:52 04/27/22 12:59 Hydrocodone/Acetaminophen (*Crx) 5-325 Mg Tablet P
[2022-05-03 14:20] VITALS: BP 150/72; PULSE 73; RESP 18; TEMP 36.4; O2SAT 96
[2022-05-03] MEDS: cefTRIAXone 2 GM in SODIUM CHLORIDE 0.9% IV 100 ML 200 ML IVPB (15:01)
--- NOTE | 2022-05-03 16:54 | WPDPN ---
Progress Note: A&P Assessment and Plan (1) Cellulitis of left foot: Code(s): L03.116 - Cellulitis of left lower limb Status: Acute Assessment and Plan: Related to GAS bacteremia. Improving slowly. Symptoms may have been helped by diuresis. (2) Cellulitis of right hand: Code(s): L03.113 - Cellulitis of right upper limb Status: Acute Assessment and Plan: See 1. Improving. OT. (3) Streptococcal bacteremia: Code(s): R78.81 - Bacteremia; B95.5 - Unspecified streptococcus as the cause of diseases classified elsewhere Status: Acute Assessment and Plan: Resolved (4) Acute kidney injury: Code(s): N17.9 - Acute kidney failure, unspecified Status: Acute Assessment and Plan: Followed by Renal consult. Plan Continue same care. Time Spent With Patient Time with patient: less than 15 minutes Subjective Date/time seen: 05/03/22 16:54 Interval history: Pt pleased with her reduced edema and improved ROM of right hand and left foot and ankle. Seems to be in good spirits as she entertains her daughter and a friend. Said she was able to sit up today without foot pain. Was able to ambulate to bathroom without foot or ankle pain. Exam Narrative: Afebrile. WBC and Hb both 8.6 this a.m. Renal numbers remain a problem. Right hand less edematous, function remains sluggish and will benefit from OT. Left foot remains edematous with less pain and slight improved ROM. Red and purpuric skin markings without blisters or bullae persist. Objective Data Vital Signs Vital Signs: Vital Signs - 24 hr 05/02/22 22:00 05/03/22 06:00 05/03/22 08:00 Temperature 97.9 F 97 F L Pulse Rate 88 90 Respiratory Rate 16 14 Blood Pressure 172/65 H 182/82 H Pulse Oximetry 97 96 Oxygen Delivery Room Air 05/03/22 14:20 Temperature 97.5 F L Pulse Rate 73 Respiratory Rate 18 Blood Pressure 150/72 H Pulse Oximetry 96 Oxygen Delivery Intake/Output Intake/Output: Intake & Output 04/30/22 05/01/22 05/02/22 05/03/22 23:59 23:59 23:59 23:59 Intake Total 3570 3370 2920 680 Output Total 1 800 3 Balance 3569 2570 2917 680 Meds/Results Medications: Active Medications Generic Name Dose Route Start Last Admin Trade Name Freq PRN Reason Stop Dose Admin Hydrocodone Bitart/Acetaminophen 1 tab 04/25/22 12:52 04/27/22 12:59 Hydrocodone/Acetaminophen (*Crx) 5-325 Mg Tablet PO 1 tab Q6H PRN Administration Pain Rated 4-6 Hydrocodone Bitart/Acetaminophen 1 tab 04/29/22 17:39 05/03/22 15:00 Hydrocodone/Acetaminophen (*Crx) 10-325 Mg Tablet PO 1 tab Q4H PRN Administration Pain Rated 7-10 Amlodipine Besylate 2.5 mg 05/02/22 17:00 05/03/22 09:57 Amlodipine Besylate 2.5 Mg Tablet PO 2.5 mg QAM CHRISTIAN Administration Enoxaparin Sodium 40 mg 05/02/22 09:00 05/03/22 09:57 Enoxaparin 40 Mg/0.4 Ml Syringe SUB-Q 40 mg DAILY CHRISTIAN Administration Ferrous Sulfate 324 mg 04/27/22 08:00 04/30/22 12:43 Ferrous Sulfate 324 Mg Tablet PO Not Given TuSa@0800 CHRISTIAN Furosemide 20 mg 05/02/22 17:00 05/03/22 09:57 Furosemide Inj 40 Mg/4 Ml Vial IV PUSH 20 mg BID CHRISTIAN Administration Ceftriaxone Sodium 2 gm/ 100 mls @ 200 mls/hr 04/26/22 17:00 05/03/22 15:01 Sodium Chloride IVPB 200 mls/hr DAILY@1600 CHRISTIAN Administration Lisinopril 10 mg 04/25/22 09:00 05/03/22 09:57 Lisinopril 10 Mg Tablet BY MOUTH 10 mg DAILY CHRISTIAN Administration Metronidazole 500 mg 05/02/22 17:00 05/03/22 13:40 Metronidazole 250 Mg Tablet PO 500 mg Q8HR CHRISTIAN Administration Methimazole 2.5 Mg 1 each 04/25/22 09:00 05/03/22 11:27 Tablet (Nonformulary PO 1 each - Will Not Scan) DAILY CHRISTIAN Administration Sodium Chloride 10 ml 04/29/22 14:00 05/03/22 13:40 Saline Lock Flush IV PUSH 10 ml Q8HR CHRISTIAN Administration Sodium Chloride 10 ml 04/29/22 06:46 Saline Lock Flush IV PUSH PRN PRN
[2022-05-03 20:00] VITALS: O2SAT 96
[2022-05-03 22:00] VITALS: BP 162/74; PULSE 77; RESP 14; TEMP 36.3; O2SAT 96
[2022-05-04] MEDS: SALINE LOCK FLUSH 10 ML IV PUSH ×4 (01:54→21:46)
[2022-05-04] MEDS: HYDROcodone/acetaminophen (*CRX) 10-325 MG TABLET 1 TAB PO ×5 (01:54→21:46)
[2022-05-04] MEDS: metroNIDAZOLE 250 MG TABLET 500 MG PO ×3 (05:29→21:46)
[2022-05-04 06:00] VITALS: BP 155/88; PULSE 77; RESP 18; TEMP 36.6; O2SAT 97
[2022-05-04 06:04] LABS: Basophils Percent Auto 0.3 % (0.2-1.2); Eosinophils Absolute Auto 0.1 K/mm3 (0-0.3); Hematocrit 25.6 % (37.0-47.0); Hemoglobin 8.3 g/dL (12.0-15.0); Immature Granulocyte Absolute 0.11 K/mm3 (0.00-0.031); Immature Granulocyte Percent A 1.6 % (0-0.5); Mean Corpuscular HGB Conc 32.4 g/dl (32-36); Mean Corpuscular Hemoglobin 30.7 pg (26-34); Mean Corpuscular Volume 94.8 fl (80-100); Monocytes Absolute Auto 0.5 K/mm3 (0.1-0.6); Monocytes Percent Auto 6.8 % (2.6-8.5); Neutrophils Absolute Auto 5.3 K/mm3 (1.3-6.7); Neutrophils Percent Auto 77.3 % (45.5-73.1); Platelet Count Result 307 k/mm3 (150-375); Red Cell Distribution Width 12.4 % (11.5-14.5); White Blood Count 6.9 K/mm3 (4.5-10.0)
[2022-05-04 06:09] LABS: Albumin Level 2.6 g/dL (3.5-5.1); Anion Gap 4 mmol/L (8-16); Blood Urea Nitrogen 17 mg/dL (7-17); Calcium 7.5 mg/dL (8.4-10.2); Carbon Dioxide 31 mmol/L (22-30); Chloride 101 mmol/L (98-107); Estimated CRCL calculation 50 ml/min; Estimated Glomerular Filt Rate 46; Glucose 108 mg/dL (65-110); Phosphorus 4.9 mg/dL (2.5-4.5); Potassium 3.6 mmol/L (3.4-5.0); Sodium 136 mmol/L (137-145)
[2022-05-04 06:13] LABS: Iron 41 ug/dL (37-170)
[2022-05-04 06:20] LABS: Alanine Aminotransferase 55 U/L (6-35); Albumin Level 2.7 g/dL (3.5-5.1); Alkaline Phosphatase 61 U/L (38-126); Aspartate Amino Transferase 69 U/L (14-36); Bilirubin,Total 0.6 mg/dL (0.2-1.3)
[2022-05-04 06:22] LABS: Percent Iron Saturation 27 % (20-50)
[2022-05-04 06:30] LABS: CRP 16.8 mg/dL (<1.0)
[2022-05-04 06:31] LABS: Procalcitonin 0.5 ng/mL
[2022-05-04 07:10] LABS: Folic Acid 8.1 ng/mL (2.76->20)
[2022-05-04] MEDS: ENOXAPARIN 40 MG/0.4 ML SYRINGE SUB-Q (10:08)
[2022-05-04] MEDS: FUROSEMIDE INJ 40 MG/4 ML VIAL 20 MG IV PUSH ×2 (10:10→16:25)
[2022-05-04] MEDS: amLODIPine BESYLATE 2.5 MG TABLET PO ×2 (10:11→16:25)
[2022-05-04] MEDS: FERROUS SULFATE 324 MG TABLET PO (10:11)
[2022-05-04] MEDS: lisinopriL 10 MG TABLET BY MOUTH (10:12)
--- NOTE | 2022-05-04 12:39 | P.PNNP_ITS ---
Progress Note: A&P Assessment and Plan (1) Acute kidney injury: Code(s): N17.9 - Acute kidney failure, unspecified Status: Acute Assessment and Plan: * stable but not back to baseline * creatinine peaked at 1.8mg/dl * perhaps persistence of infection is hampering renal recovery * holding relatively stable at 1.2mg/dl * tolerating diuresis and GENARO-I * suspect due to acute infection (right hand + left foot cellulitis) * possibly progressed to mild ATN * some worsening due to NSAID use (?) * evaluation to date: * renal ultrasound normal * urine electrolytes prerenal * CPK okay * urine eosinophils negative * interestingly, noted to have ~ 900mg of protein * continue current therapy * follow trend of repeat labs and UOP (2) Streptococcal bacteremia: Code(s): R78.81 - Bacteremia; B95.5 - Unspecified streptococcus as the cause of diseases classified elsewhere Status: Acute Assessment and Plan: * as noted by cultures * right hand/leg foot felt to be likely source * on antibiotics * TTE without evidence of vegetations * follow repeat cultures (3) Cellulitis of right hand: Code(s): L03.113 - Cellulitis of right upper limb Status: Acute Assessment and Plan: * as noted by clinical exam on admission * culture data noted * on antibiotics * Plastic Surgery following (4) Cellulitis of left foot: Code(s): L03.116 - Cellulitis of left lower limb Status: Acute Assessment and Plan: * also suggestive by clinical exam on presentation * see #3 (5) Hypertension: Code(s): I10 - Essential (primary) hypertension Status: Chronic Assessment and Plan: * running a bit high by recent check * resumed back on lisinopril * follow trend of hemodynamics Not much else to add -- ill continue to follow intermittently. Subjective Date/time seen: 05/04/22 12:39 Overall, seems to be doing better -- with diuresis, swelling/edema in both right hand as well as left foot seem to be doing significantly better; renal function holding relatively stable; no other issues/events overnight or earlier this morning. Exam Narrative: General: WD/WN Caucasin female in NAD Heart: normal S1 and S2; no rub Lungs: clear to auscultation Abdomen: soft, nontender, nondistended, positive bowel sounds Extremities: no cyanosis or clubbing'; right hand and left foot edema improving Skin: reduced erythema noted in right hand/left foot Objective Data Vital Signs Vital Signs: Vital Signs Temp Pulse Resp BP Pulse Ox O2 Del Method 05/04/22 06:00 97.8 F 77 18 155/88 H 97 05/03/22 20:00 96 Room Air 05/03/22 22:00 97.3 F L 77 14 162/74 H 96 Intake/Output Intake/Output: Intake & Output 05/01/22 05/02/22 05/03/22 05/04/22 23:59 23:59 23:59 23:59 Intake Total 3370 2920 1520 1830 Output Total 800 3 1000 Balance 2570 2917 1520 830 Meds/Results Medications: Active Medications Generic Name Dose Route Start Last Admin Trade Name Freq PRN Reason Stop Dose Admin Hydrocodone Bitart/Acetaminophen 1 tab 04/25/22 12:52 04/27/22 12:59 Hydrocodone/Acetaminophen (*Crx) 5-325 Mg Tablet PO 1 ta
--- NOTE | 2022-05-04 12:39 | PM.PNNEP ---
Progress Note: A&P Assessment and Plan (1) Acute kidney injury: Code(s): N17.9 - Acute kidney failure, unspecified Status: Acute Assessment and Plan: stable but not back to baseline creatinine peaked at 1.8mg/dl perhaps persistence of infection is hampering renal recovery holding relatively stable at 1.2mg/dl tolerating diuresis and GENARO-I suspect due to acute infection (right hand + left foot cellulitis) possibly progressed to mild ATN some worsening due to NSAID use (?) evaluation to date: renal ultrasound normal urine electrolytes prerenal CPK okay urine eosinophils negative interestingly, noted to have ~ 900mg of protein continue current therapy follow trend of repeat labs and UOP (2) Streptococcal bacteremia: Code(s): R78.81 - Bacteremia; B95.5 - Unspecified streptococcus as the cause of diseases classified elsewhere Status: Acute Assessment and Plan: as noted by cultures right hand/leg foot felt to be likely source on antibiotics TTE without evidence of vegetations follow repeat cultures (3) Cellulitis of right hand: Code(s): L03.113 - Cellulitis of right upper limb Status: Acute Assessment and Plan: as noted by clinical exam on admission culture data noted on antibiotics Plastic Surgery following (4) Cellulitis of left foot: Code(s): L03.116 - Cellulitis of left lower limb Status: Acute Assessment and Plan: also suggestive by clinical exam on presentation see #3 (5) Hypertension: Code(s): I10 - Essential (primary) hypertension Status: Chronic Assessment and Plan: running a bit high by recent check resumed back on lisinopril follow trend of hemodynamics Not much else to add -- ill continue to follow intermittently. Subjective Date/time seen: 05/04/22 12:39 Overall, seems to be doing better -- with diuresis, swelling/edema in both right hand as well as left foot seem to be doing significantly better; renal function holding relatively stable; no other issues/events overnight or earlier this morning. Exam Narrative: General: WD/WN Caucasin female in NAD Heart: normal S1 and S2; no rub Lungs: clear to auscultation Abdomen: soft, nontender, nondistended, positive bowel sounds Extremities: no cyanosis or clubbing'; right hand and left foot edema improving Skin: reduced erythema noted in right hand/left foot Objective Data Vital Signs Vital Signs: Vital Signs Temp Pulse Resp BP Pulse Ox O2 Del Method 05/04/22 06:00 97.8 F 77 18 155/88 H 97 05/03/22 20:00 96 Room Air 05/03/22 22:00 97.3 F L 77 14 162/74 H 96 Intake/Output Intake/Output: Intake & Output 05/01/22 05/02/22 05/03/22 05/04/22 23:59 23:59 23:59 23:59 Intake Total 3370 2920 1520 1830 Output Total 800 3 1000 Balance 2570 2917 1520 830 Meds/Results Medications: Active Medications Generic Name Dose Route Start Last Admin Trade Name Freq PRN Reason Stop Dose Admin Hydrocodone Bitart/Acetaminophen 1 tab 04/25/22 12:52 04/27/22 12:59 Hydrocodone/Acetaminophen (*Crx) 5-325 Mg Tablet PO 1 tab Q6H PRN Administration Pain Rated 4-6 Hydrocodone Bitart/Acetaminophen 1 tab 04/29/22 17:39 05/04/22 13:55 Hydrocodone/Acetaminophen (*Crx) 10-325 Mg Tablet PO 1 tab Q4H PRN Administration Pain Rated 7-10 Amlodipine Besylate 5 mg 05/05/22 09:00 Amlodipine Besylate 5 Mg Tablet PO QAM [facility] Enoxaparin Sodium 40 mg 05/02/22 09:00 05/04/22 10:08 Enoxaparin 40 Mg/0.4 Ml Syringe SUB-Q 40 mg DAILY [facility] Administration Ferrous Sulfate 324 mg 04/27/22 08:00 05/04/22 10:11 Ferrous Sulfate 324 Mg Tablet PO 324 mg TuSa@0800 [facility] Administration Furosemide 20 mg 05/02/22 17:00 05/04/22 16:25 Furosemide Inj 40 Mg/4 Ml Vial IV PUSH 20 mg BID [facility]STIAN Administration Ceftriaxone Sodium 2 gm/ 100 mls @ 200 mls/hr
[2022-05-04 14:00] VITALS: BP 144/76; PULSE 79; RESP 18; TEMP 36.1; O2SAT 99
--- NOTE | 2022-05-04 14:10 | PM.IMPN ---
Progress Note: A&P Assessment and Plan (1) Streptococcal bacteremia: Code(s): R78.81 - Bacteremia; B95.5 - Unspecified streptococcus as the cause of diseases classified elsewhere Status: Acute Assessment and Plan: Patient presents with right hand and left foot/ankle erythema, edema and fevers consistent with cellulitis. Both blood cultures on admission grew Group A Streptococcus. Repeat blood cultures are negative. Surface Echo does not show any evidence of vegetation. No history of gout but she does have osteoarthritis. Autoimmune markers essentially negative. RF slightly elevated but anti-CCP negative and doubt RA. BRAXTON negative. Vancomycin started on 04/25 and stopped 05/02. Cefazolin started 04/25 and changed to Rocephin the next day so Day 10 of appropriate abx treatment. Flagyl for possible anaerobic infection given the location and slower response with the ankle. WBC remains normal. CRP 16.8 and trending down. Procalcitonin 0.5. No further fevers and clinically appears to be improving. Appreciate Orthopedic and Plastic surgery input. (2) Cellulitis: Qualifiers: Laterality: right Site of cellulitis: extremity Site of cellulitis of extremity: upper extremity Qualified Code(s): L03.113 - Cellulitis of right upper limb Code(s): L03.90 - Cellulitis, unspecified Status: Acute Assessment and Plan: As above. No crystals by arthrocentesis. (3) Anemia: Code(s): D64.9 - Anemia, unspecified Status: Acute Assessment and Plan: Hemoglobin has trended down to the 8 range. Probably related to fluid overload? Normal iron studies January. B12 normal. She had a fluid balance of 17 L positive (UOP not accurately calculated) but still suspected patient has excessive fluid on board so Lasix started. Despite a few days of diuresis, Hgb about the same. Iron studies more consistent with anemia of chronic disease and malnutrition. Recent UA showing now only trace protein. Continue supplements. Monitor. (4) Acute kidney injury: Code(s): N17.9 - Acute kidney failure, unspecified Status: Acute Assessment and Plan: Cr climbed to 1.8. Probably ATN given how quick it jose and now back to down. Consider related to, autoimmune disease versus vancomycin exposure as well. Renal consulted and appreciate their input. Renal US normal. Tolerating Lasix and ACEI. Follow. (5) Hypertension: Code(s): I10 - Essential (primary) hypertension Status: Chronic Assessment and Plan: Patient's blood pressure was reviewed on 05/04 Blood pressure remaining higher now. Lisinopril was resumed and low dose Norvasc added. On Lasix as well. Will advance Norvasc today (6) Hyperthyroidism: Code(s): E05.90 - Thyrotoxicosis, unspecified without thyrotoxic crisis or storm Status: Acute Assessment and Plan: Patient with hx of hyperthyroidism. On methimaole which is continued. FT4 normal. Continue the same. Subjective Date/time seen: 05/04/22 14:10 Interval history: 61yo female with HTN here for right hand and left foot edema, erythema with fevers. Hand edema better with improved ROM. She was anxious today when nursing was delayed in getting her medciations which caused her to have nausea and vomiting. Better now. No CP or SOB. Exam Narrative: AF 155/88 77 18 97% ra Gen - NARD Chest - CTA bilaterally, nml RR CV - RRR S1/S2 Abd - Soft, NT/ND, Positive BS Ext - right hand edema much improved with increased wrinkling and improved ROM. Less tender but piece dyeing machine tender along the middle digit extensor. Minimal bruising noted to the right hand. Left ankle/foot edema also improved with wrinkling. Significant bruising noted medial and lateral left ankle with medial bullae over the ecchymotic area. Improved ROM with dorsi- and plantar flexion. Right medial foot overlying the 1st MTP joint scantly erythematous and minimally painful. Psych - Nml mood an
[2022-05-04] MEDS: cefTRIAXone 2 GM in SODIUM CHLORIDE 0.9% IV 100 ML 200 ML IVPB (16:25)
--- NOTE | 2022-05-04 19:13 | WPDPN ---
Progress Note: A&P Assessment and Plan (1) Cellulitis of left foot: Code(s): L03.116 - Cellulitis of left lower limb Status: Acute Assessment and Plan: Persistent edema and MPJ area tenderness will respond to time and therapy. (2) Cellulitis of right hand: Code(s): L03.113 - Cellulitis of right upper limb Status: Acute Assessment and Plan: Same as 1. but will progress more slowly. Very likely the bulla of the left medial ankle will rupture or slough and require a bandaging regimen. Plan Continue Renal and other Internal Medicine issues care. I will continue to follow and help arrange discharge plans. Time Spent With Patient Time with patient: less than 15 minutes Subjective Date/time seen: 05/04/22 19:13 Interval history: Feels that things are getter better. Has been working with PT. Trying to eat as much as she can.. No complaints other than the Right hand and Left foot. Exam Narrative: Marked reduction in swelling of hand. some reduction in edema of left foot. No new discoloration. No drainage from medial ankle yet. WBC and CRP both notably lower. Objective Data Vital Signs Vital Signs: Vital Signs - 24 hr 05/03/22 22:00 05/03/22 20:00 05/04/22 06:00 Temperature 97.3 F L 97.8 F Pulse Rate 77 77 Respiratory Rate 14 18 Blood Pressure 162/74 H 155/88 H Pulse Oximetry 96 96 97 Oxygen Delivery Room Air 05/04/22 14:24 05/04/22 14:00 05/04/22 10:00 Temperature 97 F L Pulse Rate 79 Respiratory Rate 18 Blood Pressure 144/76 H Pulse Oximetry 99 Oxygen Delivery Room Air Room Air Intake/Output Intake/Output: Intake & Output 05/01/22 05/02/22 05/03/22 05/04/22 23:59 23:59 23:59 23:59 Intake Total 3370 2920 1520 2170 Output Total 800 3 1000 Balance 2570 2917 1520 1170 Meds/Results Medications: Active Medications Generic Name Dose Route Start Last Admin Trade Name Freq PRN Reason Stop Dose Admin Hydrocodone Bitart/Acetaminophen 1 tab 04/25/22 12:52 04/27/22 12:59 Hydrocodone/Acetaminophen (*Crx) 5-325 Mg Tablet PO 1 tab Q6H PRN Administration Pain Rated 4-6 Hydrocodone Bitart/Acetaminophen 1 tab 04/29/22 17:39 05/04/22 18:06 Hydrocodone/Acetaminophen (*Crx) 10-325 Mg Tablet PO 1 tab Q4H PRN Administration Pain Rated 7-10 Amlodipine Besylate 5 mg 05/05/22 09:00 Amlodipine Besylate 5 Mg Tablet PO QAM [facility] Enoxaparin Sodium 40 mg 05/02/22 09:00 05/04/22 10:08 Enoxaparin 40 Mg/0.4 Ml Syringe SUB-Q 40 mg DAILY [facility] Administration Ferrous Sulfate 324 mg 04/27/22 08:00 05/04/22 10:11 Ferrous Sulfate 324 Mg Tablet PO 324 mg TuSa@0800 [facility] Administration Furosemide 20 mg 05/02/22 17:00 05/04/22 16:25 Furosemide Inj 40 Mg/4 Ml Vial IV PUSH 20 mg BID [facility]STIAN Administration Ceftriaxone Sodium 2 gm/ 100 mls @ 200 mls/hr 04/26/22 17:00 05/04/22 16:55 Sodium Chloride IVPB Infused DAILY@1600 [facility] Infusion Lisinopril 10 mg 04/25/22 09:00 05/04/22 10:12 Lisinopril 10 Mg Tablet BY MOUTH 10 mg DAILY [facility] Administration Metronidazole 500 mg 05/02/22 17:00 05/04/22 13:55 Metronidazole 250 Mg Tablet PO 500 mg Q8HR [facility] Administration Methimazole 2.5 Mg 1 each 04/25/22 09:00 05/04/22 10:12 Tablet (Nonformulary PO 1 each - Will Not Scan) DAILY [facility] Administration Sodium Chloride 10 ml 04/29/22 14:00 05/04/22 13:55 Saline Lock Flush IV PUSH 10 ml Q8HR [facility] Administration Sodium Chloride 10 ml 04/29/22 06:46 Saline Lock Flush IV PUSH PRN PRN Flush Sodium Chloride 20 ml 04/29/22 06:46 Saline Lock Flush IV PUSH PRN PRN after blood draws Radiology Results: ITS Impressions Hand X-Ray 04/25/22 06:49 IMPRESSION: 1. Mild polyarticular osteoarthritis. Foot X-Ray 04/25/22 06:50 IMPRESSION: 1. Mild osteoarthritis of first metatarsophalangeal joint. Hand MRI 04/26/22 11:55
[2022-05-04 22:00] VITALS: BP 176/85; PULSE 81; RESP 16; TEMP 36.7; O2SAT 96
[2022-05-05] MEDS: metroNIDAZOLE 250 MG TABLET 500 MG PO ×3 (05:00→21:44)
[2022-05-05] MEDS: HYDROcodone/acetaminophen (*CRX) 10-325 MG TABLET 1 TAB PO ×5 (05:00→21:45)
[2022-05-05] MEDS: SALINE LOCK FLUSH 10 ML IV PUSH ×3 (05:02→21:46)
[2022-05-05 06:00] VITALS: BP 155/86; PULSE 70; RESP 16; TEMP 36.2; O2SAT 99
[2022-05-05] MEDS: ENOXAPARIN 40 MG/0.4 ML SYRINGE SUB-Q (08:40)
[2022-05-05] MEDS: lisinopriL 10 MG TABLET BY MOUTH (08:40)
[2022-05-05] MEDS: amLODIPine BESYLATE 5 MG TABLET PO (08:40)
[2022-05-05] MEDS: FUROSEMIDE INJ 40 MG/4 ML VIAL 20 MG IV PUSH (08:40)
[2022-05-05 13:52] VITALS: BP 113/66; PULSE 79; RESP 16; TEMP 36.4; O2SAT 98
--- NOTE | 2022-05-05 15:11 | PM.IMPN ---
Progress Note: A&P Assessment and Plan (1) Streptococcal bacteremia: Code(s): R78.81 - Bacteremia; B95.5 - Unspecified streptococcus as the cause of diseases classified elsewhere Status: Acute Assessment and Plan: Patient presents with right hand and left foot/ankle erythema, edema and fevers consistent with cellulitis. Both blood cultures on admission grew Group A Streptococcus. Repeat blood cultures are negative. Surface Echo does not show any evidence of vegetation. No history of gout but she does have osteoarthritis. Autoimmune markers essentially negative. RF slightly elevated but anti-CCP negative and doubt RA. BRAXTON negative. Vancomycin started on 04/25 and stopped 05/02. Cefazolin started 04/25 and changed to Rocephin the next day so Day 11 of appropriate abx treatment. Flagyl for possible anaerobic infection given the location and slower response with the ankle. WBC remains normal. CRP 16.8 and trending down. Procalcitonin 0.5. No further fevers and clinically appears to be improving. Appreciate Orthopedic and Plastic surgery input. Continue PT/OT (2) Cellulitis: Qualifiers: Laterality: right Site of cellulitis: extremity Site of cellulitis of extremity: upper extremity Qualified Code(s): L03.113 - Cellulitis of right upper limb Code(s): L03.90 - Cellulitis, unspecified Status: Acute Assessment and Plan: As above. No crystals by arthrocentesis. (3) Anemia: Code(s): D64.9 - Anemia, unspecified Status: Acute Assessment and Plan: Hemoglobin has trended down to the 8 range. Probably related to fluid overload? Normal iron studies January. B12 normal. She had a fluid balance of 17 L positive (UOP not accurately calculated but still suspected patient has excessive fluid on board) so Lasix started. Despite a few days of diuresis, Hgb about the same. Iron studies more consistent with anemia of chronic disease and malnutrition. Recent UA showing now only trace protein. Stop Lasix. Continue supplements. Monitor. (4) Acute kidney injury: Code(s): N17.9 - Acute kidney failure, unspecified Status: Acute Assessment and Plan: Cr climbed to 1.8. Probably ATN given how quick it jose and now back to down. Consider related to, autoimmune disease versus vancomycin exposure as well. Renal consulted and appreciate their input. Renal US normal. Tolerating Lasix and ACEI. Stop Lasix now. Follow. (5) Hypertension: Code(s): I10 - Essential (primary) hypertension Status: Chronic Assessment and Plan: Patient's blood pressure was reviewed on 05/05 Blood pressure improved. Continue Lisinopril and Norvasc Follow (6) Hyperthyroidism: Code(s): E05.90 - Thyrotoxicosis, unspecified without thyrotoxic crisis or storm Status: Acute Assessment and Plan: Patient with hx of hyperthyroidism. On methimaole which is continued. FT4 normal. Continue the same. Subjective Date/time seen: 05/05/22 15:11 Interval history: 61yo female with HTN here for right hand and left foot edema, erythema with fevers. Improved range of motion to the right hand. He is able to do more with the hand. She was up to the chair today. She was up with a walker and hopping on her right foot. No weight-bearing on the left. Exam Narrative: AF 113/66 79 16 98% ra Gen - NARD Chest - CTA bilaterally, nml RR CV - RRR S1/S2 Abd - Soft, NT/ND, Positive BS Ext - right hand edema much improved with skin wrinkling and improved ROM. Less tender but stretch box tender along the middle digit extensor. Resolving bruising noted to the right hand. Left ankle/foot edema also improved with wrinkling. Significant bruising noted medial with medial bullae over the ecchymotic area. Left lateral ecchymosis resolving. ROM with dorsi- and plantar flexion about the same. Psych - Nml mood and affect Skin - as above. Objective Data Vital Signs Vital Signs: Vit
[2022-05-05] MEDS: cefTRIAXone 2 GM in SODIUM CHLORIDE 0.9% IV 100 ML 200 ML IVPB (17:29)
--- NOTE | 2022-05-05 18:39 | WPDPN ---
Progress Note: A&P Assessment and Plan (1) Cellulitis of left foot: Code(s): L03.116 - Cellulitis of left lower limb Status: Acute Assessment and Plan: Inflammation due to Strep septicemia, or possibly other unidentified organisms, has responded to antibiotic treatment, which now includes Ceftriaxone and Metronidazole. Will need extensive OT/PT. Will need some impending wound management to left medial foot.. (2) Cellulitis of right hand: Code(s): L03.113 - Cellulitis of right upper limb Status: Acute Assessment and Plan: See 1. (3) Streptococcal bacteremia: Code(s): R78.81 - Bacteremia; B95.5 - Unspecified streptococcus as the cause of diseases classified elsewhere Status: Acute Assessment and Plan: Resolved. (4) Acute kidney injury: Code(s): N17.9 - Acute kidney failure, unspecified Status: Acute Plan Followed by Nephrology. Time Spent With Patient Time with patient: less than 15 minutes Subjective Date/time seen: 05/05/22 18:39 Exam Narrative: Afebrile. No newly reported issues or complaints. CRP continues downward trend. Had PT and OT today. All extremities show decreasing edema and better color . Less pain. All joints of right hand and Left foot show limited AROM. Objective Data Vital Signs Vital Signs: Vital Signs - 24 hr 05/04/22 22:00 05/04/22 20:00 05/05/22 06:00 Temperature 98.0 F 97.2 F L Pulse Rate 81 70 Respiratory Rate 16 16 Blood Pressure 176/85 H 155/86 H Pulse Oximetry 96 99 Oxygen Delivery Room Air 05/05/22 08:40 05/05/22 13:52 Temperature 97.5 F L Pulse Rate 79 Respiratory Rate 16 Blood Pressure 113/66 Pulse Oximetry 98 Oxygen Delivery Room Air Intake/Output Intake/Output: Intake & Output 05/02/22 05/03/22 05/04/22 05/05/22 23:59 23:59 23:59 23:59 Intake Total 2920 1520 2170 2772 Output Total 3 1350 2750 Balance 2917 1520 820 22 Meds/Results Medications: Active Medications Generic Name Dose Route Start Last Admin Trade Name Freq PRN Reason Stop Dose Admin Hydrocodone Bitart/Acetaminophen 1 tab 04/29/22 17:39 05/05/22 17:30 Hydrocodone/Acetaminophen (*Crx) 10-325 Mg Tablet PO 1 tab Q4H PRN Administration Pain Rated 7-10 Amlodipine Besylate 5 mg 05/05/22 09:00 05/05/22 08:40 Amlodipine Besylate 5 Mg Tablet PO 5 mg QAM [facility] Administration Enoxaparin Sodium 40 mg 05/02/22 09:00 05/05/22 08:40 Enoxaparin 40 Mg/0.4 Ml Syringe SUB-Q 40 mg DAILY [facility] Administration Ferrous Sulfate 324 mg 04/27/22 08:00 05/04/22 10:11 Ferrous Sulfate 324 Mg Tablet PO 324 mg TuSa@0800 [facility] Administration Ceftriaxone Sodium 2 gm/ 100 mls @ 200 mls/hr 04/26/22 17:00 05/05/22 17:29 Sodium Chloride IVPB 200 mls/hr DAILY@1600 [facility] Administration Lisinopril 10 mg 04/25/22 09:00 05/05/22 08:40 Lisinopril 10 Mg Tablet BY MOUTH 10 mg DAILY [facility] Administration Metronidazole 500 mg 05/02/22 17:00 05/05/22 13:32 Metronidazole 250 Mg Tablet PO 500 mg Q8HR [facility] Administration Miscellaneous Information 1 each 05/05/22 00:01 Ceftriazone Ivpb Will Be Stopped 05-06-22 If Not Renewed. XX 06/04/22 00:00 [facility] Methimazole 2.5 Mg 1 each 04/25/22 09:00 05/05/22 08:41 Tablet (Nonformulary PO 1 each - Will Not Scan) DAILY [facility] Administration Sodium Chloride 10 ml 04/29/22 14:00 05/05/22 13:32 Saline Lock Flush IV PUSH 10 ml Q8HR [facility] Administration Sodium Chloride 10 ml 04/29/22 06:46 Saline Lock Flush IV PUSH PRN PRN Flush Sodium Chloride 20 ml 04/29/22 06:46 Saline Lock Flush IV PUSH PRN PRN after blood draws Radiology Results: ITS Impressions Hand X-Ray 04/25/22 06:49 IMPRESSION: 1. Mild polyarticular osteoarthritis. Foot X-Ray 04/25/22 06:50 IMPRESSION: 1. Mild osteoarthritis of first metatarsophalangeal joint. Hand MRI 04/26/22 11:
[2022-05-05 22:00] VITALS: BP 169/72; PULSE 83; RESP 16; TEMP 36.4; O2SAT 96
[2022-05-06] MEDS: HYDROcodone/acetaminophen (*CRX) 10-325 MG TABLET 1 TAB PO ×5 (01:20→20:49)
[2022-05-06] MEDS: SALINE LOCK FLUSH 10 ML IV PUSH ×3 (05:49→20:49)
[2022-05-06] MEDS: metroNIDAZOLE 250 MG TABLET 500 MG PO ×3 (05:49→20:48)
[2022-05-06 06:00] VITALS: BP 156/83; PULSE 87; RESP 14; TEMP 36.2; O2SAT 95
[2022-05-06 06:52] LABS: Basophils Percent Auto 0.6 % (0.2-1.2); Eosinophils Absolute Auto 0.1 K/mm3 (0-0.3); Eosinophils Percent Auto 1.1 % (0-4.4); Hematocrit 26.1 % (37.0-47.0); Hemoglobin 8.4 g/dL (12.0-15.0); Immature Granulocyte Absolute 0.05 K/mm3 (0.00-0.031); Immature Granulocyte Percent A 0.9 % (0-0.5); Lymphocytes Percent Auto 16.9 % (18.3-44.2); Mean Corpuscular HGB Conc 32.2 g/dl (32-36); Mean Corpuscular Hemoglobin 30.7 pg (26-34); Mean Corpuscular Volume 95.3 fl (80-100); Mean Platelet Volume 10.2 fl (7.4-10.4); Monocytes Absolute Auto 0.6 K/mm3 (0.1-0.6); Monocytes Percent Auto 10.3 % (2.6-8.5); Neutrophils Absolute Auto 3.7 K/mm3 (1.3-6.7); Neutrophils Percent Auto 70.2 % (45.5-73.1); Platelet Count Result 320 k/mm3 (150-375); Red Blood Count 2.74 M/mm3 (4.2-5.4); Red Cell Distribution Width 12.5 % (11.5-14.5); White Blood Count 5.3 K/mm3 (4.5-10.0)
[2022-05-06 07:03] LABS: Alanine Aminotransferase 95 U/L (6-35); Albumin Level 2.6 g/dL (3.5-5.1); Alkaline Phosphatase 71 U/L (38-126); Anion Gap 5 mmol/L (8-16); Aspartate Amino Transferase 150 U/L (14-36); Bilirubin,Total 0.4 mg/dL (0.2-1.3); Blood Urea Nitrogen 20 mg/dL (7-17); CRP 6.6 mg/dL (<1.0); Calcium 7.8 mg/dL (8.4-10.2); Carbon Dioxide 30 mmol/L (22-30); Chloride 102 mmol/L (98-107); Estimated CRCL calculation 60 ml/min; Estimated Glomerular Filt Rate 57; Glucose 104 mg/dL (65-110); Magnesium 1.9 mg/dL (1.6-2.3); Phosphorus 4.6 mg/dL (2.5-4.5); Potassium 3.6 mmol/L (3.4-5.0); Sodium 137 mmol/L (137-145)
[2022-05-06] MEDS: ENOXAPARIN 40 MG/0.4 ML SYRINGE SUB-Q (09:34)
[2022-05-06] MEDS: lisinopriL 10 MG TABLET BY MOUTH (09:35)
[2022-05-06] MEDS: amLODIPine BESYLATE 5 MG TABLET PO (09:35)
--- NOTE | 2022-05-06 11:36 | PM.IMPN ---
Progress Note: A&P Assessment and Plan (1) Streptococcal bacteremia: Code(s): R78.81 - Bacteremia; B95.5 - Unspecified streptococcus as the cause of diseases classified elsewhere Status: Acute Assessment and Plan: Patient presents with right hand and left foot/ankle erythema, edema and fevers consistent with cellulitis. Both blood cultures on admission grew Group A Streptococcus. Repeat blood cultures are negative. Surface Echo does not show any evidence of vegetation. No history of gout but she does have osteoarthritis. Autoimmune markers essentially negative. RF slightly elevated but anti-CCP negative and doubt RA. BRAXTON negative. Vancomycin started on 04/25 and stopped 05/02. Cefazolin started 04/25 and changed to Rocephin the next day so Day 12 of appropriate abx treatment. Flagyl for possible anaerobic infection given the location and slower response with the ankle. WBC remains normal. CRP 6.6 and trending down. No further fevers and clinically appears to be improving. Appreciate Orthopedic and Plastic surgery input. Continue PT/OT. Change to Keflex to complete 14 days. (2) Cellulitis: Qualifiers: Laterality: right Site of cellulitis: extremity Site of cellulitis of extremity: upper extremity Qualified Code(s): L03.113 - Cellulitis of right upper limb Code(s): L03.90 - Cellulitis, unspecified Status: Acute Assessment and Plan: As above. No crystals by arthrocentesis. (3) Anemia: Code(s): D64.9 - Anemia, unspecified Status: Acute Assessment and Plan: Hemoglobin has trended down to the 8 range. Normal iron studies January. B12 normal. She had a fluid balance of 17 L positive (UOP not accurately calculated but still suspected patient has excessive fluid on board) so Lasix started. Despite a few days of diuresis, Hgb about the same. Iron studies more consistent with anemia of chronic disease and malnutrition. Recent UA showing now only trace protein. Lasix stopped now. Continue supplements. Monitor. (4) Acute kidney injury: Code(s): N17.9 - Acute kidney failure, unspecified Status: Acute Assessment and Plan: Cr climbed to 1.8. Probably ATN. Consider related to, autoimmune disease versus vancomycin exposure as well. Renal consulted and appreciate their input. Renal US normal. Tolerated Lasix and now stopped. Cr normal. Follow. (5) Hypertension: Code(s): I10 - Essential (primary) hypertension Status: Chronic Assessment and Plan: Patient's blood pressure was reviewed on 05/06 Blood pressure improved. Continue Lisinopril and Norvasc; advance lisinoprl Follow (6) Hyperthyroidism: Code(s): E05.90 - Thyrotoxicosis, unspecified without thyrotoxic crisis or storm Status: Acute Assessment and Plan: Patient with hx of hyperthyroidism. On methimaole which is continued. FT4 normal. Continue the same. Plan Elevated LFTs - Noted and higher today. Related to abx (both ceftriazone and flagyl can increase LFTs). Viral Hepatitis panel negative. Change rocephin to keflex. Follow Subjective Date/time seen: 05/06/22 11:36 Interval history: 61yo female with HTN here for right hand and left foot edema, erythema with fevers. No issues overnight. Still with pain specially with [id number] exercises. She also complains of left knee pain anteriorly just distal to the patella. She is having trouble left knee flexion. Exam Narrative: AF 156/83 87 14 95% ra Gen - NARD Chest - CTA bilaterally, nml RR CV - RRR S1/S2 Abd - Soft, NT/ND, Positive BS Ext - right hand edema much improved with improved ROM. Less tender but rubber cutting machine tender along the middle digit and hand extensor tendon. Resolving bruising noted to the right hand. Left ankle/foot edema also improved with wrinkling. Significant bruising noted medial with medial bullae over the ecchymotic area. Left lateral ecchymosis resolving. ROM with dorsi- an
--- NOTE | 2022-05-06 12:32 | WPDPN ---
Progress Note: A&P Assessment and Plan (1) Cellulitis of left foot: Code(s): L03.116 - Cellulitis of left lower limb Status: Acute Assessment and Plan: Will order dressing for the medial ankle today to be continued at discharge. PT/OT (2) Cellulitis of right hand: Code(s): L03.113 - Cellulitis of right upper limb Status: Acute Assessment and Plan: PT/OT OK for discharge from my stand point. F/U with Dr. Edward in 7-10 days.. Time Spent With Patient Time with patient: less than 15 minutes Subjective Date/time seen: 05/06/22 12:32 Interval history: Smiling, talkative, concerned about pain in the left ankle and stiffness in lthe right 3rd MPJ. Has not been allowed to try ambulation lately. Exam Narrative: All aspects are markedly improved including renal function.. Bulla on left medial ankle about to rupture. No cellulitis there. Right 3rd MPJ AROM has improved. Objective Data Vital Signs Vital Signs: Vital Signs - 24 hr 05/05/22 13:52 05/05/22 22:00 05/05/22 20:00 Temperature 97.5 F L 97.6 F Pulse Rate 79 83 Respiratory Rate 16 16 Blood Pressure 113/66 169/72 H Pulse Oximetry 98 96 Oxygen Delivery Room Air 05/06/22 06:00 Temperature 97.1 F L Pulse Rate 87 Respiratory Rate 14 Blood Pressure 156/83 H Pulse Oximetry 95 Oxygen Delivery Intake/Output Intake/Output: Intake & Output 05/03/22 05/04/22 05/05/22 05/06/22 23:59 23:59 23:59 23:59 Intake Total 1520 2170 3612 810 Output Total 1350 3150 325 Balance 1520 820 462 485 Meds/Results Medications: Active Medications Generic Name Dose Route Start Last Admin Trade Name Freq PRN Reason Stop Dose Admin Hydrocodone Bitart/Acetaminophen 1 tab 04/29/22 17:39 05/06/22 10:44 Hydrocodone/Acetaminophen (*Crx) 10-325 Mg Tablet PO 1 tab Q4H PRN Administration Pain Rated 7-10 Amlodipine Besylate 5 mg 05/05/22 09:00 05/06/22 09:35 Amlodipine Besylate 5 Mg Tablet PO 5 mg QAM CHRISTINA Administration Cephalexin HCl 500 mg 05/06/22 18:00 Cephalexin 500 Mg Capsule PO Q6HR CHRISTIAN Enoxaparin Sodium 40 mg 05/02/22 09:00 05/06/22 09:34 Enoxaparin 40 Mg/0.4 Ml Syringe SUB-Q 40 mg DAILY CHRISTIAN Administration Ferrous Sulfate 324 mg 04/27/22 08:00 05/04/22 10:11 Ferrous Sulfate 324 Mg Tablet PO 324 mg TuSa@0800 CHRISTIAN Administration Lisinopril 10 mg 04/25/22 09:00 05/06/22 09:35 Lisinopril 10 Mg Tablet BY MOUTH 10 mg DAILY CHRISTIAN Administration Metronidazole 500 mg 05/02/22 17:00 05/06/22 05:49 Metronidazole 250 Mg Tablet PO 500 mg Q8HR CHRISTIAN Administration Methimazole 2.5 Mg 1 each 04/25/22 09:00 05/06/22 09:36 Tablet (Nonformulary PO 1 each - Will Not Scan) DAILY CHRISTIAN Administration Sodium Chloride 10 ml 04/29/22 14:00 05/06/22 05:49 Saline Lock Flush IV PUSH 10 ml Q8HR CHRISTIAN Administration Sodium Chloride 10 ml 04/29/22 06:46 Saline Lock Flush IV PUSH PRN PRN Flush Sodium Chloride 20 ml 04/29/22 06:46 Saline Lock Flush IV PUSH PRN PRN after blood draws Radiology Results: ITS Impressions Hand X-Ray 04/25/22 06:49 IMPRESSION: 1. Mild polyarticular osteoarthritis. Foot X-Ray 04/25/22 06:50 IMPRESSION: 1. Mild osteoarthritis of first metatarsophalangeal joint. Hand MRI 04/26/22 11:55 IMPRESSION: 1. Extensive inflammatory changes in the soft tissues throughout the right hand most prominent over the dorsum of the hand for surrounds a more discrete 4.7 x 3.6 x 0.8 cm fluid collection consistent without an organized well-defined contiguous peripheral enhancing wall which suggests phlegmonous change progressing towards abscess formation. Differential would include hematoma in the appropriate clinical setting or focal localized accumulation of severe edema. 2. Small joint effusion and associated enhancing synovitis at the third metacarpophalangeal joint where there is sugges
[2022-05-06 16:45] VITALS: BP 177/78; PULSE 93; RESP 16; TEMP 37.3; O2SAT 95
[2022-05-06] MEDS: CEPHALEXIN 500 MG CAPSULE PO (16:53)
[2022-05-06] MEDS: lisinopriL 10 MG TABLET PO (20:51)
[2022-05-06 22:00] VITALS: BP 181/60; PULSE 80; RESP 14; TEMP 36.6; O2SAT 92
[2022-05-07] MEDS: HYDROcodone/acetaminophen (*CRX) 10-325 MG TABLET 1 TAB PO ×4 (01:25→17:11)
[2022-05-07] MEDS: CEPHALEXIN 500 MG CAPSULE PO ×4 (01:25→17:12)
[2022-05-07 06:00] VITALS: BP 164/74; PULSE 84; RESP 14; TEMP 36.1; O2SAT 98
[2022-05-07] MEDS: metroNIDAZOLE 250 MG TABLET 500 MG PO ×3 (06:23→22:09)
[2022-05-07] MEDS: SALINE LOCK FLUSH 10 ML IV PUSH ×3 (06:25→22:11)
[2022-05-07 06:46] LABS: Alanine Aminotransferase 85 U/L (6-35); Alkaline Phosphatase 71 U/L (38-126); Anion Gap 4 mmol/L (8-16); Aspartate Amino Transferase 97 U/L (14-36); Bilirubin,Total 0.6 mg/dL (0.2-1.3); Blood Urea Nitrogen 20 mg/dL (7-17); Calcium 8.3 mg/dL (8.4-10.2); Carbon Dioxide 29 mmol/L (22-30); Chloride 99 mmol/L (98-107); Estimated CRCL calculation 53 ml/min; Estimated Glomerular Filt Rate 51; Glucose 114 mg/dL (65-110); Potassium 3.7 mmol/L (3.4-5.0); Sodium 132 mmol/L (137-145)
[2022-05-07] MEDS: amLODIPine BESYLATE 5 MG TABLET PO (09:23)
[2022-05-07] MEDS: lisinopriL 20 MG TABLET PO (09:23)
[2022-05-07] MEDS: FERROUS SULFATE 324 MG TABLET PO (09:24)
--- NOTE | 2022-05-07 09:36 | PM.PNORT ---
Progress Note: A&P Assessment and Plan (1) Swelling of left knee joint: Code(s): M25.462 - Effusion, left knee Status: Acute Assessment and Plan: Patient with continued left knee pain and swelling. Limited ROM due to knee joint effusion and pain. Difficulty with PT/OT. Recommended aspiration of the left knee joint with cultures, cell count, crystals. Obtain consent. Pending results, patient may require OR for knee arthroscopy with Dr. Diez. Ice knee. PT/OT with WBAT. Recommended fracture boot for the left foot/ankle. Patient thought she had one at home but it is a night splint. Will order from central supply. Ice knee. Elevate. (2) Cellulitis of right hand: Code(s): L03.113 - Cellulitis of right upper limb Status: Acute Assessment and Plan: Improvement noted. (3) Cellulitis of left foot: Code(s): L03.116 - Cellulitis of left lower limb Status: Acute Assessment and Plan: Improvement noted. Pain with AROM/PROM. Patient would benefit from PT/OT. PWB with fracture boot. (4) Streptococcal bacteremia: Code(s): R78.81 - Bacteremia; B95.5 - Unspecified streptococcus as the cause of diseases classified elsewhere Status: Acute Assessment and Plan: Medicine team following. Defer antibiotic treatment. (5) Inflammatory arthritis: Code(s): M19.90 - Unspecified osteoarthritis, unspecified site Status: Acute (6) Sepsis: Code(s): A41.9 - Sepsis, unspecified organism Status: Acute Plan Reviewed new concerns, assessment and labs with attending MD, Dr. Diez. Agrees with current plan as indicated above. No further recommendations. Subjective Subjective Date/Time Seen: 05/07/22 09:36 Interval history: Patient with continued left knee pain creating difficulties with PT/OT and mobilization. Hospitalist service requested Orthopedics return for further evaluation of the knee at this time. Review of Systems Review of Systems: All systems reviewed & are unremarkable except as noted in HPI and below Exam Const: General: comfortable and no acute distress Resp: Effort & Inspection: normal respiratory effort Cardio: Rate: regular rate Rhythm: regular rhythm GI: Inspection: non-distended GI Palp: No Soft to palpation Extrem: Other: Left knee with moderate knee joint effusion. Mildly warm to touch. No redness. No open wounds or bruising. Pain with AROM and PROM. ROM limited due to knee joint effusion. Left ankle with pain with AROM and PROM. PROM limited by pain. Bruising on the medial and lateral ankle with blistering medially. Palpable pedal pulses. Right hand and forearm with improvement in swelling. Ecchymosis on the dorsal hand noted. Objective Data Vital Signs Vital Signs: Vital Signs - 24 hr 05/06/22 16:45 05/06/22 20:00 05/06/22 22:00 Temperature 37.3 C 36.6 C Pulse Rate 93 80 Respiratory Rate 16 14 Blood Pressure 177/78 H 181/60 H Pulse Oximetry 95 92 Oxygen Delivery Room Air 05/07/22 06:00 Temperature 36.1 C L Pulse Rate 84 Respiratory Rate 14 Blood Pressure 164/74 H Pulse Oximetry 98 Oxygen Delivery Intake/Output Intake/Output: Intake & Output 05/04/22 05/05/22 05/06/22 05/07/22 23:59 23:59 23:59 23:59 Intake Total 2170 3612 1890 700 Output Total 1350 3150 625 Balance 417 697 1037 700 Meds/Results Medications: Active Medications Generic Name Dose Route Start Last Admin Trade Name Freq PRN Reason Stop Dose Admin Hydrocodone Bitart/Acetaminophen 1 tab 04/29/22 17:39 05/07/22 06:23 Hydrocodone/Acetaminophen (*Crx) 10-325 Mg Tablet PO 1 tab Q4H PRN Administration Pain Rated 7-10 Amlodipine Besylate 5 mg 05/05/22 09:00 05/07/22 09:23 Amlodipine Besylate 5 Mg Tablet PO 5 mg QAM CHRISTIAN Administration Cephalexin HCl 500 mg 05/06/22 18:00 05/07/22 06:25 Cephalexin 500 Mg Capsule PO 500 mg Q6HR CHRISTIAN Administration Enoxaparin Sodium 40 m
--- NOTE | 2022-05-07 10:37 | P.PNNP_ITS ---
Progress Note: A&P Assessment and Plan (1) Acute kidney injury: Code(s): N17.9 - Acute kidney failure, unspecified Status: Acute Assessment and Plan: * stable but not back to baseline * creatinine peaked at 1.8mg/dl * perhaps persistence of infection is hampering renal recovery * holding relatively stable at 1.2mg/dl * tolerating diuresis PRN and GENARO-I * suspect due to acute infection (right hand + left foot cellulitis) * likely progressed to mild ATN * some worsening due to NSAID use (?) * evaluation to date: * renal ultrasound normal * urine electrolytes prerenal * CPK okay * urine eosinophils negative * interestingly, noted to have ~ 900mg of protein * continue current therapy * follow trend of repeat labs and UOP (2) Streptococcal bacteremia: Code(s): R78.81 - Bacteremia; B95.5 - Unspecified streptococcus as the cause of diseases classified elsewhere Status: Acute Assessment and Plan: * as noted by cultures * right hand/leg foot felt to be likely source * on antibiotics * TTE without evidence of vegetations * follow repeat cultures (3) Cellulitis of right hand: Code(s): L03.113 - Cellulitis of right upper limb Status: Acute Assessment and Plan: * as noted by clinical exam on admission * culture data noted * on antibiotics * Plastic Surgery following (4) Cellulitis of left foot: Code(s): L03.116 - Cellulitis of left lower limb Status: Acute Assessment and Plan: * also suggestive by clinical exam on presentation * see #3 (5) Hypertension: Code(s): I10 - Essential (primary) hypertension Status: Chronic Assessment and Plan: * running a bit high by recent check * resumed back on lisinopril * follow trend of hemodynamics Will continue to follow intermittently. Subjective Date/time seen: 05/07/22 10:37 Continues to make slow and steady progress; still some issues with range of motion in right hand and left foot but better overall in comparison to admission; renal function relatively stable and swelling doing better s/p diuresis. Exam Narrative: General: WD/WN Caucasin female in NAD Heart: normal S1 and S2; no rub Lungs: clear to auscultation Abdomen: soft, nontender, nondistended, positive bowel sounds Extremities: no cyanosis or clubbing'; right hand and left foot edema improving Skin: reduced erythema noted in right hand/left foot Objective Data Vital Signs Vital Signs: Vital Signs Temp Pulse Resp BP Pulse Ox O2 Del Method 05/07/22 06:00 96.9 F L 84 14 164/74 H 98 05/06/22 22:00 98 F 80 14 181/60 H 92 05/06/22 20:00 Room Air 05/06/22 16:45 99.1 F 93 16 177/78 H 95 Intake/Output Intake/Output: Intake & Output 05/04/22 05/05/22 05/06/22 05/07/22 23:59 23:59 23:59 23:59 Intake Total 2170 3612 1890 820 Output Total 1350 3150 625 Balance 818 531 8224 820 Meds/Results Medications: Active Medications Generic Name Dose Route Start Last Admin Trade Name Freq PRN Reason Stop Dose Admin Hydrocodone Bitart/Acetaminophen 1 tab 04/29/22 17:39 05/07/22 06:23 Hydrocodone/Acetaminophen (*Crx) 10-325
--- NOTE | 2022-05-07 10:37 | PM.PNNEP ---
Progress Note: A&P Assessment and Plan (1) Acute kidney injury: Code(s): N17.9 - Acute kidney failure, unspecified Status: Acute Assessment and Plan: stable but not back to baseline creatinine peaked at 1.8mg/dl perhaps persistence of infection is hampering renal recovery holding relatively stable at 1.2mg/dl tolerating diuresis PRN and GENARO-I suspect due to acute infection (right hand + left foot cellulitis) likely progressed to mild ATN some worsening due to NSAID use (?) evaluation to date: renal ultrasound normal urine electrolytes prerenal CPK okay urine eosinophils negative interestingly, noted to have ~ 900mg of protein continue current therapy follow trend of repeat labs and UOP (2) Streptococcal bacteremia: Code(s): R78.81 - Bacteremia; B95.5 - Unspecified streptococcus as the cause of diseases classified elsewhere Status: Acute Assessment and Plan: as noted by cultures right hand/leg foot felt to be likely source on antibiotics TTE without evidence of vegetations follow repeat cultures (3) Cellulitis of right hand: Code(s): L03.113 - Cellulitis of right upper limb Status: Acute Assessment and Plan: as noted by clinical exam on admission culture data noted on antibiotics Plastic Surgery following (4) Cellulitis of left foot: Code(s): L03.116 - Cellulitis of left lower limb Status: Acute Assessment and Plan: also suggestive by clinical exam on presentation see #3 (5) Hypertension: Code(s): I10 - Essential (primary) hypertension Status: Chronic Assessment and Plan: running a bit high by recent check resumed back on lisinopril follow trend of hemodynamics Will continue to follow intermittently. Subjective Date/time seen: 05/07/22 10:37 Continues to make slow and steady progress; still some issues with range of motion in right hand and left foot but better overall in comparison to admission; renal function relatively stable and swelling doing better s/p diuresis. Exam Narrative: General: WD/WN Caucasin female in NAD Heart: normal S1 and S2; no rub Lungs: clear to auscultation Abdomen: soft, nontender, nondistended, positive bowel sounds Extremities: no cyanosis or clubbing'; right hand and left foot edema improving Skin: reduced erythema noted in right hand/left foot Objective Data Vital Signs Vital Signs: Vital Signs Temp Pulse Resp BP Pulse Ox O2 Del Method 05/07/22 06:00 96.9 F L 84 14 164/74 H 98 05/06/22 22:00 98 F 80 14 181/60 H 92 05/06/22 20:00 Room Air 05/06/22 16:45 99.1 F 93 16 177/78 H 95 Intake/Output Intake/Output: Intake & Output 05/04/22 05/05/22 05/06/22 05/07/22 23:59 23:59 23:59 23:59 Intake Total 2170 3612 1890 820 Output Total 1350 3150 625 Balance 993 244 3341 820 Meds/Results Medications: Active Medications Generic Name Dose Route Start Last Admin Trade Name Freq PRN Reason Stop Dose Admin Hydrocodone Bitart/Acetaminophen 1 tab 04/29/22 17:39 05/07/22 06:23 Hydrocodone/Acetaminophen (*Crx) 10-325 Mg Tablet PO 1 tab Q4H PRN Administration Pain Rated 7-10 Amlodipine Besylate 5 mg 05/05/22 09:00 05/07/22 09:23 Amlodipine Besylate 5 Mg Tablet PO 5 mg QAM CHRISTIAN Administration Cephalexin HCl 500 mg 05/06/22 18:00 05/07/22 06:25 Cephalexin 500 Mg Capsule PO 500 mg Q6HR CHRISTIAN Administration Enoxaparin Sodium 40 mg 05/02/22 09:00 05/06/22 09:34 Enoxaparin 40 Mg/0.4 Ml Syringe SUB-Q 40 mg DAILY CHRISTIAN Administration Ferrous Sulfate 324 mg 04/27/22 08:00 05/07/22 09:24 Ferrous Sulfate 324 Mg Tablet PO 324 mg TuSa@0800 CHRISTIAN Administration Ibuprofen 600 mg 05/07/22 09:38 Ibuprofen 600 Mg Tablet PO Q6H PRN Pain Rated 1-3 Lisinopril 20 mg 05/07/22 09:00 05/07/22 09:23 Lisinopril 20 Mg Tablet PO 20 mg
[2022-05-07 11:03] VITALS: BP 144/67; PULSE 76; RESP 18; TEMP 36.8; O2SAT 93
[2022-05-07 12:52] LABS: Appearance Synovial Fluid Hazy (Clear); Color Synovial Fluid Yellow (Colorless); Crystals Synovial Fluid None Seen (None Seen); Source Synovial Fluid Synovial fluid
[2022-05-07 12:53] LABS: Lymphocytes Synovial Fluid 9 %; Monocytes Synovial Fluid 6 %; Neutrophils Synovial Fluid 84 % (0-25)
[2022-05-07 12:54] LABS: Macrophages Synovial Fluid 1 %
--- NOTE | 2022-05-07 12:56 | PM.OP ---
Procedure Note - Brief Procedure Note - Brief Date of procedure: 05/07/22 Pre-op diagnosis: hand cellulitis vs gout Left Knee Joint Effusion Post-op diagnosis: Same Procedure performed: Aspiration. No injection performed. See below. Anesthesia: local Surgeon: ANNI Urena Drains: No Packing: No Pathology: None sent Complications: No immediate complications Condition: Stable Disposition: Floor Joint Aspiration/Injection Pre-Procedure Pre-procedure care: Consent was obtained, Procedures/risks were explained, Questions were answered, Correct patient identified and Correct side and site confirmed Position Position: Laying Site Prepped Technique: alcohol, povidone-iodine and sterile technique Anesthetic: lidocaine 1% plain 22 gauge Injection Details left arthrocentesis major joint Knee joint Manual palpation Fluid: Inflammatory Fluid Withdrawn (mL): 45 Sterile Dressing Pressure Improvement by site: Mild Post Procedure Patient tolerated the procedure well?: Tolerated procedure well
[2022-05-07] MEDS: ENOXAPARIN 40 MG/0.4 ML SYRINGE SUB-Q (13:14)
--- NOTE | 2022-05-07 15:02 | PM.IMPN ---
Progress Note: A&P Assessment and Plan (1) Streptococcal bacteremia: Code(s): R78.81 - Bacteremia; B95.5 - Unspecified streptococcus as the cause of diseases classified elsewhere Status: Acute Assessment and Plan: Patient presents with right hand and left foot/ankle erythema, edema and fevers consistent with arthropathy and cellulitis (possibly septic arthritis by MRI hand). Both blood cultures on admission grew Group A Streptococcus. Repeat blood cultures are negative. Surface Echo does not show any evidence of vegetation. No history of gout but she does have osteoarthritis. Vancomycin started on 04/25 and stopped 05/02. Cefazolin started 04/25 and changed to Rocephin the next day so Day 12 of appropriate abx treatment. Flagyl for possible anaerobic infection given the location and slower response with the ankle. WBC remains normal. CRP 6.6 and trending down. No further fevers and clinically appears to be improving but now with left knee involvement which could be reactive or seeding?. Appreciate Orthopedic and Plastic surgery input. Continue PT/OT. Check MRI left knee and ankle. Repeat Echo (2) Reactive arthritis: Code(s): M02.30 - Mario's disease, unspecified site Status: Acute Assessment and Plan: Patient presents with both left ankle and right wrist/hand edema and erythema. Noted to have +BCx as above. Doing well until yesterday when she noted increasing pain to the left knee. She has not moved this knee very much since admission. Ortho performed arthrocentesis showing hazy, yellow fluid. No crystals seen. Cell count not performed but majority were neutrophils. Sent for culture. No organisms seen. Moderate white cells seen. She does have a murmur and review of the echo showing only mild MR and TR. Etiology of her multiple joint involvement probably reactive given that she has tenosynovitis with enthesopathy and the asymmetric nature. No history of gout and negative crystal exams. Autoimmune markers essentially negative. RF slightly elevated but anti-CCP negative and doubt RA. BRAXTON negative. Consider Lyme so will check serologies. Repeat surface echo and consider SHANNAN. (3) Cellulitis: Qualifiers: Laterality: right Site of cellulitis: extremity Site of cellulitis of extremity: upper extremity Qualified Code(s): L03.113 - Cellulitis of right upper limb Code(s): L03.90 - Cellulitis, unspecified Status: Acute Assessment and Plan: As above. No crystals by arthrocentesis. (4) Anemia: Code(s): D64.9 - Anemia, unspecified Status: Acute Assessment and Plan: Hemoglobin has trended down to the 8 range. Normal iron studies January. B12 normal. She had a fluid balance of 17 L positive (UOP not accurately calculated but still suspected patient has excessive fluid on board) so Lasix started. Despite a few days of diuresis, Hgb about the same. Iron studies more consistent with anemia of chronic disease and malnutrition. Recent UA showing now only trace protein. Lasix stopped now. Continue supplements. Monitor. (5) Acute kidney injury: Code(s): N17.9 - Acute kidney failure, unspecified Status: Acute Assessment and Plan: Cr climbed to 1.8. Probably ATN. Consider related to autoimmune disease versus vancomycin exposure as well. Renal consulted and appreciate their input. Renal US normal. Tolerated Lasix and now stopped. Cr normal. Follow. (6) Hypertension: Code(s): I10 - Essential (primary) hypertension Status: Chronic Assessment and Plan: Patient's blood pressure was reviewed on 05/07 Blood pressure improved. Continue Lisinopril and Norvasc Follow (7) Hyperthyroidism: Code(s): E05.90 - Thyrotoxicosis, unspecified without thyrotoxic crisis or storm Status: Acute Assessment and Plan: Patient with hx of hyperthyroidism. On methimaole which is continued. FT4 normal. Continue the same. Veda
--- NOTE | 2022-05-07 18:31 | WPDPN ---
Progress Note: A&P Assessment and Plan (1) Cellulitis of right hand: Code(s): L03.113 - Cellulitis of right upper limb Status: Acute Assessment and Plan: Results of pending studies anticipated. OT for hand ROM may be over optimistic. (2) Cellulitis of left foot: Code(s): L03.116 - Cellulitis of left lower limb Status: Acute Assessment and Plan: Medial ankle wound continues to improve. Reactive arthritis still being evaluated. Plan Supportive care from my stand point. Subjective Date/time seen: 05/07/22 18:31 Interval history: Pt animated in describing her day and telling what seems to be getting better to her. Thinks the left knee may still be swollen, but moves more freely. Left ankle slightly better. The medial bulla has not yet drained. Feels more like eating. Did not mention the headaches. (I did not ask her about them). Has been trying hard to work with PT/OT. Appreciate Ortho note and aspiration. Few WBC noted. No crystals or organisms. MRI planned for L LE tomorrow. Lyme serology pending. Comments on elevated AST ALT appreciated. Thank you Dr. Anderson for joining the case. Right hand less swollen, but ROM remains limited and tender. Objective Data Vital Signs Vital Signs: Vital Signs - 24 hr 05/06/22 20:00 05/06/22 22:00 05/07/22 06:00 Temperature 98 F 96.9 F L Pulse Rate 80 84 Respiratory Rate 14 14 Blood Pressure 181/60 H 164/74 H Pulse Oximetry 92 98 Oxygen Delivery Room Air 05/07/22 11:03 Temperature 98.2 F Pulse Rate 76 Respiratory Rate 18 Blood Pressure 144/67 H Pulse Oximetry 93 Oxygen Delivery Intake/Output Intake/Output: Intake & Output 05/04/22 05/05/22 05/06/22 05/07/22 23:59 23:59 23:59 23:59 Intake Total 2170 3612 1890 820 Output Total 1350 3150 625 Balance 959 214 8303 820 Meds/Results Medications: Active Medications Generic Name Dose Route Start Last Admin Trade Name Freq PRN Reason Stop Dose Admin Hydrocodone Bitart/Acetaminophen 1 tab 04/29/22 17:39 05/07/22 17:11 Hydrocodone/Acetaminophen (*Crx) 10-325 Mg Tablet PO 1 tab Q4H PRN Administration Pain Rated 7-10 Hydrocodone Bitart/Acetaminophen 1 tab 05/07/22 17:59 Hydrocodone/Acetaminophen (*Crx) 5-325 Mg Tablet PO Q4H PRN Pain Rated 4-6 Amlodipine Besylate 5 mg 05/05/22 09:00 05/07/22 09:23 Amlodipine Besylate 5 Mg Tablet PO 5 mg QAM CHRISTIAN Administration Cephalexin HCl 500 mg 05/06/22 18:00 05/07/22 17:12 Cephalexin 500 Mg Capsule PO 500 mg Q6HR CHRISTIAN Administration Enoxaparin Sodium 40 mg 05/02/22 09:00 05/07/22 13:14 Enoxaparin 40 Mg/0.4 Ml Syringe SUB-Q 40 mg DAILY CHRISTIAN Administration Ferrous Sulfate 324 mg 04/27/22 08:00 05/07/22 09:24 Ferrous Sulfate 324 Mg Tablet PO 324 mg TuSa@0800 CHRISTIAN Administration Ibuprofen 600 mg 05/07/22 09:38 Ibuprofen 600 Mg Tablet PO Q6H PRN Pain Rated 1-3 Lisinopril 20 mg 05/07/22 09:00 05/07/22 09:23 Lisinopril 20 Mg Tablet PO 20 mg QAM CHRISTIAN Administration Metronidazole 500 mg 05/02/22 17:00 05/07/22 17:12 Metronidazole 250 Mg Tablet PO 500 mg Q8HR CHRISTIAN Administration Methimazole 2.5 Mg 1 each 04/25/22 09:00 05/07/22 09:24 Tablet (Nonformulary PO 1 each - Will Not Scan) DAILY CHRISTIAN Administration Perflutren Lipid Microsphere 0 ml 05/07/22 15:31 Perflutren Lipid Microspheres 1.5 Ml Vial Diluted To 10 Ml Total Volume IV PUSH 05/09/22 15:33 ONCE PRN adequate visualization Protocol Sodium Chloride 10 ml 04/29/22 14:00 05/07/22 17:12 Saline Lock Flush IV PUSH 10 ml Q8HR CHRISTIAN Administration Sodium Chloride 10 ml 04/29/22 06:46 Saline Lock Flush IV PUSH PRN PRN Flush Sodium Chloride 20 ml 04/29/22 06:46 Saline Lock Flush IV PUSH PRN PRN after blood draws Radiology Results: ITS Impressions Hand X-Ray 04/25/22 06:49 IMPRE
[2022-05-07 22:00] VITALS: BP 151/66; PULSE 87; RESP 16; TEMP 36.6; O2SAT 97
--- NOTE | 2022-05-08 | ECHOL_ITS ---
Patient Info Name: Tiffanie Chavez Age: 61 years : 1960 Gender: Female Ht: 66 in Wt: 184 lbs BSA: 2.00 m2 HR: 71 bpm BP: 151 / 66 mmHg Technical Quality: Good Exam Date: 05/08/2022 10:36 AM Exam Location: [facility] Pulmonary Exam Room: [facility] Patient Status: Inpatient Admit Date: 04/26/2022 Staff Ordering Physician: Franc Anderson MD Labor Law Professor: Dilia Lambert RDCS Attending Provider: Lissette Curiel MD Exam Type: CA echo limited Study Info Indications - bacteremia new joint effusion assess for vegetation Limited two-dimensional transthoracic echocardiogram is performed. Summary 1. Limited echocardiogram to assess for vegetation. 2. There is trace mitral valve regurgitation. 3. There is trace tricuspid valve regurgitation. Aortic Valve Limited echocardiogram to assess for vegetation. The aortic valve is trileaflet. There is no aortic valve stenosis. There is no aortic valve regurgitation. No aortic valve vegetation visualized. Pulmonic Valve There is no pulmonic regurgitation. No pulmonic valve vegetation visualized. Mitral Valve There is no mitral valve stenosis. There is trace mitral valve regurgitation. No mitral valve vegetation visualized. Tricuspid Valve There is trace tricuspid valve regurgitation. No tricuspid valve vegetation visualized. Report Signatures
[2022-05-08] MEDS: CEPHALEXIN 500 MG CAPSULE PO ×4 (00:09→17:28)
[2022-05-08] MEDS: HYDROcodone/acetaminophen (*CRX) 5-325 MG TABLET 1 TAB PO ×2 (01:57→18:34)
[2022-05-08] MEDS: ONDANSETRON INJ 4 MG/2 ML VIAL IV PUSH (02:34)
[2022-05-08] MEDS: SALINE LOCK FLUSH 10 ML IV PUSH ×3 (05:52→22:27)
[2022-05-08] MEDS: metroNIDAZOLE 250 MG TABLET 500 MG PO ×3 (05:52→22:27)
[2022-05-08 06:00] VITALS: BP 162/72; PULSE 81; RESP 16; TEMP 36.1; O2SAT 100
[2022-05-08 08:06] LABS: Basophils Percent Auto 0.6 % (0.2-1.2); Eosinophils Percent Auto 0.6 % (0-4.4); Hematocrit 26.9 % (37.0-47.0); Hemoglobin 8.5 g/dL (12.0-15.0); Immature Granulocyte Absolute 0.04 K/mm3 (0.00-0.031); Immature Granulocyte Percent A 0.8 % (0-0.5); Lymphocytes Percent Auto 15.8 % (18.3-44.2); Mean Corpuscular HGB Conc 31.6 g/dl (32-36); Mean Corpuscular Hemoglobin 30.9 pg (26-34); Mean Corpuscular Volume 97.8 fl (80-100); Monocytes Absolute Auto 0.5 K/mm3 (0.1-0.6); Monocytes Percent Auto 10.3 % (2.6-8.5); Neutrophils Absolute Auto 3.6 K/mm3 (1.3-6.7); Neutrophils Percent Auto 71.9 % (45.5-73.1); Platelet Count Result 343 k/mm3 (150-375); Red Blood Count 2.75 M/mm3 (4.2-5.4); Red Cell Distribution Width 12.7 % (11.5-14.5); White Blood Count 5.1 K/mm3 (4.5-10.0)
[2022-05-08 08:17] LABS: Alanine Aminotransferase 61 U/L (6-35); Albumin Level 2.8 g/dL (3.5-5.1); Alkaline Phosphatase 61 U/L (38-126); Anion Gap 5 mmol/L (8-16); Aspartate Amino Transferase 48 U/L (14-36); Bilirubin,Total 0.5 mg/dL (0.2-1.3); Blood Urea Nitrogen 19 mg/dL (7-17); CRP 6.4 mg/dL (<1.0); Calcium 8.1 mg/dL (8.4-10.2); Carbon Dioxide 27 mmol/L (22-30); Chloride 103 mmol/L (98-107); Estimated CRCL calculation 58 ml/min; Estimated Glomerular Filt Rate 57; Glucose 107 mg/dL (65-110); Potassium 4.1 mmol/L (3.4-5.0); Sodium 135 mmol/L (137-145)
--- NOTE | 2022-05-08 08:37 | PM.IMPN ---
Progress Note: A&P Assessment and Plan (1) Streptococcal bacteremia: Code(s): R78.81 - Bacteremia; B95.5 - Unspecified streptococcus as the cause of diseases classified elsewhere Status: Acute Assessment and Plan: Patient presents with right hand and left foot/ankle erythema, edema and fevers consistent with arthropathy and cellulitis (possibly septic arthritis by MRI hand). Both blood cultures on admission grew Group A Streptococcus. Repeat blood cultures are negative. Surface Echo does not show any evidence of vegetation. No history of gout but she does have osteoarthritis. Vancomycin started on 04/25 and stopped 05/02. Cefazolin started 04/25 and changed to Rocephin the next day so Day 13 of appropriate abx treatment. Flagyl for possible anaerobic infection given the location and slower response with the ankle. WBC remains normal. CRP 6.6 and trending down. No further fevers and clinically appears to be improving but now with left knee involvement which could be reactive or seeding? Appreciate Orthopedic and Plastic surgery input. Continue PT/OT. MRI left knee and ankle report reviewed, will defer further intervention to Orthopedic and Plastic surgery team, continue antibiotics for possible septic arthritis, may have osteomyelitis, may need further aspiration of fluid in knee and ankle (2) Reactive arthritis: Code(s): M02.30 - Mario's disease, unspecified site Status: Acute Assessment and Plan: Patient presents with both left ankle and right wrist/hand edema and erythema. Noted to have +BCx as above. Doing well until yesterday when she noted increasing pain to the left knee. She has not moved this knee very much since admission. Ortho performed arthrocentesis showing hazy, yellow fluid. No crystals seen. Cell count not performed but majority were neutrophils. Sent for culture. No organisms seen. Moderate white cells seen. She does have a murmur and review of the echo showing only mild MR and TR. Etiology of her multiple joint involvement probably reactive given that she has tenosynovitis with enthesopathy and the asymmetric nature. No history of gout and negative crystal exams. Autoimmune markers essentially negative. RF slightly elevated but anti-CCP negative and doubt RA. BRAXTON negative. Consider Lyme so will check serologies. Repeat surface echo and consider SHANNAN. (3) Cellulitis: Qualifiers: Laterality: right Site of cellulitis: extremity Site of cellulitis of extremity: upper extremity Qualified Code(s): L03.113 - Cellulitis of right upper limb Code(s): L03.90 - Cellulitis, unspecified Status: Acute Assessment and Plan: As above. No crystals by arthrocentesis. (4) Anemia: Code(s): D64.9 - Anemia, unspecified Status: Acute Assessment and Plan: Stable, monitor (5) Acute kidney injury: Code(s): N17.9 - Acute kidney failure, unspecified Status: Acute Assessment and Plan: Resolved (6) Hypertension: Code(s): I10 - Essential (primary) hypertension Status: Chronic Assessment and Plan: Stable, continue home meds, monitor (7) Hyperthyroidism: Code(s): E05.90 - Thyrotoxicosis, unspecified without thyrotoxic crisis or storm Status: Acute Assessment and Plan: Patient with hx of hyperthyroidism. On methimaole which is continued. FT4 normal. Continue the same. Plan Elevated LFTs - Noted and better today. Related to abx (both ceftriazone and flagyl can increase LFTs). Viral Hepatitis panel negative. Continue to follow DVT prophylaxis with SCDs GI prophylaxis not indicated Code status full code Subjective Date/time seen: 05/08/22 08:37 Interval history: No overnight events noted. No chest pain or shortness of breath. No nausea, vomiting or diarrhea. No fevers or chills. The pain in her joints is much improved today. Review of Systems Review of
[2022-05-08] MEDS: ENOXAPARIN 40 MG/0.4 ML SYRINGE SUB-Q (08:47)
[2022-05-08] MEDS: HYDROcodone/acetaminophen (*CRX) 10-325 MG TABLET 1 TAB PO ×3 (08:47→22:28)
[2022-05-08] MEDS: lisinopriL 20 MG TABLET PO (08:47)
[2022-05-08] MEDS: amLODIPine BESYLATE 5 MG TABLET PO (08:47)
--- NOTE | 2022-05-08 11:21 | WPDPN ---
Progress Note: A&P Assessment and Plan (1) Hand swelling: Qualifiers: Laterality: right Qualified Code(s): M79.89 - Other specified soft tissue disorders Code(s): M79.89 - Other specified soft tissue disorders Status: Acute Assessment and Plan: This patient has persistence of 4 scattered sites of severe inflammation with high suspicion for inflammatory arthritis or osteomyelitis due to Strep bacteremia. Other possible cause is being investigated with Lyme serology. Though the markers of bacterial infection are slowly waning the patient has marked physical findings of pain and swelling and persistence of MRI evidence of inflammation and possibly subpatellar osteomyelitis. No additional organisms have been identified even in the recently aspirated left knee joint effusion. Screening for rheumatologic disorder has been negative. The patient has not progressed with OT/PT as rapidly as I thought she would, especially in the right hand. Plan x-ray the right hand. MRI the right hand. Time Spent With Patient Time with patient: less than 15 minutes Subjective Date/time seen: 05/08/22 11:21 Exam Narrative: Afebrile. WBC normal, neutrophils back to normal. CRP and liver functions continue to decline but remain elevated. Renal function improved with Cr 1.0 today. Serology pending for Lyme ds. Repeat Echo pending. MRI of left LE: joint fluid in knee with suggestion of possible septic arthritis beneath patella. Joint cartilage preserved. Edema in ankle without evidence of osteomyelitis . Left knee aspirate: WBC noted but no organisms seen, no crystals. C/O swelling same four sites including the right 1st MTJ. No head ache today. Still very tender at right 3rd MPJ with swelling and limited AROM. Objective Data Vital Signs Vital Signs: Vital Signs - 24 hr 05/07/22 20:00 05/07/22 22:00 05/08/22 06:00 Temperature 97.8 F 97 F L Pulse Rate 87 81 Respiratory Rate 16 16 Blood Pressure 151/66 H 162/72 H Pulse Oximetry 97 100 Oxygen Delivery Room Air Intake/Output Intake/Output: Intake & Output 05/05/22 05/06/22 05/07/22 05/08/22 23:59 23:59 23:59 23:59 Intake Total 3612 1890 1735 500 Output Total 3150 625 200 950 Balance 462 1265 1535 -450 Meds/Results Medications: Active Medications Generic Name Dose Route Start Last Admin Trade Name Freq PRN Reason Stop Dose Admin Hydrocodone Bitart/Acetaminophen 1 tab 04/29/22 17:39 05/08/22 08:47 Hydrocodone/Acetaminophen (*Crx) 10-325 Mg Tablet PO 1 tab Q4H PRN Administration Pain Rated 7-10 Hydrocodone Bitart/Acetaminophen 1 tab 05/07/22 17:59 05/08/22 01:57 Hydrocodone/Acetaminophen (*Crx) 5-325 Mg Tablet PO 1 tab Q4H PRN Administration Pain Rated 4-6 Amlodipine Besylate 5 mg 05/05/22 09:00 05/08/22 08:47 Amlodipine Besylate 5 Mg Tablet PO 5 mg QAM CHRISTIAN Administration Cephalexin HCl 500 mg 05/06/22 18:00 05/08/22 05:52 Cephalexin 500 Mg Capsule PO 500 mg Q6HR CHRISTIAN Administration Enoxaparin Sodium 40 mg 05/02/22 09:00 05/08/22 08:47 Enoxaparin 40 Mg/0.4 Ml Syringe SUB-Q 40 mg DAILY CHRISTIAN Administration Ferrous Sulfate 324 mg 04/27/22 08:00 05/07/22 09:24 Ferrous Sulfate 324 Mg Tablet PO 324 mg TuSa@0800 CHRISTIAN Administration Ibuprofen 600 mg 05/07/22 09:38 Ibuprofen 600 Mg Tablet PO Q6H PRN Pain Rated 1-3 Lisinopril 20 mg 05/07/22 09:00 05/08/22 08:47 Lisinopril 20 Mg Tablet PO 20 mg QAM CHRISTIAN Administration Metronidazole 500 mg 05/02/22 17:00 05/08/22 05:52 Metronidazole 250 Mg Tablet PO 500 mg Q8HR CHRISTIAN Administration Methimazole 2.5 Mg 1 each 04/25/22 09:00 05/07/22 09:24 Tablet (Nonformulary PO 1 each - Will Not Scan) DAILY CHRISTIAN Administration Ondansetron HCl 4 mg 05/08/22 02:00 05/08/22 02:34 Ondansetron Inj 4 Mg/2 Ml Vial IV PUSH 4 mg Q4H PRN Administration Nausea
--- NOTE | 2022-05-08 12:32 | P.PNNP_ITS ---
Progress Note: A&P Assessment and Plan (1) Acute kidney injury: Code(s): N17.9 - Acute kidney failure, unspecified Status: Acute Assessment and Plan: * stable but not back to baseline * creatinine peaked at 1.8mg/dl * perhaps persistence of infection is hampering renal recovery * holding relatively stable at 1.2mg/dl * tolerating diuresis PRN and GENARO-I * suspect due to acute infection (right hand + left foot cellulitis) * likely progressed to mild ATN * some worsening due to NSAID use (?) * evaluation to date: * renal ultrasound normal * urine electrolytes prerenal * CPK okay * urine eosinophils negative * interestingly, noted to have ~ 900mg of protein * continue current therapy * follow trend of repeat labs and UOP (2) Streptococcal bacteremia: Code(s): R78.81 - Bacteremia; B95.5 - Unspecified streptococcus as the cause of diseases classified elsewhere Status: Acute Assessment and Plan: * as noted by cultures * right hand/leg foot felt to be likely source * on antibiotics * TTE without evidence of vegetations * follow repeat cultures (3) Cellulitis of right hand: Code(s): L03.113 - Cellulitis of right upper limb Status: Acute Assessment and Plan: * as noted by clinical exam on admission * culture data noted * on antibiotics * Plastic Surgery following (4) Cellulitis of left foot: Code(s): L03.116 - Cellulitis of left lower limb Status: Acute Assessment and Plan: * also suggestive by clinical exam on presentation * see #3 (5) Hypertension: Code(s): I10 - Essential (primary) hypertension Status: Chronic Assessment and Plan: * running a bit high by recent check * resumed back on lisinopril * follow trend of hemodynamics Will continue to follow intermittently. Subjective Date/time seen: 05/08/22 12:32 Continues to make slow and steady progress/improvement; range of motion with regard to left foot and right hand appear to be getting better; no apparent distress noted. Exam Narrative: General: WD/WN Caucasin female in NAD Heart: normal S1 and S2; no rub Lungs: clear to auscultation Abdomen: soft, nontender, nondistended, positive bowel sounds Extremities: no cyanosis or clubbing'; right hand and left foot edema improving Skin: reduced erythema noted in right hand/left foot Objective Data Vital Signs Vital Signs: Vital Signs Temp Pulse Resp BP Pulse Ox O2 Del Method 05/08/22 06:00 97 F L 81 16 162/72 H 100 05/07/22 22:00 97.8 F 87 16 151/66 H 97 05/07/22 20:00 Room Air Intake/Output Intake/Output: Intake & Output 05/05/22 05/06/22 05/07/22 05/08/22 23:59 23:59 23:59 23:59 Intake Total 3612 1890 1735 620 Output Total 3150 625 200 950 Balance 462 1265 1535 -330 Meds/Results Medications: Active Medications Generic Name Dose Route Start Last Admin Trade Name Freq PRN Reason Stop Dose Admin Hydrocodone Bitart/Acetaminophen 1 tab 04/29/22 17:39 05/08/22 08:47 Hydrocodone/Acetaminophen (*Crx) 10-325 Mg Tablet PO 1 tab Q4H PRN Administration Pain Rated 7-10 Hydrocodone Radha
--- NOTE | 2022-05-08 12:32 | PM.PNNEP ---
Progress Note: A&P Assessment and Plan (1) Acute kidney injury: Code(s): N17.9 - Acute kidney failure, unspecified Status: Acute Assessment and Plan: stable but not back to baseline creatinine peaked at 1.8mg/dl perhaps persistence of infection is hampering renal recovery holding relatively stable at 1.2mg/dl tolerating diuresis PRN and GENARO-I suspect due to acute infection (right hand + left foot cellulitis) likely progressed to mild ATN some worsening due to NSAID use (?) evaluation to date: renal ultrasound normal urine electrolytes prerenal CPK okay urine eosinophils negative interestingly, noted to have ~ 900mg of protein continue current therapy follow trend of repeat labs and UOP (2) Streptococcal bacteremia: Code(s): R78.81 - Bacteremia; B95.5 - Unspecified streptococcus as the cause of diseases classified elsewhere Status: Acute Assessment and Plan: as noted by cultures right hand/leg foot felt to be likely source on antibiotics TTE without evidence of vegetations follow repeat cultures (3) Cellulitis of right hand: Code(s): L03.113 - Cellulitis of right upper limb Status: Acute Assessment and Plan: as noted by clinical exam on admission culture data noted on antibiotics Plastic Surgery following (4) Cellulitis of left foot: Code(s): L03.116 - Cellulitis of left lower limb Status: Acute Assessment and Plan: also suggestive by clinical exam on presentation see #3 (5) Hypertension: Code(s): I10 - Essential (primary) hypertension Status: Chronic Assessment and Plan: running a bit high by recent check resumed back on lisinopril follow trend of hemodynamics Will continue to follow intermittently. Subjective Date/time seen: 05/08/22 12:32 Continues to make slow and steady progress/improvement; range of motion with regard to left foot and right hand appear to be getting better; no apparent distress noted. Exam Narrative: General: WD/WN Caucasin female in NAD Heart: normal S1 and S2; no rub Lungs: clear to auscultation Abdomen: soft, nontender, nondistended, positive bowel sounds Extremities: no cyanosis or clubbing'; right hand and left foot edema improving Skin: reduced erythema noted in right hand/left foot Objective Data Vital Signs Vital Signs: Vital Signs Temp Pulse Resp BP Pulse Ox O2 Del Method 05/08/22 06:00 97 F L 81 16 162/72 H 100 05/07/22 22:00 97.8 F 87 16 151/66 H 97 05/07/22 20:00 Room Air Intake/Output Intake/Output: Intake & Output 05/05/22 05/06/22 05/07/22 05/08/22 23:59 23:59 23:59 23:59 Intake Total 3612 1890 1735 620 Output Total 3150 625 200 950 Balance 462 1265 1535 -330 Meds/Results Medications: Active Medications Generic Name Dose Route Start Last Admin Trade Name Freq PRN Reason Stop Dose Admin Hydrocodone Bitart/Acetaminophen 1 tab 04/29/22 17:39 05/08/22 08:47 Hydrocodone/Acetaminophen (*Crx) 10-325 Mg Tablet PO 1 tab Q4H PRN Administration Pain Rated 7-10 Hydrocodone Bitart/Acetaminophen 1 tab 05/07/22 17:59 05/08/22 01:57 Hydrocodone/Acetaminophen (*Crx) 5-325 Mg Tablet PO 1 tab Q4H PRN Administration Pain Rated 4-6 Amlodipine Besylate 5 mg 05/05/22 09:00 05/08/22 08:47 Amlodipine Besylate 5 Mg Tablet PO 5 mg QAM CHRISTIAN Administration Cephalexin HCl 500 mg 05/06/22 18:00 05/08/22 12:04 Cephalexin 500 Mg Capsule PO 500 mg Q6HR CHRISTIAN Administration Enoxaparin Sodium 40 mg 05/02/22 09:00 05/08/22 08:47 Enoxaparin 40 Mg/0.4 Ml Syringe SUB-Q 40 mg DAILY CHRISTIAN Administration Ferrous Sulfate 324 mg 04/27/22 08:00 05/07/22 09:24 Ferrous Sulfate 324 Mg Tablet PO 324 mg TuSa@0800 CHRISTIAN Administration Ibuprofen 600 mg 05/07/22 09:38 Ibuprofen 600 Mg Tablet PO Q6H PRN Pain Rated 1-3 Lisinopri
[2022-05-08 16:34] VITALS: BP 135/54; PULSE 79; RESP 18; TEMP 36.4; O2SAT 98
[2022-05-08 22:00] VITALS: BP 177/92; PULSE 83; RESP 14; TEMP 36.5; O2SAT 100
[2022-05-08 22:30] VITALS: BP 160/90
[2022-05-09] MEDS: CEPHALEXIN 500 MG CAPSULE PO ×2 (00:25→05:59)
[2022-05-09] MEDS: HYDROcodone/acetaminophen (*CRX) 10-325 MG TABLET 1 TAB PO ×2 (05:58→13:58)
[2022-05-09] MEDS: metroNIDAZOLE 250 MG TABLET 500 MG PO (05:58)
[2022-05-09] MEDS: SALINE LOCK FLUSH 10 ML IV PUSH ×3 (05:59→21:04)
[2022-05-09 06:00] VITALS: BP 144/74; PULSE 80; RESP 16; TEMP 36.5; O2SAT 97
[2022-05-09] MEDS: lisinopriL 20 MG TABLET PO (08:50)
[2022-05-09] MEDS: amLODIPine BESYLATE 5 MG TABLET PO (08:50)
[2022-05-09] MEDS: ENOXAPARIN 40 MG/0.4 ML SYRINGE SUB-Q (08:50)
--- NOTE | 2022-05-09 09:27 | PM.IMPN ---
Progress Note: A&P Assessment and Plan (1) Streptococcal bacteremia: Code(s): R78.81 - Bacteremia; B95.5 - Unspecified streptococcus as the cause of diseases classified elsewhere Status: Acute Assessment and Plan: Patient presents with right hand and left knee, foot/ankle erythema, edema and fevers consistent with arthropathy and cellulitis MRI left knee 05/08 showed joint effusion concerning for septic arthritis an aspiration was recommended, also noted was marrow edema of the inferior patella concerning for osteomyelitis, soft tissue edema of the distal vastus lateralis muscle concerning for infectious myositis versus cellulitis, no osteomyelitis noted in the ankle, ankle joint most consistent with cellulitis Right hand x-ray 05/08 showed mild polyarticular osteoarthritis Both blood cultures on admission grew Group A Streptococcus. Repeat blood cultures are negative. Surface Echo does not show any evidence of vegetation. No history of gout but she does have osteoarthritis. Vancomycin started on 04/25 and stopped 05/02. Cefazolin started 04/25 and changed to Rocephin 04/26. Flagyl for possible anaerobic infection added 05/02. Rocephin de-escalated to keflex 05/06. As imaging is concerning for osteomyelitis, will switch back to IV ancef 05/09m d/c oral keflex + flagyl until further recommendations per surgery. Appreciate Orthopedic and Plastic surgery input. Continue PT/OT. (2) Reactive arthritis: Code(s): M02.30 - Mario's disease, unspecified site Status: Acute Assessment and Plan: Blood cultures positive for group A strep, as above, repeat blood cx NGTD. Joint/wound cultures all negative for organisms, positive for WBCs only. Cx NGTD. She does have a murmur and review of the echo showing only mild MR and TR. Etiology of her multiple joint involvement probably reactive given that she has tenosynovitis with enthesopathy and the asymmetric nature. No history of gout and negative crystal exams. Autoimmune markers essentially negative. RF slightly elevated but anti-CCP negative and doubt RA. BRAXTON negative. Lyme serology is ordered and pending. Repeat surface echo negative for vegetation. (3) Cellulitis: Qualifiers: Laterality: right Site of cellulitis: extremity Site of cellulitis of extremity: upper extremity Qualified Code(s): L03.113 - Cellulitis of right upper limb Code(s): L03.90 - Cellulitis, unspecified Status: Acute Assessment and Plan: As above. (4) Anemia: Code(s): D64.9 - Anemia, unspecified Status: Acute Assessment and Plan: Stable, monitor (5) Acute kidney injury: Code(s): N17.9 - Acute kidney failure, unspecified Status: Acute Assessment and Plan: Resolved (6) Hypertension: Code(s): I10 - Essential (primary) hypertension Status: Chronic Assessment and Plan: Stable, continue home meds, monitor (7) Hyperthyroidism: Code(s): E05.90 - Thyrotoxicosis, unspecified without thyrotoxic crisis or storm Status: Acute Assessment and Plan: Patient with hx of hyperthyroidism. On methimaole which is continued. FT4 normal. Continue the same. Plan Elevated LFTs - Cont to improve, likely related to abx (both ceftriaxone and flagyl can increase LFTs). Viral Hepatitis panel negative. Monitor. DVT prophylaxis with SCDs GI prophylaxis not indicated Code status full code Subjective Date/time seen: 05/09/22 09:27 Interval history: No overnight events noted. No chest pain or shortness of breath. No nausea, vomiting or diarrhea. No fevers or chills. Patient continues to improve. She still has swelling of her right hand, minimal improvement from yesterday. Left knee and ankle are about the same as yesterday, pain seems a little better. She continues to work with therapy each day. Otherwise, she feels great. Review of Systems Review of Systems:
[2022-05-09 09:47] LABS: Basophils Percent Auto 0.5 % (0.2-1.2); Eosinophils Percent Auto 0.3 % (0-4.4); Hematocrit 26.8 % (37.0-47.0); Hemoglobin 8.6 g/dL (12.0-15.0); Immature Granulocyte Absolute 0.04 K/mm3 (0.00-0.031); Immature Granulocyte Percent A 0.7 % (0-0.5); Lymphocytes Absolute Auto 0.81 K/mm3 (0.9-3.2); Lymphocytes Percent Auto 14.1 % (18.3-44.2); Mean Corpuscular HGB Conc 32.1 g/dl (32-36); Mean Corpuscular Hemoglobin 30.8 pg (26-34); Mean Corpuscular Volume 96.1 fl (80-100); Mean Platelet Volume 10.1 fl (7.4-10.4); Monocytes Absolute Auto 0.6 K/mm3 (0.1-0.6); Monocytes Percent Auto 9.8 % (2.6-8.5); Neutrophils Absolute Auto 4.3 K/mm3 (1.3-6.7); Neutrophils Percent Auto 74.6 % (45.5-73.1); Platelet Count Result 378 k/mm3 (150-375); Red Blood Count 2.79 M/mm3 (4.2-5.4); Red Cell Distribution Width 12.5 % (11.5-14.5); White Blood Count 5.7 K/mm3 (4.5-10.0)
[2022-05-09 09:59] LABS: Alanine Aminotransferase 45 U/L (6-35); Alkaline Phosphatase 57 U/L (38-126); Anion Gap 7 mmol/L (8-16); Aspartate Amino Transferase 36 U/L (14-36); Bilirubin,Total 0.5 mg/dL (0.2-1.3); Blood Urea Nitrogen 19 mg/dL (7-17); Calcium 8.6 mg/dL (8.4-10.2); Carbon Dioxide 26 mmol/L (22-30); Chloride 102 mmol/L (98-107); Estimated CRCL calculation 57 ml/min; Estimated Glomerular Filt Rate 57; Glucose 127 mg/dL (65-110); Potassium 3.8 mmol/L (3.4-5.0); Sodium 135 mmol/L (137-145)
--- NOTE | 2022-05-09 11:50 | WPDPN ---
Progress Note: A&P Assessment and Plan (1) Reactive arthritis: Code(s): M02.30 - Mario's disease, unspecified site Status: Acute Plan Reactive arthritis from Strep bacteremia. No indication for surgical intervention on the right hand. Continue OT. Time Spent With Patient Time with patient: less than 15 minutes Subjective Date/time seen: 05/09/22 11:50 Interval history: Had PT and OT already today. Exam Narrative: Has a 5/10 pain rating when she does her passive flexion of fingers, lewis 3rd. Lacks ~4 cm of placing tips to palm. ECHO neg for vegetation. Right hand x-ray: mild polyarticular osteoarthritis. Left medial foot bulla has not ruptured. May simply desiccate. Not weight bearing on L LE. Objective Data Vital Signs Vital Signs: Vital Signs - 24 hr 05/08/22 16:34 05/08/22 20:00 05/08/22 22:00 Temperature 97.5 F L 97.7 F Pulse Rate 79 83 Respiratory Rate 18 14 Blood Pressure 135/54 L 177/92 H Pulse Oximetry 98 100 Oxygen Delivery Room Air 05/08/22 22:30 05/09/22 06:00 05/09/22 08:45 Temperature 97.7 F Pulse Rate 80 Respiratory Rate 16 Blood Pressure 160/90 H 144/74 H Pulse Oximetry 97 Oxygen Delivery Room Air Intake/Output Intake/Output: Intake & Output 05/06/22 05/07/22 05/08/22 05/09/22 23:59 23:59 23:59 23:59 Intake Total 1890 1735 1530 550 Output Total 625 200 950 800 Balance 1265 1535 580 -250 Meds/Results Medications: Active Medications Generic Name Dose Route Start Last Admin Trade Name Freq PRN Reason Stop Dose Admin Hydrocodone Bitart/Acetaminophen 1 tab 04/29/22 17:39 05/09/22 05:58 Hydrocodone/Acetaminophen (*Crx) 10-325 Mg Tablet PO 1 tab Q4H PRN Administration Pain Rated 7-10 Hydrocodone Bitart/Acetaminophen 1 tab 05/07/22 17:59 05/08/22 18:34 Hydrocodone/Acetaminophen (*Crx) 5-325 Mg Tablet PO 1 tab Q4H PRN Administration Pain Rated 4-6 Amlodipine Besylate 5 mg 05/05/22 09:00 05/09/22 08:50 Amlodipine Besylate 5 Mg Tablet PO 5 mg QAM CHRISTIAN Administration Enoxaparin Sodium 40 mg 05/02/22 09:00 05/09/22 08:50 Enoxaparin 40 Mg/0.4 Ml Syringe SUB-Q 40 mg DAILY CHRISTIAN Administration Ferrous Sulfate 324 mg 04/27/22 08:00 05/07/22 09:24 Ferrous Sulfate 324 Mg Tablet PO 324 mg TuSa@0800 CHRISTIAN Administration Hydralazine HCl 10 mg 05/08/22 21:55 Hydralazine Hcl 20 Mg/Ml Vial IV PUSH Q6H PRN Blood Pressure - High Cefazolin Sodium 1 gm in 50 mls @ 100 mls/hr 05/09/22 14:00 Ancef 1 Gm/D5w 50 Ml Pm IVPB Q8HR [facility] Ibuprofen 600 mg 05/07/22 09:38 Ibuprofen 600 Mg Tablet PO Q6H PRN Pain Rated 1-3 Lisinopril 20 mg 05/07/22 09:00 05/09/22 08:50 Lisinopril 20 Mg Tablet PO 20 mg QAM CHRISTIAN Administration Miscellaneous Information 1 each 05/09/22 00:01 [place] 10 Needs Renewed Or Will Be Stopped 05-09-22 XX 06/08/22 00:00 [facility]IFY [facility] Methimazole 2.5 Mg 1 each 04/25/22 09:00 05/09/22 08:51 Tablet (Nonformulary PO 1 each - Will Not Scan) DAILY CHRISTIAN Administration Ondansetron HCl 4 mg 05/08/22 02:00 05/08/22 02:34 Ondansetron Inj 4 Mg/2 Ml Vial IV PUSH 4 mg Q4H PRN Administration Nausea And Vomiting Perflutren Lipid Microsphere 0 ml 05/07/22 15:31 Perflutren Lipid Microspheres 1.5 Ml Vial Diluted To 10 Ml Total Volume IV PUSH 05/09/22 15:33 ONCE PRN adequate visualization Protocol Sodium Chloride 10 ml 04/29/22 14:00 05/09/22 05:59 Saline Lock Flush IV PUSH 10 ml Q8HR CHRISTIAN Administration Sodium Chloride 10 ml 04/29/22 06:46 Saline Lock Flush IV PUSH PRN PRN Flush Sodium Chloride 20 ml 04/29/22 06:46 Saline Lock Flush IV PUSH PRN PRN after blood draws Radiology Results: ITS Impressions Foot X-Ray 04/25/22 06:50 IMPRESSION: 1. Mild osteoarthritis of first metatarsophalangeal joint. Hand MRI 04/26/22 11:55 IMPRESSION:
[2022-05-09 13:35] VITALS: BMI 29.5
[2022-05-09 14:21] VITALS: BP 136/69; PULSE 78; RESP 18; TEMP 36.6; O2SAT 96
--- NOTE | 2022-05-09 18:01 | PM.PNORT ---
Progress Note: A&P Assessment and Plan (1) Knee effusion, left: Code(s): M25.462 - Effusion, left knee Status: Acute Assessment and Plan: LUPIS HAS CONTINUED PAIN IN THE LEFT KNEE DESPITE ASPIRATION. HER EFFUSION HAS REACCUMULATED. SHE HAS A NEGATIVE CULTURE OF HER ASPIRATE HOWEVER DESPITE HER MICRO FINDINGS OF NEGATIVE ,CULTURE HER WBC COUNT IS RELATIVELY HIGH FOR CHRONIC INFLAMMATORY PROBLEMS. A HIGH LEVEL OF SUSPICION FOR SEPTIC LEFT KNEE JOINT EXISTS DUE TO HER HISTORY OF STREP SEPTICEMIA AND HAND ABSCESS. MRI OF THE KNEE SHOWS EFFUSION AND A SIGNAL IN THE PATELLA WHICH MAY BE CONSISTENT WITH OSTEOMYELITIS OR OTHER INFLAMMATORY PROCESS. SUSPICION FOR TRUE OSTEOMYELITIS IS LOW FOR THE LOCATION. DUE TO HER CONTINUED PROBLEMS I WOULD RECOMMEND LEFT KNEE I AND D WITH ARTHROSCOPIC LAVAGE AND PROBABLE SYNOVECTOMY AND CHONDROPLASTY WITH MENISCECTOMY WELL IF NEEDED. DISCUSSED NONOPERATIVE AND OPERATIVE TREATMENT OPTIONS WITH THE PATIENT. THE PATIENT'S QUESTIONS WERE ANSWERED. THE PATIENT DESIRES OPERATIVE TREATMENT. DISCUSSED ____LEFT KNEE ARTHROSCOPIC LAVAGE WITH SYNOVECTOMY AND MENISCECTOMY INDICATED. . RISKS OF SURGERY INCLUDING BUT NOT LIMITED TO NEUROVASCULAR DAMAGE, WOUND COMPLICATIONS, BLOOD CLOT, PULMONARY EMBOLUS, STROKE, ND, ANESTHETIC RISKS UP TO AND INCLUDING WERE REVIEWED. CONTINUED PAIN AND POSSIBLE DYSFUNCTION WERE EXPLAINED. NO GUARANTEES WERE OFFERED. THE PATIENT UNDERSTANDS AND WISHES TO PROCEED. Subjective Subjective Date/Time Seen: 05/09/LUPIS UNDERWENT ASPIRATION OF THE LEFT KNEE JOINT DUE TO ONGOING PAIN A NEW ONSET EFFUSION. THE ASPIRATE REVEALED MANY WBC CELLS AND GREATER THAN 85% IN NUMBER. TO DATE SHE HAS NEGATIVE CULTURES. MRI SHOWED EFFUSION WITH POSSIBILITY OF SEPTIC KNEE. HER CULTURES REMAIN NEGATIVE BUT THIS MAY BE DUE TO IV ANTIBIOTICS TREATMENT. SHE HAS A MODERATE SUSPICION FOR SEPTIC LEFT KNEE GIVEN HER PRIOR FINDINGS OF ARTHROPATHY AND SOFT TISSUE FINDINGS. Exam Extrem: Left lower extremity: knee Details: abnormal to inspection (LARGE EFFUSION), tenderness, swelling, abnormal ROM, knee ligament exam normal, Tyler's Test Details: positive medially and laterally, crepitus and warmth; no abrasions, no lacerations, no ecchymosis and no penetrating wound, lower leg Details: normal to inspection and palpable cord; no erythema, no tenderness, no ecchymosis and no unusual warmth, ankle Details: normal to inspection and normal ROM; no tenderness, no swelling and no ecchymosis and foot Details: normal capillary refill, normal to inspection, toes with normal ROM and tendon exam active flexion normal and active extension normal; no tenderness Objective Data Vital Signs Vital Signs: Vital Signs - 24 hr 05/08/22 20:00 05/08/22 22:00 05/08/22 22:30 Temperature 36.5 C Pulse Rate 83 Respiratory Rate 14 Blood Pressure 177/92 H 160/90 H Pulse Oximetry 100 Oxygen Delivery Room Air 05/09/22 06:00 05/09/22 08:45 05/09/22 14:21 Temperature 36.5 C 36.6 C Pulse Rate 80 78 Respiratory Rate 16 18 Blood Pressure 144/74 H 136/69 Pulse Oximetry 97 96 Oxygen Delivery Room Air Intake/Output Intake/Output: Intake & Output 05/06/22 05/07/22 05/08/22 05/09/22 23:59 23:59 23:59 23:59 Intake Total 1890 1735 1530 1510 Output Total 625 603 526 7154 Balance 1265 1535 580 510 Meds/Results Medications: Active Medications Generic Name Dose Route Start Last Admin Trade Name Freq PRN Reason Stop Dose Admin Hydrocodone Bitart/Acetaminophen 1 tab 05/07/22 17:59 05/08/22 18:34 Hydrocodone/Acetaminophen (*Crx) 5-325 Mg Tablet PO 1 tab Q4H PRN Administration Pain Rated 4-6 Amlodipine Besylate 5 mg 05/05/22 09:00 05/09/22 08:50 Amlodipine Besylate 5 Mg Tablet PO 5 mg QAM [facility] Administration Enoxaparin Sodium 40 mg 05/02/22 09:00 05/09/22 08:50 Enoxaparin 40 Mg/0.4 Ml Syringe SUB-Q 40 mg DAILY [facility] Administration Alyce
[2022-05-09] MEDS: HYDROcodone/acetaminophen (*CRX) 5-325 MG TABLET 1 TAB PO (20:12)
[2022-05-09 22:00] VITALS: BP 162/72; PULSE 82; RESP 16; TEMP 36.9; O2SAT 95
[2022-05-10] VITALS (8 sets, daily range): BP systolic 145–170; BP diastolic 70–86; PULSE 65–88; RESP 16–22; TEMP 36.1–36.8; O2SAT 97–100
[2022-05-10] MEDS: HYDROcodone/acetaminophen (*CRX) 5-325 MG TABLET 1 TAB PO ×3 (03:50→13:19)
[2022-05-10] MEDS: SALINE LOCK FLUSH 10 ML IV PUSH ×3 (06:07→20:35)
[2022-05-10 06:41] LABS: Basophils Percent Auto 0.6 % (0.2-1.2); Eosinophils Percent Auto 0.6 % (0-4.4); Hematocrit 25.9 % (37.0-47.0); Hemoglobin 8.3 g/dL (12.0-15.0); Immature Granulocyte Absolute 0.05 K/mm3 (0.00-0.031); Lymphocytes Absolute Auto 0.84 K/mm3 (0.9-3.2); Lymphocytes Percent Auto 17.4 % (18.3-44.2); Mean Corpuscular Volume 96.6 fl (80-100); Mean Platelet Volume 10.7 fl (7.4-10.4); Monocytes Absolute Auto 0.6 K/mm3 (0.1-0.6); Monocytes Percent Auto 11.4 % (2.6-8.5); Neutrophils Absolute Auto 3.3 K/mm3 (1.3-6.7); Platelet Count Result 360 k/mm3 (150-375); Red Blood Count 2.68 M/mm3 (4.2-5.4); Red Cell Distribution Width 12.7 % (11.5-14.5); White Blood Count 4.8 K/mm3 (4.5-10.0)
[2022-05-10 06:56] LABS: Alanine Aminotransferase 35 U/L (6-35); Albumin Level 3.1 g/dL (3.5-5.1); Alkaline Phosphatase 55 U/L (38-126); Anion Gap 3 mmol/L (8-16); Aspartate Amino Transferase 27 U/L (14-36); Bilirubin,Total 0.5 mg/dL (0.2-1.3); Blood Urea Nitrogen 19 mg/dL (7-17); Calcium 8.5 mg/dL (8.4-10.2); Carbon Dioxide 29 mmol/L (22-30); Chloride 101 mmol/L (98-107); Estimated CRCL calculation 63 ml/min; Estimated Glomerular Filt Rate > 60; Glucose 113 mg/dL (65-110); Potassium 3.8 mmol/L (3.4-5.0); Sodium 133 mmol/L (137-145)
--- NOTE | 2022-05-10 08:46 | PC.NURSE ---
Per Jacki, Pre op RN, patient okay to receive amlodipine before procedure.
[2022-05-10] MEDS: amLODIPine BESYLATE 5 MG TABLET PO (08:55)
--- NOTE | 2022-05-10 11:30 | PM.PNNEP ---
Progress Note: A&P Assessment and Plan (1) Acute kidney injury: Code(s): N17.9 - Acute kidney failure, unspecified Status: Acute Assessment and Plan: seems back to baseline creatinine peaked at 1.8mg/dl perhaps persistence of infection is hampering renal recovery holding relatively stable at 1.2mg/dl tolerating diuresis PRN and GENARO-I suspect due to acute infection (right hand + left foot cellulitis) likely progressed to mild ATN some worsening due to NSAID use (?) evaluation to date: renal ultrasound normal urine electrolytes prerenal CPK okay urine eosinophils negative interestingly, noted to have ~ 900mg of protein continue current therapy follow trend of repeat labs and UOP (2) Streptococcal bacteremia: Code(s): R78.81 - Bacteremia; B95.5 - Unspecified streptococcus as the cause of diseases classified elsewhere Status: Acute Assessment and Plan: as noted by cultures right hand/leg foot felt to be likely source on antibiotics TTE without evidence of vegetations follow repeat cultures (3) Cellulitis of right hand: Code(s): L03.113 - Cellulitis of right upper limb Status: Acute Assessment and Plan: as noted by clinical exam on admission culture data noted on antibiotics Plastic Surgery following (4) Cellulitis of left foot: Code(s): L03.116 - Cellulitis of left lower limb Status: Acute Assessment and Plan: also suggestive by clinical exam on presentation see #3 Orthopedics following as well (5) Hypertension: Code(s): I10 - Essential (primary) hypertension Status: Chronic Assessment and Plan: running a bit high by recent check resumed back on lisinopril follow trend of hemodynamics Will continue to follow intermittently. Subjective Date/time seen: 05/10/22 11:30 Overall, seems to be doing reasonably well; still has on/off pain in right hand and left foot but improving although left foot seems a bit more painful; range of motion intact/improving particularly given less edema present. Exam Narrative: General: WD/WN Caucasin female in NAD Heart: normal S1 and S2; no rub Lungs: clear to auscultation Abdomen: soft, nontender, nondistended, positive bowel sounds Extremities: no cyanosis or clubbing; right hand and left foot edema improving Skin: reduced erythema noted in right hand/left foot Objective Data Vital Signs Vital Signs: Vital Signs Temp Pulse Resp BP Pulse Ox O2 Del Method 01/27/23 09:05 Room Air 05/10/22 06:00 97.4 F L 65 16 166/72 H 97 05/09/22 22:00 98.4 F 82 16 162/72 H 95 05/09/22 20:00 Room Air 05/09/22 14:21 97.8 F 78 18 136/69 96 Intake/Output Intake/Output: Intake & Output 05/07/22 05/08/22 05/09/22 05/10/22 23:59 23:59 23:59 23:59 Intake Total 1735 1530 1610 600 Output Total 457 328 1080 1700 Balance 1535 580 610 -1100 Meds/Results Medications: Active Medications Generic Name Dose Route Start Last Admin Trade Name Freq PRN Reason Stop Dose Admin Hydrocodone Bitart/Acetaminophen 1 tab 05/07/22 17:59 05/10/22 08:55 Hydrocodone/Acetaminophen (*Crx) 5-325 Mg Tablet PO 1 tab Q4H PRN Administration Pain Rated 4-6 Amlodipine Besylate 5 mg 05/05/22 09:00 05/10/22 08:55 Amlodipine Besylate 5 Mg Tablet PO 5 mg QAM [facility] Administration Enoxaparin Sodium 40 mg 05/02/22 09:00 05/10/22 08:46 Enoxaparin 40 Mg/0.4 Ml Syringe SUB-Q Not Given DAILY [facility] Ferrous Sulfate 324 mg 04/27/22 08:00 05/07/22 09:24 Ferrous Sulfate 324 Mg Tablet PO 324 mg TuSa@0800 [facility] Administration Hydralazine HCl 10 mg 05/08/22 21:55 Hydralazine Hcl 20 Mg/Ml Vial IV PUSH Q6H PRN Blood Pressure - High Cefazolin Sodium 1 gm in 50 mls @ 100 mls/hr 05/09/22 14:00 05/10/22 06:37 Ancef 1 Gm/D5w 50 Ml Pm IVPB Infused Q8HR [facility] Infusion Ibuprofe
--- NOTE | 2022-05-10 11:30 | P.PNNP_ITS ---
Progress Note: A&P Assessment and Plan (1) Acute kidney injury: Code(s): N17.9 - Acute kidney failure, unspecified Status: Acute Assessment and Plan: * seems back to baseline * creatinine peaked at 1.8mg/dl * perhaps persistence of infection is hampering renal recovery * holding relatively stable at 1.2mg/dl * tolerating diuresis PRN and GENARO-I * suspect due to acute infection (right hand + left foot cellulitis) * likely progressed to mild ATN * some worsening due to NSAID use (?) * evaluation to date: * renal ultrasound normal * urine electrolytes prerenal * CPK okay * urine eosinophils negative * interestingly, noted to have ~ 900mg of protein * continue current therapy * follow trend of repeat labs and UOP (2) Streptococcal bacteremia: Code(s): R78.81 - Bacteremia; B95.5 - Unspecified streptococcus as the cause of diseases classified elsewhere Status: Acute Assessment and Plan: * as noted by cultures * right hand/leg foot felt to be likely source * on antibiotics * TTE without evidence of vegetations * follow repeat cultures (3) Cellulitis of right hand: Code(s): L03.113 - Cellulitis of right upper limb Status: Acute Assessment and Plan: * as noted by clinical exam on admission * culture data noted * on antibiotics * Plastic Surgery following (4) Cellulitis of left foot: Code(s): L03.116 - Cellulitis of left lower limb Status: Acute Assessment and Plan: * also suggestive by clinical exam on presentation * see #3 * Orthopedics following as well (5) Hypertension: Code(s): I10 - Essential (primary) hypertension Status: Chronic Assessment and Plan: * running a bit high by recent check * resumed back on lisinopril * follow trend of hemodynamics Will continue to follow intermittently. Subjective Date/time seen: 05/10/22 11:30 Overall, seems to be doing reasonably well; still has on/off pain in right hand and left foot but improving although left foot seems a bit more painful; range of motion intact/improving particularly given less edema present. Exam Narrative: General: WD/WN Caucasin female in NAD Heart: normal S1 and S2; no rub Lungs: clear to auscultation Abdomen: soft, nontender, nondistended, positive bowel sounds Extremities: no cyanosis or clubbing; right hand and left foot edema improving Skin: reduced erythema noted in right hand/left foot Objective Data Vital Signs Vital Signs: Vital Signs Temp Pulse Resp BP Pulse Ox O2 Del Method 05/10/22 09:05 Room Air 05/10/22 06:00 97.4 F L 65 16 166/72 H 97 05/09/22 22:00 98.4 F 82 16 162/72 H 95 05/09/22 20:00 Room Air 05/09/22 14:21 97.8 F 78 18 136/69 96 Intake/Output Intake/Output: Intake & Output 05/07/22 05/08/22 05/09/22 05/10/22 23:59 23:59 23:59 23:59 Intake Total 1735 1530 1610 600 Output Total 292 647 4491 1700 Balance 1535 580 610 -1100 Meds/Results Medications: Active Medications Generic Name Dose Route Start Last Admin Trade Name Freq PRN Reason Stop Dose Admin Hydrocodone Bitart/Acetaminophen 1 tab 05/07/22 17:59 01
--- NOTE | 2022-05-10 11:37 | PM.IMPN ---
Progress Note: A&P Assessment and Plan (1) Streptococcal bacteremia: Code(s): R78.81 - Bacteremia; B95.5 - Unspecified streptococcus as the cause of diseases classified elsewhere Status: Acute Assessment and Plan: Patient presents with right hand and left knee, foot/ankle erythema, edema and fevers consistent with arthropathy and cellulitis MRI left knee 05/08 showed joint effusion concerning for septic arthritis an aspiration was recommended, also noted was marrow edema of the inferior patella concerning for osteomyelitis, soft tissue edema of the distal vastus lateralis muscle concerning for infectious myositis versus cellulitis, no osteomyelitis noted in the ankle, ankle joint most consistent with cellulitis Right hand x-ray 05/08 showed mild polyarticular osteoarthritis Both blood cultures on admission grew Group A Streptococcus. Repeat blood cultures are negative. Surface Echo does not show any evidence of vegetation. No history of gout but she does have osteoarthritis. Vancomycin started on 04/25 and stopped 05/02. Cefazolin started 04/25 and changed to Rocephin 04/26. Flagyl for possible anaerobic infection added 05/02. Rocephin de-escalated to keflex 05/06. As imaging is concerning for osteomyelitis, will switch back to IV ancef 05/09m d/c oral keflex + flagyl until further recommendations per surgery. Appreciate Orthopedic and Plastic surgery input. Continue PT/OT. 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 Joint/wound cultures all negative for organisms, positive for WBCs only. Cx NGTD. She does have a murmur and review of the echo showing only mild MR and TR. Etiology of her multiple joint involvement probably reactive given that she has tenosynovitis with enthesopathy and the asymmetric nature. No history of gout and negative crystal exams. Autoimmune markers essentially negative. RF slightly elevated but anti-CCP negative and doubt RA. BRAXTON negative. Lyme serology is ordered and pending. Repeat surface echo negative for vegetation. Cardio consulted for possible SHANNAN (3) Cellulitis: Qualifiers: Laterality: right Site of cellulitis: extremity Site of cellulitis of extremity: upper extremity Qualified Code(s): L03.113 - Cellulitis of right upper limb Code(s): L03.90 - Cellulitis, unspecified Status: Acute Assessment and Plan: As above. (4) Anemia: Code(s): D64.9 - Anemia, unspecified Status: Acute Assessment and Plan: Stable, monitor (5) Acute kidney injury: Code(s): N17.9 - Acute kidney failure, unspecified Status: Acute Assessment and Plan: Resolved (6) Hypertension: Code(s): I10 - Essential (primary) hypertension Status: Chronic Assessment and Plan: Stable, continue home meds, monitor (7) Hyperthyroidism: Code(s): E05.90 - Thyrotoxicosis, unspecified without thyrotoxic crisis or storm Status: Acute Assessment and Plan: Patient with hx of hyperthyroidism. On methimaole which is continued. FT4 normal. Continue the same. Plan Elevated LFTs - Cont to improve, likely related to abx (both ceftriaxone and flagyl can increase LFTs). Viral Hepatitis panel negative. Monitor. DVT prophylaxis with SCDs GI prophylaxis not indicated Code status full code Subjective Date/time seen: 05/10/22 11:37 Interval history: In OR today Exam Narrative: In OR today Objective Data Vital Signs Vital Signs: Vital Signs - 24 hr 05/09/22 14:21 05/09/22 20:00 05/09/22 22:00 Temperature 97.8 F 98.4 F Pulse Rate 78 82 Respiratory Rate 18 16 Blood Pressure 136/69 162/72 H Pulse Oximetry 96 95 Oxygen Delivery Room Air 05/10/22 06:
--- NOTE | 2022-05-10 13:46 | PC.NURSE ---
Patient to surgery per bed.
--- NOTE | 2022-05-10 13:48 | PCOTNOTE ---
Patient unavailable, having knee I+D procedure. Will continue plan of care for OT.
--- NOTE | 2022-05-10 14:03 | PM.PNORT ---
Progress Note: A&P Assessment and Plan (1) Knee effusion, left: Code(s): M25.462 - Effusion, left knee Status: Acute Assessment and Plan: LEFT KNEE SEPTIC ARTHRITIS AND LEFT FOOT WOUND. PLAN IS TO PROCEED TOP THE OR FOR LEFT KNEE LAVAGE AND DEBRIDEMENT AND LEFT FOOT/ANKLE I AND D. IT APPEARS TO BE SUPERFICIAL TO THE ANKLE JOINT. WE DISCUSSED THE POSSIBILITY OF THE WOUND HAVING DIRECT CONTACT TO THE MEDIAL BONE STRUCTURES DUE TO THE LACK OF ABUNDANT SOFT TISSUE IN THAT REGION. WE WILL EXPLORE THE WOUND TODAY FOR FURTHER EVALUATION. DISCUSSED NONOPERATIVE AND OPERATIVE TREATMENT OPTIONS WITH THE PATIENT. THE PATIENT'S QUESTIONS WERE ANSWERED. THE PATIENT DESIRES OPERATIVE TREATMENT. DISCUSSED __LEFT KNEE ARTHROSCOPIC LAVAGE AND DEBRIDEMENT LEFT FOOT/ANKLE IRRIGATION AND DEBRIDEMENT . RISKS OF SURGERY INCLUDING BUT NOT LIMITED TO NEUROVASCULAR DAMAGE, WOUND COMPLICATIONS, BLOOD CLOT, PULMONARY EMBOLUS, STROKE, IN, ANESTHETIC RISKS UP TO AND INCLUDING WERE REVIEWED. CONTINUED PAIN AND POSSIBLE DYSFUNCTION WERE EXPLAINED. NO GUARANTEES WERE OFFERED. THE PATIENT UNDERSTANDS AND WISHES TO PROCEED. (2) Unspecified open wound, left foot, sequela: Code(s): S91.302S - Unspecified open wound, left foot, sequela Status: Acute Subjective Subjective Date/Time Seen: 05/10/22 14:03 CONTINUED LEFT KNEE PAIN AND EFFUSION. LEFT ANKLE HAS DEVELOPED NECROTIC ESCHAR TO THE MEDIAL REGION. SHE WILL REQUIRE I AND D TO THE LEFT FOOT WELL. NO NO CALF PAIN Exam Extrem: Other: VSS AFEBRILE LEFT KNEE EFFUSION A D PAIN WITH PROM. LEFT FOOT/ANKLE MEDIAL WOUND WITH NECROTIC ESCHAR AND DRAINAGE. CALF SOFT NON TENDER. NV INTACT, CAP REFILL BRISK, PULSES 2 + Objective Data Vital Signs Vital Signs: Vital Signs - 24 hr 05/09/22 14:21 05/09/22 20:00 05/09/22 22:00 Temperature 36.6 C 36.9 C Pulse Rate 78 82 Respiratory Rate 18 16 Blood Pressure 136/69 162/72 H Pulse Oximetry 96 95 Oxygen Delivery Room Air 05/10/22 06:00 05/10/22 09:05 Temperature 36.3 C L Pulse Rate 65 Respiratory Rate 16 Blood Pressure 166/72 H Pulse Oximetry 97 Oxygen Delivery Room Air Intake/Output Intake/Output: Intake & Output 01/2405/08/22 05/09/22 05/10/22 23:59 23:59 23:59 23:59 Intake Total 1735 1530 1610 650 Output Total 929 438 9001 1700 Balance 1535 580 610 -1050 Meds/Results Medications: Active Medications Generic Name Dose Route Start Last Admin Trade Name Freq PRN Reason Stop Dose Admin Hydrocodone Bitart/Acetaminophen 1 tab 05/07/22 17:59 05/10/22 13:19 Hydrocodone/Acetaminophen (*Crx) 5-325 Mg Tablet PO 1 tab Q4H PRN Administration Pain Rated 4-6 Amlodipine Besylate 5 mg 05/05/22 09:00 05/10/22 08:55 Amlodipine Besylate 5 Mg Tablet PO 5 mg QAM [facility] Administration Enoxaparin Sodium 40 mg 05/02/22 09:00 05/10/22 08:46 Enoxaparin 40 Mg/0.4 Ml Syringe SUB-Q Not Given DAILY [facility] Ferrous Sulfate 324 mg 04/27/22 08:00 05/07/22 09:24 Ferrous Sulfate 324 Mg Tablet PO 324 mg TuSa@0800 [facility] Administration Hydralazine HCl 10 mg 05/08/22 21:55 Hydralazine Hcl 20 Mg/Ml Vial IV PUSH Q6H PRN Blood Pressure - High Cefazolin Sodium 1 gm in 50 mls @ 100 mls/hr 05/09/22 14:00 05/10/22 13:48 Ancef 1 Gm/D5w 50 Ml Pm IVPB Infused Q8HR [facility] In[facility] Ibuprofen 600 mg 05/07/22 09:38 Ibuprofen 600 Mg Tablet PO Q6H PRN Pain Rated 1-3 Lisinopril 20 mg 05/07/22 09:00 05/09/22 08:50 Lisinopril 20 Mg Tablet PO 20 mg QAM [facility] Administration Miscellaneous Information 1 each 05/09/22 00:01 [place] 10 Needs Renewed Or Will Be Stopped 05-09-22 XX 06/08/22 00:00 CLARIFY [facility] Methimazole 2.5 Mg 1 each 04/25/22 09:00 05/09/22 08:51 Tablet (Nonformulary PO 1 each - Will Not Scan) DAILY [facility] Administration Ondansetron HCl 4 mg 05/08/22 02:00 05/08/22 02:34
--- NOTE | 2022-05-10 14:33 | WPDANESEPPF ---
Anes - Initial Pre Proc Eval Procedure: Operation Date: 05/10/22 15:15 Proposed Procedures p Arthroscopic Lavage Of Left Knee, Incision And Drainage Left Foot - Jean Diez MD Date/Time: 05/10/22 14:33 Surgeon: Lissette Curiel MD Pre Op Diagnosis: hand cellulitis vs gout Patient Data Age: 61 Gender: F Height: 1.68 m Weight: 82.9 kg Last Vital Signs Temp 36.8 C 05/10/22 14:10 Pulse 74 05/10/22 14:10 Resp 16 05/10/22 14:10 BP 162/75 H 05/10/22 14:10 Pulse Ox 100 05/10/22 14:10 O2 Del Method Room Air 05/10/22 14:10 Allergies Allergy/AdvReac Type Severity Reaction Status Date / Time losartan Allergy Unknown Unknown Verified 04/25/22 09:59 Home Medications Medication Instructions Recorded Confirmed Type alendronate 70 mg tablet 70 mg PO WEEKLY 01/06/20 04/25/22 History ferrous sulfate 325 mg (65 mg 325 mg PO .2XWEEK 01/06/20 04/25/22 History iron) tablet (Feosol) methimazole 5 mg tablet 2.5 mg PO DAILY 01/06/20 04/25/22 History meloxicam 15 mg tablet 15 mg PO DAILY 02/08/22 04/25/22 History calcium carbonate 600 mg-vitamin 1 cap PO DAILY 04/25/22 04/25/22 History D3 10 mcg (400 unit) capsule lisinopril 10 mg tablet 10 mg PO DAILY #90 tabs 04/26/22 Rx Laboratory Tests 05/10/22 05/10/22 06:05 06:06 WBC 4.8 K/mm3 K/mm3 (4.5-10.0) RBC 2.68 M/mm3 L M/mm3 (4.2-5.4) Hgb 8.3 g/dL L g/dL (12.0-15.0) Hct 25.9 % L % (37.0-47.0) MCV 96.6 fl fl (80-100) MCH 31.0 pg pg (26-34) MCHC 32.0 g/dl g/dl (32-36) RDW 12.7 % % (11.5-14.5) Plt Count 360 k/mm3 k/mm3 (150-375) MPV 10.7 fl H fl (7.4-10.4) Immature Gran % (Auto) 1.0 % H % (0-0.5) Neut % (Auto) 69.0 % % (45.5-73.1) Lymph % (Auto) 17.4 % L % (18.3-44.2) [place] % (Auto) 11.4 % H % (2.6-8.5) Eos % (Auto) 0.6 % % (0-4.4) Baso % (Auto) 0.6 % % (0.2-1.2) Lymph # (Auto) 0.84 K/mm3 L K/mm3 (0.9-3.2) [place] # (Auto) 0.6 K/mm3 K/mm3 (0.1-0.6) Eos # (Auto) 0.0 K/mm3 K/mm3 (0-0.3) Baso # (Auto) 0.0 K/mm3 K/mm3 (0.0-0.1) Abs Immat Gran (auto) 0.05 K/mm3 H K/mm3 (0.00-0.031) Absolute Neuts (auto) 3.3 K/mm3 K/mm3 (1.3-6.7) Absolute Nucleated RBC 0.0 K/mm3 K/mm3 (0.0-0.012) Nucleated RBC % 0.0 % % (0.0-0.2) Sodium 133 mmol/L L mmol/L (137-145) Potassium 3.8 mmol/L mmol/L (3.4-5.0) Chloride 101 mmol/L mmol/L (98-107) Carbon Dioxide 29 mmol/L mmol/L (22-30) Anion Gap 3 mmol/L L mmol/L (8-16) BUN 19 mg/dL H mg/dL (7-17) Creatinine 0.90 mg/dL mg/dL (0.7-1.0) Estim Creat Clear Calc 63 ml/min ml/min Estimated GFR > 60 (59 - ) Glucose 113 mg/dL H mg/dL (65-110) Calcium 8.5 mg/dL mg/dL (8.4-10.2) Total Bilirubin 0.5 mg/dL mg/dL (0.2-1.3) AST 27 U/L U/L (14-36) ALT 35 U/L U/L (6-35) Alkaline Phosphatase 55 U/L U/L (38-126) Total Protein 8.0 g/dL g/dL (6.3-8.2) Albumin 3.1 g/dL L g/dL (3.5-5.1) Patient hx anesthesia problems: none Family hx anesthesia problems: none Results Review: All pre-operative results and documents have been reviewed as part of the pre-operative evaluation. [facility] Past Medical History Medical History (Updated 05/10/22 @ 14:08 by Jean Diez MD) Foot swelling Hypertension Hyperthyroidism Inflammatory arthritis Osteopenia after menopause Swelling of left knee joint Surgical History Surgical History H/O: hysterectomy History of ankle surgery Family History Family History Mother Family history of diabetes mellitus in first degree relative Father Patient's father is Acute myocardial infarction Sibling Hypertens
--- NOTE | 2022-05-10 15:18 | WPDHPUPDATE1 ---
History and Physical Update Update Date/Time: 05/10/22 15:18 History and Physical has been reviewed, including an updated exam of the patient. There are NO changes in the patient's condition. Risks, benefits, and alternatives have been discussed and questions answered. Patient agrees to proceed with procedure.
--- NOTE | 2022-05-10 16:01 | SUR.OPER ---
Left Knee Synovial Fluid sent for Gram Stain and Crystals. Spoke with Marlyn in the Blood Bank who adjusted order for specimen to be collected. Sent per CASIMIRO Carmona to the lab.
--- NOTE | 2022-05-10 16:04 | SUR.OPER ---
Specimen received by Bonnie in the Lab.
[2022-05-10] MEDS: BUPIVACAINE HCL 0.25% PF 30 ML VIAL INFILTRATE (16:10)
[2022-05-10] MEDS: LACTATED RINGERS 1,000 ML 30 ML IV CONT (16:45)
--- NOTE | 2022-05-10 17:03 | W.PM.PROC2 ---
Procedure Note - Detailed Date of Procedure 05/10/22 Pre-op Diagnosis LEFT KNEE SEPTIC ARTHRITIS, LEFT FOOT WOUND Post-op Diagnosis Same Procedure Performed LEFT KNEE ARTHROSCOPIC LAVAGE WITH SYNOVECTOMY AND CHONDROPLASTY LEFT FOOT I AND D OF SKIN AND SUPERFICIAL TISSUE Surgeon Jean Diez MD Anesthesia General Description of Procedure PATIENT WAS TAKEN TO THE OR. THE LEFT LEG WAS PREPPED AND DRAPED STERILE FROM THE THIGH TO THE TOES. THE ANKLE WAS DRAPED AND ISOLATED FROM THE LEFT KNEE. TROCARS WERE PLACED IN TO THE LEFT KNEE IN THE USUAL FASHION. THERE WAS A LARGE EFFUSION THAT WAS SENT FOR CULTURE. CAMERA WAS INTRODUCED. THERE WAS CHONDROMALACIA TO THE PATELLA FEMORAL JOINT. THERE WAS A LOT OF SYNOVITIS IN ALL COMPARTMENTS. THE MEDIAL COMPARTMENT SHOWED MINIMAL CHONDROMALACIA TO THE MEDIAL FEMORAL CONDYLE. A SHAVER WAS USED TO PREFORM A CHONDROPLASTY. THERE WAS NO TEAR TO THE MEDIAL MENISCUS. THE ACL WAS INTACT. THE LATERAL MENISCUS WAS NOT TORN. THE LATERAL COMPARTMENT HAD MINIMAL CHONDROMALACIA. CHONDROPLASTY WAS PREFORMED. A SYNOVECTOMY WAS PREFORMED WELL. THE PATELLO FEMORAL JOINT UNDERWENT CHONDROPLASTY. THERE WAS GRADE 2 CHONDROMALACIA IN PART OF THE TROCHLEA AND PART OF THE PATELLA. THERE WAS NO EVIDENCE OF CHONDROLYSIS OR OSTEOMYELITIS TO THE PATELLA. SYNOVECTOMY WAS PREFORMED IN THE SUPERIOR MEDIAL COMPARTMENT. APPROXIMATELY 9 LITERS OF FLUID WAS USED TO IRRIGATE THE KNEE JOINT. THE WOUNDS WERE APPROXIMATED WITH 4.0 NYLON. STERILE DRESSING WAS APPLIED. NEXT THE LEFT FOOT WAS EXPOSED. THERE WAS AN ESCHAR WITH CLOUDY DISCHARGE FROM THE WOUND. THE SKIN WAS DEBRIDED DOWN TO GRANULATION TISSUE. THERE WAS GOOD GRANULATION TISSUE UNDERNEATH THE SCAR. THERE WAS NO EVIDENCE OF COMMUNICATION OF THE WOUND TO THE DEEP TISSUES OR TO THE BONE OR ANKLE JOINT. THE WOUND WAS CLEANED AND IRRIGATED WITH COPIOUS AMOUNTS OF STERILE WATER. THE WOUND WAS DRESSED AND THE ANKLE WAS PLACED IN A SPLINT IN NEUTRAL POSITION. PATIENT WAS EXTUBATED. Estimated Blood Loss 10 Urine Output 200 Complications No immediate complications Condition Stable Disposition PACU
[2022-05-10] MEDS: fentaNYL CITRATE INJ (*CRX) 100 MCG/2 ML VIAL 25 MCG IV PUSH ×6 (17:07→17:39)
[2022-05-10 17:28] LABS: Crystals Synovial Fluid None Seen (None Seen)
--- NOTE | 2022-05-10 17:36 | WPDPN ---
Progress Note: A&P Assessment and Plan (1) Reactive arthritis: Code(s): M02.30 - Mario's disease, unspecified site Status: Acute Assessment and Plan: Slow improvement in right hand. (2) Streptococcal bacteremia: Code(s): R78.81 - Bacteremia; B95.5 - Unspecified streptococcus as the cause of diseases classified elsewhere Status: Acute Assessment and Plan: Labs improved. Remains on Ancef. Subjective Date/time seen: 05/10/22 17:36 Interval history: Pt in the PACU after Dr Diez's procedure to the left knee. Pt awake but drowsy. Said she had OT today and was pleased about her improved right hand AROM. Says she has been athletic and could have had some prior left knee damage, but could not be specific. Exam Narrative: She demonstrates modest improved A/PROM of right hand. Further reduced edema. Objective Data Vital Signs Vital Signs: Vital Signs - 24 hr 05/09/22 20:00 05/09/22 22:00 05/10/22 06:00 Temperature 98.4 F 97.4 F L Pulse Rate 82 65 Respiratory Rate 16 16 Blood Pressure 162/72 H 166/72 H Pulse Oximetry 95 97 Oxygen Delivery Room Air Oxygen Flow Rate 05/10/22 09:05 05/10/22 14:10 05/10/22 16:45 Temperature 98.2 F 97.1 F L Pulse Rate 74 71 Respiratory Rate 16 16 Blood Pressure 162/75 H 148/77 H Pulse Oximetry 100 100 Oxygen Delivery Room Air Room Air Room Air Oxygen Flow Rate 05/10/22 17:00 Temperature Pulse Rate 88 Respiratory Rate 22 H Blood Pressure 169/86 H Pulse Oximetry 100 Oxygen Delivery Simple Face Mask Oxygen Flow Rate 8 Intake/Output Intake/Output: Intake & Output 05/07/22 05/08/22 05/09/22 05/10/22 23:59 23:59 23:59 23:59 Intake Total 1735 1530 1610 650 Output Total 192 791 5995 1900 Balance 1535 580 610 -1250 Meds/Results Medications: Active Medications Generic Name Dose Route Start Last Admin Trade Name Freq PRN Reason Stop Dose Admin Hydrocodone Bitart/Acetaminophen 1 tab 05/07/22 17:59 05/10/22 13:19 Hydrocodone/Acetaminophen (*Crx) 5-325 Mg Tablet PO 1 tab Q4H PRN Administration Pain Rated 4-6 Amlodipine Besylate 5 mg 05/05/22 09:00 05/10/22 08:55 Amlodipine Besylate 5 Mg Tablet PO 5 mg QAM [facility] Administration Enoxaparin Sodium 40 mg 05/02/22 09:00 05/10/22 08:46 Enoxaparin 40 Mg/0.4 Ml Syringe SUB-Q Not Given DAILY [facility] Fentanyl Citrate 25 mcg 05/10/22 14:33 05/10/22 17:30 Fentanyl Citrate Inj (*Crx) 100 Mcg/2 Ml Vial IV PUSH 25 mcg Q2M PRN Administration Pain Ferrous Sulfate 324 mg 04/27/22 08:00 05/07/22 09:24 Ferrous Sulfate 324 Mg Tablet PO 324 mg TuSa@0800 [facility] Administration Hydralazine HCl 10 mg 05/08/22 21:55 Hydralazine Hcl 20 Mg/Ml Vial IV PUSH Q6H PRN Blood Pressure - High Cefazolin Sodium 1 gm in 50 mls @ 100 mls/hr 05/09/22 14:00 05/10/22 13:48 Ancef 1 Gm/D5w 50 Ml Pm IVPB Infused Q8HR [facility] Infusion Lactated Ringer's 1,000 mls @ 30 mls/hr 05/10/22 14:35 05/10/22 16:45 Lr - Lactated Ringers Iv IV CONT 30 mls/hr .Q24H [facility] Administration Lactated Ringer's 1,000 mls @ 30 mls/hr 05/10/22 14:35 Lr - Lactated Ringers Iv IV CONT .Q24H [facility] Ibuprofen 600 mg 05/07/22 09:38 Ibuprofen 600 Mg Tablet PO Q6H PRN Pain Rated 1-3 Lisinopril 20 mg 05/07/22 09:00 05/10/22 17:15 Lisinopril 20 Mg Tablet PO Not Given QAM [facility] Miscellaneous Information 1 each 05/09/22 00:01 Crawley 10 Needs Renewed Or Will Be Stopped 05-09-22 XX 06/08/22 00:00 CLARIFY [facility] Methimazole 2.5 Mg 1 each 04/25/22 09:00 05/10/22 17:15 Tablet (Nonformulary PO Not Given - Will Not Scan) DAILY [facility] Ondansetron HCl 4 mg 05/08/22 02:00 05/08/22 02:34 Ondansetron Inj 4 Mg/2 Ml Vial IV PUSH 4 mg Q4H PRN Administration Nausea And Vomiting Ondansetron HCl 4 mg 05/10/22 14:33 Ondansetron Inj 4 Mg/2 Ml Vial IV PUSH ONCE PRN Nausea O
[2022-05-10] MEDS: SODIUM CHLORIDE 0.9% IV 1,000 ML 125 ML IV CONT (20:32)
[2022-05-10] MEDS: FAMOTIDINE 20 MG TABLET PO (20:35)
[2022-05-11] VITALS: BP 134/62; PULSE 75; RESP 16; TEMP 36.1; O2SAT 92
[2022-05-11] MEDS: HYDROcodone/acetaminophen (*CRX) 7.5-325 MG TABLET 2 TAB PO (02:08)
--- NOTE | 2022-05-11 03:56 | PC.NURSE ---
Son, Guillermo called for an update wanting to know how much muscle mass patient has gained and the overall plan for patient. This RN kept referring back to family meeting on friday as to what patient's care team had discussed with him. Son appeared to be impaired when calling. He ask this RN if she could call him regardless of time, to update him on All of patient's notes and plan of care . This RN reviewed notes per JIN Li request and it does not appear anything has changed and that nothing else to report. Will pass on to next shift that son should probably discuss anything further with Doctors during the daytime. Patient otherwise remains stable at this time.
[2022-05-11 04:00] VITALS: BP 133/65; PULSE 77; RESP 16; TEMP 36.1; O2SAT 97
[2022-05-11] MEDS: SALINE LOCK FLUSH 10 ML IV PUSH ×3 (06:00→20:47)
[2022-05-11] MEDS: ALENDRONATE SODIUM 70 MG TABLET PO (06:43)
[2022-05-11 06:50] LABS: Basophils Percent Auto 0.4 % (0.2-1.2); Eosinophils Percent Auto 0.2 % (0-4.4); Hematocrit 26.3 % (37.0-47.0); Hemoglobin 8.3 g/dL (12.0-15.0); Immature Granulocyte Absolute 0.05 K/mm3 (0.00-0.031); Immature Granulocyte Percent A 0.9 % (0-0.5); Lymphocytes Absolute Auto 0.68 K/mm3 (0.9-3.2); Lymphocytes Percent Auto 12.4 % (18.3-44.2); Mean Corpuscular HGB Conc 31.6 g/dl (32-36); Mean Corpuscular Hemoglobin 30.9 pg (26-34); Mean Corpuscular Volume 97.8 fl (80-100); Mean Platelet Volume 10.8 fl (7.4-10.4); Monocytes Absolute Auto 0.5 K/mm3 (0.1-0.6); Monocytes Percent Auto 9.5 % (2.6-8.5); Neutrophils Absolute Auto 4.2 K/mm3 (1.3-6.7); Neutrophils Percent Auto 76.6 % (45.5-73.1); Platelet Count Result 403 k/mm3 (150-375); Red Blood Count 2.69 M/mm3 (4.2-5.4); Red Cell Distribution Width 12.6 % (11.5-14.5); White Blood Count 5.5 K/mm3 (4.5-10.0)
[2022-05-11 06:58] LABS: Alanine Aminotransferase 27 U/L (6-35); Albumin Level 2.9 g/dL (3.5-5.1); Alkaline Phosphatase 52 U/L (38-126); Anion Gap 5 mmol/L (8-16); Aspartate Amino Transferase 25 U/L (14-36); Bilirubin,Total 0.3 mg/dL (0.2-1.3); Blood Urea Nitrogen 21 mg/dL (7-17); Calcium 8.1 mg/dL (8.4-10.2); Carbon Dioxide 26 mmol/L (22-30); Chloride 106 mmol/L (98-107); Estimated CRCL calculation 63 ml/min; Estimated Glomerular Filt Rate > 60; Glucose 138 mg/dL (65-110); Potassium 4.3 mmol/L (3.4-5.0); Sodium 137 mmol/L (137-145)
[2022-05-11 07:59] VITALS: BP 130/82; PULSE 69; RESP 16; TEMP 36.3; O2SAT 97
[2022-05-11] MEDS: lisinopriL 20 MG TABLET PO (09:14)
[2022-05-11] MEDS: SENNA/DOCUSATE SODIUM TABLET 2 TAB PO (09:18)
[2022-05-11] MEDS: ENOXAPARIN 40 MG/0.4 ML SYRINGE SUB-Q (09:19)
[2022-05-11] MEDS: FAMOTIDINE 20 MG TABLET PO ×2 (09:21→20:48)
[2022-05-11] MEDS: FERROUS SULFATE 324 MG TABLET PO (09:21)
[2022-05-11] MEDS: amLODIPine BESYLATE 5 MG TABLET PO (09:21)
[2022-05-11] MEDS: MELOXICAM 7.5 MG TABLET 15 MG PO (09:22)
--- NOTE | 2022-05-11 09:36 | PM.CNCAR ---
Assessment and Plan Assessment and plan (1) Streptococcal bacteremia: Code(s): R78.81 - Bacteremia; B95.5 - Unspecified streptococcus as the cause of diseases classified elsewhere Status: Acute Plan this is a 61-year-old woman who entered the hospital just over 2 weeks ago with fever was found to have strep group a bacteremia and has been on antibiotics since then. She has had some polyarticular arthritis with this but no objective evidence of septic arthritis. On antibiotics it appears that blood cultures have cleared. In addition to this she has had 2 echocardiograms when while they show no visible vegetations it is also important to note that neither study demonstrates any significant regurgitant lesion which would be expected if she had endocarditis. I believe that the possibility of bacterial endocarditis is therefore not very high but the patient is now very concerned that this should be evaluated. Transesophageal echocardiography in this setting is reasonable and I will attempt to arrange for this to be done on Friday. Thank you for this consultation Rene Hauser MD [facility] History of Present Illness History of Present Illness Consult date/time: 05/11/22 09:36 Reason For Visit: hand cellulitis vs gout Narrative: This is a 61-year-old woman I am seeing at the request of the hospitalist to consider performing a transesophageal echocardiogram presumably to rule out infectious endocarditis. The patient has no cardiac problems prior to this and is unknown to me prior to this consultation. I attempted to see her yesterday when I was consulted but she was in the operating room and unavailable to be evaluated. In any event she has been in the hospital here for just over 2 weeks. She came in to the hospital with chief complaints of fever and painful joints. When she came into the hospital blood cultures were done which grew group a Streptococcus. She has been on IV antibiotics since then. Subsequent blood cultures did show clearing of this bacteremia. She has been seeing surgeons to evaluate her joint inflammation she had a significantly inflamed knee and yesterday she was taken to the operating room where large effusion was drained from the knee and sent for culture it was not frankly purulent in appearance and there was no visual evidence of osteomyelitis during the procedure. The patient has had 2 transthoracic echocardiograms done since being in the hospital both of which were read by . according to the reports there was no evidence of any valvular vegetations. Also importantly according to either report there is no evidence of any significant valvular regurgitant lesion. In this setting I am seeing the patient in consultation today she otherwise has no cardiovascular complaints. Obviously the cultures from the knee effusion that were sent yesterday are still pending in the laboratory. Review of Systems Constitutional: Constitutional: Reports no additional constitutional complaints Eyes: Eyes: Reports no additional eye complaints ENT: Reports system reviewed and no additional complaints, except as documented Cardiovascular: Cardiovascular: Reports no additional cardiovascular complaints Respiratory: Respiratory: Reports no additional respiratory complaints Gastrointestinal: Gastrointestinal: Reports no additional gastrointestinal complaints Musculoskeletal: Musculoskeletal: Reports as per HPI Integumentary/Breasts: Skin/Breast: Reports system reviewed and no additional complaints, except as docu Neurologic: Reports system reviewed and no additional complaints, except as documented Endocrine: Endocrine: Reports no additional endocrine complaints Hematologic/Lymphatic: Hematologic/Lymphatic: Reports no additional hematologic/lymphatic complaints Allergic/Immunologic: Allergic/Immunologic: Reports no additional allergic/immunologic complaints PMFSH Past Medical History Medical History (Updated 0
--- NOTE | 2022-05-11 11:21 | PM.IMPN ---
Progress Note: A&P Assessment and Plan (1) Streptococcal bacteremia: Code(s): R78.81 - Bacteremia; B95.5 - Unspecified streptococcus as the cause of diseases classified elsewhere Status: Acute Assessment and Plan: Patient presents with right hand and left knee, foot/ankle erythema, edema and fevers consistent with arthropathy and cellulitis MRI left knee 05/08 showed joint effusion concerning for septic arthritis an aspiration was recommended, also noted was marrow edema of the inferior patella concerning for osteomyelitis, soft tissue edema of the distal vastus lateralis muscle concerning for infectious myositis versus cellulitis, no osteomyelitis noted in the ankle, ankle joint most consistent with cellulitis Right hand x-ray 05/08 showed mild polyarticular osteoarthritis Both blood cultures on admission grew Group A Streptococcus. Repeat blood cultures are negative. Surface Echo does not show any evidence of vegetation. No history of gout but she does have osteoarthritis. Vancomycin started on 04/25 and stopped 05/02. Cefazolin started 04/25 and changed to Rocephin 04/26. Flagyl for possible anaerobic infection added 05/02. Rocephin de-escalated to keflex 05/06. As imaging is concerning for osteomyelitis, will switch back to IV ancef 05/09, d/c oral keflex + flagyl until further recommendations per surgery. Appreciate Orthopedic and Plastic surgery input. Continue PT/OT. Postop day 1 from washout, cultures pending, continue current management (2) Reactive arthritis: Code(s): M02.30 - Mario's disease, unspecified site Status: Acute Assessment and Plan: Blood cultures positive for group A strep, as above, repeat blood cx NGTD. Joint/wound cultures all negative for organisms, positive for WBCs only. Cx NGTD. She does have a murmur and review of the echo showing only mild MR and TR. Etiology of her multiple joint involvement probably reactive given that she has tenosynovitis with enthesopathy and the asymmetric nature. No history of gout and negative crystal exams. Autoimmune markers essentially negative. RF slightly elevated but anti-CCP negative and doubt RA. BRAXTON negative. Lyme serology is ordered and pending. Repeat surface echo negative for vegetation. Cardio consulted for SHANNAN on Friday, if this is negative would discharge on oral antibiotics (3) Cellulitis: Qualifiers: Laterality: right Site of cellulitis: extremity Site of cellulitis of extremity: upper extremity Qualified Code(s): L03.113 - Cellulitis of right upper limb Code(s): L03.90 - Cellulitis, unspecified Status: Acute Assessment and Plan: As above. (4) Anemia: Code(s): D64.9 - Anemia, unspecified Status: Acute Assessment and Plan: Stable, monitor (5) Acute kidney injury: Code(s): N17.9 - Acute kidney failure, unspecified Status: Acute Assessment and Plan: Resolved (6) Hypertension: Code(s): I10 - Essential (primary) hypertension Status: Chronic Assessment and Plan: Stable, continue home meds, monitor (7) Hyperthyroidism: Code(s): E05.90 - Thyrotoxicosis, unspecified without thyrotoxic crisis or storm Status: Acute Assessment and Plan: Patient with hx of hyperthyroidism. On methimaole which is continued. FT4 normal. Continue the same. Plan Elevated LFTs: Resolved DVT prophylaxis with SCDs GI prophylaxis not indicated Code status full code Subjective Date/time seen: 05/11/22 11:21 Interval history: No overnight events noted. No chest pain or shortness of breath. No nausea, vomiting or diarrhea. No fevers or chills. Patient states her knee feels much better since the washout. Review of Systems Review of Systems: 12 point review of systems was assessed and was negative except as noted in the HPI Exam Narrative: General: No acute distress, alert and oriented
[2022-05-11 12:00] VITALS: BP 144/78; PULSE 77; RESP 18; TEMP 36.3; O2SAT 99
--- NOTE | 2022-05-11 13:01 | WPDANESPN ---
Anes - Prog Note Post-Op Date/Time: 05/11/22 12:21 Cardiovascular status: normal Respiratory status: normal Airway patency: baseline Mental status: baseline Post-Op hydration status: normal Vital Signs: Last Vital Signs Temp 97.3 F L 05/11/22 12:00 Pulse 77 05/11/22 12:00 Resp 18 05/11/22 12:00 BP 144/78 H 05/11/22 12:00 Pulse Ox 99 05/11/22 12:00 O2 Del Method Room Air 05/10/22 18:00 O2 Flow Rate 8 05/10/22 17:00 Pain Score (VAS): 2 I/O: Intake & Output 05/10/22 05/11/22 05/11/22 23:59 07:59 15:59 Intake Total 590 550 240 Output Total 230 600 Balance 360 -50 240 Laboratory Tests 05/11/22 06:01 05/11/22 06:01 05/10/22 05/11/22 05/11/22 16:16 06:01 06:01 WBC 5.5 RBC 2.69 L Hgb 8.3 L Hct 26.3 L MCV 97.8 MCH 30.9 MCHC 31.6 L RDW 12.6 Plt Count 403 H MPV 10.8 H Immature Gran % (Auto) 0.9 H Neut % (Auto) 76.6 H Lymph % (Auto) 12.4 L [place] % (Auto) 9.5 H Eos % (Auto) 0.2 Baso % (Auto) 0.4 Lymph # (Auto) 0.68 L [place] # (Auto) 0.5 Eos # (Auto) 0.0 Baso # (Auto) 0.0 Abs Immat Gran (auto) 0.05 H Absolute Neuts (auto) 4.2 Absolute Nucleated RBC 0.0 Nucleated RBC % 0.0 Sodium 137 Potassium 4.3 Chloride 106 Carbon Dioxide 26 Anion Gap 5 L BUN 21 H Creatinine 0.90 Estim Creat Clear Calc 63 Estimated GFR > 60 Glucose 138 H Calcium 8.1 L Total Bilirubin 0.3 AST 25 ALT 27 Alkaline Phosphatase 52 Total Protein 7.0 Albumin 2.9 L Synovial Crystals None seen Post-procedural complaints: none Patient Feedback: Patient satisfied with anesthetic care.
--- NOTE | 2022-05-11 13:03 | PM.PNORT ---
Progress Note: A&P Assessment and Plan (1) Unspecified open wound, left foot, sequela: Code(s): S91.302S - Unspecified open wound, left foot, sequela Status: Acute (2) Knee effusion, left: Code(s): M25.462 - Effusion, left knee Status: Acute Assessment and Plan: POD 1 DOING WELL. SHE MAY BE WBAT. WE WILL CHANGE HER DRESSING ON FRIDAY. SHE WILL CONTINUE IV ABX FOR NOW. (3) Streptococcal bacteremia: Code(s): R78.81 - Bacteremia; B95.5 - Unspecified streptococcus as the cause of diseases classified elsewhere Status: Acute Subjective Subjective Date/Time Seen: 05/11/22 13:03 POD 1 DOING WELL. MINIMAL PAIN. NO CALF PAIN Exam Extrem: Other: VSS AFEBRILE DRESSING DRY NV INTACT NEG HOMANS SIGN, MINIMAL PAIN WITH GENTLE ROM KNEE. HAND MOTION IMPROVING Objective Data Vital Signs Vital Signs: Vital Signs - 24 hr 05/10/22 14:10 05/10/22 16:45 05/10/22 17:00 Temperature 36.8 C 36.2 C L Pulse Rate 74 71 88 Respiratory Rate 16 16 22 H Blood Pressure 162/75 H 148/77 H 169/86 H Pulse Oximetry 100 100 100 Oxygen Delivery Room Air Room Air Simple Face Mask Oxygen Flow Rate 8 05/10/22 18:00 05/10/22 18:30 05/10/22 18:45 Temperature 36.4 C 36.1 C L Pulse Rate 80 78 74 Respiratory Rate 21 H 16 16 Blood Pressure 170/82 H 154/73 H 156/74 H Pulse Oximetry 97 100 99 Oxygen Delivery Room Air Oxygen Flow Rate 05/10/22 20:00 05/11/22 00:00 05/11/22 04:00 Temperature 36.2 C L 36.1 C L 36.1 C L Pulse Rate 84 75 77 Respiratory Rate 16 16 16 Blood Pressure 145/70 H 134/62 133/65 Pulse Oximetry 99 92 97 Oxygen Delivery Oxygen Flow Rate 05/11/22 07:59 05/11/22 12:00 Temperature 36.3 C L 36.3 C L Pulse Rate 69 77 Respiratory Rate 16 18 Blood Pressure 130/82 144/78 H Pulse Oximetry 97 99 Oxygen Delivery Oxygen Flow Rate Intake/Output Intake/Output: Intake & Output 01/05/09/22 05/10/22 05/11/22 23:59 23:59 23:59 23:59 Intake Total 1530 1610 1240 790 Output Total 950 1000 1930 600 Balance 580 610 -690 190 Meds/Results Medications: Active Medications Generic Name Dose Route Start Last Admin Trade Name Freq PRN Reason Stop Dose Admin Acetaminophen 650 mg 05/10/22 18:15 Acetaminophen 325 Mg Tablet PO Q6H PRN Pain Rated 1-3 Hydrocodone Bitart/Acetaminophen 1 tab 05/07/22 17:59 05/10/22 13:19 Hydrocodone/Acetaminophen (*Crx) 5-325 Mg Tablet PO 1 tab Q4H PRN Administration Pain Rated 4-6 Hydrocodone Bitart/Acetaminophen 2 tab 05/10/22 18:15 05/11/22 02:08 Hydrocodone/Acetaminophen (*Crx) 7.5-325 Mg Tablet PO 2 tab Q6H PRN Administration Pain Rated 7-10 Alendronate Sodium 70 mg 05/11/22 06:30 05/11/22 06:43 Alendronate Sodium 70 Mg Tablet PO 70 mg Sa@0630 [facility] Administration Amlodipine Besylate 5 mg 05/05/22 09:00 05/11/22 09:21 Amlodipine Besylate 5 Mg Tablet PO 5 mg QAM [facility] Administration Calcium Carbonate 500 mg 05/11/22 09:00 05/11/22 09:42 Calcium/Vitamin D 500 Mg Tablet PO 500 mg QAM [facility] Administration Diazepam 5 mg 05/10/22 18:15 Diazepam (*Crx) 5 Mg Tablet PO Q8H PRN Muscle Spasm Enoxaparin Sodium 40 mg 05/02/22 09:00 05/11/22 09:19 Enoxaparin 40 Mg/0.4 Ml Syringe SUB-Q 40 mg DAILY [facility] Administration Famotidine 20 mg 05/10/22 21:00 05/11/22 09:21 Famotidine 20 Mg Tablet PO 20 mg Q12HR [facility] Administration Ferrous Sulfate 324 mg 04/27/22 08:00 05/11/22 09:21 Ferrous Sulfate 324 Mg Tablet PO 324 mg TuSa@0800 [facility] Administration Hydralazine HCl 10 mg 05/08/22 21:55 Hydralazine Hcl 20 Mg/Ml Vial IV PUSH Q6H PRN Blood Pressure - High Cefazolin Sodium 1 gm in 50 mls @ 100 mls/hr 05/09/22 14:00 05/11/22 06:44 Ancef 1 Gm/D5w 50 Ml Pm IVPB 100 mls/hr Q8HR [facility] Administration Ibuprofen 600 mg 05/07/22 09:38 Ibuprofen 600 Mg Tablet PO Q6H PRN Pain Rated 1-3
[2022-05-11 14:39] LABS: Lyme Disease Ab (IgM), Blot Negative (Negative); Lyme Disease Ab(IgG), Blot Negative (Negative)
[2022-05-11 16:00] VITALS: BP 130/82; PULSE 85; RESP 18; TEMP 36.5; O2SAT 98
[2022-05-11 20:00] VITALS: BP 161/60; PULSE 79; RESP 18; TEMP 36.6; O2SAT 96
[2022-05-11] MEDS: HYDROcodone/acetaminophen (*CRX) 5-325 MG TABLET 1 TAB PO (20:42)
[2022-05-11] MEDS: ONDANSETRON INJ 4 MG/2 ML VIAL IV PUSH (20:46)
[2022-05-12] MEDS: HYDROcodone/acetaminophen (*CRX) 7.5-325 MG TABLET 2 TAB PO (04:15)
[2022-05-12] MEDS: SALINE LOCK FLUSH 10 ML IV PUSH ×3 (04:16→22:00)
[2022-05-12 06:01] LABS: Basophils Percent Auto 0.7 % (0.2-1.2); Eosinophils Absolute Auto 0.1 K/mm3 (0-0.3); Eosinophils Percent Auto 0.8 % (0-4.4); Hematocrit 24.7 % (37.0-47.0); Hemoglobin 7.9 g/dL (12.0-15.0); Immature Granulocyte Absolute 0.04 K/mm3 (0.00-0.031); Immature Granulocyte Percent A 0.7 % (0-0.5); Lymphocytes Absolute Auto 1.58 K/mm3 (0.9-3.2); Lymphocytes Percent Auto 26.7 % (18.3-44.2); Mean Corpuscular Hemoglobin 30.6 pg (26-34); Mean Corpuscular Volume 95.7 fl (80-100); Mean Platelet Volume 10.8 fl (7.4-10.4); Monocytes Absolute Auto 0.5 K/mm3 (0.1-0.6); Monocytes Percent Auto 9.1 % (2.6-8.5); Neutrophils Absolute Auto 3.7 K/mm3 (1.3-6.7); Platelet Count Result 385 k/mm3 (150-375); Red Blood Count 2.58 M/mm3 (4.2-5.4); Red Cell Distribution Width 12.5 % (11.5-14.5); White Blood Count 5.9 K/mm3 (4.5-10.0)
[2022-05-12 06:11] LABS: Alanine Aminotransferase 24 U/L (6-35); Albumin Level 2.8 g/dL (3.5-5.1); Alkaline Phosphatase 52 U/L (38-126); Anion Gap 6 mmol/L (8-16); Aspartate Amino Transferase 28 U/L (14-36); Bilirubin,Total 0.3 mg/dL (0.2-1.3); Blood Urea Nitrogen 23 mg/dL (7-17); Calcium 8.1 mg/dL (8.4-10.2); Carbon Dioxide 25 mmol/L (22-30); Chloride 107 mmol/L (98-107); Estimated CRCL calculation 72 ml/min; Estimated Glomerular Filt Rate > 60; Glucose 101 mg/dL (65-110); Potassium 3.6 mmol/L (3.4-5.0); Sodium 138 mmol/L (137-145)
[2022-05-12] MEDS: ENOXAPARIN 40 MG/0.4 ML SYRINGE SUB-Q (08:33)
[2022-05-12] MEDS: amLODIPine BESYLATE 5 MG TABLET PO (08:36)
[2022-05-12] MEDS: MELOXICAM 7.5 MG TABLET 15 MG PO (08:37)
[2022-05-12] MEDS: SENNA/DOCUSATE SODIUM TABLET 2 TAB PO ×2 (08:37→16:37)
[2022-05-12] MEDS: lisinopriL 20 MG TABLET PO (08:37)
[2022-05-12] MEDS: FAMOTIDINE 20 MG TABLET PO ×2 (08:37→21:00)
--- NOTE | 2022-05-12 09:11 | PM.PNORT ---
Progress Note: A&P Assessment and Plan (1) Unspecified open wound, left foot, sequela: Code(s): S91.302S - Unspecified open wound, left foot, sequela Status: Acute (2) Knee effusion, left: Code(s): M25.462 - Effusion, left knee Status: Acute Assessment and Plan: POD 2 Improving. SHE MAY BE WBAT. WE WILL CHANGE HER DRESSING ON FRIDAY. SHE WILL CONTINUE IV ABX FOR NOW. cultures from left knee negative to date. (3) Streptococcal bacteremia: Code(s): R78.81 - Bacteremia; B95.5 - Unspecified streptococcus as the cause of diseases classified elsewhere Status: Acute Subjective Subjective Date/Time Seen: 05/12/22 09:11 Post Op day: 2 Principal diagnosis: Left knee septic arthritis Interval history: patient awake and alert. Pain improved. No new complaints. Exam Const: General: comfortable; No acute distress Resp: Effort & Inspection: normal respiratory effort and no audible wheezes Extrem: Right lower extremity: lower leg ( Negative Homans sign), ankle Details: normal ROM ( dorsiflexion and plantar flexion intact) and foot Details: vascular exam Details: dorsalis pedis pulse present and normal capillary refill, tendon exam Details: active flexion normal and active extension normal and motor-sensory exam Details: light-touch normal Location: in all toes; no edema Other: Left knee dressing in place. Drain with 30 cc of serosanguineous drainage. Toes with good capillary refill and good sensation. Objective Data Vital Signs Vital Signs: Vital Signs - 24 hr 05/11/22 12:00 05/11/22 16:00 05/11/22 20:00 Temperature 97.3 F L 97.7 F 98 F Pulse Rate 77 85 79 Respiratory Rate 18 18 18 Blood Pressure 144/78 H 130/82 161/60 H Pulse Oximetry 99 98 96 Intake/Output Intake/Output: Intake & Output 05/09/22 05/10/22 05/11/22 05/12/22 23:59 23:59 23:59 23:59 Intake Total 1610 1240 1980 Output Total 1000 1930 630 Balance 610 -690 1350 Meds/Results Medications: Active Medications Generic Name Dose Route Start Last Admin Trade Name Freq PRN Reason Stop Dose Admin Acetaminophen 650 mg 05/10/22 18:15 Acetaminophen 325 Mg Tablet PO Q6H PRN Pain Rated 1-3 Hydrocodone Bitart/Acetaminophen 1 tab 05/07/22 17:59 05/11/22 20:42 Hydrocodone/Acetaminophen (*Crx) 5-325 Mg Tablet PO 1 tab Q4H PRN Administration Pain Rated 4-6 Hydrocodone Bitart/Acetaminophen 2 tab 05/10/22 18:15 05/12/22 04:15 Hydrocodone/Acetaminophen (*Crx) 7.5-325 Mg Tablet PO 2 tab Q6H PRN Administration Pain Rated 7-10 Alendronate Sodium 70 mg 05/11/22 06:30 05/11/22 06:43 Alendronate Sodium 70 Mg Tablet PO 70 mg Sa@0630 [facility] Administration Amlodipine Besylate 5 mg 05/05/22 09:00 05/12/22 08:36 Amlodipine Besylate 5 Mg Tablet PO 5 mg QAM [facility] Administration Calcium Carbonate 500 mg 05/11/22 09:00 05/12/22 08:37 Calcium/Vitamin D 500 Mg Tablet PO 500 mg QAM [facility] Administration Diazepam 5 mg 05/10/22 18:15 Diazepam (*Crx) 5 Mg Tablet PO Q8H PRN Muscle Spasm Enoxaparin Sodium 40 mg 05/02/22 09:00 05/12/22 08:33 Enoxaparin 40 Mg/0.4 Ml Syringe SUB-Q 40 mg DAILY [facility] Administration Famotidine 20 mg 05/10/22 21:00 05/12/22 08:37 Famotidine 20 Mg Tablet PO 20 mg Q12HR [facility] Administration Ferrous Sulfate 324 mg 04/27/22 08:00 05/11/22 09:21 Ferrous Sulfate 324 Mg Tablet PO 324 mg TuSa@0800 [facility] Administration Hydralazine HCl 10 mg 05/08/22 21:55 Hydralazine Hcl 20 Mg/Ml Vial IV PUSH Q6H PRN Blood Pressure - High Cefazolin Sodium 1 gm in 50 mls @ 100 mls/hr 05/09/22 14:00 05/12/22 04:15 Ancef 1 Gm/D5w 50 Ml Pm IVPB 100 mls/hr Q8HR [facility] Administration Ibuprofen 600 mg 05/07/22 09:38 Ibuprofen 600 Mg Tablet PO Q6H PRN Pain Rated 1-3 Lisinopril 20 mg 05/07/22 09:00 05/12/22 08:37 Lisinopril 20 Mg Tablet PO 20 mg M [facility]
--- NOTE | 2022-05-12 12:17 | WPDPN ---
Subjective Date/time seen: 05/12/22 12:17 Exam Narrative: Serology for Lyme ds All negative or nonreactive. LFTs all wnl. Objective Data Vital Signs Vital Signs: Vital Signs - 24 hr 05/11/22 16:00 05/11/22 20:00 Temperature 97.7 F 98 F Pulse Rate 85 79 Respiratory Rate 18 18 Blood Pressure 130/82 161/60 H Pulse Oximetry 98 96 Intake/Output Intake/Output: Intake & Output 05/09/22 05/10/22 05/11/22 05/12/22 23:59 23:59 23:59 23:59 Intake Total 1610 1240 1980 100 Output Total 1000 1930 630 Balance 610 -690 1350 100 Meds/Results Medications: Active Medications Generic Name Dose Route Start Last Admin Trade Name Freq PRN Reason Stop Dose Admin Acetaminophen 650 mg 05/10/22 18:15 Acetaminophen 325 Mg Tablet PO Q6H PRN Pain Rated 1-3 Hydrocodone Bitart/Acetaminophen 1 tab 05/07/22 17:59 05/11/22 20:42 Hydrocodone/Acetaminophen (*Crx) 5-325 Mg Tablet PO 1 tab Q4H PRN Administration Pain Rated 4-6 Hydrocodone Bitart/Acetaminophen 2 tab 05/10/22 18:15 05/12/22 04:15 Hydrocodone/Acetaminophen (*Crx) 7.5-325 Mg Tablet PO 2 tab Q6H PRN Administration Pain Rated 7-10 Alendronate Sodium 70 mg 05/11/22 06:30 05/11/22 06:43 Alendronate Sodium 70 Mg Tablet PO 70 mg Sa@0630 [facility] Administration Amlodipine Besylate 5 mg 05/05/22 09:00 05/12/22 08:36 Amlodipine Besylate 5 Mg Tablet PO 5 mg QAM [facility] Administration Calcium Carbonate 500 mg 05/11/22 09:00 05/12/22 08:37 Calcium/Vitamin D 500 Mg Tablet PO 500 mg QAM [facility] Administration Diazepam 5 mg 05/10/22 18:15 Diazepam (*Crx) 5 Mg Tablet PO Q8H PRN Muscle Spasm Enoxaparin Sodium 40 mg 05/02/22 09:00 05/12/22 08:33 Enoxaparin 40 Mg/0.4 Ml Syringe SUB-Q 40 mg DAILY [facility] Administration Famotidine 20 mg 05/10/22 21:00 05/12/22 08:37 Famotidine 20 Mg Tablet PO 20 mg Q12HR [facility] Administration Ferrous Sulfate 324 mg 04/27/22 08:00 05/11/22 09:21 Ferrous Sulfate 324 Mg Tablet PO 324 mg TuSa@0800 [facility] Administration Hydralazine HCl 10 mg 05/08/22 21:55 Hydralazine Hcl 20 Mg/Ml Vial IV PUSH Q6H PRN Blood Pressure - High Cefazolin Sodium 1 gm in 50 mls @ 100 mls/hr 05/09/22 14:00 05/12/22 04:15 Ancef 1 Gm/D5w 50 Ml Pm IVPB 100 mls/hr Q8HR [facility] Administration Ibuprofen 600 mg 05/07/22 09:38 Ibuprofen 600 Mg Tablet PO Q6H PRN Pain Rated 1-3 Lisinopril 20 mg 05/07/22 09:00 05/12/22 08:37 Lisinopril 20 Mg Tablet PO 20 mg QAM [facility] Administration Meloxicam 15 mg 05/11/22 09:00 05/12/22 08:37 Meloxicam 7.5 Mg Tablet PO 15 mg DAILY [facility] Administration Naloxone HCl 0.1 mg 05/10/22 18:15 Naloxone Hcl 0.4 Mg/Ml Vial IV PUSH Q2M PRN Opiate Reversal Methimazole 2.5 Mg 1 each 04/25/22 09:00 05/12/22 08:37 Tablet (Nonformulary PO 1 each - Will Not Scan) DAILY [facility] Administration Ondansetron HCl 4 mg 05/08/22 02:00 05/11/22 20:46 Ondansetron Inj 4 Mg/2 Ml Vial IV PUSH 4 mg Q4H PRN Administration Nausea And Vomiting Ondansetron HCl 4 mg 05/10/22 14:33 Ondansetron Inj 4 Mg/2 Ml Vial IV PUSH ONCE PRN Nausea Ondansetron HCl 4 mg 05/10/22 18:15 Ondansetron Inj 4 Mg/2 Ml Vial IV PUSH Q4H PRN Nausea And Vomiting Oxycodone HCl 5 mg 05/10/22 14:33 Oxycodone Hcl (*Crx) 5 Mg Tab Ir PO ONCE PRN Pain Polyethylene Glycol 17 gm 05/11/22 09:00 05/12/22 08:36 Polyethylene Glycol 3350 17 Gm Powd.Pack PO Not Given QAM [facility] Senna/Docusate Sodium 2 tab 05/11/22 09:00 05/12/22 08:37 Senna/Docusate Sodium Tablet PO 2 tab BID [facility] Administration Sodium Chloride 10 ml 04/29/22 14:00 05/12/22 04:16 Saline Lock Flush IV PUSH 10 ml Q8HR [facility] Administration Sodium Chloride 10 ml 04/29/22 06:46 Saline Lock Flush IV PUSH PRN PRN Flush Sodium Chloride 20 ml 04/29/22 06:46 Sa
--- NOTE | 2022-05-12 12:35 | WPDPN ---
Progress Note: A&P Assessment and Plan (1) Reactive arthritis: Code(s): M02.30 - Mario's disease, unspecified site Status: Acute Assessment and Plan: Improving, but will need lengthy OT. (2) Streptococcal bacteremia: Code(s): R78.81 - Bacteremia; B95.5 - Unspecified streptococcus as the cause of diseases classified elsewhere Status: Acute Assessment and Plan: Cleared (3) Cellulitis of right hand: Code(s): L03.113 - Cellulitis of right upper limb Status: Acute Assessment and Plan: Cleared (4) Anemia: Code(s): D64.9 - Anemia, unspecified Status: Acute Assessment and Plan: On Fe supplement. Probably related to her recent condition. Normally gives platelets and has to have a Hb of 12.5 to do so. Subjective Date/time seen: 05/12/22 12:35 Interval history: Pt seems totally chain maker. Has several guests. She reports eating well. Had therapy today. Now allowed wt bearing by Dr Diez. Says left knee drain to be removed tomorrow. Scant serous drainage. Reports that bulla on the left medial ankle was debrided at last surgery. Dressing to continue. Exam Narrative: Edema of right hand reducing daily, near normal. AROM gradually improving. Less tender. Objective Data Vital Signs Vital Signs: Vital Signs - 24 hr 05/11/22 16:00 05/11/22 20:00 Temperature 97.7 F 98 F Pulse Rate 85 79 Respiratory Rate 18 18 Blood Pressure 130/82 161/60 H Pulse Oximetry 98 96 Intake/Output Intake/Output: Intake & Output 05/09/22 05/10/22 05/11/22 05/12/22 23:59 23:59 23:59 23:59 Intake Total 1610 1240 1980 100 Output Total 1000 1930 630 Balance 610 -690 1350 100 Meds/Results Medications: Active Medications Generic Name Dose Route Start Last Admin Trade Name Freq PRN Reason Stop Dose Admin Acetaminophen 650 mg 05/10/22 18:15 Acetaminophen 325 Mg Tablet PO Q6H PRN Pain Rated 1-3 Hydrocodone Bitart/Acetaminophen 1 tab 05/07/22 17:59 05/11/22 20:42 Hydrocodone/Acetaminophen (*Crx) 5-325 Mg Tablet PO 1 tab Q4H PRN Administration Pain Rated 4-6 Hydrocodone Bitart/Acetaminophen 2 tab 05/10/22 18:15 05/12/22 04:15 Hydrocodone/Acetaminophen (*Crx) 7.5-325 Mg Tablet PO 2 tab Q6H PRN Administration Pain Rated 7-10 Alendronate Sodium 70 mg 05/11/22 06:30 05/11/22 06:43 Alendronate Sodium 70 Mg Tablet PO 70 mg Sa@0630 [facility] Administration Amlodipine Besylate 5 mg 05/05/22 09:00 05/12/22 08:36 Amlodipine Besylate 5 Mg Tablet PO 5 mg QAM [facility] Administration Calcium Carbonate 500 mg 05/11/22 09:00 05/12/22 08:37 Calcium/Vitamin D 500 Mg Tablet PO 500 mg QAM [facility] Administration Diazepam 5 mg 05/10/22 18:15 Diazepam (*Crx) 5 Mg Tablet PO Q8H PRN Muscle Spasm Enoxaparin Sodium 40 mg 05/02/22 09:00 05/12/22 08:33 Enoxaparin 40 Mg/0.4 Ml Syringe SUB-Q 40 mg DAILY [facility] Administration Famotidine 20 mg 05/10/22 21:00 05/12/22 08:37 Famotidine 20 Mg Tablet PO 20 mg Q12HR [facility] Administration Ferrous Sulfate 324 mg 04/27/22 08:00 05/11/22 09:21 Ferrous Sulfate 324 Mg Tablet PO 324 mg TuSa@0800 [facility] Administration Hydralazine HCl 10 mg 05/08/22 21:55 Hydralazine Hcl 20 Mg/Ml Vial IV PUSH Q6H PRN Blood Pressure - High Cefazolin Sodium 1 gm in 50 mls @ 100 mls/hr 05/09/22 14:00 05/12/22 04:15 Ancef 1 Gm/D5w 50 Ml Pm IVPB 100 mls/hr Q8HR [facility] Administration Ibuprofen 600 mg 05/07/22 09:38 Ibuprofen 600 Mg Tablet PO Q6H PRN Pain Rated 1-3 Lisinopril 20 mg 05/07/22 09:00 05/12/22 08:37 Lisinopril 20 Mg Tablet PO 20 mg QAM [facility] Administration Meloxicam 15 mg 05/11/22 09:00 05/12/22 08:37 Meloxicam 7.5 Mg Tablet PO 15 mg DAILY [facility] Administration Naloxone HCl 0.1 mg 05/10/22 18:15 Naloxone Hcl 0.4 Mg/Ml Vial IV PUSH Q2M PRN Opiate Reversal Methimazol
[2022-05-12] MEDS: HYDROcodone/acetaminophen (*CRX) 5-325 MG TABLET 1 TAB PO ×2 (13:56→22:20)
[2022-05-12 14:05] VITALS: BP 139/66; PULSE 83; RESP 16; TEMP 37.4; O2SAT 94
--- NOTE | 2022-05-12 17:11 | PM.IMPN ---
Progress Note: A&P Assessment and Plan (1) Streptococcal bacteremia: Code(s): R78.81 - Bacteremia; B95.5 - Unspecified streptococcus as the cause of diseases classified elsewhere Status: Acute Assessment and Plan: Patient presents with right hand and left knee, foot/ankle erythema, edema and fevers consistent with arthropathy and cellulitis with associated group a streptococcal bacteremia on initial blood cultures, repeat blood cultures negative, surface echo without vegetation, SHANNAN pending on Friday, if this is negative also for vegetation, would discharge patient on oral antibiotics, follow cultures from surgery Abx: -Vancomycin started on 04/25 and stopped 05/02. -Cefazolin started 04/25 and changed to Rocephin 04/26. -Flagyl for possible anaerobic infection added 05/02. -Rocephin de-escalated to keflex 05/06. -Imaging from 05/08 is concerning for osteomyelitis, will switch back to IV ancef alone on 05/09, d/c oral keflex + flagyl until further recommendations per surgery or cultures show something otherwise. 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 Joint/wound cultures all negative for organisms, positive for WBCs only. Cx NGTD. She does have a murmur and review of the echo showing only mild MR and TR. Etiology of her multiple joint involvement probably reactive given that she has tenosynovitis with enthesopathy and the asymmetric nature. No history of gout and negative crystal exams. Autoimmune markers essentially negative. RF slightly elevated but anti-CCP negative and doubt RA. BRAXTON negative. Lyme serology is ordered and pending. Repeat surface echo negative for vegetation. Cardio consulted for SHANNAN on Friday, if this is negative would discharge on oral antibiotics with kelfex (3) Cellulitis: Qualifiers: Laterality: right Site of cellulitis: extremity Site of cellulitis of extremity: upper extremity Qualified Code(s): L03.113 - Cellulitis of right upper limb Code(s): L03.90 - Cellulitis, unspecified Status: Acute Assessment and Plan: As above. (4) Anemia: Code(s): D64.9 - Anemia, unspecified Status: Acute Assessment and Plan: Stable, monitor (5) Acute kidney injury: Code(s): N17.9 - Acute kidney failure, unspecified Status: Acute Assessment and Plan: Resolved (6) Hypertension: Code(s): I10 - Essential (primary) hypertension Status: Chronic Assessment and Plan: Stable, continue home meds, monitor (7) Hyperthyroidism: Code(s): E05.90 - Thyrotoxicosis, unspecified without thyrotoxic crisis or storm Status: Acute Assessment and Plan: Patient with hx of hyperthyroidism. On methimaole which is continued. FT4 normal. Continue the same. Plan Elevated LFTs: Resolved DVT prophylaxis with SCDs GI prophylaxis not indicated Code status full code Subjective Date/time seen: 05/12/22 17:11 Interval history: No overnight events noted. No chest pain or shortness of breath. No nausea, vomiting or diarrhea. No fevers or chills. Patient stated her pain seems to worsen last evening in her knee and ankle, it is resolved now. She also had some nausea and lightheadedness after surgery. The seem resolved now as well. Review of Systems Review of Systems: 12 point review of
[2022-05-12 19:57] LABS: Glucose Synovial Fluid 104 mg/dL
[2022-05-12 22:00] VITALS: BP 151/74; PULSE 90; RESP 16; TEMP 37.7; O2SAT 98
[2022-05-12] MEDS: IBUPROFEN 600 MG TABLET PO (22:19)
[2022-05-13] VITALS (11 sets, daily range): BP systolic 122–148; BP diastolic 43–82; PULSE 72–84; RESP 16–22; TEMP 36.1; O2SAT 92–100
--- NOTE | 2022-05-13 | ECHO_ITS ---
Patient Info Name: Tiffanie Chavez Age: 61 years : 1960 Gender: Female Ht: 66 in Wt: 178 lbs BSA: 1.96 m2 HR: 97 bpm Heart Rhythm: Sinus Rhythm Technical Quality: Good Exam Date: 05/13/2022 10:38 AM Exam Location: [facility] Patient Status: Inpatient Admit Date: 04/26/2022 Staff Ordering Physician: Rene Hauser MD Sole Rougher: Rain Murray RDCS Attending Provider: Lissette Curiel MD Referring Physician: Analisa MAURICIO; Exam Type: CA echo transesophageal Study Info Indications - BACTEREMIA Complete two-dimensional, color flow and Doppler transesophageal study is performed. Summary 1. Transesophageal echocardiogram demonstrating excellent visualization of the cardiac valves and no signs of infective vegetation. Report Signatures
[2022-05-13] MEDS: SALINE LOCK FLUSH 10 ML IV PUSH ×2 (05:39→15:09)
[2022-05-13 06:45] LABS: Basophils Percent Auto 0.5 % (0.2-1.2); Eosinophils Absolute Auto 0.1 K/mm3 (0-0.3); Eosinophils Percent Auto 1.6 % (0-4.4); Hematocrit 26.5 % (37.0-47.0); Hemoglobin 8.3 g/dL (12.0-15.0); Immature Granulocyte Absolute 0.04 K/mm3 (0.00-0.031); Immature Granulocyte Percent A 0.9 % (0-0.5); Lymphocytes Absolute Auto 0.99 K/mm3 (0.9-3.2); Lymphocytes Percent Auto 22.7 % (18.3-44.2); Mean Corpuscular HGB Conc 31.3 g/dl (32-36); Mean Corpuscular Hemoglobin 31.1 pg (26-34); Mean Corpuscular Volume 99.3 fl (80-100); Mean Platelet Volume 10.4 fl (7.4-10.4); Monocytes Absolute Auto 0.6 K/mm3 (0.1-0.6); Monocytes Percent Auto 14.2 % (2.6-8.5); Neutrophils Absolute Auto 2.6 K/mm3 (1.3-6.7); Neutrophils Percent Auto 60.1 % (45.5-73.1); Platelet Count Result 341 k/mm3 (150-375); Red Blood Count 2.67 M/mm3 (4.2-5.4); Red Cell Distribution Width 12.6 % (11.5-14.5); White Blood Count 4.4 K/mm3 (4.5-10.0)
[2022-05-13 06:54] LABS: Alanine Aminotransferase 21 U/L (6-35); Albumin Level 3.1 g/dL (3.5-5.1); Alkaline Phosphatase 48 U/L (38-126); Anion Gap 6 mmol/L (8-16); Aspartate Amino Transferase 28 U/L (14-36); Bilirubin,Total 0.5 mg/dL (0.2-1.3); Blood Urea Nitrogen 21 mg/dL (7-17); Carbon Dioxide 26 mmol/L (22-30); Chloride 104 mmol/L (98-107); Estimated CRCL calculation 70 ml/min; Estimated Glomerular Filt Rate > 60; Glucose 106 mg/dL (65-110); Potassium 3.5 mmol/L (3.4-5.0); Sodium 136 mmol/L (137-145)
[2022-05-13] MEDS: ENOXAPARIN 40 MG/0.4 ML SYRINGE SUB-Q (08:31)
[2022-05-13] MEDS: amLODIPine BESYLATE 5 MG TABLET PO (08:31)
[2022-05-13] MEDS: SENNA/DOCUSATE SODIUM TABLET 2 TAB PO (08:31)
[2022-05-13] MEDS: MELOXICAM 7.5 MG TABLET 15 MG PO (08:32)
[2022-05-13] MEDS: FAMOTIDINE 20 MG TABLET PO (08:32)
[2022-05-13] MEDS: lisinopriL 20 MG TABLET PO (08:32)
--- NOTE | 2022-05-13 08:50 | PCOTNOTE ---
Attempted to see patient this am, however per patient awaiting a SHANNAN. They were supposed to get me at 8:30.
--- NOTE | 2022-05-13 08:50 | PM.IMPN ---
Progress Note: A&P Assessment and Plan (1) Streptococcal bacteremia: Code(s): R78.81 - Bacteremia; B95.5 - Unspecified streptococcus as the cause of diseases classified elsewhere Status: Acute Assessment and Plan: Patient presents with right hand and left knee, foot/ankle erythema, edema, pain and fevers consistent with arthropathy and cellulitis with associated group a streptococcal bacteremia on initial blood cultures, repeat blood cultures negative, surface echo without vegetation, SHANNAN pending today, if this is negative also for vegetation, would discharge patient on oral antibiotics, follow cultures from surgery Abx: -Vancomycin started on 04/25 and stopped 05/02. -Cefazolin started 04/25 and changed to Rocephin 04/26. -Flagyl for possible anaerobic infection added 05/02. -Rocephin de-escalated to keflex 05/06. -Imaging from 05/08 is concerning for osteomyelitis, will switch back to IV ancef alone on 05/09, d/c oral keflex + flagyl until further recommendations per surgery or cultures show something otherwise. 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 Joint/wound cultures all negative for organisms, positive for WBCs only. Cx NGTD. She does have a murmur and review of the echo showing only mild MR and TR. Etiology of her multiple joint involvement probably reactive given that she has tenosynovitis with enthesopathy and the asymmetric nature. No history of gout and negative crystal exams. Autoimmune markers essentially negative. RF slightly elevated but anti-CCP negative and doubt RA. BRAXTON negative. Lyme serology is ordered and pending. Repeat surface echo negative for vegetation. Cardio consulted for SHANNAN on Friday, if this is negative would discharge on oral antibiotics with kelfex (3) Cellulitis: Qualifiers: Laterality: right Site of cellulitis: extremity Site of cellulitis of extremity: upper extremity Qualified Code(s): L03.113 - Cellulitis of right upper limb Code(s): L03.90 - Cellulitis, unspecified Status: Acute Assessment and Plan: As above. (4) Anemia: Code(s): D64.9 - Anemia, unspecified Status: Acute Assessment and Plan: Stable, monitor Uncertain of etiology, hgb was normal 02/02 Check iron studies, B12, folate (5) Acute kidney injury: Code(s): N17.9 - Acute kidney failure, unspecified Status: Acute Assessment and Plan: Resolved (6) Hypertension: Code(s): I10 - Essential (primary) hypertension Status: Chronic Assessment and Plan: Stable, restart home lisinopril (7) Hyperthyroidism: Code(s): E05.90 - Thyrotoxicosis, unspecified without thyrotoxic crisis or storm Status: Acute Assessment and Plan: Patient with hx of hyperthyroidism. On methimaole which is continued. FT4 normal. Continue the same. Plan Elevated LFTs: Resolved DVT prophylaxis with SCDs GI prophylaxis not indicated Code status full code Subjective Date/time seen: 05/13/22 08:50 Interval history: No overnight events noted. No chest pain or shortness of breath. No nausea, vomiting or diarrhea. No fevers or chills. SHANNAN performed today, no vegetations noted. Patient somewhat tired after the procedure. Review of Systems Review of Systems: 12 point review
--- NOTE | 2022-05-13 10:41 | PC.NURSE ---
off of unit for SHANNAN
--- NOTE | 2022-05-13 11:00 | WPDMODSED ---
Moderate Sedation Note-Pt Data Patient Data Diagnosis: Strep bacteremia Present Complaint: No complaint Procedure to be performed/Plan: Transesophageal echocardiogram Allergies Allergy/AdvReac Type Severity Reaction Status Date / Time losartan Allergy Unknown Unknown Verified 04/25/22 09:59 Home Medications Medication Instructions Recorded Confirmed Type alendronate 70 mg tablet 70 mg PO WEEKLY 01/06/20 04/25/22 History ferrous sulfate 325 mg (65 mg 325 mg PO .2XWEEK 01/06/20 04/25/22 History iron) tablet (Feosol) methimazole 5 mg tablet 2.5 mg PO DAILY 01/06/20 04/25/22 History meloxicam 15 mg tablet 15 mg PO DAILY 02/08/22 04/25/22 History calcium carbonate 600 mg-vitamin 1 cap PO DAILY 04/25/22 04/25/22 History D3 10 mcg (400 unit) capsule lisinopril 10 mg tablet 10 mg PO DAILY #90 tabs 04/26/22 Rx Current Medications: Active Medications Acetaminophen (Acetaminophen 325 Mg Tablet) 650 mg PO Q6H PRN PRN Reason: Pain Rated 1-3 Hydrocodone Bitart/Acetaminophen (Hydrocodone/Acetaminophen (*Crx) 5-325 Mg Tablet) 1 tab PO Q4H PRN PRN Reason: Pain Rated 4-6 Last Admin: 05/12/22 22:20 Dose: 1 tab Hydrocodone Bitart/Acetaminophen (Hydrocodone/Acetaminophen (*Crx) 7.5-325 Mg Tablet) 2 tab PO Q6H PRN PRN Reason: Pain Rated 7-10 Last Admin: 05/12/22 04:15 Dose: 2 tab Alendronate Sodium (Alendronate Sodium 70 Mg Tablet) 70 mg PO @0630 [facility] Last Admin: 05/11/22 06:43 Dose: 70 mg Amlodipine Besylate (Amlodipine Besylate 5 Mg Tablet) [facility] [place] [facility] [place] Admin: 05/13/22 08:31 Dose: 5 mg Calcium Carbonate (Calcium/Vitamin D 500 Mg Tablet) 500 [facility] [place] Admin: 05/13/22 08:31 Dose: 500 mg Diazepam (Diazepam (*Crx) 5 Mg Tablet) 5 mg PO Q8H PRN PRN Reason: Muscle Spasm Enoxaparin Sodium (Enoxaparin 40 Mg/0.4 Ml Syringe) 40 mg SUB-Q DAILY [facility] Last Admin: 05/13/22 08:31 Dose: 40 mg Famotidine (Famotidine 20 Mg Tablet) 20 mg PO Q12HR [facility] Last Admin: 05/13/22 08:32 Dose: 20 mg Ferrous Sulfate (Ferrous Sulfate 324 Mg Tablet) 324 mg PO TuSa@0800 [facility] Last Admin: 05/11/22 09:21 Dose: 324 mg Hydralazine HCl (Hydralazine Hcl 20 Mg/Ml Vial) 10 mg IV PUSH Q6H PRN PRN Reason: Blood Pressure - High Cefazolin Sodium (Ancef 1 Gm/D5w 50 Ml Pm) 1 gm in 50 mls @ 100 mls/hr IVPB Q8HR [facility] Last Infusion: 05/13/22 06:09 Dose: Infused Ibuprofen (Ibuprofen 600 Mg Tablet) 600 mg PO Q6H PRN PRN Reason: Pain Rated 1-3 Last Admin: 05/12/22 22:19 Dose: 600 mg Lisinopril (Lisinopril 20 Mg Tablet) 20 mg PO QAM [facility] Last Admin: 05/13/22 08:32 Dose: 20 mg Lisinopril (Lisinopril 10 Mg Tablet) 10 mg PO DAILY [facility] Meloxicam (Meloxicam 7.5 Mg Tablet) 15 mg PO DAILY [facility] Last Admin: 05/13/22 08:32 Dose: 15 mg Miscellaneous Information (Dc 20mg Lisinopril? Or Dose Incr To 30mg. Call Placed To Dr @1026 Am) 0 each XX CLARIFY [facility] Stop: 06/12/22 00:00 Naloxone HCl (Naloxone Hcl 0.4 Mg/Ml Vial) 0.1 mg IV PUSH Q2M PRN PRN Reason: Opiate Reversal Methimazole 2.5 Mg Tablet (Nonformulary - Will Not Scan) 1 each PO DAILY [facility] Last Admin: 05/13/22 08:32 Dose: 1 each Ondansetron HCl (Ondansetron Inj 4 Mg/2 Ml Vial) 4 mg IV PUSH Q4H PRN PRN Reason: Nausea And Vomiting Last Admin: 05/11/22 20:46 Dose: 4 mg Ondansetron HCl (Ondansetron Inj 4 Mg/2 Ml Vial) 4 mg IV PUSH ONCE PRN PRN Reason: Nausea Ondansetron HCl (Ondansetron Inj 4 Mg/2 Ml Vial) 4 mg IV PUSH Q4H PRN PRN Reason: Nausea And Vomiting Oxycodone HCl (Oxycodone Hcl (*Crx) 5 Mg Tab Ir) 5 mg PO ONCE PRN PRN Reason: Pain Polyethylene Glycol (Polyethylene Glycol 3350 17 Gm Powd.Pack) 17 gm PO QAM [facility] Last Admin: 05/13/22 08:31 Dose: Not Given Senna/Docusate Sodium (Senna/Docusate Sodium Tablet) 2 tab PO BID [facility] Last Admin: 05/13/22 08:31 Dose: 2 tab Sodium Chloride (Saline Lock Flush) 10 ml IV PUSH Q8HR [facility] Last Admin: 05/13/22 05:39 Dose: 10 ml Sodium Chloride (Saline Lock Flush) 10 ml IV PUSH PRN PRN P
--- NOTE | 2022-05-13 11:11 | WPDCARDPROC ---
Cardiac Cath Procedure Note Date of procedure:: 05/13/22 Performing physician:: Rene Hauser MD Indication:: Streptococcal bacteremia Brief clinical history:: This is a 61-year-old woman who was admitted to the hospital over 2 weeks ago she did have streptococcal bacteremia and has had evidence of a reactive polyarticular arthritis. Sampson has been requested to rule out valvular vegetations. Transthoracic echocardiography did not demonstrate any evidence of this Procedure Procedure performed:: Transesophageal echocardiogram Sedation/Medication given:: Fentanyl 50 mg Versed 4 mg Case start time 1107 a.m. Case end time 11:09 a.m. Sedation provided by John Jmi RN, trained observer Estimated blood loss:: No blood loss Procedure note:: Patient was brought to the cardiac catheterization lab holding area where she was in the postabsorptive state placed in the supine position. The oropharynx was sprayed with benzocaine and the bite block was placed into position the patient was then sedated using 50 mg of fentanyl and 4 mg of Versed. Sedation was excellent. The SAMPSON probe was easily placed into the esophagus and multiplanar imaging was performed of all of cardiac valves. Following inspection of all the valves the SAMPSON probe was withdrawn. The patient was stable appreciate ECG well tolerated and uncomplicated. Findings:: The left atrium is normal in size. The mitral valve leaflets are normal in appearance no evidence of a vegetation was identified. There is a small central jet of mitral regurgitation identified. The aortic valve is a trileaflet structure which is normal in appearance there were no signs of any infective vegetations associated with the aortic valve. No aortic regurgitation was detected. The left ventricle is of normal dimension thickness and contractility. The right-sided chambers are unremarkable in appearance the tricuspid valve was inspected found to be normal in appearance with no evidence of any vegetative material in no regurgitant lesion was seen. The pulmonic valve was also then inspected with no evidence of any vegetative material and no regurgitant lesion. Conclusion:: Transesophageal echocardiogram demonstrating no valvular vegetations and a small amount of central mitral regurgitation. No transesophageal echocardiographic evidence to support the diagnosis of bacterial endocarditis Rene Hauser MD [facility]
--- NOTE | 2022-05-13 12:39 | PC.NURSE ---
Patient returned to unit from SHANNAN
--- NOTE | 2022-05-13 13:27 | PM.PNORT ---
Progress Note: A&P Assessment and Plan (1) Streptococcal bacteremia: Code(s): R78.81 - Bacteremia; B95.5 - Unspecified streptococcus as the cause of diseases classified elsewhere Status: Acute Assessment and Plan: POD #3: LEFT KNEE ARTHROSCOPIC LAVAGE WITH SYNOVECTOMY AND CHONDROPLASTY and LEFT FOOT I AND D OF SKIN AND SUPERFICIAL TISSUE PT/OT. WBAT. Fracture boot LLE. Walker. Ice knee. Drain pulled. Drain site covered with gauze. Change PRN. Portals covered with bandaids, change PRN. Pain control. IV antibiotics x2 weeks at discharge for septic knee arthritis per Dr. Diez. Care coordination notified. PICC line in place. Dispo: Home with IV Infusion Follow up in the outpatient ortho clinic in 2 weeks. (2) Reactive arthritis: Code(s): M02.30 - Mario's disease, unspecified site Status: Acute Subjective Subjective Date/Time Seen: 05/13/22 13:27 Post Op day: 3 Principal diagnosis: Left knee septic arthritis/Left Ankle Wound Interval history: POD #3: LEFT KNEE ARTHROSCOPIC LAVAGE WITH SYNOVECTOMY AND CHONDROPLASTY, LEFT FOOT I AND D OF SKIN AND SUPERFICIAL TISSUE No new complaints. Pain well controlled. Walking with walker. Hopeful for discharge home. Review of Systems Review of Systems: All systems reviewed & are unremarkable except as noted in HPI and below Exam Const: General: comfortable; No acute distress Resp: Effort & Inspection: normal respiratory effort and no audible wheezes Cardio: Rate: regular rate GI: GI Palp: Yes Soft to palpation and No Tenderness to palpation present (GI) Skin: General skin exam: normal color Neuro: Sensory Exam: normal sensation Extrem: Right lower extremity: lower leg ( Negative Homans sign), ankle Details: normal ROM ( dorsiflexion and plantar flexion intact) and foot Details: vascular exam Details: dorsalis pedis pulse present and normal capillary refill, tendon exam Details: active flexion normal and active extension normal and motor-sensory exam Details: light-touch normal Location: in all toes; no edema Other: Left knee dressing removed. Drain pulled. Scant sanguinous drainage. Portals well approximated at medial and lateral knee. Superior portal over quad sutures not holding. Steri-strips placed. No signs of infection. Knee and surrounding tissue soft. Left ankle dressing/splint removed. Medial ankle clean, dry and intact. No blistering. New dressing applied. Psych: Mental Status: mental status grossly normal Objective Data Vital Signs Vital Signs: Vital Signs - 24 hr 05/12/22 14:05 05/12/22 22:00 05/13/22 05:30 Temperature 37.4 C 37.7 C H 36.1 C L Pulse Rate 83 90 82 Respiratory Rate 16 16 16 Blood Pressure 139/66 151/74 H 139/68 Pulse Oximetry 94 98 100 Oxygen Delivery Oxygen Flow Rate 05/13/22 10:40 05/13/22 11:00 05/13/22 11:45 Temperature Pulse Rate 77 81 82 Respiratory Rate 17 18 20 Blood Pressure 127/82 148/76 H 127/70 Pulse Oximetry 97 97 92 Oxygen Delivery Room Air Nasal Cannula Nasal Cannula Oxygen Flow Rate 2 1 05/13/22 12:00 05/13/22 12:10 05/13/22 08:31 Temperature Pulse Rate 78 76 Respiratory Rate 18 18 Blood Pressure 124/66 122/73 Pulse Oximetry 92 93 Oxygen Delivery Room Air Room Air Room Air Oxygen Flow Rate 05/13/22 11:05 05/13/22 11:10 05/13/22 11:15 Temperature Pulse Rate 84 82 82 Respiratory Rate 22 H 22 H 20 Blood Pressure 145/69 H 147/82 H 122/69 Pulse Oximetry 99 93 92 Oxygen Delivery Nasal Cannula Nasal Cannula Nasal Cannula Oxygen Flow Rate 3 3 2 05/13/22 11:30 Temperature Pulse Rate 80 Respiratory Rate 22 H Blood Pressure 127/63 Pulse Oximetry 92 Oxygen Delivery Nasal Cannula Oxygen Flow Rate 2 Intake/Output Intake/Output: Intake & Output 05/10/22 05/11/22 05/12/22 05/13/22 23:59 23:59 23:59 23:59 Intake Total 1240 1980 470 50 Output Total 1930 630 Balance -690 1350 470 50 Meds/Results Medications: Active Medic
[2022-05-13 14:09] LABS: Iron 28 ug/dL (37-170)
[2022-05-13 14:19] LABS: Percent Iron Saturation 18 % (20-50)
--- NOTE | 2022-05-13 15:16 | PM.DS ---
DS: Admitting Diagnosis Discharge Date 05/13/22 Admitting Diagnosis right hand swelling DS: Discharge Diagnosis Discharge Diagnosis (1) Streptococcal bacteremia: Code(s): R78.81 - Bacteremia; B95.5 - Unspecified streptococcus as the cause of diseases classified elsewhere Status: Acute Assessment and Plan: Patient presents with right hand and left knee, foot/ankle erythema, edema, pain and fevers consistent with arthropathy and cellulitis with associated group a streptococcal bacteremia on initial blood cultures, repeat blood cultures negative, surface echo without vegetation, SHANNAN pending today, if this is negative also for vegetation, would discharge patient on oral antibiotics, follow cultures from surgery Abx: -Vancomycin started on 04/25 and stopped 05/02. -Cefazolin started 04/25 and changed to Rocephin 04/26. -Flagyl for possible anaerobic infection added 05/02. -Rocephin de-escalated to keflex 05/06. -Imaging from 05/08 is concerning for osteomyelitis, will switch back to IV ancef alone on 05/09, d/c oral keflex + flagyl until further recommendations per surgery or cultures show something otherwise. 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 Joint/wound cultures all negative for organisms, positive for WBCs only. Cx NGTD. She does have a murmur and review of the echo showing only mild MR and TR. Etiology of her multiple joint involvement probably reactive given that she has tenosynovitis with enthesopathy and the asymmetric nature. No history of gout and negative crystal exams. Autoimmune markers essentially negative. RF slightly elevated but anti-CCP negative and doubt RA. BRAXTON negative. Lyme serology is ordered and pending. Repeat surface echo negative for vegetation. Cardio consulted for SHANNAN on Friday, if this is negative would discharge on oral antibiotics with kelfex (3) Cellulitis: Qualifiers: Laterality: right Site of cellulitis: extremity Site of cellulitis of extremity: upper extremity Qualified Code(s): L03.113 - Cellulitis of right upper limb Code(s): L03.90 - Cellulitis, unspecified Status: Acute Assessment and Plan: As above. (4) Anemia: Code(s): D64.9 - Anemia, unspecified Status: Acute Assessment and Plan: Stable, monitor Uncertain of etiology, hgb was normal 02/02 Check iron studies, B12, folate (5) Acute kidney injury: Code(s): N17.9 - Acute kidney failure, unspecified Status: Acute Assessment and Plan: Resolved (6) Hypertension: Code(s): I10 - Essential (primary) hypertension Status: Chronic Assessment and Plan: Stable, restart home lisinopril (7) Hyperthyroidism: Code(s): E05.90 - Thyrotoxicosis, unspecified without thyrotoxic crisis or storm Status: Acute Assessment and Plan: Patient with hx of hyperthyroidism. On methimaole which is continued. FT4 normal. Continue the same. Plan Elevated LFTs: Resolved DVT prophylaxis with SCDs GI prophylaxis not indicated Code status full code DS: Summary Hospital Course Hospital Course: 61-year-old female with past medical history significant for hypertension, hyperthyroidism and osteopenia is presenting with 2 day history of fevers and swelling to her right hand as well as her l
[2022-05-17 10:35] LABS: Total Protein Synovial Fluid 4.3
== END 2022-05-13 17:18 | disposition home health service (06) | DRG 488 ==
LOC: ANHED 06:19 → ANH3MEDSUR 11:45
PROVIDERS: Chiropractor; Internal Medicine; Internal Medicine Nephrology; Nurse Practitioner Family; Orthopaedic Surgery; Plastic Surgery; Specialist; Admitting Provider Internal Medicine; Emergency Provider Emergency Medicine; PCP Internal Medicine; Visit Provider Student in an Organized Health Care Education/Training Program
PROC: 0SBD4ZZ Excision of Left Knee Joint, Percutaneous Endoscopic Approach (ICD-10-PCS; CPT 29870; principal; 2022-05-10 15:15)
PROC: B24BZZ4 Ultrasonography of Heart with Aorta, Transesophageal (ICD-10-PCS; CPT 93312; principal; 2022-05-13 12:00)
DX: M25.462 Effusion, left knee (principal); L03.113 Cellulitis of right upper limb; N17.9 Acute kidney failure, unspecified; R78.81 Bacteremia; M02.39 Reiter's disease, multiple sites; K21.9 Gastro-esophageal reflux disease without esophagitis; E55.9 Vitamin D deficiency, unspecified; I10 Essential (primary) hypertension; E05.90 Thyrotoxicosis, unspecified without thyrotoxic crisis or storm; D64.9 Anemia, unspecified; B95.5 Unspecified streptococcus as the cause of diseases classified elsewhere; M85.80 Other specified disorders of bone density and structure, unspecified site; Z20.822 Contact with and (suspected) exposure to COVID-19; Z79.899 Other long term (current) drug therapy; Z79.1 Long term (current) use of non-steroidal anti-inflammatories (NSAID); Z82.49 Family history of ischemic heart disease and other diseases of the circulatory system; Z82.3 Family history of stroke; Z83.3 Family history of diabetes mellitus; Z80.9 Family history of malignant neoplasm, unspecified
CPT/HCPCS: 10160; 20610; 36415; 36569; 73130; 73220; 73562; 73630; 73723; 76775; 76882; 76942; 80048; 80053; 80069; 80076; 80202; 81001; 82040; 82550; 82565; 82570; 82607; 82728; 82746; 82945; 83520; 83540; 83550; 83735; 84100; 84145; 84156; 84157; 84300; 84439; 84443; 84550; 85025; 85027; 85055; 85610; 85652; 85999; 86036; 86038; 86140; 86160; 86162; 86200; 86225; 86430; 86617; 86704; 86706; 86803; 87040; 87070; 87075; 87086; 87147; 87205; 87340; 87637; 89051; 89060; 93306; 93308; 93312; 93320; 93325; 93971; 96361; 96365; 96366; 96367; 96375; 97110; 97161; 97164; 97165; 97168; 97530; 97535; 99285; A9270; A9577; C1751; G0378; J0131; J0690; J0696; J1100; J1170; J1650; J1885; J1940; J2250; J2270; J2405; J2704; J3010; J3370; J7030; J7040; J7120; J7512

== ENCOUNTER 2022-05-14 17:18 | Observation (INO) | payer BC, SELFPAY ==
[2022-05-14] VITALS (10 sets, daily range): BP systolic 132–137; BP diastolic 77–87; PULSE 57–103; RESP 16–31; TEMP 36.5–36.8; O2SAT 96–100; BMI 26.9
--- NOTE | ~2022-05-14 | XR_ITS ---
EXAMINATION: XR chest 2V Exam Date/Time: 05/14/2022 19:20 OFFICE SYSTEM ANALYST HISTORY: dyspnea Comparison: None available. RESULT: Lines, tubes, and devices: None. Lungs and pleura: Clear. Cardiomediastinal silhouette: Unremarkable. Other: No acute osseous or upper abdominal finding. IMPRESSION: No acute cardiopulmonary process. Reviewed, dictated and finalized at location K. CE SYSTEM ANALYST
--- NOTE | ~2022-05-14 | US_ITS ---
EXAMINATION: US venous doppler [facility] DATE: 05/15/2022 15:47 INDICATION: Lower limb swelling. Elevated d-dimer. TECHNIQUE: Grayscale ultrasound images without and with compression and Doppler ultrasound images of the bilateral lower extremity veins were obtained. COMPARISON: None. FINDINGS: The visualized portions of right common femoral vein, profunda (deep) femoral vein, femoral vein, pop liteal vein, posterior tibial veins, peroneal veins, gastrocnemius vein and greater saphenous vein ou tflow are patent. The visualized portions of left common femoral vein, profunda femoral vein, femoral vein, popliteal v ein, posterior tibial veins, peroneal veins, gastrocnemius vein and greater saphenous vein outflow ar e patent. Small Leigh's cyst at the left popliteal fossa. IMPRESSION: 1. No deep venous thrombosis in either lower limb. 2 . Small Leigh's cyst at the left popliteal fossa. Reviewed, dictated and finalized at location A. [facility]
--- NOTE | ~2022-05-14 | CT_ITS ---
EXAMINATION: CTA chest PE protocol DATE: 05/14/2022 21:47 INDICATION: dyspnea TECHNIQUE: Computed tomography angiography (CTA) of the chest was performed with 100 mL Omnipaque-350 intravenous contrast timed to evaluate the pulmonary arteries. Coronal maximum intensity projection 3D-reconstructions were created by the technologist. The dose-length product (DLP) was 268.97 mGy-cm. Automated exposure control and iterative reconstruction technique were employed. COMPARISON: None. FINDINGS: Lung parenchyma and airways: Minimal dependent atelectasis. Lingular scar. 3 mm calcified left upper lung granuloma. Pleura: Unremarkable. Thoracic inlet, axillae and chest wall: Unremarkable. Thoracic aorta: Mild arch ectasia. Mediastinum: Mildly dilated central pulmonary arteries as can be seen with pulmonary arterial hyperte nsion. Heart and pericardium: Mild cardiomegaly. Coronary artery calcifications: Absent. Upper abdomen: Bilateral adrenal masses. Bones: No acute osseous finding. Pulmonary arteries: Study quality: Adequate. No pulmonary emboli detected. IMPRESSION: No CT evidence of acute pulmonary embolus. Indeterminate bilateral adrenal masses, recommend nonemerg ent, outpatient MRI or CT of the abdomen with adrenal mass protocol. Reviewed, dictated and finalized at location K. STITCH CLEANER IMPRESSION: No CT evidence of acute pulmonary embolus. Indeterminate bilateral adrenal mass es, recommend nonemergent, outpatient MRI or CT of the abdomen with adrenal mas s protocol.
--- NOTE | 2022-05-14 18:59 | ECG_ITS ---
Measurements Intervals [place] Rate: 85 P: 20 DC: 161 QRS: 3 QRSD: 86 T: 7 QT: 378 QTc: 450 Interpretive Statements SINUS RHYTHM VENTRICULAR TRIGEMINY INCOMPLETE RIGHT BUNDLE BRANCH BLOCK LEFT VENTRICULAR HYPERTROPHY WITH ST-T CHANGE BORDERLINE T WAVE ABNORMALITY- ANT/INF LEADS ABNORMAL ECG NO PREVIOUS ECG AVAILABLE FOR COMPARISON Electronically Signed On 05-14-2022 21:28:14 MANAGING PARTNER by Alejandro Garzon D.O.
--- NOTE | 2022-05-14 20:38 | ED.SOB ---
HPI - SOB/Dyspnea General Chief Complaint: Shortness of Breath/Dyspnea Stated Complaint: sob Time Seen by Provider: 05/14/22 19:48 Source: patient Mode of arrival: wheelchair Limitations: no limitations History of Present Illness HPI Narrative: Patient is a 61-year-old female with a recent complicated medical history and discharged from this facility yesterday after a 19-day stay for septic arthritis of the right hand and left foot and ankle. Per my chart review including history and physical exam, discharge summary, progress notes and specialty notes from plastic hand surgeon and orthopedic surgery, patient cultures notable for group a strep for which patient was discharged home on a PICC line. Patient states that she returned home yesterday and has been significantly fatigued and dyspneic with any exertional activity. Patient denies any chest pain, cough or hemoptysis. She reports low-grade fever yesterday while she was still in the hospital. She denies any recurrent fever over the past 24 hours. Patient states that it took her approximately 1 hour to ascend 7 stairs with multiple assistance and is likely not safe at home secondary to her shortness of breath. She reports lower extremity swelling in the left lower extremity that does seem to be improving from when she was admitted in the hospital. She denies any new or focal pain. Related Data Home Medications Medication Instructions Recorded Confirmed alendronate 70 mg tablet 70 mg PO WEEKLY 01/06/20 04/25/22 ferrous sulfate 325 mg (65 mg 325 mg PO .2XWEEK 01/06/20 04/25/22 iron) tablet (Feosol) methimazole 5 mg tablet 2.5 mg PO DAILY 01/06/20 04/25/22 meloxicam 15 mg tablet 15 mg PO DAILY 02/08/22 04/25/22 calcium carbonate 600 mg-vitamin 1 cap PO DAILY 04/25/22 04/25/22 D3 10 mcg (400 unit) capsule Allergies Allergy/AdvReac Type Severity Reaction Status Date / Time losartan Allergy Unknown Unknown Verified 04/25/22 09:59 Review of Systems Review of Systems: CONSTITUTIONAL: Reports fever, reports chills EYES: Denies visual changes, redness, or discharge. ENT: Denies rhinorrhea, congestion, sore throat, or otalgia. CARDIOVASCULAR: Denies chest pain, palpitations, or edema. RESPIRATORY: Reports dyspnea, denies cough, denies hemoptysis GASTROINTESTINAL: Denies abdominal pain, nausea, vomiting, or diarrhea. GENITOURINARY: Denies dysuria or hematuria. SKIN: Denies rash or itching. MUSCULOSKELETAL: Denies back pain, joint pain, or myalgia. NEUROLOGIC: Denies headache, numbness, or weakness. [facility] Past Medical History Medical History Foot swelling Hypertension Hyperthyroidism Inflammatory arthritis Osteopenia after menopause Swelling of left knee joint Surgical History Surgical History H/O: hysterectomy History of ankle surgery Family History Family History Mother Family history of diabetes mellitus in first degree relative Father Patient's father is Acute myocardial infarction Sibling Hypertension Grandparent Cerebrovascular accident Other Family history of arthritis Family history of cardiovascular disease Family history of malignant neoplasm Social History Social History Smoking status: Never smoker Alcohol intake: current Lack of Transportation: No Lack of Food: Never True Current Housing: I Have Housing Concerned About Future Housing: No Difficulty Paying Gas/Electric Bills: No Difficulty Paying for Meds: No Currently Unemployed: No Education: Bachelor's Degree Difficulty w/ Childcare or Family Care: No Spiritual care concerns: No Exam Narrative: GENERAL: Awake, alert, conversant HEAD: Normocephalic, atraumatic. EYES: PERRLA and EOMI. ENT: Nares clear, no rhinorrhea
[2022-05-14 20:53] LABS: Basophils Absolute Auto 0.1 K/mm3 (0.0-0.1); Basophils Percent Auto 0.7 % (0.2-1.2); Eosinophils Absolute Auto 0.1 K/mm3 (0-0.3); Hematocrit 28.5 % (37.0-47.0); Hemoglobin 8.8 g/dL (12.0-15.0); Immature Granulocyte Absolute 0.06 K/mm3 (0.00-0.031); Immature Granulocyte Percent A 0.9 % (0-0.5); Lymphocytes Absolute Auto 1.22 K/mm3 (0.9-3.2); Lymphocytes Percent Auto 17.4 % (18.3-44.2); Mean Corpuscular HGB Conc 30.9 g/dl (32-36); Mean Corpuscular Hemoglobin 30.9 pg (26-34); Mean Platelet Volume 10.5 fl (7.4-10.4); Monocytes Absolute Auto 0.7 K/mm3 (0.1-0.6); Monocytes Percent Auto 9.4 % (2.6-8.5); Neutrophils Absolute Auto 4.9 K/mm3 (1.3-6.7); Neutrophils Percent Auto 70.6 % (45.5-73.1); Platelet Count Result 428 k/mm3 (150-375); Red Blood Count 2.85 M/mm3 (4.2-5.4); Red Cell Distribution Width 12.7 % (11.5-14.5)
[2022-05-14 21:09] LABS: D Dimer 3.59 ug/mL (<0.48)
[2022-05-14 21:23] LABS: Alanine Aminotransferase 28 U/L (6-35); Albumin Level 3.4 g/dL (3.5-5.1); Alkaline Phosphatase 65 U/L (38-126); Anion Gap 9 mmol/L (8-16); Aspartate Amino Transferase 45 U/L (14-36); Bilirubin,Total 0.5 mg/dL (0.2-1.3); Blood Urea Nitrogen 24 mg/dL (7-17); Calcium 8.7 mg/dL (8.4-10.2); Carbon Dioxide 23 mmol/L (22-30); Chloride 108 mmol/L (98-107); Estimated CRCL calculation 77 ml/min; Estimated Glomerular Filt Rate > 60; Glucose 105 mg/dL (65-110); Potassium 3.6 mmol/L (3.4-5.0); Sodium 140 mmol/L (137-145)
[2022-05-14 21:35] LABS: NT Pro B Type Natriuretic Pept 330 pg/mL (19.9-100); Troponin I < 0.012 ng/mL (0.000-0.034)
--- NOTE | 2022-05-14 21:40 | PC.NURSE ---
Patient off unit to CT.
[2022-05-14 21:41] LABS: Influenza A QL RT-PCR Negative (Negative); Influenza B QL RT-PCR Negative (Negative); RSV RNA, RT-PCR Negative (Negative); SARS-CoV-2 RNA PCR Negative
--- NOTE | 2022-05-14 22:18 | PM.IMHP ---
H&P: HPI History of Present Illness Date/Time: 05/14/22 22:18 Chief Complaint: Failure to thrive Narrative: This is a 61-year-old female with past medical history significant for osteoporosis, iron deficiency anemia, hypertension, patient just recently treated and discharged home for septic arthritis with home health and long-term antibiotic IV however patient returns today to the emergency room due to profound deconditioning unable to walk short distances within the house or go up stairs, feeling short of breath having poor stamina. Patient went home with a supply of cefazolin. She denies any fevers, rigors, chills, nausea, vomiting, syncope or near syncope. Preliminary workup was significant for CT angiogram of the chest was reported as: IMPRESSION: No CT evidence of acute pulmonary embolus. Indeterminate bilateral adrenal masses, recommend nonemergent, outpatient MRI or CT of the abdomen with adrenal mass protocol. Chest x-ray was reported as: IMPRESSION: No acute cardiopulmonary process. Review of Systems Review of Systems: Poor stamina, generalized weakness, shortness of breath. Constitutional: Constitutional: Denies chills, Reports fatigue, Denies fever(s), Reports lethargy, Denies malaise, Denies night sweats, Denies poor appetite and Reports weakness Eyes: Eyes: Denies change in vision ENT: Denies dysphagia and Denies odynophagia Cardiovascular: Cardiovascular: Denies chest pain, Denies leg edema, Denies lightheadedness and Denies radiating jaw, neck or arm pain Respiratory: Respiratory: Denies chest congestion, Denies excessive phlegm production and Denies pain on inspiration Gastrointestinal: Gastrointestinal: Denies abdominal pain, Denies dyspepsia, Denies heartburn, Denies diarrhea, Denies nausea and Denies vomiting Genitourinary: Genitourinary: Denies dysuria Musculoskeletal: Musculoskeletal: Reports arthralgias, Reports muscle weakness and Reports stiffness Integumentary/Breasts: Skin/Breast: Denies rash Neurologic: Denies abnormal gait, Denies dizziness, Denies focal weakness and Denies Sensory deficit (Neuro) Psychiatric: Psychiatric: Reports no additional psychiatric complaints and Reports as per HPI Endocrine: Endocrine: Denies cold intolerance, Denies flushing, Denies heat intolerance, Denies polyphagia, Denies polydipsia and Denies palpitations Hematologic/Lymphatic: Hematologic/Lymphatic: Reports no additional hematologic/lymphatic complaints and Reports as per HPI Allergic/Immunologic: Allergic/Immunologic: Reports no additional allergic/immunologic complaints and Reports as per HPI [facility] Past Medical History Medical History Foot swelling Hypertension Hyperthyroidism Inflammatory arthritis Osteopenia after menopause Swelling of left knee joint Surgical History Surgical History H/O: hysterectomy History of ankle surgery Family History Family History Mother Family history of diabetes mellitus in first degree relative Father Patient's father is Acute myocardial infarction Sibling Hypertension Grandparent Cerebrovascular accident Other Family history of arthritis Family history of cardiovascular disease Family history of malignant neoplasm Social History Social History Smoking status: Never smoker Alcohol intake: current Drinks per week: 3 Substance use: never Lack of Transportation: No Lack of Food: Never True Current Housing: I Have Housing Concerned About Future Housing: No Difficulty Paying Gas/Electric Bills: No Difficulty Paying for Meds: No Currently Unemployed: No Education: Bachelor's Degree Difficulty w/ Childcare or Family Care: No Spiritual care concerns: No Meds Home Medications and
--- NOTE | 2022-05-14 23:31 | PC.NURSE ---
Patient arrived on 3 Med-Surg at 23:18 on 05/14/2022
[2022-05-15 00:02] VITALS: PULSE 57; RESP 16; TEMP 36.5; O2SAT 100
[2022-05-15] MEDS: ACETAMINOPHEN 325 MG TABLET 650 MG PO ×3 (00:04→20:42)
[2022-05-15 00:46] VITALS: BP 134/82
[2022-05-15 05:51] VITALS: BP 164/52; PULSE 80; RESP 16; TEMP 36.3; O2SAT 98
[2022-05-15 10:59] LABS: Hematocrit 26.5 % (37.0-47.0); Hemoglobin 8.5 g/dL (12.0-15.0); Mean Corpuscular HGB Conc 32.1 g/dl (32-36); Mean Corpuscular Volume 96.7 fl (80-100); Mean Platelet Volume 10.1 fl (7.4-10.4); Platelet Count Result 384 k/mm3 (150-375); Red Blood Count 2.74 M/mm3 (4.2-5.4); Red Cell Distribution Width 12.9 % (11.5-14.5); White Blood Count 4.8 K/mm3 (4.5-10.0)
[2022-05-15 11:16] LABS: Anion Gap 6 mmol/L (8-16); Blood Urea Nitrogen 17 mg/dL (7-17); Calcium 8.3 mg/dL (8.4-10.2); Carbon Dioxide 24 mmol/L (22-30); Chloride 106 mmol/L (98-107); Estimated CRCL calculation 69 ml/min; Estimated Glomerular Filt Rate > 60; Glucose 119 mg/dL (65-110); Potassium 3.3 mmol/L (3.4-5.0); Sodium 136 mmol/L (137-145)
[2022-05-15] MEDS: ENOXAPARIN 40 MG/0.4 ML SYRINGE SUB-Q (11:44)
[2022-05-15] MEDS: MELOXICAM 7.5 MG TABLET 15 MG PO (11:45)
[2022-05-15] MEDS: amLODIPine BESYLATE 5 MG TABLET PO (11:45)
[2022-05-15] MEDS: lisinopriL 20 MG TABLET PO (11:46)
[2022-05-15] MEDS: ONDANSETRON INJ 4 MG/2 ML VIAL IV PUSH (13:23)
--- NOTE | 2022-05-15 13:29 | PCPTNOTE ---
Pt on hold for therapy per hospitalist until ortho sees pt. Will make RN aware.
--- NOTE | 2022-05-15 13:34 | PCOTNOTE ---
Pt on hold for therapy per hospitalist until ortho sees pt. Following
[2022-05-15 14:00] VITALS: BP 169/59; PULSE 88; RESP 16; TEMP 36.2; O2SAT 96
[2022-05-15] MEDS: cefTRIAXone 2 GM in SODIUM CHLORIDE 0.9% IV 100 ML 200 ML IVPB (15:50)
--- NOTE | 2022-05-15 17:02 | PM.IMPN ---
Progress Note: A&P Assessment and Plan (1) Dyspnea: Code(s): R06.00 - Dyspnea, unspecified Status: Acute Assessment and Plan: patient presented with shortness of breath less than 24 hours following >2 week hospitalization CXR on presentation showed no acute cardiopulmonary process CTA negative for PE suspect findings related to prolonged hospitalization and overall physical deconditioning continue with PT/OT supportive care, incentive spirometry (2) Physical deconditioning: Code(s): R53.81 - Other malaise Status: Acute Assessment and Plan: Likely secondary to acute illness and prolonged hospitalization continue PT/OT as above patient may benefit from SNF prior to discharge (3) Elevated d-dimer: Code(s): R79.89 - Other specified abnormal findings of blood chemistry Status: Acute Assessment and Plan: D-dimer was 3.59 CTA negative for PE bilateral venous Doppler negative for DVT (4) Streptococcal bacteremia: Code(s): R78.81 - Bacteremia; B95.5 - Unspecified streptococcus as the cause of diseases classified elsewhere Status: Acute Assessment and Plan: reviewed notes and cultures from prior admission patient has been continued done Ancef q8h discussed case with Infectious Disease PharmD, will transition to Rocephin 2 g q24h during admission left knee cultures from 05/10/2022 ( when patient had left knee washout) still pending finalization, continue to monitor no need for repeat cultures at this time as there was no signs of acute infection. Patient is afebrile and white blood cell count is within normal limits (5) Hypertension: Code(s): I10 - Essential (primary) hypertension Status: Chronic Assessment and Plan: blood pressures are stable at this time continue home lisinopril and amlodipine (6) Hyperthyroidism: Code(s): E05.90 - Thyrotoxicosis, unspecified without thyrotoxic crisis or storm Status: Acute Assessment and Plan: TSH is within normal limits continue home methimazole Subjective Date/time seen: 05/15/22 17:02 Interval history: date of service: 05/15/2022 Tiffanie casey is a 61-year-old female with a history of hypertension, hyperthyroidism, and recent hospital admission from 04/25/2022-05/13/2022 for streptococcal bacteremia with reactive arthritis. she was home less than 24 hours when she denies shortness of breath and had difficulty getting. Shortness of breath persists today. she endorses feeling weak and slightly out of it. she has been able to ambulate to and from the bathroom using a walker and assistance. Her knee pain is negligible at this time as she is laying still. With movement, her pain increases to about 4/10. She denies any other specific joint pain. she denies nausea, vomiting, fever, chills. no chest pain or palpitations. Denies hemoptysis. Review of Systems Review of Systems: All systems reviewed & are unremarkable except as noted in HPI and below Exam Narrative: General: Well-nourished, well-appearing 61-year-old female, sitting up in bed, comfortable, NARD Neuro: awake, alert and oriented x4, speech clear, no focal neuro deficits noted HEENMT: normocephalic, atraumatic, EOMI, sclerae anicteric, moist oral mucosa Respiratory: clear to auscultation bilaterally, nonlabored breathing Cardio: regular rate, regular rhythm with S1-S2 Abdomen: nondistended, normoactive bowel sounds, soft, nontender to palpation Extremities: left knee covered with dressing that is clean and dry, left lower extremity with 1+ edema, right lower extremity with trace edema,no erythema or tenderness to palpation, DP pulses 2+ bilaterally Skin: no rashes or lesions, warm and dry Psych: appropriate mood and affect, judgment and insight intact Objective Data Vital Signs Vital Signs: Vital Signs - 24 hr 05/14/22 17:47 05/14/22
[2022-05-15] MEDS: POTASSIUM CHLORIDE 20 MEQ TABLET PO (17:26)
[2022-05-15 21:50] VITALS: BP 158/58; PULSE 77; RESP 16; TEMP 36.2; O2SAT 96
[2022-05-16 05:59] VITALS: BP 181/76; PULSE 108; RESP 18; TEMP 36.2; O2SAT 100
[2022-05-16 06:11] LABS: Hematocrit 26.5 % (37.0-47.0); Hemoglobin 8.2 g/dL (12.0-15.0); Mean Corpuscular HGB Conc 30.9 g/dl (32-36); Mean Corpuscular Volume 97.1 fl (80-100); Mean Platelet Volume 10.7 fl (7.4-10.4); Platelet Count Result 357 k/mm3 (150-375); Red Blood Count 2.73 M/mm3 (4.2-5.4); Red Cell Distribution Width 12.4 % (11.5-14.5); White Blood Count 4.2 K/mm3 (4.5-10.0)
[2022-05-16 06:28] LABS: Anion Gap 8 mmol/L (8-16); Blood Urea Nitrogen 16 mg/dL (7-17); Calcium 8.2 mg/dL (8.4-10.2); Carbon Dioxide 23 mmol/L (22-30); Chloride 109 mmol/L (98-107); Estimated CRCL calculation 69 ml/min; Estimated Glomerular Filt Rate > 60; Glucose 106 mg/dL (65-110); Potassium 3.6 mmol/L (3.4-5.0); Sodium 140 mmol/L (137-145)
[2022-05-16] MEDS: ACETAMINOPHEN 325 MG TABLET 650 MG PO ×2 (06:38→15:56)
[2022-05-16 06:49] VITALS: BP 142/86
[2022-05-16] MEDS: ENOXAPARIN 40 MG/0.4 ML SYRINGE SUB-Q (08:26)
[2022-05-16] MEDS: MELOXICAM 7.5 MG TABLET 15 MG PO (08:27)
[2022-05-16] MEDS: amLODIPine BESYLATE 5 MG TABLET PO (08:27)
[2022-05-16] MEDS: FERROUS SULFATE 324 MG TABLET PO (08:28)
[2022-05-16] MEDS: lisinopriL 20 MG TABLET PO (08:28)
--- NOTE | 2022-05-16 10:27 | PCOTNOTE ---
Attempted OT evaluation, needs clarification from Dr. Ferrera for need of fracture boot during therapy. Call back waiting from Dr. Ferrera at this time. Will complete evaluation when clarification received.
--- NOTE | 2022-05-16 10:35 | PCOTNOTE ---
Spoke with Dr. Diez's office who reports patient is L LE WBAT with a fracture boot and a night splint. The fracture boot and night splint are not present at hospital at this time. Will complete OT evaluation when fracture boot and night splint are available. Will notify nursing.
[2022-05-16 14:57] VITALS: BP 157/53; PULSE 79; RESP 17; TEMP 36.3; O2SAT 98
[2022-05-16] MEDS: cefTRIAXone 2 GM in SODIUM CHLORIDE 0.9% IV 100 ML 200 ML IVPB (15:13)
--- NOTE | 2022-05-16 16:16 | PM.IMPN ---
Progress Note: A&P Assessment and Plan (1) Dyspnea: Code(s): R06.00 - Dyspnea, unspecified Status: Acute Assessment and Plan: patient presented with shortness of breath less than 24 hours following >2 week hospitalization CXR on presentation showed no acute cardiopulmonary process CTA negative for PE suspect findings related to prolonged hospitalization and overall physical deconditioning continue with PT/OT supportive care, incentive spirometry (2) Physical deconditioning: Code(s): R53.81 - Other malaise Status: Acute Assessment and Plan: Likely secondary to acute illness and prolonged hospitalization continue PT/OT as above planning for SNF following discharge (3) Elevated d-dimer: Code(s): R79.89 - Other specified abnormal findings of blood chemistry Status: Acute Assessment and Plan: D-dimer was 3.59 on admission CTA negative for PE bilateral venous Doppler negative for DVT (4) Streptococcal bacteremia: Code(s): R78.81 - Bacteremia; B95.5 - Unspecified streptococcus as the cause of diseases classified elsewhere Status: Acute Assessment and Plan: reviewed notes and cultures from prior admission discussed case with Infectious Disease PharmD, will transition to Rocephin 2 g q24h for ease of dosing to avoid 3 times daily dosing. left knee cultures from 05/10/2022 ( when patient had left knee washout) still pending finalization, continue to monitor pending finalization of knee cultures, will discuss with Orthopedic surgery patient's options to transition to oral antibiotics no need for repeat cultures at this time as there are no signs of acute infection. Patient is afebrile and white blood cell count is within normal limits (5) Hypertension: Code(s): I10 - Essential (primary) hypertension Status: Chronic Assessment and Plan: blood pressures are stable continue home lisinopril and amlodipine (6) Hyperthyroidism: Code(s): E05.90 - Thyrotoxicosis, unspecified without thyrotoxic crisis or storm Status: Acute Assessment and Plan: TSH is within normal limits continue home methimazole Subjective Date/time seen: 05/16/22 16:16 Interval history: date of service: 05/16/2022 Tiffanie Chavez is a 61-year-old female with a history of hypertension, hyperthyroidism, and recent hospital admission from 04/25/2022-05/13/2022 for streptococcal bacteremia with reactive arthritis. she was home less than 24 hours when she developed shortness of breath and had difficulty getting around. at this time, she would like to proceed with SNF placement in order to help her gain back strength and stamina before returning home. She is doing well today. States she is actually starting to feel much better. She has no pain at rest. Her knee is slightly painful with ambulation and she is hesitant about partial weight-bearing. At this time she has no shortness of breath. She has been able to go to and from the bathroom and is tolerating this well. She had a bowel movement today. She denies any urinary symptoms. Denies chest pain or palpitations. She has no additional concerns Review of Systems Review of Systems: All systems reviewed & are unremarkable except as noted in HPI and below Exam Narrative: General: Well-nourished, well-appearing 61-year-old female, sitting up in bed, comfortable, NARD Neuro: awake, alert and oriented x4, speech clear, no focal neuro deficits noted HEENMT: normocephalic, atraumatic, EOMI, sclerae anicteric, moist oral mucosa Respiratory: clear to auscultation bilaterally, nonlabored breathing Cardio: regular rate, regular rhythm with S1-S2 Abdomen: nondistended, normoactive bowel sounds, soft, nontender to palpation Extremities: left knee covered with dressing that is clean and dry, left lower extremity with 1+ edema, right lower extremity with
[2022-05-16 21:42] VITALS: BP 204/65; PULSE 87; RESP 14; TEMP 36.3; O2SAT 98
[2022-05-17] MEDS: ACETAMINOPHEN 325 MG TABLET 650 MG PO ×2 (00:25→22:47)
[2022-05-17 06:00] VITALS: BP 128/68; PULSE 80; RESP 16; TEMP 36; O2SAT 99
[2022-05-17 06:01] LABS: Hematocrit 26.3 % (37.0-47.0); Mean Corpuscular HGB Conc 30.4 g/dl (32-36); Mean Corpuscular Hemoglobin 29.6 pg (26-34); Mean Corpuscular Volume 97.4 fl (80-100); Mean Platelet Volume 10.6 fl (7.4-10.4); Platelet Count Result 337 k/mm3 (150-375); Red Cell Distribution Width 12.5 % (11.5-14.5); White Blood Count 3.9 K/mm3 (4.5-10.0)
[2022-05-17 06:16] LABS: Anion Gap 4 mmol/L (8-16); Blood Urea Nitrogen 18 mg/dL (7-17); Calcium 8.2 mg/dL (8.4-10.2); Carbon Dioxide 25 mmol/L (22-30); Chloride 106 mmol/L (98-107); Estimated CRCL calculation 79 ml/min; Estimated Glomerular Filt Rate > 60; Glucose 105 mg/dL (65-110); Potassium 3.6 mmol/L (3.4-5.0); Sodium 135 mmol/L (137-145)
[2022-05-17] MEDS: ENOXAPARIN 40 MG/0.4 ML SYRINGE SUB-Q (09:08)
[2022-05-17] MEDS: ONDANSETRON INJ 4 MG/2 ML VIAL IV PUSH (09:09)
[2022-05-17] MEDS: lisinopriL 20 MG TABLET PO (09:10)
[2022-05-17] MEDS: amLODIPine BESYLATE 5 MG TABLET PO (09:11)
[2022-05-17] MEDS: MELOXICAM 7.5 MG TABLET 15 MG PO (09:11)
[2022-05-17 14:00] VITALS: BP 164/98; PULSE 76; RESP 17; TEMP 36.5; O2SAT 100
[2022-05-17] MEDS: cefTRIAXone 2 GM in SODIUM CHLORIDE 0.9% IV 100 ML 200 ML IVPB (16:00)
--- NOTE | 2022-05-17 16:53 | PM.IMPN ---
Progress Note: A&P Assessment and Plan (1) Dyspnea: Code(s): R06.00 - Dyspnea, unspecified Status: Acute Assessment and Plan: patient presented with shortness of breath less than 24 hours following >2 week hospitalization CXR on presentation showed no acute cardiopulmonary process CTA negative for PE suspect findings related to prolonged hospitalization and overall physical deconditioning continue with PT/OT supportive care, incentive spirometry (2) Physical deconditioning: Code(s): R53.81 - Other malaise Status: Acute Assessment and Plan: Likely secondary to acute illness and prolonged hospitalization continue PT/OT as above planning for SNF following discharge. awaiting accepting facility (3) Elevated d-dimer: Code(s): R79.89 - Other specified abnormal findings of blood chemistry Status: Acute Assessment and Plan: D-dimer was 3.59 on admission CTA negative for PE bilateral venous Doppler negative for DVT (4) Streptococcal bacteremia: Code(s): R78.81 - Bacteremia; B95.5 - Unspecified streptococcus as the cause of diseases classified elsewhere Status: Acute Assessment and Plan: reviewed notes and cultures from prior admission discussed case with Infectious Disease PharmD, will continue Rocephin 2 g q24h for ease of dosing to avoid 3 times daily dosing. left knee cultures from 05/10/2022 are negative, aerobic cultures not yet finalized but negative to date. discussed case with orthopedic surgery. Patient does require at least 2 weeks of IV antibiotics given septic knee joint no need for repeat cultures at this time as there are no signs of acute infection. Patient is afebrile and white blood cell count is within normal limits (5) Hypertension: Code(s): I10 - Essential (primary) hypertension Status: Chronic Assessment and Plan: blood pressures are stable continue home lisinopril and amlodipine (6) Hyperthyroidism: Code(s): E05.90 - Thyrotoxicosis, unspecified without thyrotoxic crisis or storm Status: Acute Assessment and Plan: TSH is within normal limits continue home methimazole Subjective Date/time seen: 05/17/22 16:53 Interval history: date of service: 05/17/2022 Tiffanie Chavez is a 61-year-old female with a history of hypertension, hyperthyroidism, and recent hospital admission from 04/25/2022-05/13/2022 for streptococcal bacteremia with reactive arthritis. she was home less than 24 hours when she developed shortness of breath and had difficulty getting around and was admitted back to the hospitalist service. At this time she is feeling well. Her pain is well controlled. She is ambulating with assistance and participating in therapy. She is planning for SNF on discharge. Awaiting the accepting facility. Her shortness of breath has resolved. She denies chest pain. No palpitations Review of Systems Review of Systems: All systems reviewed & are unremarkable except as noted in HPI and below Exam Narrative: General: Well-nourished, well-appearing 61-year-old female, sitting up in bed, comfortable, NARD Neuro: awake, alert and oriented x4, speech clear, no focal neuro deficits noted HEENMT: normocephalic, atraumatic, EOMI, sclerae anicteric, moist oral mucosa Respiratory: clear to auscultation bilaterally, nonlabored breathing Cardio: regular rate, regular rhythm with S1-S2 Abdomen: nondistended, normoactive bowel sounds, soft, nontender to palpation Extremities: left knee covered with dressing that is clean and dry, left lower extremity with 1+ edema, right lower extremity with trace edema,no erythema or tenderness to palpation, DP pulses 2+ bilaterally Skin: no rashes or lesions, warm and dry Psych: appropriate mood and affect, judgment and insight intact Objective Data Vital Signs Vital Signs: Vital Signs - 24 hr 05/16/22
[2022-05-17 22:00] VITALS: BP 144/92; PULSE 92; RESP 16; TEMP 36.3; O2SAT 98
[2022-05-18 05:33] VITALS: BP 142/88; PULSE 76; RESP 18; TEMP 36; O2SAT 96
[2022-05-18] MEDS: ALENDRONATE SODIUM 70 MG TABLET PO (05:48)
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
[2022-05-18 07:48] LABS: Anion Gap 7 mmol/L (8-16); Blood Urea Nitrogen 20 mg/dL (7-17); Calcium 8.7 mg/dL (8.4-10.2); Carbon Dioxide 26 mmol/L (22-30); Chloride 105 mmol/L (98-107); Estimated CRCL calculation 69 ml/min; Estimated Glomerular Filt Rate > 60; Glucose 111 mg/dL (65-110); Potassium 3.7 mmol/L (3.4-5.0); Sodium 138 mmol/L (137-145)
[2022-05-18 07:54] LABS: Hematocrit 25.8 % (37.0-47.0); Hemoglobin 8.2 g/dL (12.0-15.0); Mean Corpuscular HGB Conc 31.8 g/dl (32-36); Mean Corpuscular Hemoglobin 30.1 pg (26-34); Mean Corpuscular Volume 94.9 fl (80-100); Mean Platelet Volume 10.6 fl (7.4-10.4); Platelet Count Result 336 k/mm3 (150-375); Red Blood Count 2.72 M/mm3 (4.2-5.4); Red Cell Distribution Width 12.6 % (11.5-14.5); White Blood Count 4.1 K/mm3 (4.5-10.0)
[2022-05-18] MEDS: ACETAMINOPHEN 325 MG TABLET 650 MG PO ×2 (08:46→15:59)
[2022-05-18] MEDS: ENOXAPARIN 40 MG/0.4 ML SYRINGE SUB-Q (08:48)
[2022-05-18] MEDS: amLODIPine BESYLATE 5 MG TABLET PO (08:48)
[2022-05-18] MEDS: MELOXICAM 7.5 MG TABLET 15 MG PO (08:48)
[2022-05-18] MEDS: lisinopriL 20 MG TABLET PO (08:48)
--- NOTE | 2022-05-18 10:55 | PM.IMPN ---
Progress Note: A&P Assessment and Plan (1) Dyspnea: Code(s): R06.00 - Dyspnea, unspecified Status: Acute Assessment and Plan: patient presented with shortness of breath less than 24 hours following >2 week hospitalization CXR on presentation showed no acute cardiopulmonary process CTA negative for PE suspect findings related to prolonged hospitalization and overall physical deconditioning continue with PT/OT supportive care, incentive spirometry symptoms have resolved (2) Physical deconditioning: Code(s): R53.81 - Other malaise Status: Acute Assessment and Plan: Likely secondary to acute illness and prolonged hospitalization continue PT/OT as above planning for SNF following discharge. awaiting accepting facility (3) Elevated d-dimer: Code(s): R79.89 - Other specified abnormal findings of blood chemistry Status: Acute Assessment and Plan: D-dimer was 3.59 on admission CTA negative for PE bilateral venous Doppler negative for DVT (4) Streptococcal bacteremia: Code(s): R78.81 - Bacteremia; B95.5 - Unspecified streptococcus as the cause of diseases classified elsewhere Status: Acute Assessment and Plan: reviewed notes and cultures from prior admission discussed case with Infectious Disease PharmD, will continue Rocephin 2 g q24h left knee cultures from 05/10/2022 are negative, aerobic cultures not yet finalized but negative to date. discussed case with orthopedic surgery. Patient does require at least 2 weeks of IV antibiotics given septic knee joint no need for repeat cultures at this time as there are no signs of acute infection. Patient is afebrile and white blood cell count is within normal limits (5) Hypertension: Code(s): I10 - Essential (primary) hypertension Status: Chronic Assessment and Plan: blood pressures are stable continue home lisinopril and amlodipine (6) Hyperthyroidism: Code(s): E05.90 - Thyrotoxicosis, unspecified without thyrotoxic crisis or storm Status: Acute Assessment and Plan: TSH is within normal limits continue home methimazole Subjective Date/time seen: 05/18/22 10:55 Interval history: date of service: 05/18/2022 Tiffanie Chavez is a 61-year-old female with a history of hypertension, hyperthyroidism, and recent hospital admission from 04/25/2022-05/13/2022 for streptococcal bacteremia with reactive arthritis. she was home less than 24 hours when she developed shortness of breath and had difficulty getting around and was admitted back to the hospitalist service. she is feeling well today. She is up in the chair. Feels that she is doing well with therapy. She has no pain today. Denies shortness of breath. Reports having a bowel movement today. Denies urinary symptoms. She has no additional concerns. Review of Systems Review of Systems: All systems reviewed & are unremarkable except as noted in HPI and below Exam Narrative: General: Well-nourished, well-appearing 61-year-old female, sitting up in bed, comfortable, NARD Neuro: awake, alert and oriented x4, speech clear, no focal neuro deficits noted HEENMT: normocephalic, atraumatic, EOMI, sclerae anicteric, moist oral mucosa Respiratory: clear to auscultation bilaterally, nonlabored breathing Cardio: regular rate, regular rhythm with S1-S2 Abdomen: nondistended, normoactive bowel sounds, soft, nontender to palpation Extremities: left knee covered with dressing that is clean and dry, left foot in walking boot Skin: no rashes or lesions, warm and dry Psych: appropriate mood and affect, judgment and insight intact Objective Data Vital Signs Vital Signs: Vital Signs - 24 hr 05/17/22 14:00 05/17/22 22:00 05/17/22 20:00 Temperature 97.7 F 97.3 F L Pulse Rate 76 92 Respiratory Rate 17 16 Blood Pressure 164/98 H 144/92 H Pulse Oximetry 100 98
[2022-05-18 14:00] VITALS: BP 153/74; PULSE 73; RESP 18; TEMP 36.6; O2SAT 97
--- NOTE | 2022-05-18 14:43 | PC.NURSE ---
Spoke with Osiris DURAN and notified her that the patient's IV accidentally came out. Attempted to place a 22g x2 and was unsuccessful with the vein finder. PA notified and verbalized she will place orders for a midline. Pt will need 7-10 days more of IV antibiotics.
[2022-05-18] MEDS: cefTRIAXone 2 GM in SODIUM CHLORIDE 0.9% IV 100 ML 200 ML IVPB (18:48)
[2022-05-18] MEDS: SALINE LOCK FLUSH 10 ML IV PUSH (20:37)
[2022-05-18 21:58] VITALS: BP 149/60; PULSE 77; RESP 18; TEMP 36.6; O2SAT 97
[2022-05-19] MEDS: SALINE LOCK FLUSH 10 ML IV PUSH ×3 (05:28→21:37)
[2022-05-19 05:38] VITALS: BP 154/71; PULSE 88; RESP 18; TEMP 36.3; O2SAT 98
[2022-05-19 08:00] VITALS: PULSE 89; RESP 18; O2SAT 100
[2022-05-19] MEDS: ACETAMINOPHEN 325 MG TABLET 650 MG PO ×2 (08:41→21:39)
[2022-05-19] MEDS: MELOXICAM 7.5 MG TABLET 15 MG PO (08:42)
[2022-05-19] MEDS: amLODIPine BESYLATE 5 MG TABLET PO (08:47)
[2022-05-19] MEDS: ENOXAPARIN 40 MG/0.4 ML SYRINGE SUB-Q (08:47)
[2022-05-19] MEDS: lisinopriL 20 MG TABLET PO (08:48)
[2022-05-19 14:00] VITALS: BP 151/84; PULSE 89; RESP 18; TEMP 36.1; O2SAT 100
--- NOTE | 2022-05-19 14:18 | PM.IMPN ---
Progress Note: A&P Assessment and Plan (1) Dyspnea: Code(s): R06.00 - Dyspnea, unspecified Status: Acute Assessment and Plan: patient presented with shortness of breath less than 24 hours following >2 week hospitalization CXR on presentation showed no acute cardiopulmonary process CTA negative for PE suspect findings related to prolonged hospitalization and overall physical deconditioning continue with PT/OT supportive care, incentive spirometry symptoms have resolved (2) Physical deconditioning: Code(s): R53.81 - Other malaise Status: Acute Assessment and Plan: Likely secondary to acute illness and prolonged hospitalization continue PT/OT as above initially planning for SNF following discharge, now will plan for return home with home health services (3) Elevated d-dimer: Code(s): R79.89 - Other specified abnormal findings of blood chemistry Status: Acute Assessment and Plan: D-dimer was 3.59 on admission CTA negative for PE bilateral venous Doppler negative for DVT (4) Streptococcal bacteremia: Code(s): R78.81 - Bacteremia; B95.5 - Unspecified streptococcus as the cause of diseases classified elsewhere Status: Acute Assessment and Plan: reviewed notes and cultures from prior admission discussed case with Infectious Disease PharmD, will continue Rocephin 2 g q24h left knee cultures from 05/10/2022 are negative, aerobic cultures not yet finalized but negative to date. discussed case with orthopedic surgery. Patient does require at least 2 weeks of IV antibiotics given septic knee joint midline placed on 05/18/2022. Plan for discharge tomorrow once outpatient IV Rocephin is arranged no need for repeat cultures at this time as there are no signs of acute infection. Patient is afebrile and white blood cell count is within normal limits (5) Hypertension: Code(s): I10 - Essential (primary) hypertension Status: Chronic Assessment and Plan: blood pressures are stable continue home lisinopril and amlodipine (6) Hyperthyroidism: Code(s): E05.90 - Thyrotoxicosis, unspecified without thyrotoxic crisis or storm Status: Acute Assessment and Plan: TSH is within normal limits continue home methimazole Subjective Date/time seen: 05/19/22 14:18 Interval history: Date of service: 05/19/2022 Tiffanie Chavez is a 61-year-old female with a history of hypertension, hyperthyroidism, and recent hospital admission from 04/25/2022-05/13/2022 for streptococcal bacteremia with reactive arthritis Who is seen in follow-up for shortness of breath and deconditioning. She is feeling much improved at this time. She participated in therapy today and was able to go up 10 stairs and down 10 stairs. She was very pleased her progress and based on this, she feels as though she can return home with home health and does not require SNF. she denies shortness breath. No chest pain or palpitations. Pain is well controlled. She has no additional concerns Review of Systems Review of Systems: All systems reviewed & are unremarkable except as noted in HPI and below Exam Narrative: General: Well-nourished, well-appearing 61-year-old female, sitting up in bed, comfortable, NARD Neuro: awake, alert and oriented x4, speech clear, no focal neuro deficits noted HEENMT: normocephalic, atraumatic, EOMI, sclerae anicteric, moist oral mucosa Respiratory: clear to auscultation bilaterally, nonlabored breathing Cardio: regular rate, regular rhythm with S1-S2 Abdomen: nondistended, normoactive bowel sounds, soft, nontender to palpation Extremities: left knee covered with dressing that is clean and dry, left foot in walking boot Skin: no rashes or lesions, warm and dry Psych: appropriate mood and affect, judgment and insight intact Objective Data Vital Signs Vital Signs: Vital Signs - 24
[2022-05-19] MEDS: cefTRIAXone 2 GM in SODIUM CHLORIDE 0.9% IV 100 ML 200 ML IVPB (16:07)
[2022-05-19 21:26] VITALS: BP 153/71; PULSE 81; RESP 14; TEMP 36.8; O2SAT 94
[2022-05-20] MEDS: SALINE LOCK FLUSH 20 ML IV PUSH (05:31)
[2022-05-20] MEDS: SALINE LOCK FLUSH 10 ML IV PUSH ×2 (05:31→14:37)
[2022-05-20 05:35] LABS: Hematocrit 24.8 % (37.0-47.0); Mean Corpuscular HGB Conc 32.3 g/dl (32-36); Mean Corpuscular Hemoglobin 31.6 pg (26-34); Mean Platelet Volume 10.6 fl (7.4-10.4); Platelet Count Result 286 k/mm3 (150-375); Red Blood Count 2.53 M/mm3 (4.2-5.4); Red Cell Distribution Width 12.8 % (11.5-14.5); White Blood Count 5.5 K/mm3 (4.5-10.0)
[2022-05-20 05:50] LABS: Anion Gap 5 mmol/L (8-16); Blood Urea Nitrogen 26 mg/dL (7-17); Calcium 8.4 mg/dL (8.4-10.2); Carbon Dioxide 27 mmol/L (22-30); Chloride 108 mmol/L (98-107); Estimated CRCL calculation 61 ml/min; Estimated Glomerular Filt Rate > 60; Glucose 106 mg/dL (65-110); Potassium 3.7 mmol/L (3.4-5.0); Sodium 140 mmol/L (137-145)
[2022-05-20 06:00] VITALS: BP 128/46; PULSE 83; RESP 13; TEMP 36.8; O2SAT 99
[2022-05-20] MEDS: lisinopriL 20 MG TABLET PO (09:04)
[2022-05-20] MEDS: FERROUS SULFATE 324 MG TABLET PO (09:04)
[2022-05-20] MEDS: MELOXICAM 7.5 MG TABLET 15 MG PO (09:05)
[2022-05-20] MEDS: ENOXAPARIN 40 MG/0.4 ML SYRINGE SUB-Q (09:05)
[2022-05-20] MEDS: amLODIPine BESYLATE 5 MG TABLET PO (09:05)
[2022-05-20] MEDS: ACETAMINOPHEN 325 MG TABLET 650 MG PO (09:08)
--- NOTE | 2022-05-20 13:36 | PM.DS ---
DS: Admitting Diagnosis Discharge Date 05/20/2022 Admitting Diagnosis dyspnea DS: Discharge Diagnosis Discharge Diagnosis (1) Dyspnea: Code(s): R06.00 - Dyspnea, unspecified Status: Acute Assessment and Plan: patient presented with shortness of breath less than 24 hours following >2 week hospitalization CXR on presentation showed no acute cardiopulmonary process CTA negative for PE suspect related to prolonged hospitalization and overall physical deconditioning participated in PT/OT symptoms resolved (2) Physical deconditioning: Code(s): R53.81 - Other malaise Status: Acute Assessment and Plan: Likely secondary to acute illness and prolonged hospitalization continue PT/OT as above initially planned for SNF following discharge but then made progress with therapy and felt comfortable to return home (3) Elevated d-dimer: Code(s): R79.89 - Other specified abnormal findings of blood chemistry Status: Acute Assessment and Plan: D-dimer was 3.59 on admission CTA negative for PE bilateral venous Doppler negative for DVT (4) Streptococcal bacteremia: Code(s): R78.81 - Bacteremia; B95.5 - Unspecified streptococcus as the cause of diseases classified elsewhere Status: Acute Assessment and Plan: Reviewed notes and cultures from prior admission discussed case with Infectious Disease PharmD and patient was transitioned to Rocephin 2 g q24h left knee cultures from 05/10/2022 negative, aerobic cultures not yet finalized but negative to date. discussed case with orthopedic surgery. Patient does require at least 2 weeks of IV antibiotics given septic knee joint midline catheter placed on 05/18/2022 and will continue IV rocephin to complete 2 week course. Will then transition to PO Augmentin which was prescribed at last admission no need for repeat cultures as there are no signs of acute infection. Patient is afebrile and white blood cell count is within normal limits (5) Hypertension: Code(s): I10 - Essential (primary) hypertension Status: Chronic Assessment and Plan: blood pressures stable continue home lisinopril and amlodipine (6) Hyperthyroidism: Code(s): E05.90 - Thyrotoxicosis, unspecified without thyrotoxic crisis or storm Status: Acute Assessment and Plan: TSH is within normal limits continue home methimazole DS: Summary Hospital Course Hospital Course: date of admission: 05/14/2022 date of discharge: 05/20/2022 Litzy Chavez is a? 61-year-old female with a history of hypertension, hyperthyroidism, and recent hospital admission from 04/25/2022-05/13/2022 for streptococcal bacteremia with reactive arthritis.? she was home less than 24 hours when she presented to the emergency department on 05/14/2022 with complaints of shortness of breath and difficulty with ambulation on her home. on presentation to the ED, she was mildly tachycardic with additional vital signs stable, CBC and BMP relatively unremarkable, CXR showed no acute cardiopulmonary process and CTA of the chest was negative for pulmonary embolism. She was admitted to the hospitalist service for further evaluation and management. Please see above for further details. Her antibiotics were transition to ceftriaxone 2 g daily which she will continue to complete a 2 week course. Following completion of this, she will transition to p.o. Augmentin as prescribed at her last hospital admission. She will follow-up with her orthopedic surgeon in 1 week. She participated in therapy during admission and had marked improvement. She felt comfortable in her abilities to ambulate around her home and to ascend her stairs. home health services were arranged and patient will continue PT/ OT as an outpatient. She was feeling much improved, almost back to her baseline state of health and she felt comfortable with plans for dis
[2022-05-20 14:00] VITALS: BP 129/64; PULSE 85; RESP 24; TEMP 36.5; O2SAT 96
[2022-05-20] MEDS: cefTRIAXone 2 GM in SODIUM CHLORIDE 0.9% IV 100 ML 200 ML IVPB (14:37)
== END 2022-05-20 15:50 | disposition home or self-care (01) ==
LOC: ANHED 22:27 → ANH3MEDSUR 23:33
PROVIDERS: Admitting Provider Internal Medicine; Emergency Provider Emergency Medicine; PCP Internal Medicine; Visit Provider Physician Assistant
DX: R06.00 Dyspnea, unspecified (principal); R53.81 Other malaise; R79.89 Other specified abnormal findings of blood chemistry; R78.81 Bacteremia; B95.5 Unspecified streptococcus as the cause of diseases classified elsewhere; I10 Essential (primary) hypertension; E05.90 Thyrotoxicosis, unspecified without thyrotoxic crisis or storm; R62.7 Adult failure to thrive; Z68.26 Body mass index [BMI] 26.0-26.9, adult; L03.116 Cellulitis of left lower limb; L03.113 Cellulitis of right upper limb; K21.9 Gastro-esophageal reflux disease without esophagitis; Z20.822 Contact with and (suspected) exposure to COVID-19; M71.22 Synovial cyst of popliteal space [Baker], left knee; M81.0 Age-related osteoporosis without current pathological fracture; R94.31 Abnormal electrocardiogram [ECG] [EKG]; R00.0 Tachycardia, unspecified; D50.0 Iron deficiency anemia secondary to blood loss (chronic); Z79.899 Other long term (current) drug therapy
CPT/HCPCS: 36415; 36569; 71046; 71275; 80048; 80053; 83880; 84484; 85025; 85027; 85380; 87637; 93005; 93970; 96365; 96366; 96367; 96372; 96374; 96375; 97110; 97116; 97161; 97165; 97530; 97535; 99285; A9270; C1751; G0378; J0690; J0696; J1650; J2405; Q9967

== ENCOUNTER 2022-06-10 12:34 | Outpatient (CLI) | payer BC, SELFPAY ==
[2022-06-10 19:01] LABS: Alanine Aminotransferase 18 U/L (6-35); Albumin Level 4.1 g/dL (3.5-5.1); Alkaline Phosphatase 75 U/L (38-126); Anion Gap 7 mmol/L (8-16); Aspartate Amino Transferase 34 U/L (14-36); Bilirubin,Total 0.4 mg/dL (0.2-1.3); Blood Urea Nitrogen 21 mg/dL (7-17); Calcium 9.8 mg/dL (8.4-10.2); Carbon Dioxide 29 mmol/L (22-30); Chloride 103 mmol/L (98-107); Estimated Glomerular Filt Rate > 60; Glucose 86 mg/dL (65-110); Potassium 4.7 mmol/L (3.4-5.0); Sodium 139 mmol/L (137-145)
[2022-06-10 19:34] LABS: Basophils Percent Auto 0.3 % (0.2-1.2); Eosinophils Absolute Auto 0.1 K/mm3 (0-0.3); Eosinophils Percent Auto 1.7 % (0-4.4); Hematocrit 31.6 % (37.0-47.0); Immature Granulocyte Absolute 0.03 K/mm3 (0.00-0.031); Immature Granulocyte Percent A 0.5 % (0-0.5); Lymphocytes Percent Auto 21.5 % (18.3-44.2); Mean Corpuscular HGB Conc 31.6 g/dl (32-36); Mean Corpuscular Hemoglobin 29.9 pg (26-34); Mean Corpuscular Volume 94.6 fl (80-100); Mean Platelet Volume 12.2 fl (7.4-10.4); Monocytes Absolute Auto 0.4 K/mm3 (0.1-0.6); Monocytes Percent Auto 6.6 % (2.6-8.5); Neutrophils Absolute Auto 4.2 K/mm3 (1.3-6.7); Neutrophils Percent Auto 69.4 % (45.5-73.1); Platelet Count Result 303 k/mm3 (150-375); Red Blood Count 3.34 M/mm3 (4.2-5.4); Red Cell Distribution Width 12.7 % (11.5-14.5); White Blood Count 6.1 K/mm3 (4.5-10.0)
[2022-06-10 19:45] LABS: Iron 54 ug/dL (37-170)
[2022-06-10 19:56] LABS: Percent Iron Saturation 26 % (20-50)
== END 2022-06-10 12:35 | disposition home or self-care (01) ==
LOC: ANHGOSHLAB 12:35
PROVIDERS: PCP Internal Medicine; Visit Provider Clinical Nurse Specialist
DX: M00.9 Pyogenic arthritis, unspecified (principal); D64.9 Anemia, unspecified
CPT/HCPCS: 36415; 80053; 82728; 83540; 83550; 85025

== ENCOUNTER → 2022-07-08 09:03 | Outpatient (CLI) | payer BC, SELFPAY ==
--- NOTE | ~2022-07-08 | XR_ITS ---
XR hand RT min 3V DATE: 07/08/2022 09:25 INDICATION: Primary osteoarthritis right hip TECHNIQUE: 3 views COMPARISON: 05/08/2022) FINDINGS: There is severe narrowing at the third metacarpophalangeal joint with some erosion noted al marcella the lateral base of the proximal phalanx. There is mild osteoarthritic change at some of the interphalangeal joints, greatest at the distal int erphalangeal joint of the second digit. No fracture, dislocation, periosteal reaction or bone destruction or chondrocalcinosis is noted. IMPRESSION: Joint space narrowing and mild erosion at the third metacarpophalangeal joint Mild osteoarthritis Reviewed, dictated and finalized at location B. IMPRESSION: Joint space narrowing and mild erosion at the third metacarpophalan geal joint Mild osteoarthritis
== END ==
PROVIDERS: PCP Internal Medicine; Visit Provider Plastic Surgery
DX: M19.041 Primary osteoarthritis, right hand (principal)
CPT/HCPCS: 73130

== ENCOUNTER → 2022-08-05 16:17 | Outpatient (CLI) | payer BC, SELFPAY ==
--- NOTE | ~2022-08-05 | XR_ITS ---
EXAMINATION: XR hand RT min 3V DATE: 08/05/2022 16:38 INDICATION: Primary osteoarthritis, right hand. TECHNIQUE: 3 views of right hand were obtained. COMPARISON: Right hand radiographs 07/08/2022, 05/08/22, 04/25/22 FINDINGS: Bone alignment is normal. No fracture. There is mild osteoarthritis of triscaphe joint and second, fourth, and fifth distal interphalangeal joints. At third metacarpophalangeal joint, there is severe joint space narrowing with erosions at either side of the joint. There are dystrophic calcifi cations about third metacarpophalangeal joint. IMPRESSION: 1. Rapidly progressive severe arthritis at third metacarpophalangeal joint, consistent with septic ar thritis. Reviewed, dictated and finalized at location A. IMPRESSION: 1. Rapidly progressive severe arthritis at third metacarpophalangeal joint, con sistent with septic arthritis.
== END ==
PROVIDERS: PCP Plastic Surgery; Visit Provider Plastic Surgery
DX: M19.041 Primary osteoarthritis, right hand (principal)
CPT/HCPCS: 73130

== ENCOUNTER → 2022-08-09 12:38 | Outpatient (CLI) | payer BC, SELFPAY ==
--- NOTE | ~2022-08-09 | MR_ITS ---
MRI of the left knee Clinical history: Internal derangement Technique: Coronal proton density and proton density-weighted images, sagittal proton-density and T2 fat-sat images, and axial proton-density fat-saturated images were acquired. Findings: Anterior and posterior cruciate ligaments are intact. Medial collateral ligament and the la teral collateral ligament complex are intact. Popliteus tendon is intact. There is an oblique tear of the peripheral corner of the posterior horn of the medial meniscus. Proba ble focal vertical tear of the free edge of the body segment of the lateral meniscus. There is diffuse marrow edema of the patella, without patellar fracture identified. There is patchy m oderate chondromalacia patella. Articular cartilage in the remainder of the knee is well preserved. Extensor mechanism is intact. No evidence for medial patellar retinacular tear. Small joint effusion is present. Small Leigh's cyst is present. There is a 1.7 cm ganglion cyst along the posterior margin of the proximal aspect of the ACL. Impression: Diffuse marrow edema of the patella without distinct fracture. Findings could reflect extensive bone contusion. No other definite imaging findings to suggest lateral patellar dislocation injury. Oblique tear of the peripheral corner of the posterior horn the medial meniscus. Focal cortical tear of the free edge of the body segment of the lateral meniscus. Patchy moderate chondromalacia patella. Small joint effusion with small Leigh's cyst. 1.7 cm ganglion cyst along the posterior margin of the proximal ACL. Reviewed, dictated and finalized at location . Impression: Diffuse marrow edema of the patella without distinct fracture. Findings could r eflect extensive bone contusion. No other definite imaging findings to suggest lateral patellar dislocation injury. Oblique tear of the peripheral corner of the posterior horn the medial meniscus . Focal cortical tear of the free edge of the body segment of the lateral meniscu s. Patchy moderate chondromalacia patella. Small joint effusion with small Leigh's cyst. 1.7 cm ganglion cyst along the posterior margin of the proximal ACL.
== END ==
PROVIDERS: PCP Internal Medicine; Visit Provider Orthopaedic Surgery
DX: M25.462 Effusion, left knee (principal); S83.242A Other tear of medial meniscus, current injury, left knee, initial encounter; X58.XXXA Exposure to other specified factors, initial encounter; M71.22 Synovial cyst of popliteal space [Baker], left knee
CPT/HCPCS: 73721

== ENCOUNTER 2022-08-28 12:54 | Outpatient (CLI) | payer BC, SELFPAY ==
--- NOTE | ~2022-08-28 | DEXA_ITS ---
Bone Density Report Name: LUPIS WEISS Age: 61 Sex: Female Ethnicity: White Date of : 1960 Indication: osteopenia; hysterectomy; rheumatoid arthritis;postmenopausal Referring Provider: JEANETTE JOHANSEN Study: Bone densitometry was performed. Exam Date: August 28, 2022 Accession number: [id number] Bone Density: Region BMD T-score Z-score Classification AP Spine(L1-L4) 1.049 0.0 1.5 Normal Femoral Neck (Left) 0.679 -1.5 -0.2 Osteopenia Total Hip (Left) 0.769 -1.4 -0.4 Osteopenia Femoral Neck (Right) 0.688 -1.4 -0.1 Osteopenia Total Hip (Right) 0.772 -1.4 -0.4 Osteopenia Total Hip Mean 0.770 -1.4 -0.4 Osteopenia World Health Organization criteria for BMD impression classify patients as: Normal (T-score at or above -1.0), Osteopenia (T-score between -1.0 and -2.5), or Osteoporosis (T-score at or below -2.5). 10-year Fracture Risk(1): Major Osteoporotic Fracture 10% Hip Fracture 1.0% Reported Risk Factors: [place] (), Neck BMD=0.679, BMI=29.0, rheumatoid arthritis (1) FRAX(R) Version 3.08. Fracture probability calculated for an untreated patient. Fracture probability may be lower if the patient has received treatment. Previous Exams: Region Exam Age BMD T-score BMD Change BMD Change Date g/cm2 vs Baseline vs Previous AP Spine (L1-L4) 08/28/2022 61 1.049 0.0 0.084 (8.7%)* 0.084 (8.7%)* 03/26/2018 57 0.965 -0.7 Total Hip(Left) 08/28/2022 61 0.769 -1.4 -0.004 (-0.5%) -0.004 (-0.5%) 03/26/2018 57 0.773 -1.4 Total Hip(Right) 08/28/2022 61 0.772 -1.4 -0.027 (-3.4%) -0.027 (-3.4%) 03/26/2018 57 0.799 -1.2 *Denotes significance at 95% confidence level, LSC for AP Spine = 0.022 g/cm2, LSC for Total Hip = 0.027 g/cm2 Clinical Information Provided by Patient: Has rheumatoid arthritis Has used the following medications: Calcium Has the following medical conditions: Hysterectomy Patient maximum height was 65.75 Menopause Age: 50 Drinks caffeinated beverages Onset of menses at age 15 Number of children 1 Impression: The patient has low bone mass, based on the Left Femoral Neck T-score. The patient has an estimated ten-year risk of hip fracture of 1% and an estimated ten-year risk of major fracture of 10%, based on the WHO FRAX algorithm. No significant bone loss was observed. Discussion: BONE DENSITY IS LOW AT ONE OR MORE SKELETAL SITES. This patient's lowest T-score is low at one or more sk
--- NOTE | ~2022-08-28 | MM_ITS ---
EXAMINATION: MM screening chayo BI w brayan HISTORY: Screening mammogram TECHNIQUE: Craniocaudal and mediolateral oblique 3-D tomosynthesis images were obtained and synthetic 2-D images were generated. CAD analysis was submitted and interpreted. COMPARISON: No prior mammogram is available for comparison at this institution. BREAST PARENCHYMAL COMPOSITION: There are scattered areas of fibroglandular density. FINDINGS: No suspicious mass, calcification, or architectural distortion are identified in either danielle ast to suggest malignancy. IMPRESSION: 1. No mammographic evidence of malignancy. 2. Recommend routine screening mammography in one year. BI-RADS Category 1: Negative Reviewed, dictated and finalized at location A.
== END 2022-08-28 12:55 | disposition home or self-care (01) ==
LOC: ANHIMG 12:56
PROVIDERS: PCP Internal Medicine; Referring Provider Orthopaedic Surgery; Visit Provider Clinical Nurse Specialist
DX: Z12.31 Encounter for screening mammogram for malignant neoplasm of breast (principal); Z78.0 Asymptomatic menopausal state; M85.852 Other specified disorders of bone density and structure, left thigh; M85.851 Other specified disorders of bone density and structure, right thigh
CPT/HCPCS: 77063; 77067; 77080

== ENCOUNTER → 2022-09-11 09:08 | Outpatient (CLI) | payer BC, SELFPAY ==
--- NOTE | ~2022-09-11 | XR_ITS ---
Right Hand Technique: PA, oblique, and lateral views were obtained. Clinical History: Osteomyelitis of the third metacarpophalangeal joint COMPARISON: 08/05/2022 Findings: There are erosive changes about the third metacarpophalangeal joint, probably mildly worsen ed in radiographic appearance from prior exam. Remaining osseous and articular structures are unremar kable. Soft tissues are unremarkable. Impression: Worsening erosive changes about the third metacarpophalangeal joint. Findings are consistent with sep tic arthritis of the third MCP joint. Reviewed, dictated and finalized at location M. Impression: Worsening erosive changes about the third metacarpophalangeal joint. Findings a re consistent with septic arthritis of the third MCP joint.
== END ==
PROVIDERS: PCP Internal Medicine; Visit Provider Plastic Surgery
DX: M86.241 Subacute osteomyelitis, right hand (principal)
CPT/HCPCS: 73130

== ENCOUNTER 2022-09-27 11:35 | Outpatient (NON) | payer BC, SELFPAY ==
[2022-09-27 13:31] LABS: Crystals Synovial Fluid None Seen (None Seen)
[2022-09-27 13:32] LABS: Appearance Synovial Fluid Hazy (Clear); Color Synovial Fluid Red (Colorless); Source Synovial Fluid Synovial fluid
[2022-09-27 13:37] LABS: Lymphocytes Synovial Fluid 1 %; Monocytes Synovial Fluid 9 %; Neutrophils Synovial Fluid 90 % (0-25); Nucleated Cell Synovial Fluid 15965 /uL (0-200); RBC Synovial Fluid 105000 /uL (0-0)
== END 2022-09-27 11:36 | disposition home or self-care (01) ==
LOC: ANHLAB 11:39
PROVIDERS: PCP Internal Medicine; Visit Provider Orthopaedic Surgery
DX: M25.462 Effusion, left knee (principal)
CPT/HCPCS: 87070; 87075; 87205; 89051; 89060

== ENCOUNTER → 2022-10-17 09:39 | Outpatient (CLI) | payer BC, SELFPAY ==
--- NOTE | ~2022-10-17 | XR_ITS ---
Right Hand Technique: PA, oblique, and lateral views were obtained. Clinical History: Osteomyelitis third MCP joint COMPARISON: 09/11/2022 Findings: Erosive changes on both sides of the third MCP joint are again present, probably mildly pro gressed from prior exam.. Joint spaces are preserved. Soft tissues are unremarkable. Impression: Erosive changes at the third MCP joint are compatible with septic arthritis, with mild progression of erosive change since prior exam. Reviewed, dictated and finalized at location M. Impression: Erosive changes at the third MCP joint are compatible with septic arthritis, wi th mild progression of erosive change since prior exam.
== END ==
PROVIDERS: PCP Plastic Surgery; Visit Provider Plastic Surgery
DX: M86.241 Subacute osteomyelitis, right hand (principal)
CPT/HCPCS: 73130

== ENCOUNTER 2022-11-06 02:47 | Day surgery (SDC) | payer BC, SELFPAY ==
[2022-11-01 14:44] VITALS: BMI 28.6
--- NOTE | 2022-11-01 15:10 | PC.NURSE ---
Report to the Outpatient Waiting Room, entrance under the green pavilion located off [facility], at time _8:00AM on date _11/06/22 . Planned Procedure Time: __10:00AM . Time changes happen often and if your time is changed the preop area will call you the afternoon before. - You and your visitor will be asked to self-screen and do not enter if you have any COVID symptoms. - A mask is optional within the hospital at this time. Patients may have clear liquids (water, carbonated beverages, clear teas, apple juice) until 3 hours prior to surgery with a maximum of 20 ounces. - No food from midnight until time of surgery Take the following medications with a SIP of water the morning of surgery: __DOXYCYCLINE DO NOT STOP ANY OF YOUR OTHER PRESCRIPTION MEDICATIONS PRIOR TO SURGERY ?EXCEPT THE FOLLOWING Medications to discontinue per physician ___HOLD ALL VITAMINS/SUPPLEMENTS 3 DAYS PRE-OP Date to take last dose____11/02/22 Please no make-up, nail malay, hairspray, perfume, deodorant, or body powder the day of surgery. No jewelry (including any body piercings) or valuables the day of surgery, leave them at home. Please take a shower or bath the night before, or the morning of, surgery with an antibacterial soap. Wear comfortable, loose fitting clothing. Children are encouraged to wear pajamas. - Jewelry must be removed prior to entering the operating room. Rings and piercings that are not removed may be cut off. - The hospital will not accept responsibility for valuables. - Please leave all valuables, including medications, at home the day of surgery. If you are going home after surgery, a licensed xm1 tank driver must drive you home. - NO public transportation without another adult if you receive anesthesia. - We recommend that an adult stay with you for 24 hours following discharge. - We also recommend that you do not drive, make important decision, drink alcoholic beverages, or take any drugs that were not prescribed by your health care provider for at least 24 hours after your discharge time. Follow any additional instructions given to you from your surgeon. If you or anyone in your household have experienced Covid symptoms in the past week, please notify your surgeon or the nurse liaison at the phone number below for possible testing. Telephone instructions given to _PATIENT and asked if any additional questions and then verbalized understanding. Patient advised to call surgeon office or pre surgery nurse liaison [phone] if any additional questions.
--- NOTE | 2022-11-05 10:01 | WPDANESEPPF ---
Anes - Initial Pre Proc Eval Procedure: Operation Date: 11/06/22 10:00 Proposed Procedures p Arthrotomy of Right Third Metacarpophalangeal Joint for Open Biopsy of Metacarpal Head, Possible Repair of Extensor Head - Curtis Edward MD Date/Time: 11/05/22 10:01 Surgeon: Curtis Edward MD Pre Op Diagnosis: septic arthritis of rt 3rd metacarpophalangeal merrill Patient Data Age: 62 Gender: F Height: 1.65 m Weight: 78 kg Allergies Allergy/AdvReac Type Severity Reaction Status Date / Time losartan Allergy Severe Swelling Verified 11/01/22 14:40 Home Medications Medication Instructions Recorded Confirmed Type alendronate 70 mg tablet 70 mg PO WEEKLY 01/06/20 11/06/22 History ferrous sulfate 325 mg (65 mg 325 mg PO .2XWEEK 01/06/20 11/06/22 History iron) tablet (Feosol) meloxicam 15 mg tablet 15 mg PO DAILY 02/08/22 11/06/22 History lisinopril 20 mg tablet 20 mg PO QAM 1 month #90 tabs 08/05/22 11/06/22 Rx calcium phos,tribasic 260 mg-D3 25 1 tablet PO DAILY 09/11/22 11/06/22 History mcg-herbal 50 mg chewable tablet (Alive Calcium-Vitamin D3) L.acidophil-B.animalis, bifidum, 1 cap PO DAILY 11/01/22 11/06/22 History infantis, long 3 billion cell capsule doxycycline hyclate 100 mg tablet 100 mg PO BID 11/01/22 11/06/22 History Patient hx anesthesia problems: none Family hx anesthesia problems: none Results Review: All pre-operative results and documents have been reviewed as part of the pre-operative evaluation. [facility] Past Medical History Medical History (Updated 11/06/22 @ 08:54 by Elie Foster DO) Acute dyspnea Easy bruising Elevated d-dimer Encounter for screening mammogram for breast cancer Foot swelling Hypertension Hyperthyroidism resolved Inflammatory arthritis Memory loss Osteopenia after menopause Post-menopausal Reactive arthritis Sepsis Swelling of left knee joint Surgical History Surgical History H/O: hysterectomy History of ankle surgery Family History Family History Mother Family history of diabetes mellitus in first degree relative Father Patient's father is Acute myocardial infarction Sibling Hypertension Grandparent Cerebrovascular accident Other Family history of arthritis Family history of cardiovascular disease Family history of malignant neoplasm Social History Social History Social History: Caffeine-tea/diet soda Smoking status: Never smoker Alcohol intake: current Drinks per week: 4 Substance use: never Lack of Transportation: No Lack of Food: Never True Current Housing: I Have Housing Concerned About Future Housing: No Difficulty Paying Gas/Electric Bills: No Difficulty Paying for Meds: No Currently Unemployed: No Education: Bachelor's Degree Difficulty w/ Childcare or Family Care: No Living arrangements: with family Additional living arrangements comments: [place] Gender identity (if verbalized by the patient): Female Spiritual care concerns: No Anes - Eval Final PreProcedure Day of Procedure 11/05/22 10:01 Patient weight: overweight Heart: regular rate and rhythm Lungs: clear to auscultation Airway: Mallampati scale class II Neurological: alert and oriented Last oral intake: >/= 8 hours ASA classification: II Emergent: no Anesthetic plan: proceed Anesthesia type and monitoring: general LMA and standard monitoring Results Review: All pre-operative results and documents have been reviewed as part of the pre-operative evaluation. Informed Consent: The patient's anesthetic plan and its attendant risks and benefits were discussed with the patient/family/POA. Questions were solicited and answers provided to the satisfaction of the patient/family/POA.
[2022-11-06] VITALS (9 sets, daily range): BP systolic 142–180; BP diastolic 54–84; PULSE 54–91; RESP 14–20; TEMP 36.2; O2SAT 91–100
--- NOTE | ~2022-11-06 | XR_ITS ---
EXAMINATION: XR surgery orthopedic DATE: 11/06/2022 11:24 INDICATION: ORIF right hand TECHNIQUE: 3 fluoroscopic images of the right hand were obtained during procedure performed by Dr. Morris. Radiologist was not present for the imaging or procedure. The amount of fluoroscopy time used du ring this procedure was 0.2 minutes. COMPARISON: 10/17/2022 FINDINGS: Initial image demonstrates a small gauge needle with tip projecting over the third metacarpophalangea l joint space which appears widened with indistinct margins to the articular surfaces of the bone con sistent with the previously seen erosions suspicious for septic arthritis and ostomy myelitis. Subseq uent images demonstrate a larger gauge spinal needle which projects across the joint space with the t ip projecting over the head of the third metacarpal. A soft tissue retractor projects over the adjace nt fourth metacarpophalangeal joint. No fractures identified. Remaining joint spaces are normal. IMPRESSION: 1. Fluoroscopy utilized during orthopedic procedure at the third metacarpophalangeal joint where ther e are changes consistent with septic arthritis and osteomyelitis. See procedure note for further deta il. Reviewed, dictated and finalized at location A. IMPRESSION: 1. Fluoroscopy utilized during orthopedic procedure at the third metacarpophala ngeal joint where there are changes consistent with septic arthritis and osteom yelitis. See procedure note for further detail.
--- NOTE | 2022-11-06 07:23 | WPDHPUPDATE1 ---
History and Physical Update Update Date/Time: 11/06/22 07:23 History and Physical has been reviewed, including an updated exam of the patient. There are NO changes in the patient's condition. Risks, benefits, and alternatives have been discussed and questions answered. Patient agrees to proceed with procedure.
[2022-11-06] MEDS: LACTATED RINGERS 1,000 ML 30 ML IV CONT ×2 (08:40→11:25)
--- NOTE | 2022-11-06 11:46 | P.OP_ITS ---
Procedure Note - Detailed Date of Procedure 11/06/22 Pre-op Diagnosis septic arthritis of rt 3rd metacarpophalangeal merrill Post-op Diagnosis Same Procedure Performed Arthrotomy of right 3rd metacarpophalangeal joint for cultures and biopsy Surgeon Curtis Edward MD Director Industrial Nursing Jessy Anesthesia General Description of Procedure The site on the patient's right 3rd metacarpophalangeal joint was marked with her consent in the holding area. She was taken to the operating room and placed supine on the operating table she was given general anesthesia. The extremity was prepped and draped in usual fashion. The site was marked for the incision and locally infiltrated was 1% lidocaine with epinephrine. The extremity was exsanguinated and the tourniquet inflated to 250 mmHg. The curving incision was made through the existing scar. Skin flaps were elevated the extensor tendon mechanism was identified and freed of adhesions. The access to the joint was made on the ulnar side of the extensor tendon through the sagittal band. The capsule was identified and noted to be swollen and boggy. A generous piece of that was made through the entire capsule with a 15 blade. The joint fluid was noted to be clear and santana. Swab culture was taken for aerobes and anaerobes. The capsular tissue was sent for pathology. The dorsal head of the 3rd metacarpal was exposed enough for biopsies. A 14 gauge needle was used to take our 1st bone specimen. A 2nd attempt on the other radial aspect of the dorsal metacarpal with a 14 gauge ala did not result in a specimen. The rongeur was used to take a small piece from the dorsal head. The bone was sent to pathology. The site was irrigated. The capsule was not fully closed. Skin was clsoed with running 5-0 nylon. Estimated Blood Loss 0 Tourniquet Time 49 Drains No Packing No Pathology Yes Complications No immediate complications Condition Stable Disposition PACU
[2022-11-06] MEDS: fentaNYL CITRATE INJ (*CRX) 100 MCG/2 ML VIAL 25 MCG IV PUSH ×4 (11:50→12:05)
[2022-11-06] MEDS: oxyCODONE HCL (*CRX) 5 MG TAB IR PO (13:48)
== END 2022-11-06 14:25 | disposition home or self-care (01) ==
PROVIDERS: PCP Internal Medicine; Visit Provider Plastic Surgery
PROC: (CPT 26615; principal; 2022-11-06 10:00)
DX: M00.841 Arthritis due to other bacteria, right hand (principal); I10 Essential (primary) hypertension
CPT/HCPCS: 26105; 87070; 87075; 87205; 88305; 88307; 88311; 99199; A9270; J1100; J2405; J2704; J3010; J7120

== ENCOUNTER → 2022-11-18 09:38 | Outpatient (CLI) | payer BC, SELFPAY ==
--- NOTE | ~2022-11-18 | XR_ITS ---
Right Hand Technique: PA, oblique, and lateral views were obtained. Clinical History: Pain COMPARISON: 10/17/2022 Findings: There are stable erosive/lytic changes about the third MCP joint. Remaining osseous structu res are intact. Soft tissues are unremarkable. Impression: Stable erosive/lytic changes about the third MCP joint, in keeping with history of septic arthritis. Reviewed, dictated and finalized at location . Impression: Stable erosive/lytic changes about the third MCP joint, in keeping with history of septic arthritis.
== END ==
PROVIDERS: PCP Internal Medicine; Visit Provider Plastic Surgery
DX: M86.241 Subacute osteomyelitis, right hand (principal)
CPT/HCPCS: 73130

== ENCOUNTER → 2023-02-27 07:09 | Outpatient (CLI) | payer BC, SELFPAY ==
--- NOTE | ~2023-02-27 | MR_ITS ---
EXAMINATION: MR hip RT wo con DATE: 02/27/2023 08:02 INDICATION: Right hip pain. TECHNIQUE: Magnetic resonance imaging (MRI) of the right hip was performed without intravenous contra st. COMPARISON: None FINDINGS: Bones/cartilage: There is levocurvature of lumbar spine. There is mild lumbar spondylosis. No fracture. The femoral he ad/neck morphologies are normal. The hip joints demonstrate tiny osteophytes. Small gaydx-jd-effb narcisa ges of right hip demonstrate cartilage surface irregularity. Labrum: The right acetabular labrum is intact. Fluid: There is a small right hip joint effusion. There is mild bilateral trochanteric bursitis. Soft tissues: The hamstring tendon origins are normal. The iliopsoas tendons are normal. There are partial tears of the bilateral gluteus minimus tendons. There is mild tendinopathy of right gluteus medius tendon. IMPRESSION: 1. Mild bilateral hip joint osteoarthritis. 2. Partial tears of the bilateral gluteus minimus tendons with mild bilateral trochanteric bursitis. Reviewed, dictated and finalized at location A. TAL COMPOSER IMPRESSION: 1. Mild bilateral hip joint osteoarthritis. 2. Partial tears of the bilateral gluteus minimus tendons with mild bilateral t rochanteric bursitis.
== END ==
PROVIDERS: PCP Internal Medicine; Visit Provider Orthopaedic Surgery
DX: M16.0 Bilateral primary osteoarthritis of hip (principal)
CPT/HCPCS: 73721

== ENCOUNTER 2023-03-26 13:31 | Outpatient (CLI) | payer BC, SELFPAY ==
--- NOTE | ~2023-03-26 | XR_ITS ---
EXAMINATION: XR lg joint inject/asp w image DATE: 03/26/2023 14:16 INDICATION: Right hip arthritis. TECHNIQUE: A time-out was performed to verify the patient's name, date of , and procedure to b e performed. The procedure including the risks, benefits, and alternatives was discussed with the pat ient. Risks discussed included bleeding and infection. The patient understood the risks and agreed to proceed. The skin overlying the right hip joint was prepped and draped in usual sterile fashion. A nesthetic was administered with 1% lidocaine subcutaneously. A 22 G needle was advanced under fluoro scopic guidance into the joint. Subsequently, injectate consisting of 2 mL 0.5% bupivacaine and 1 mL 80 mg/mL Depo-Medrol was instilled. The needle was removed and the entry site was cleaned and dress ed. There were no immediate complications. Fluoroscopy exposure time was 0.1 minutes. The total numb er of images was 1. FINDINGS: Real-time fluoroscopy demonstrates the needle in the right hip joint. Patient's pain prior to procedure:3/10. Patient's pain following the procedure: 0/10. IMPRESSION: 1. Fluoroscopy guided right hip joint injection of local anesthetic and steroid with decrease in the patient's presenting pain. Reviewed, dictated and finalized at location A. ISSION BROKER
== END 2023-03-26 13:32 | disposition home or self-care (01) ==
PROVIDERS: PCP Internal Medicine; Visit Provider Orthopaedic Surgery
DX: M16.11 Unilateral primary osteoarthritis, right hip (principal)
CPT/HCPCS: 20610; 77002; J1040

== ENCOUNTER 2023-10-06 07:46 | Outpatient (CLI) | payer BC, SELFPAY ==
--- NOTE | ~2023-10-06 | MM_ITS ---
EXAMINATION: MM screening chayo BI w brayan HISTORY: Screening mammogram TECHNIQUE: Craniocaudal and mediolateral oblique 3-D tomosynthesis images were obtained and synthetic 2-D images were generated. CAD analysis was submitted and interpreted. COMPARISON: 08/28/2022 BREAST PARENCHYMAL COMPOSITION:Not Dense. The breasts are almost entirely fatty FINDINGS: No suspicious mass, calcification, or architectural distortion are identified in either danielle ast to suggest malignancy. There has been no suspicious interval change. IMPRESSION: No mammographic evidence of malignancy. Recommend routine screening mammography in one year. BI-RADS Category 1: Negative Reviewed, dictated and finalized at location .
== END 2023-10-06 07:47 | disposition home or self-care (01) ==
LOC: ANHIMG 07:50
PROVIDERS: PCP Internal Medicine; Visit Provider Internal Medicine
DX: Z12.31 Encounter for screening mammogram for malignant neoplasm of breast (principal)
CPT/HCPCS: 77063; 77067